=== PATIENT | female | born 1950 | race Caucasian/White ===

== ENCOUNTER 2016-12-06 11:30 | Emergency (ER) | payer MEDICAID ==
[2016-12-06 11:45] LABS: % IMMATURE GRANULYOCYTES 0.4 % (0.0-1.1); ABSOLUTE IMMATURE GRANULOCYTES 0.05 10^3/uL (0.00-0.10); ADD DIFF? NO; ADD MORPH? NO; ADD SCAN? NO; ATYPICAL LYMPHOCYTE FLAG 0 (0-99); FRAGMENT RBC FLAG 0 (0-99); HEMATOCRIT 48.1 % (38.0-47.0); HEMOGLOBIN 16.2 g/dL (12.6-16.3); LEFT SHIFT FLG 0 (0-99); LIPEMIA HEMOLYSIS FLAG 80 (0-99); MEAN CELL HEMOGLOBIN 31.1 pg (27.9-34.1); MEAN CELL HEMOGLOBIN CONCENTR. 33.7 g/dL (32.4-36.7); MEAN CELL VOLUME 92.3 fL (81.5-99.8); MEAN PLATELET VOLUME 9.6 fL (8.7-11.7); PLATELET CLUMPS FLAG 10 (0-99); PLATELET COUNT 233 10^3/uL (150-400); RED BLOOD CELL COUNT 5.21 10^6/uL (4.18-5.33)
[2016-12-06 12:00] LABS: ANION GAP 14 mEq/L (8-16); CALCIUM 9.4 mg/dL (8.5-10.4); CARBON DIOXIDE 22 mEq/l (22-31); CHLORIDE 107 mEq/L (97-110); CREATININE 0.7 mg/dL (0.6-1.0); GLOMERULAR FILTRATION RATE > 60; GLUCOSE 105 mg/dL (70-100); POTASSIUM 4.4 mEq/L (3.5-5.2); SODIUM 143 mEq/L (134-144)
--- NOTE | 2016-12-06 12:03 | CPEKG ---
Heart Rate: 49 RR Interval: 1224 P-R Interval: 168 QRSD Interval: 108 QT Interval: 476 QTC Interval: 430 P [place]: 52 QRS [place]: -6 T Wave [place]: 15 EKG Severity - BORDERLINE ECG - EKG Impression: SINUS BRADYCARDIA EKG Impression: BORDERLINE T WAVE ABNORMALITIES Electronically Signed By: Ferny Jameson 06-Dec-2016 12:11:42
--- NOTE | 2016-12-06 12:05 | EDPHY ---
H & P Stated Complaint: sudden onset mid abdominal pain Time Seen by Provider: 12/06/16 11:57 HPI/ROS: CHIEF COMPLAINT: Sudden onset epigastric pain HISTORY OF PRESENT ILLNESS: The patient presents to the ED after the development of severe epigastric pain 2 hours prior to arrival. The patient reported associated nausea but no vomiting. She denies prior history of the symptoms. The patient contacted paramedics who brought her to the emergency department. She did receive IV pain medications in route. The patient states that her pain is currently improving however not resolved. She denies prior history of the symptoms. The patient denies prior history of abdominal surgery. She denies alcohol use. The patient does have a history of chronic back pain from rheumatoid arthritis which she takes daily narcotics for. She is not had a history of abdominal pain in the past. The patient currently rates her discomfort as a 4/10. REVIEW OF SYSTEMS: A comprehensive 10 point review of systems is otherwise negative aside from elements mentioned in the history of present illness. Source: Patient, Family - Personal History Current Tetanus/Diphtheria Vaccine: Yes Current Tetanus Diphtheria and Acellular Pertussis (TDAP): Yes - Medical/Surgical History Hx Asthma: No Hx Chronic Respiratory Disease: Yes Hx Diabetes: No Hx Cardiac Disease: No Hx Renal Disease: No Hx Cirrhosis: No Hx Alcoholism: No Hx HIV/AIDS: No Hx Splenectomy or Spleen Trauma: No Other PMH: COPD, back pain, depression, GERD - Social History Smoking Status: Current every day smoker - Physical Exam Exam: General Appearance: Alert, no acute distress, obese female Eyes: Pupils equal and round no pallor or injection ENT, Mouth: Mucous membranes moist Respiratory: There are no retractions, lungs are clear to auscultation Cardiovascular: Regular rate and rhythm Gastrointestinal: Tenderness to palpation in the epigastric area Neurological: A&O, normal motor function, normal sensory exam, normal cranial nerves Skin: Warm and dry, no rashes Musculoskeletal: Neck is supple nontender Extremities: symmetrical, full range of motion Psychiatric: Patient is oriented X 3, there is no agitation Constitutional: Initial Vital Signs Temperature (C) 36.7 C 12/06/16 11:42 Heart Rate 60 12/06/16 11:42 Respiratory Rate 17 12/06/16 11:42 Blood Pressure 98/62 L 12/06/16 11:42 O2 Sat (%) 93 12/06/16 11:42 O2 Delivery Mode Nasal Cannula O2 (L/minute) 4 Allergies/Adverse Reactions: No Known Allergies Allergy (Unverified 12/06/16 11:39) Home Medications: Medication Instructions Recorded ARIPiprazole 12/06/16 Aspirin 12/06/16 Baclofen 12/06/16 Benadryl 12/06/16 Docusate Sodium 12/06/16 Gabapentin 12/06/16 Ibuprofen 12/06/16 Levothyroxine 12/06/16 Lidocaine 5% 12/06/16 Prednisone 12/06/16 Sertraline HCl 12/06/16 buPROPion 12/06/16 morphINE IR 12/06/16 traMADol 12/06/16 traZODone 12/06/16 Medical Decision Making - Diagnostics EKG Interpretation: EKG: Complete interpretation has been separately recorded in the [facility] archive. Summary impression: Sinus rhythm, nonspecific ST T wave changes noted Imaging Results: Imaging Impressions Abdomen CT 12/06/16 12:52 Impression: 1. Constipation. 2. No CT evidence of appendicitis, abscess or bowel obstruction. 3. Severe degenerative lumbar spine at L3-L4 and L4-L5 with degenerative anterolisthesis and bilateral facet arthropathy, resulting in severe central canal stenosis at both levels, worse at L4-L5. 4. Sigmoid diverticulosis without diverticulitis. 5. Atherosclerotic aorta without aneurysm. Findings and recommendations discussed with Emergency Department physician, Dr. Ferny Jameson at 1339 hours on December 06, 2016. Final report concurs with initial preliminary interpretation. ED Course/Re-evaluation: The patient presents to the ED for evaluation of acute epigastric pain. The patient had fairly severe pain which began 2 hours prior to arrival. The patient's pain had started to guero while in the emergency department. My initial examination did demonstrate mild epigastric tenderness. The patient had an IV established. She received 2 L normal saline. She was taken for a stat CT scan of the abdomen pelvis after a normal creatinine was verified. CT scan of the abdomen pelvis demonstrates no evidence of a perforation, obstruction or obvious intra-abdominal abnormality. The patient's liver function tests are within normal limits. The patient's urinalysis demonstrates no evidence of infection. The patient was re-evaluated at 2:15 p.m.. She continues to improve and has no complaints of acute pain at this point time. I do believe that the etiology for symptoms likely are constipation which is demonstrated on her CT scan. The patient is comfortable doing [id number] laxatives. She will return to the ED for markedly worsening symptoms or other concerns. Differential Diagnosis: Differential diagnosis considered includes perforation, obstruction, pancreatitis, cholecystitis, constipation, gastroenteritis - Data Points Laboratory Results: Laboratory Results 12/06/16 11:30 12/06/16 11:30 12/06/16 12/06/16 12/06/16 Unknown 13:30 11:35 WBC RBC Hgb POC Hgb 17.3 gm/dL H gm/dL (12.6-16.3) Hct POC Hct 51 % H % (38-47) MCV MCH MCHC RDW Plt Count MPV Neut % (Auto) Lymph % (Auto) [place] % (Auto) Eos % (Auto) Baso % (Auto) Nucleat RBC Rel Count Absolute Neuts (auto) Absolute Lymphs (auto) Absolute Monos (auto) Absolute Eos (auto) Absolute Basos (auto) Absolute Nucleated RBC Immature Gran % Immature Gran # POC Sodium 143 mEq/L mEq/L (134-144) Sodium POC Potassium 4.5 mEq/L mEq/L (3.3-5.0) Potassium POC Chloride 102 mEq/L mEq/L (97-110) Chloride Carbon Dioxide Anion Gap POC BUN 16 mg/dL mg/dL (7-23) BUN Creatinine POC Creatinine 0.7 mg/dL mg/dL (0.6-1.0) Estimated GFR Glucose POC Glucose 110 mg/dL H mg/dL (70-100) Calcium Total Bilirubin 0.7 mg/dL mg/dL (0.1-1.4) Conjugated Bilirubin 0.6 mg/dL H mg/dL (0.0-0.5) Unconjugated Bilirubin 0.1 mg/dL mg/dL (0.0-1.1) AST 41 IU/L IU/L (14-46) ALT 35 IU/L IU/L (9-52) Alkaline Phosphatase 149 IU/L H IU/L (38-126) Total Protein 7.0 g/dL g/dL (6.3-8.2) Albumin 4.0 g/dL g/dL (3.5-5.0) Lipase 80.0 IU/L IU/L (23-300) Urine Color YELLOW Urine Appearance CLEAR Urine pH 5.0 (5.0-7.5) Ur Specific [place] 1.009 (1.002-1.030) Urine Protein NEGATIVE (NEGATIVE) Urine Ketones NEGATIVE (NEGATIVE) Urine Blood NEGATIVE (NEGATIVE) Urine Nitrate NEGATIVE (NEGATIVE) Urine Bilirubin NEGATIVE (NEGATIVE) Urine Urobilinogen NEGATIVE EU EU (0.2-1.0) Ur Leukocyte Esterase NEGATIVE (NEGATIVE) Urine RBC 1-3 /hpf /hpf (0-3) Urine WBC 1-3 /hpf /hpf (0-3) Ur Epithelial Cells TRACE /lpf /lpf (NONE-1+) Urine Bacteria TRACE /hpf H /hpf (NONE SEEN) Urine Glucose NEGATIVE (NEGATIVE) 12/06/16 12/06/16 11:30 11:30 WBC 12.67 10^3/uL H 10^3/uL (3.80-9.50) RBC 5.21 10^6/uL 10^6/uL (4.18-5.33) Hgb 16.2 g/dL g/dL (12.6-16.3) POC Hgb Hct 48.1 % H % (38.0-47.0) POC Hct MCV 92.3 fL fL (81.5-99.8) MCH 31.1 pg pg (27.9-34.1) MCHC 33.7 g/dL g/dL (32.4-36.7) RDW 14.0 % % (11.5-15.2) Plt Count 233 10^3/uL 10^3/uL (150-400) MPV 9.6 fL fL (8.7-11.7) Neut % (Auto) 79.5 % H % (39.3-74.2) Lymph % (Auto) 12.8 % L % (15.0-45.0) [place] % (Auto) 5.1 % % (4.5-13.0) Eos % (Auto) 1.6 % % (0.6-7.6) Baso % (Auto) 0.6 % % (0.3-1.7) Nucleat RBC Rel Count 0.0 % % (0.0-0.2) Absolute Neuts (auto) 10.08 10^3/uL H 10^3/uL (1.70-6.50) Absolute Lymphs (auto) 1.62 10^3/uL 10^3/uL (1.00-3.00) Absolute Monos (auto) 0.65 10^3/uL 10^3/uL (0.30-0.80) Absolute Eos (auto) 0.20 10^3/uL 10^3/uL (0.03-0.40) Absolute Basos (auto) 0.07 10^3/uL 10^3/uL (0.02-0.10) Absolute Nucleated RBC 0.00 10^3/uL 10^3/uL (0-0.01) Immature Gran % 0.4 % % (0.0-1.1) Immature Gran # 0.05 10^3/uL 10^3/uL (0.00-0.10) POC Sodium Sodium 143 mEq/L mEq/L (134-144) POC Potassium Potassium 4.4 mEq/L mEq/L (3.5-5.2) POC Chloride Chloride 107 mEq/L mEq/L (97-110) Carbon Dioxide 22 mEq/l mEq/l (22-31) Anion Gap 14 mEq/L mEq/L (8-16) POC BUN BUN 14 mg/dL mg/dL (7-23) Creatinine 0.7 mg/dL mg/dL (0.6-1.0) POC Creatinine Estimated GFR > 60 Glucose 105 mg/dL H mg/dL (70-100) POC Glucose Calcium 9.4 mg/dL mg/dL (8.5-10.4) Total Bilirubin Conjugated Bilirubin Unconjugated Bilirubin AST ALT Alkaline Phosphatase Total Protein Albumin Lipase Urine Color Urine Appearance Urine pH Ur Specific [place] Urine Protein Urine Ketones Urine Blood Urine Nitrate Urine Bilirubin Urine Urobilinogen Ur Leukocyte Esterase Urine RBC Urine WBC Ur Epithelial Cells Urine Bacteria Urine Glucose Point of Care Test Results: 12/06/16 11:35 POC Sodium 143 POC Potassium 4.5 POC Chloride 102 POC BUN 16 POC Creatinine 0.7 POC Glucose 110 H Departure - Departure Disposition: Home, Routine, Self-Care Clinical Impression: Constipation, Epigastric abdominal pain Condition: Good Instructions: Abdominal Pain (ED), Constipation (ED) Additional Instructions: 1. Sometimes we are unable to diagnose an obvious cause of abdominal pain in the Emergency Department. Based upon our evaluation today, I believe your pain was secondary to transient constipation. Because more serious conditions can be difficult to diagnose early in the course of their presentation, we ask that you return to the Emergency Department in 8-12 hours for a recheck if you are still having pain. This is necessary to exclude the development of a more serious condition such as appendicitis or other intra-abdominal emergency. In the event your pain markedly increases before that time or you develop intractable vomiting or fever return to the Emergency Department immediately. 2. Please use milk of magnesia or [id number] laxatives for further management of any ongoing constipation.
[2016-12-06 12:44] LABS: BILIRUBIN,TOTAL 0.7 mg/dL (0.1-1.4); BILIRUBIN-CONJUGATED 0.6 mg/dL (0.0-0.5); BILIRUBIN-UNCONJUGATED 0.1 mg/dL (0.0-1.1)
[2016-12-06] MEDS ORDERED: IOPAMIDOL (ISOVUE-300) 100 ML BTL ONE (13:01)
[2016-12-06 13:46] LABS: COLOR YELLOW; LEUKOCYTE ESTERASE,URINE NEGATIVE (NEGATIVE); NITRITE,URINE NEGATIVE (NEGATIVE)
[2016-12-06 14:01] LABS: BACTERIA TRACE /hpf (NONE SEEN)
[2016-12-06 14:32] VITALS: BP 111/64; PULSE 59; RESP 16; TEMP 98.2; O2SAT 95
== END 2016-12-06 14:31 | disposition home or self-care (01) ==
LOC: EDUNIT#
DX: K59.00 Constipation, unspecified (principal); J44.9 Chronic obstructive pulmonary disease, unspecified; F17.200 Nicotine dependence, unspecified, uncomplicated; Z79.82 Long term (current) use of aspirin
CPT/HCPCS: 82947-QW; Q9967

== ENCOUNTER → 2018-02-06 | Outpatient (CLI) | payer OTHER, MEDICAID | LOC: BHFA 09:00 | PROVIDERS: ATTEND Internal Medicine Cardiovascular Disease | DX: Z01.810 Encounter for preprocedural cardiovascular examination (principal); R06.00 Dyspnea, unspecified; Z72.0 Tobacco use; J44.9 Chronic obstructive pulmonary disease, unspecified ==

== ENCOUNTER → 2018-03-07 | Outpatient (CLI) | payer OTHER, MEDICAID | LOC: BHFA 08:30 | PROVIDERS: ATTEND Internal Medicine Cardiovascular Disease | DX: Z01.810 Encounter for preprocedural cardiovascular examination (principal) | CPT/HCPCS: 78452; 93017; 93306; A9500 ==

== ENCOUNTER 2018-06-06 09:56 | Inpatient (IN) | payer OTHER, MEDICAID | END 2018-06-09 14:15 | LOC: F3N 09:56 → F2N 18:04 → F3N 06-07 17:36 → F2N 20:15 ==

== ENCOUNTER 2018-07-16 04:11 | Emergency (ER) | payer OTHER ==
--- NOTE | 2018-07-16 04:19 | EDPHY ---
H & P Stated Complaint: lower pack pain post fall T-2 Source: Patient, EMS, Old records Exam Limitations: No limitations - Personal History Current Tetanus/Diphtheria Vaccine: Yes Current Tetanus Diphtheria and Acellular Pertussis (TDAP): Yes - Medical/Surgical History Hx Asthma: No Hx Chronic Respiratory Disease: Yes Hx Diabetes: No Hx Cardiac Disease: No Hx Renal Disease: No Hx Cirrhosis: No Hx Alcoholism: No Hx HIV/AIDS: No Hx Splenectomy or Spleen Trauma: No Other PMH: COPD, back pain, depression, GERD - Social History Smoking Status: Former smoker Time Seen by Provider: 07/16/18 04:16 HPI/ROS: HPI The patient presents with low back pain which is achy, moderate in severity, worse with movement which has been present for the last 2 days after she slid out of bed and landed on her back. She has been able to walk over the last 2 days, however since about 5:00 p.m. Yesterday she has had worsening pain. She is status post lumbar fusion at L3 through 4, L4 through [address] Wilde on June 06. She denies any new weakness, numbness or tingling, bowel or bladder incontinence. She is brought in by ambulance and does say she had very mild urinary incontinence with the bumps in the road.. REVIEW OF SYSTEMS 10 systems were reviewed and negative with the exception of the elements mentioned in the history of present illness. PMHx: Lumbar stenosis status post lumbar fusion as detailed above, COPD on home oxygen, some concern raised by family members of pain medication seeking behavior. Soc Hx: Housed PHYSICAL General Appearance: Alert, no distress Eyes: Pupils equal and round no pallor or injection ENT, Mouth: Mucous membranes moist Respiratory: There are no retractions, lungs are clear to auscultation Cardiovascular: Regular rate and rhythm Gastrointestinal: Abdomen is soft and non-tender, no masses, bowel sounds normal Back: There is a lumbar surgical scar with no surrounding erythema, warmth, edema, distal to this at approximately L5-S1 there is tenderness at the midline Neurological: A&O, 5/5 strength in lower extremities, sensation is intact to light touch throughout legs Skin: Warm and dry, no rashes Musculoskeletal: Neck is supple non tender Extremities: symmetrical, full range of motion Psychiatric: Patient is oriented X 3, there is no agitation (Riguzzi,Kaylene) Constitutional: Initial Vital Signs Temperature (C) 36.7 C 07/16/18 04:15 Heart Rate 106 H 07/16/18 04:15 Respiratory Rate 18 07/16/18 04:15 Blood Pressure 132/103 H 07/16/18 04:15 O2 Sat (%) 78 L 07/16/18 04:15 O2 Delivery Mode Nasal Cannula O2 (L/minute) 3 Allergies/Adverse Reactions: No Known Allergies Allergy (Unverified 07/16/18 04:15) Home Medications: Medication Instructions Recorded ARIPiprazole [Abilify 5 mg (*)] 5 mg PO DAILY 06/06/18 Albuterol [Proventil Inhaler HFA 1 - 2 puffs IH Q4H PRN 06/06/18 (*)] Baclofen [Baclofen 10 mg (*)] 10 - 20 mg PO Q6HRS PRN 06/06/18 Bupropion HCl [Wellbutrin Xl] 300 mg PO DAILY 06/06/18 Ergocalciferol [Vitamin D2 (*)] 50,000 unit PO Q7D 06/06/18 Fluticasone Hfa 110 Mcg [Flovent 2 puffs IH BID 06/06/18 110 MCG Hfa MDI (*)] Fluticasone Propionate [Flonase 2 sprays EACHNARE DAILY 06/06/18 Allergy Relief] Furosemide [Lasix 20 MG (*)] 20 - 60 mg PO DAILY 06/06/18 Gabapentin [Neurontin 300 MG (*)] 300 mg PO TID 06/06/18 Levothyroxine [Synthroid 50 mcg 50 mcg PO DAILY06 06/06/18 (*)] Lidocaine 5% [Lidoderm 5% Patch] 1 - 3 ea TD DAILY PRN 06/06/18 Nortriptyline HCl [Pamelor 10 mg 10 - 30 mg PO HS 06/06/18 (*)] Nystatin/Triamcin [Mycolog II 1 lorrie TP BID 06/06/18 Cream] Potassium Chloride [Klor-Con 10] 10 meq PO DAILY 06/06/18 Sertraline HCl [Zoloft 100mg (*)] 250 mg PO DAILY 06/06/18 buPROPion XL [Wellbutrin 150mg XL] 150 mg PO DAILY 06/06/18 busPIRone [Buspar (*)] 15 mg PO BID 06/06/18 clonazePAM [Klonopin (*)] 0.5 mg PO DAILY PRN 06/06/18 hydrOXYzine HCL [hydrOXYzine HCL 25 mg PO Q6H PRN 06/06/18 (RX)] morphINE SR [MS Contin/Oramorph SR 30 mg PO BID 06/06/18 30 mg (*)] traMADol [Ultram 50 mg (*)] 50 - 100 mg PO Q8H PRN 06/06/18 traZODone [traZODONE 100MG (*)] 100 - 200 mg PO HS 06/06/18 morphINE SR [Ms Contin/Oramorph 15 15 mg PO DAILY@1200 06/07/18 mg (*)] Acetaminophen [Tylenol ES 500 mg 1,000 mg PO Q8HRS tab 06/09/18 (*)] Enoxaparin [Lovenox 40 MG (*)] 40 mg SC BID syr 06/09/18 Ipratropium/Albuterol [Duoneb (*)] 3 ml IH Q6HRS PRN deyvial 06/09/18 Methocarbamol [Robaxin 750 mg (*)] 750 mg PO QID PRN tab 06/09/18 Ondansetron Odt [Zofran Odt 4 mg 4 - 8 mg PO Q6HRS PRN tab 06/09/18 (*)] Polyethylene Glycol 3350 [Miralax 17 gm PO DAILY PRN pkt 06/09/18 17 gm (*)] Sennosides/Docusate Sodium 1 - 2 tab PO BID tab 06/09/18 [Senokot-S] diphenhydrAMINE [Benadryl 25 MG 25 - 50 mg PO Q6HRS PRN #0 cap 06/09/18 (*)] guaiFENesin [Mucinex 600 MG (*)] 600 mg PO BID tab.er 06/09/18 morphINE SR [Ms Contin/Oramorph 15 15 mg PO DAILY@1200 tab 06/09/18 mg (*)] oxyCODONE IR [Oxycodone Ir (*)] 5 - 15 mg PO Q3HRS PRN tab 06/09/18 traZODone [traZODONE 100MG (*)] 100 mg PO HS PRN tab 06/09/18 Medical Decision Making - Diagnostics Imaging: Discussed imaging studies w/ charge attendant Radiologist - Diagnostics Imaging Results: CT lumbar spine without contrast demonstrates apparent fracture Ng which is acute of the upper aspect of L5 with avulsed or displaced fracture fragment left paracentral. Minimal fracturing at the inferior L5 level suspected, interpreted by direct Radiology. (Kaylene Serra) Differential Diagnosis: 68-year-old female who is about 1 month status post lumbar fusion at L3-L4, L4- L5 presents brought in by ambulance for low back pain after a fall 2 days ago. She is ambulatory but has had progressive pain over the last 12 hr. She does not have any neurologic deficits. She does not have any new incontinence. Plan for CT scan of her lumbar spine as she is tender over the midline. Differential diagnosis includes compression fracture, lumbar strain, less likely complication of her operation. In the emergency department, patient was given her usual outpatient pain medication. CT scan was obtained of her lumbar spine which did demonstrate acute fracture of L5. I consulted with the on-call neurosurgeon Dr. Joya. He was able to review the patient's images. Dr. Agee came to the emergency department to see the patient. We plan to discharge her. She will wear her back brace again. She has follow up shortly with her primary neurosurgeon. She is comfortable with this plan. (Kaylene Serra) Other Provider: I was involved with this patient's care peripherally. Patient had been discharged by Dr. Roa. However, when the patient's daughter arrived, the daughter expressed frustration regarding her ability to care for her mother at home. Both the patient and the daughter do understand that the patient is safe to be discharged and to use oral pain meds. In fact the patient had been up and ambulatory in the emergency department using her walker with no difficulty. I did ask case management to assist with this patient's care. Please see the case management notes. We did offer to help assist the patient with readmission to a rehab facility, however, patient and her daughter declined after further consideration. Patient was ultimately discharged to home with her daughter with increased home support. (Kenya Busch) - Data Points Medications Given: Discontinued Medications Morphine Sulfate (Ms Contin/Oramorph Sr) 30 mg PO ONCE ONE Stop: 07/16/18 06:39 Last Admin: 07/16/18 06:47 Dose: 30 mg Departure - Departure Disposition: Home, Routine, Self-Care Clinical Impression: L5 vertebral fracture Qualifiers: Encounter type: initial encounter Fracture type: closed Fracture morphology: other fracture Qualified Code(s): S32.058A - Other fracture of fifth lumbar vertebra, initial encounter for closed fracture Condition: Good Instructions: Thoracolumbar Fracture (ED) Additional Instructions: Please follow-up with your neurosurgeon as directed. Please wear your back brace. As discussed with the shelter case manager in the ED, please increase PT in the home, and increase the home health services. Consider adding a behaviour health specialist and additional medical equipment. Referrals: Kandi Wilde DO [Doctor of Osteopathy] - As per Instructions
[2018-07-16] MEDS ORDERED: morphINE SR 30 MG TAB PO ONE (06:38)
--- NOTE | 2018-07-16 10:31 | GCON ---
[f rep st] CONSULTATION ER CONSULTATION NOTE DATE OF CONSULTATION: 07/16/2018 REASON FOR CONSULTATION: Low back pain with lumbar spine fracture status post ground level fall. HISTORY OF PRESENT ILLNESS: The patient is a patient of Dr. Wilde who is my partner. She states t hat she underwent an L3 through L5 fusion by Dr. Chani marte on June 06. The patient was doing fairly well at home; however, had a slip and fall out of her bed approximately 2 days ago. She stat es she landed on her side and her back. She has had worsening low back pain since that time. No new tingling, numbness, pain, or weakness in the upper or lower extremities. She has been utilizing her brace and bone stimulator as requested with some improvement in her symptoms. The patient's pain go t to the point of being so severe that she [facility] and management. Patient denies any bowel or bladder incontinen ce and no loss of consciousness. REVIEW OF SYSTEMS: Complete 10-point review of systems from the patient intake form reviewed by laurie castro significant only for those noted above in the HPI. PAST MEDICAL HISTORY: 1. History of lumbar stenosis status post L3 through L5 fusion 06/06/[address] Wilde. 2. COPD, for which she is on home oxygen. 3. Chronic pain. 4. Hypothyroidism. 5. Depression. 6. Asthma. 7. Gastroesophageal reflux disease. 8. Back pain. PAST SURGICAL HISTORY: History of L3 through L5 lumbar fusion as noted above. SOCIAL HISTORY: The patient lives with her daughter and is a former smoker. ALLERGIES: No known drug allergies. MEDICATIONS: 1. Abilify 5 mg p.o. daily. 2. Albuterol inhaler 1-2 puffs inhaled q.4 hours p.r.n. 3. Baclofen 10-20 mg p.o. q.6 hours p.r.n. 4. Wellbutrin 300 mg p.o. daily. 5. Vitamin D2 at 50,000 units p.o. q.7 days. 6. Flovent 110 mcg inhaler 2 puffs inhaled b.i.d. 7. Flonase 2 sprays each naris daily. 8. Lasix 20 to 60 mg p.o. daily. 9. Gabapentin 300 mg p.o. t.i.d. 10. Synthroid 50 mcg p.o. daily. 11. Lidocaine topical patches 1-3 topical and transdermal daily p.r.n. 12. Nortriptyline 30 mg p.o. q.h.s. 13. Nystatin topical cream b.i.d. 14. Potassium chloride 10 mEq p.o. daily. 15. Zoloft 250 mg p.o. daily. 16. Wellbutrin 150 mg p.o. daily. 17. BuSpar 15 mg p.o. b.i.d. 18. Clonazepam 0.5 mg p.o. daily p.r.n. 19. Hydroxyzine 25 mg p.o. q.6 hours p.r.n. 20. MS Contin 30 mg p.o. twice daily. 21. Tramadol 50 to 100 mg p.o. q.8 hours p.r.n. 22. Trazodone 100 to 200 mg p.o. q.h.s. 23. Morphine 50 mg p.o. every noon. 24. Tylenol 1000 mg p.o. q.8 hours. 25. Lovenox 40 mg subcu b.i.d. 26. Albuterol inhaler q.6 hours p.r.n. 27. Robaxin 750 mg p.o. q.i.d. p.r.n. 28. Zofran 4 to 8 mg p.o. q.6 hours p.r.n. 29. MiraLAX 17 mg p.o. daily p.r.n. 30. Docusate senna 1-2 tabs p.o. b.i.d. 31. Benadryl 25 to 50 mg p.o. q.6 hours p.r.n. 32. Mucinex 600 mg p.o. b.i.d. 33. MS Contin 15 mg p.o. daily. 34. Oxycodone 15 mg p.o. q.3 hours p.r.n. 35. Trazodone 100 mg p.o. q.h.s. p.r.n. FAMILY HISTORY: Noncontributory. PHYSICAL EXAMINATION: VITAL SIGNS: Blood pressure is 102/92, heart rate is 94, respiratory rate 16, saturating 95% on 5 L nasal cannula, temperature is 36.6. GENERAL: The patient is lying in the gur danna in no acute distress. She is quite pleasant and cooperative with examination. Affect appears ap propriate. HEENT: Head is atraumatic, normocephalic. Pupils are equal, round, and reactive to ligh t bilaterally. Oropharynx is moist. NEUROLOGIC: Cranial nerves 2-12 are intact. Extraocular movem ents are intact. Pupils equal, round, and reactive to light bilaterally. Tongue protrudes in the mi dline. Uvula and palate elevate symmetrically. She has intact sensation to light touch on her face bilaterally and hearing is intact to light finger scratch bilaterally. Shoulder shrug is symmetric. MOTOR: She has 5/5 strength in bilateral peeled potato inspector strength biceps, triceps, deltoids, bilateral hip fle xion, knee flexion and extension, plantar and dorsiflexion, and extensor hallucis longus. SENSORY: Intact sensation to light touch throughout all major dermatomes of the bilateral upper and lower extr emities throughout. REFLEXES: She has 1+ reflexes at the bilateral brachioradialis and patellae wit h no Sales's and no Babinski. OTHER: She has some midline lumbar tenderness noted near the lumbos acral junction but no palpable step-offs. MEDICAL DECISION MAKING: Patient underwent a lumbar CT without contrast completed at [facility] and reviewed by myself on the PACS system. There is a small avulsed fracture, left parac entral superior endplate of L5. There is minimal fracture of the inferior L5 level as well. No evid ence of any hardware failure. There is hardware present from L3 through L5 with an interbody cage at the L3-4 level. ASSESSMENT AND PLAN: The patient is a very pleasant woman who presents 2 months after an L3 through L5 lumbar fusion 06/06/[address] Wilde, who has developed worsening low back pain without any n eurological deficit or radiculopathy after a slide to the ground and fall approximately 2 days ago. The patient has focal back pain, and I explained to her that the findings on the CT scan consistent w ith a likely acute L5 fracture around her hardware. At this point, I explained to the patient that s he could be admitted for pain control and typical treatments for this include either close continued monitoring with bracing and pain medications versus kyphoplasty and/or revision of her hardware. At this point, the patient does feel like she is able to control her pain, knowing what the diagnosis is , and would prefer to be discharged home from the emergency department. She has a followup with Dr. Wilde in 2 weeks. I have encouraged the patient to wear her lumbar corset, as well as the bone sti mulator, in the interim. She will continue with her pain medications as directed before admission in the emergency department. Red flag symptoms were discussed with the patient, as well as Dr. Serra in the emergency department, who were in agreement. They will ensure that her social situation at [facility] is conducive for her being discharged back to home with her daughter. The patient expressed an u nderstanding. Please note the patient was seen in the emergency department by myself at 7:05 am on 07/16/2018. /[id number]/MODL
[2018-07-16 10:54] VITALS: BP 128/81
--- NOTE | 2018-07-16 18:29 | ASMTCMCOM ---
CM Note CM Note Notes: Pt presented to the ED via EMS for back pain after having a fall out of bed 2 days ago. Pt has been having increased pain and decreased ability to ambulate. Pt had an L3-L5 fusion on 06/06/[address] Chani degroot/[facility]. Pt was discharged to [facility] where she stayed for 20 days.Pt then returned to her home in [place], where she lives w/her daughter, Karen. Pt is set up w/[facility] and was supposed to be discharged from their HC services this upcoming week. Today pt received an MRI and was diagnosed with small avulsed fracture at L5 and a minimal fracture of inferior of L5 as well. Neurosurgery consulted pt in the ED; see Dr Agee's consultation report for additional info. CM requested to speak to pt and Karen re: options of returning to a SNF vs returning home w/increased HC assistance. Spoke w/pt and Karen (and Karen's partner) extensively re:pt returning home safely vs returning to a SNF (but not [facility] because as per Karen, they will not accept patient back). Pt doesn't have a secondary/supplemental insurance so pt would have to pay her co-pay of ~$170 per day, which the pt and Karen cannot afford. Ultimately it was decided that pt would return home with [facility] to maintain/increase [facility] RN/PT/OT services for another month. Pt and daughter appear to have a complicated relationship but also are very caring toward each other. Karen was intermittently emotional throughout the ED visit and discussions and she overall presents as being very strained due to being the primary caregiver. We discussed the pt being visited by a manager social or behavioral health specialist through either [facility] or other options ([facility], etc?). Pt is open to this and verbalizes understanding that she needs emotional and mental health support during this physically challenging time. This CM called Zoya w/[facility] and left a voicemail to ensure overall concerns and information were relayed. We also discussed Karen seeking out additional support and counseling; Karen requested referrals/resources. This CM provided various mental health resources. CM also provided pt and Karen various non-skilled HC resources, [employer] and [employer] resource lists, [employer] alert info., and various other senior resources. Pt discharged home w/Karen. BHANU available for further assistance if needed. Date Signed: 07/16/2018 06:28 PM Electronically Signed By:Brianna Chawla RN
--- NOTE | 2018-07-17 16:43 | ASMTCMCOM ---
CM Note CM Note Notes: Followed up and spoke with Zoya ([phone]) w/[facility]. Zoya states that [facility] was able to get an extension for RN/PT services for another 3 weeks via pt's neurosurgeon, Dr Wilde. Zoya states PT visited pt today and an RN is planning to visit tomorrow. BHANU requested that a SW visit with the pt and assess for additional SW HC services, outpatient or in-home ([facility]) mental health services, emotional support, etc. Humberto states she will have their medical SW visit the pt as soon as possible. We also discussed that the pt would benefit from an electronic pill dispensing machine/box at home and Zoya states the RN is researching and looking into it before their visit tomorrow. We also discussed that the pt may benefit from a bedside step stool that has support handles on each side and Zoya states she will check in w/the pt and her daughter, Karen, to see if they need additional help finding one. Zoya also states that if the pt ends up needing more than 3 weeks of additional HC, then [facility] will reach out to the pt's PCP Dr Corinne Pringle and continue coordination of care w/her. CM available for further assistance if needed. Date Signed: 07/17/2018 04:42 PM Electronically Signed By:Brianna Chawla RN
--- NOTE | 2018-07-17 16:45 | ASDISCHSUM ---
Discharge Information Plan Status:Home with Home Health Medically Cleared to Leave: Discharge Date:07/16/2018 11:38 AM D/C Disposition:Home Health Service ADT D/C Disposition:Home, Routine, Self-Care Projected Discharge Date:07/16/2018 11:00 AM Transportation at D/C:Family Discharge Delay Reason: Follow-Up Date:07/16/2018 11:00 AM Discharge Slot: Final Diagnosis: Placement Information Referral Type:*Detention/SNF Referral ID:[id number] Provider Name: Address 1: Phone Number: Address 2: Fax Number: City: [place]: State: Patient Contact Information Contact Name:FAVIAN Relationship:Daughter Address: Work Phone: City: [facility] Phone: [facility] Code: Email: Financial Information Financial Class:Medicare Primary Plan Desc:MEDICARE OUTPATIENT Primary Plan Number:[id number] Secondary Plan Desc: Secondary Plan Number: Assessment Information [facility] CM Progress Note CM Note CM Note Notes: Pt presented to the ED via EMS for back pain after having a fall out of bed 2 days ago. Pt has been having increased pain and decreased ability to ambulate. Pt had an L3-L5 fusion on 06/06/[address] Chani degroot/[facility]. [facility] she stayed for 20 days.Pt then returned to her home in [place] [facility], where she lives w/her daughter, Karen. Pt is set up w/[facility] and was supposed to be discharged from their HC services this upcoming week. Today pt received an MRI and was diagnosed with small avulsed fracture at L5 and a minimal fracture of inferior of L5 as well. Neurosurgery consulted pt in the ED; see Dr Agee's consultation report for additional info. CM requested to speak to pt and Karen re: options of returning to a SNF vs returning home w/increased HC assistance. Spoke w/pt and Karen (and Karen's partner) extensively re:pt returning home safely vs returning to a SNF (but not [facility] because as per Karen, they will not accept patient back). Pt doesn't have a secondary/supplemental insurance so pt would have to pay her co-pay of ~$170 per day, which the pt and Karen cannot afford. Ultimately it was decided that pt would return home with [facility] to maintain/increase [facility] RN/PT/OT services for another month. Pt and daughter appear to have a complicated relationship but also are very caring toward each other. Karen was intermittently emotional throughout the ED visit and discussions and she overall presents as being very strained due to being the primary caregiver. We discussed the pt being visited by a social media senior associate or behavioral health specialist through either [facility] or other options ([facility], etc?). Pt is open to this and verbalizes understanding that she needs emotional and mental health support during this physically challenging time. This CM called Zoya w/[facility] and left a voicemail to ensure overall concerns and information were relayed. We also discussed Karen seeking out additional support and counseling; Karen requested referrals/resources. This CM provided various mental health resources. also provided pt and Karen various non-skilled HC resources, [employer] and [employer] resource lists, [employer] alert info., and various other senior resources. Pt discharged home w/Karen. CM available for further assistance if needed. Date Signed: 07/16/2018 06:28 PM Electronically Signed By:Brinana Chawla RN [facility] Progress Note CM Note CM Note Notes: Followed up and spoke with Zoya ([phone]) w/[facility]. Zoya states that [facility] was able to get an extension for RN/PT services for another 3 weeks via pt's neurosurgeon, Dr Wilde. Zoya states PT visited pt today and an RN is planning to visit tomorrow. CM requested that a visit with the pt and assess for additional HC services, outpatient or in-home ([facility] program) mental health services, emotional support, etc. Humberto states she will have their medical SW visit the pt as soon as possible. We also discussed that the pt would benefit from an electronic pill dispensing machine/box at home and Zoya states the RN is researching and looking into it before their visit tomorrow. We also discussed that the pt may benefit from a bedside step stool that has support handles on each side and Zoya states she will check in w/the pt and her daughter, Karen, to see if they need additional help finding one. Zoya also states that if the pt ends up needing more than 3 weeks of additional HC, then [facility] will reach out to the pt's PCP Dr Corinne Pringle and continue coordination of care w/her. CM available for further assistance if needed. Date Signed: 07/17/2018 04:42 PM Electronically Signed By:Brianna Chawla RN Intervention Information
== END 2018-07-16 11:38 | disposition home or self-care (01) ==
LOC: EDUNIT#
DX: S32.058A Other fracture of fifth lumbar vertebra, initial encounter for closed fracture (principal); W06.XXXA Fall from bed, initial encounter; Y92.003 Bedroom of unspecified non-institutional (private) residence as the place of occurrence of the external cause; Z98.1 Arthrodesis status

== ENCOUNTER 2018-08-04 10:08 | Inpatient (IN) | payer OTHER ==
[2018-08-04] MEDS ORDERED: LORazepam 2 MG/ML INJ IVP ONE (10:37)
[2018-08-04] MEDS ORDERED: HYDROmorphONE/DILAUDID 1 MG/ML INJ IVP ONE (10:37)
[2018-08-04] MEDS ORDERED: ONDANSETRON 4 MG/2 ML VIAL IVP ONE (10:37)
--- NOTE | 2018-08-04 10:41 | EDPHY ---
H & P Stated Complaint: L leg "shooting" pains worse since yesterday--lumbar fusion - Medical/Surgical History Hx Asthma: No Hx Chronic Respiratory Disease: Yes Hx Diabetes: No Hx Cardiac Disease: No Hx Renal Disease: No Hx Cirrhosis: No Hx Alcoholism: No Hx HIV/AIDS: No Hx Splenectomy or Spleen Trauma: No Other PMH: COPD, lumbar fusion 06/09, depression, GERD - Social History Smoking Status: Former smoker Time Seen by Provider: 08/04/18 10:26 HPI/ROS: CHIEF COMPLAINT: Intractable back pain, new left lower extremity weakness HISTORY OF PRESENT ILLNESS: 68-year-old female history of lumbar fusion L3 for [address] Kandi Wilde 06/06/2018 arrives via private vehicle with her family who live in [place] complaining of new onset left lower extremity weakness for the past 24 hr and intractable low back pain. History of opiate dependence. Patient was seen the ER a few weeks ago after she fell and was found to have new fracture fragment L5 . Neurosurgery is consult that time and patient felt comfortable her ability to care for self at home. Home healthcare nurse has been seeing patient most recently yesterday and they recommend she go to the ER for intractable pain and more than likely hospital admission. The patient notes that she is unable to dorsiflex or plantar flex the left foot and this is a new finding in the past 24-48 hours. No acute trauma since last being seen the ER few weeks ago. No saddle anesthesia. No fever or chills. No incontinence. No cold or flu-like symptoms. PRIMARY CARE PROVIDER: REVIEW OF SYSTEMS: A ten point review of systems was performed and is negative with the exception of the items mentioned in the HPI PAST MEDICAL & SURGICAL HISTORY: lumbar fusion Dr. Kandi Wilde May 2018. SOCIAL HISTORY:Lives with her daughter in [place] PHYSICAL EXAM (Prior to examination, patient consented to physical exam, hands were washed and my usual and customary physical exam procedures followed) 1) GENERAL: Well-developed, well-nourished, alert and oriented. Appears uncomfortable 2) HEAD: Normocephalic, atraumatic 3) HEENT: Pupils equal, round, reactive to light bilaterally. Sclera anicteric. Nasopharynx, oropharynx, clear, no lesions. 4) NECK: Full range of motion, no meningeal signs. 5) LUNGS: Clear auscultation bilaterally, no wheezes, no rhonchi, no retractions. 6) HEART: Regular rate and rhythm, no murmur, no heave, no gallop. 7) ABDOMEN: No guarding, no rebound, no focal tenderness, negative McBurney's, negative Munoz's, negative Rovsing's, negative peritoneal sign, 8) MUSCULOSKELETAL: Moving all extremities, no focal areas of tenderness, no obvious trauma. No peripheral edema or discoloration. DP PT pulses present and brisk bilaterally. Negative Homans no palpable cord bilaterally. Normal coloration temperature bilaterally. 9) BACK:. No CVA tenderness, no midline vertebral tenderness, no fluctuance, no step-off, no obvious trauma, no visual or palpable abnormality. Patella, Achilles reflexes intact to bilateral strength 5/5 10) SKIN: No rash, no petechiae. 11) NEURO: Awake, alert, and oriented to person, place and time. Answers questions appropriately. Hyper reflexive left lower extremity patella and Achilles. Unclear whether patient is unable or unwilling to dorsiflex or plantar flex secondary to pain. DIFFERENTIAL DIAGNOSIS: In no particular order, including but not limited to, fracture, sprain/strain, cauda equina, spinal infectious etiology. (Ronn Casey) Constitutional: Initial Vital Signs Temperature (C) 36.5 C 08/04/18 10:10 Heart Rate 105 H 08/04/18 10:10 Respiratory Rate 22 H 08/04/18 10:10 Blood Pressure 106/90 H 08/04/18 10:10 O2 Sat (%) 94 08/04/18 10:10 O2 Delivery Mode Room Air O2 (L/minute) 4 Allergies/Adverse Reactions: No Known Allergies Allergy (Unverified 07/16/18 04:15) Home Medications: Medication Instructions Recorded ARIPiprazole [Abilify 5 mg (*)] 5 mg PO DAILY 06/06/18 Albuterol [Proventil Inhaler HFA 1 - 2 puffs IH Q4H PRN 06/06/18 (*)] Baclofen [Baclofen 10 mg (*)] 20 mg PO BID 06/06/18 Bupropion HCl [Wellbutrin Xl] 300 mg PO DAILY 06/06/18 Ergocalciferol [Vitamin D2 (*)] 50,000 unit PO Q7D 06/06/18 Fluticasone Hfa 110 Mcg [Flovent 2 puffs IH BID 06/06/18 110 MCG Hfa MDI (*)] Fluticasone Propionate [Flonase 2 sprays EACHNARE DAILY 06/06/18 Allergy Relief] Furosemide [Lasix 20 MG (*)] 20 mg PO DAILY 06/06/18 Gabapentin [Neurontin 300 MG (*)] 900 mg PO TID 06/06/18 Levothyroxine [Synthroid 50 mcg 50 mcg PO DAILY06 06/06/18 (*)] Lidocaine 5% [Lidoderm 5% Patch] 1 - 3 ea TD DAILY PRN 06/06/18 Nortriptyline HCl [Pamelor 10 mg 30 mg PO HS 06/06/18 (*)] Potassium Chloride [Klor-Con 10] 10 meq PO DAILY 06/06/18 Sertraline HCl [Zoloft 100mg (*)] 250 mg PO DAILY 06/06/18 buPROPion XL [Wellbutrin 150mg XL] 150 mg PO DAILY 06/06/18 busPIRone [Buspar (*)] 15 mg PO BID 06/06/18 clonazePAM [Klonopin (*)] 0.5 mg PO DAILY PRN 06/06/18 morphINE SR [MS Contin/Oramorph SR 60 mg PO BID 06/06/18 30 mg (*)] Acetaminophen [Tylenol ES 500 mg 1,000 mg PO Q8HRS tab 06/09/18 (*)] Ondansetron Odt [Zofran Odt 4 mg 4 - 8 mg PO Q6HRS PRN tab 06/09/18 (*)] Polyethylene Glycol 3350 [Miralax 17 gm PO DAILY PRN pkt 06/09/18 17 gm (*)] traZODone [traZODONE 100MG (*)] 100 mg PO HS PRN tab 06/09/18 Aspirin [Aspirin 325 mg (*)] 325 mg PO DAILY 08/04/18 Baclofen [Baclofen 10 mg (*)] 10 - 20 mg PO DAILY PRN 08/04/18 Bisacodyl [Dulcolax] 10 mg RC DAILY PRN 08/04/18 Sennosides/Docusate Sodium 1 - 2 tab PO BID PRN 08/04/18 [Senokot-S] guaiFENesin [Mucinex 600 MG (*)] 600 mg PO BID PRN 08/04/18 morphINE IR [morphINE IR 15 mg (*)] 15 mg PO DAILY@12 08/04/18 Medical Decision Making - Diagnostics Imaging Results: Imaging Impressions Lumbar Spine MRI 08/04/18 10:38 Impression: 1. Limited exam due to motion artifact and susceptibility artifact from posterior fusion construct extending from L3 through L5. 2. Residual posterior postoperative fluid collection is likely a benign seroma. 3. Mild central canal narrowing at L3-L4 and mild to moderate residual central canal narrowing at L4-L5. 4. Neural foramina are partially obscured. 5. No definite residual or recurrent disk herniation. 6. Subacute L5 fracture unchanged in alignment. No new fractures. Findings discussed with Emergency Department Physician Call Centre Supervisor, Bi Casey, on August 04, 2018 at 1210. E:RH/amm Imaging Impressions Lumbar Spine MRI 08/04/18 10:38 Impression: 1. Limited exam due to motion artifact and susceptibility artifact from posterior fusion construct extending from L3 through L5. 2. Residual posterior postoperative fluid collection is likely a benign seroma. 3. Mild central canal narrowing at L3-L4 and mild to moderate residual central canal narrowing at L4-L5. 4. Neural foramina are partially obscured. 5. No definite residual or recurrent disk herniation. 6. Subacute L5 fracture unchanged in alignment. No new fractures. Findings discussed with Emergency Department Physician Call Centre Supervisor, Bi Casey, on August 04, 2018 at 1210. E:RH/amm Images reviewed myself (Ronn Casey) ED Course/Re-evaluation: I did not see this patient while she was in the emergency department. However her care was discussed with the PA while the patient was in the department. I agree with treatment plan and management (Moe Villalobos) 10:41 a.m.: I have reviewed the patient's old medical records. She is hyporeflexive left lower extremity, week left lower extremity, will plan on MRI and plan on more than likely admission for pain control. Care of patient under supervision of secondary supervising physician Dr Villalobos with whom I discussed case. 11:11 a.m.: Consultation with Dr. Smith, will admit to hospitalist Dr. Dulce Rm. Will consult with Neurosurgery 12:25 p.m.: Consultation with Dr. Nanny Avina who will consult. I discussed the MRI results with the patient and her family at this time. She is feeling significant improvement in pain. She is still would like to be admitted to the hospital (Ronn Casey) - Data Points Laboratory Results: Laboratory Results 08/04/18 10:40 08/04/18 10:40 08/04/18 08/04/18 10:40 10:40 WBC 13.81 10^3/uL H 10^3/uL (3.80-9.50) RBC 4.84 10^6/uL 10^6/uL (4.18-5.33) Hgb 13.2 g/dL g/dL (12.6-16.3) Hct 41.2 % % (38.0-47.0) MCV 85.1 fL fL (81.5-99.8) MCH 27.3 pg L pg (27.9-34.1) MCHC 32.0 g/dL L g/dL (32.4-36.7) RDW 13.9 % % (11.5-15.2) Plt Count 342 10^3/uL 10^3/uL (150-400) MPV 9.6 fL fL (8.7-11.7) Neut % (Auto) 84.3 % H % (39.3-74.2) Lymph % (Auto) 8.8 % L % (15.0-45.0) Bell % (Auto) 5.5 % % (4.5-13.0) Eos % (Auto) 0.5 % L % (0.6-7.6) Baso % (Auto) 0.4 % % (0.3-1.7) Nucleat RBC Rel Count 0.0 % % (0.0-0.2) Absolute Neuts (auto) 11.64 10^3/uL H 10^3/uL (1.70-6.50) Absolute Lymphs (auto) 1.22 10^3/uL 10^3/uL (1.00-3.00) Absolute Monos (auto) 0.76 10^3/uL 10^3/uL (0.30-0.80) Absolute Eos (auto) 0.07 10^3/uL 10^3/uL (0.03-0.40) Absolute Basos (auto) 0.05 10^3/uL 10^3/uL (0.02-0.10) Absolute Nucleated RBC 0.00 10^3/uL 10^3/uL (0-0.01) Immature Gran % 0.5 % % (0.0-1.1) Immature Gran # 0.07 10^3/uL 10^3/uL (0.00-0.10) Sodium 133 mEq/L L mEq/L (135-145) Potassium 4.6 mEq/L mEq/L (3.5-5.2) Chloride 95 mEq/L L mEq/L (97-110) Carbon Dioxide 24 mEq/l mEq/l (22-31) Anion Gap 14 mEq/L mEq/L (6-14) BUN 14 mg/dL mg/dL (7-23) Creatinine 0.7 mg/dL mg/dL (0.6-1.0) Estimated GFR > 60 Glucose 107 mg/dL H mg/dL (70-100) Calcium 9.6 mg/dL mg/dL (8.5-10.4) Medications Given: Acetaminophen (Tylenol) 1,000 mg PO Q8HRS [facility] Stop: 01/31/19 13:59 Last Admin: 08/04/18 14:45 Dose: Not Given Polyethylene Glycol (Miralax) 17 gm PO DAILY [facility] Stop: 01/31/19 12:14 Last Admin: 08/04/18 14:46 Dose: Not Given Discontinued Medications Hydromorphone HCl (Dilaudid) 1 mg IVP EDNOW ONE Stop: 08/04/18 10:38 Last Admin: 08/04/18 11:56 Dose: Not Given Lorazepam (Ativan Injection) 1 mg IVP EDNOW ONE Stop: 08/04/18 10:38 Last Admin: 08/04/18 11:00 Dose: 1 mg Ondansetron HCl (Zofran) 4 mg IVP EDNOW ONE Stop: 08/04/18 10:38 Last Admin: 08/04/18 11:57 Dose: Not Given Departure - Departure Disposition: [facility] Inpatient Acute Clinical Impression: Intractable low back pain Condition: Fair
[2018-08-04 10:48] LABS: PLATELET COUNT 342 10^3/uL (150-400)
[2018-08-04] MEDS ORDERED: diphenhydrAMINE 25 MG CAP PO PRN (12:11)
[2018-08-04] MEDS ORDERED: ACETAMINOPHEN 325 MG TAB PO PRN (12:11)
[2018-08-04] MEDS ORDERED: ONDANSETRON DISINTEGRATING 4 MG TAB PO PRN ×2 (12:11→12:13)
[2018-08-04] MEDS ORDERED: oxyCODONE IR 5 MG TAB PO PRN (12:11)
[2018-08-04] MEDS ORDERED: ONDANSETRON 4 MG/2 ML VIAL IVP PRN (12:11)
[2018-08-04] MEDS ORDERED: HYDROCODONE/APAP 5/325 TAB PO PRN (12:11)
[2018-08-04] MEDS ORDERED: guaiFENesin 600 MG TAB.ER PO PRN (12:13)
[2018-08-04] MEDS ORDERED: SENNOSIDES/DOCUSATE SODIUM TAB PO PRN (12:13)
[2018-08-04] MEDS ORDERED: ALBUTEROL 60 PUFFS/8 GM MDI IH PRN (12:13)
--- NOTE | 2018-08-04 13:09 | ASMTCMCOM ---
CM Note CM Note Notes: Reviewed chart. Pt presented to the Emergency Department with intractable back pain, new leg pain and weakness. History includes an L3-L5 TLIF on 06/09/18, opiate dependence, chronic back pain, COPD with continuous oxygen use, hypothyroid, depression, anxiety, diastolic dysfunction and a 50 yr smoking history. Pt lives with her dghtr in [facility]. She has a partner, Karen who has previously been involved in her care. Per prior records, pt underwent surgery with [facility] in May and was discharged to [facility]. Upon discharge from rehab she was set up with [facility] (RN/PT/OT). The pt sustained a fall and was seen in the ED on 07/16/18. She was found to have a new L5 fracture and was discharged from the ED to home per [facility]. At that time CM noted the pt and family needed some additional mental health support - several resources were provided and a call was placed to [facility] requesting a manager social media see the pt at home. Please see CM notes from 07/16/18. CM spoke with Amilcar Casey PA-C. Per Amilcar, call received from [facility] - per [facility], pt would benefit from additional rehab due to safety concerns in the home. Pt to be admitted for further evaluation and for assistance determining a safe discharge plan. CM will await MD/PT/OT edita and will continue to follow. Discharge Plan: To be determined Date Signed: 08/04/2018 01:09 PM Electronically Signed By:Celia Goss RN
[2018-08-04] MEDS ORDERED: GADOBUTROL 10 ML VIAL IVP ONE (14:01)
[2018-08-04] MEDS: ACETAMINOPHEN 500 MG TAB PO SCH ×2 (14:45→22:05)
[2018-08-04] MEDS: POLYETHYLENE GLYCOL 3350 17 GM PKT PO SCH (14:46)
[2018-08-04] MEDS: PIPERACILLIN NA/TAZO 4.5 GM in D5W 100 ML IV SCH ×2 (16:07→22:05)
[2018-08-04] MEDS: POTASSIUM CL 10 MEQ TAB PO SCH (16:09)
[2018-08-04] MEDS: GABAPENTIN 300 MG CAP PO SCH ×2 (16:09→22:05)
[2018-08-04] MEDS: VANCOMYCIN 1.25 GM in NS 250 ML IV SCH (17:09)
[2018-08-04] MEDS: morphINE SR 30 MG TAB PO SCH (17:09)
--- NOTE | 2018-08-04 17:30 | PDGENHP ---
History and Physical - Chief Complaint worsening L leg/back pain - History of Present Illness 68 yo F w/ history of COPD on continuous O2, hypothyroid, chronic back pain, depression/anxiety, morbid obesity, that had L3-L5 TLIF 05/2018- Dr Wilde, came to ER today because of worsening L leg pain and inability to walk. She has noticed increasing low back and L sided pain for about a week. Was much worse last nt, so went to bed early. Says when she woke up she was unable to walk/move. Laying down in bed, says most comfortable position now. Denies fever. Has been constipated in general, and has to push to urinate sometimes. These symptoms have been occurring for > 2 weeks, and not worse in last few days. Denies bowel/bladder incontinence. No cough/congestion/shortness of breath or chest pain. She is chronically on O2, no change in L/min. PCP Dr Corinne Pringle in [place]. She had pre-operative screening in 05/2018 which included essentially normal echocardiogram and nuclear perfusion study, Grade I diastolic dysfunction. She smoked cigarettes for >50 years and has an estimated 70 pack year hx. Not a current smoker History Information - Allergies/Home Medication List Allergies/Adverse Reactions: No Known Allergies Allergy (Unverified 07/16/18 04:15) Home Medications: ARIPiprazole [Abilify 5 mg (*)] 5 mg PO DAILY 06/06/18 [Last Taken 08/04/18] Albuterol [Proventil Inhaler HFA (*)] 1 - 2 puffs IH Q4H PRN 06/06/18 [Last Taken Unknown] Baclofen [Baclofen 10 mg (*)] 20 mg PO BID 06/06/18 [Last Taken 08/04/18 04:00] Bupropion HCl [Wellbutrin Xl] 300 mg PO DAILY 06/06/18 [Last Taken 08/04/18] Ergocalciferol [Vitamin D2 (*)] 50,000 unit PO Q7D 06/06/18 [Last Taken Unknown] Fluticasone Hfa 110 Mcg [Flovent 110 MCG Hfa MDI (*)] 2 puffs IH BID 06/06/18 [ Last Taken 08/04/18 04:00] Fluticasone Propionate [Flonase Allergy Relief] 2 sprays EACHNARE DAILY [Last Taken Unknown] Furosemide [Lasix 20 MG (*)] 20 mg PO DAILY 06/06/18 [Last Taken 08/04/18] Gabapentin [Neurontin 300 MG (*)] 900 mg PO TID 06/06/18 [Last Taken 08/04/18 04 :00] Levothyroxine [Synthroid 50 mcg (*)] 50 mcg PO DAILY06 06/06/18 [Last Taken ] Lidocaine 5% [Lidoderm 5% Patch] 1 - 3 ea TD DAILY PRN 06/06/18 [Last Taken Unknown] Nortriptyline HCl [Pamelor 10 mg (*)] 30 mg PO HS 06/06/18 [Last Taken 08/03/18] Potassium Chloride [Klor-Con 10] 10 meq PO DAILY 06/06/18 [Last Taken 08/04/18] Sertraline HCl [Zoloft 100mg (*)] 250 mg PO DAILY 06/06/18 [Last Taken 08/04/18] buPROPion XL [Wellbutrin 150mg XL] 150 mg PO DAILY 06/06/18 [Last Taken 08/04/18 ] busPIRone [Buspar (*)] 15 mg PO BID 06/06/18 [Last Taken 08/04/18 04:00] clonazePAM [Klonopin (*)] 0.5 mg PO DAILY PRN 06/06/18 [Last Taken Unknown] morphINE SR [MS Contin/Oramorph SR 30 mg (*)] 60 mg PO BID 06/06/18 [Last Taken 08/04/18 04:00] Aspirin [Aspirin 325 mg (*)] 325 mg PO DAILY 08/04/18 [Last Taken 08/04/18] Baclofen [Baclofen 10 mg (*)] 10 - 20 mg PO DAILY PRN 08/04/18 [Last Taken Unknown] Bisacodyl [Dulcolax] 10 mg RC DAILY PRN 08/04/18 [Last Taken Unknown] Sennosides/Docusate Sodium [Senokot-S] 1 - 2 tab PO BID PRN 08/04/18 [Last Taken Unknown] guaiFENesin [Mucinex 600 MG (*)] 600 mg PO BID PRN 08/04/18 [Last Taken Unknown] morphINE IR [morphINE IR 15 mg (*)] 15 mg PO DAILY@12 08/04/18 [Last Taken 08/03] I have personally reviewed and updated: medical history, social history, surgical history - Past Medical History COPD, degenerative disc disease Additional medical history: Continuous O2 use 4 L/min, depression/anxiety, hypothyroid, morbid obesity - Surgical History Additional surgical history: 05/2018 L3-5 TLIF- Dr Wilde - Family History Additional family history: COPD - Social History Smoking Status: Former smoker (>70 pkyrs) Alcohol Use: None Drug Use: None Review of Systems Review of Systems: ROS: 10pt was reviewed & negative except for what was stated in HPI & below Physical Exam Physical Exam: Temp Pulse Resp BP Pulse Ox 98.4 F 90 19 121/89 H 92 08/04/18 13:13 08/04/18 13:13 08/04/18 13:13 08/04/18 13:13 08/04/18 13:13 O2 (L/minute) 4 Constitutional: no apparent distress, obese Eyes: anicteric sclera Ears, Nose, Mouth, Throat: moist mucous membranes, hearing normal Cardiovascular: regular rate and rhythym, no murmur, rub, or gallop, No edema Respiratory: no respiratory distress, no rales or rhonchi, clear to auscultation Gastrointestinal: normoactive bowel sounds, soft, non-tender abdomen, no palpable masses, No hepatosplenomegally, No guarding, No rebound, No distension Skin: warm, erythema (lumbar), induration Musculoskeletal: other (BRIGHT) Psychiatric: interacting appropriately, not anxious, not encephalopathic Lab Data & Imaging Review 08/04/18 15:21 08/04/18 10:40 WBC 13.81 10^3/uL (3.80-9.50) H 08/04/18 10:40 RBC 4.84 10^6/uL (4.18-5.33) 08/04/18 10:40 Hgb 13.2 g/dL (12.6-16.3) 08/04/18 10:40 Hct 38.9 % (38.0-47.0) 08/04/18 15:21 MCV 85.1 fL (81.5-99.8) 08/04/18 10:40 MCH 27.3 pg (27.9-34.1) L 08/04/18 10:40 MCHC 32.0 g/dL (32.4-36.7) L 08/04/18 10:40 RDW 13.9 % (11.5-15.2) 08/04/18 10:40 Plt Count 342 10^3/uL (150-400) 08/04/18 10:40 MPV 9.6 fL (8.7-11.7) 08/04/18 10:40 Neut % (Auto) 84.3 % (39.3-74.2) H 08/04/18 10:40 Lymph % (Auto) 8.8 % (15.0-45.0) L 08/04/18 10:40 [place] % (Auto) 5.5 % (4.5-13.0) 08/04/18 10:40 Eos % (Auto) 0.5 % (0.6-7.6) L 08/04/18 10:40 Baso % (Auto) 0.4 % (0.3-1.7) 08/04/18 10:40 Nucleat RBC Rel Count 0.0 % (0.0-0.2) 08/04/18 10:40 Absolute Neuts (auto) 11.64 10^3/uL (1.70-6.50) H 08/04/18 10:40 Absolute Lymphs (auto) 1.22 10^3/uL (1.00-3.00) 08/04/18 10:40 Absolute Monos (auto) 0.76 10^3/uL (0.30-0.80) 08/04/18 10:40 Absolute Eos (auto) 0.07 10^3/uL (0.03-0.40) 08/04/18 10:40 Absolute Basos (auto) 0.05 10^3/uL (0.02-0.10) 08/04/18 10:40 Absolute Nucleated RBC 0.00 10^3/uL (0-0.01) 08/04/18 10:40 Immature Gran % 0.5 % (0.0-1.1) 08/04/18 10:40 Immature Gran # 0.07 10^3/uL (0.00-0.10) 08/04/18 10:40 ESR 57 MM/HR (0-30) H 08/04/18 15:21 Sodium 133 mEq/L (135-145) L 08/04/18 10:40 Potassium 4.6 mEq/L (3.5-5.2) 08/04/18 10:40 Chloride 95 mEq/L (97-110) L 08/04/18 10:40 Carbon Dioxide 24 mEq/l (22-31) 08/04/18 10:40 Anion Gap 14 mEq/L (6-14) 08/04/18 10:40 BUN 14 mg/dL (7-23) 08/04/18 10:40 Creatinine 0.7 mg/dL (0.6-1.0) 08/04/18 10:40 Estimated GFR > 60 08/04/18 10:40 Glucose 107 mg/dL (70-100) H 08/04/18 10:40 Calcium 9.6 mg/dL (8.5-10.4) 08/04/18 10:40 C-Reactive Protein 73.0 mg/L (<10.0) H 08/04/18 15:21 Imaging Review: revwd MRI results personally Assessment & Plan Assessment: 1. Cellulitis with seroma L1-L5, S/P L3-5 TLIF on 06/06/18 -blood cxs done prior to starting vanc/zosyn -Management per neurosurgery, discussed with Dr Spaulding/Yulisa Mcneill 2. COPD - With baseline continuous O2 use of 4 L/min - Duonebs PRN -add tiotropium, on flovent 3. Hypothyroid -continue levothyroid 4. Depression, anxiety -continue Abilify, Zoloft, Buspirone, and Wellbutrin (has been on this combination for a 'long time') 5. Morbid Obesity - BMI 46 -screen for DM 6. Grade 1 diastolic dysfunction on recent echo 7. Constipation -bowel protocols 8. Urinary retention -chronic per her report -Orellana 9. Vaginal discharge (per RN) -vaginal anti fungal cream PCP Dr Maxine Pringle FULL CODE DVT prophy- on hold for now as may need surgery, she refused SCDs/TEDs DISPO unclear at this time, waiting NS eval
[2018-08-04] MEDS ORDERED: BISACODYL 10 MG SUPP PR PRN ×2 (17:42→20:47)
[2018-08-04] MEDS ORDERED: LACTULOSE 20 GM/30 ML UDCUP PO PRN (17:42)
[2018-08-04] MEDS ORDERED: POLYETHYLENE GLYCOL 3350 17 GM PKT PO PRN (17:42)
[2018-08-04] MEDS ORDERED: PIPERACILLIN/TAZO 3.375 GM/DEX 50 ML IV SCH (18:00)
[2018-08-04] MEDS: NORTRIPTYLINE HCL 10 MG CAP PO SCH (20:17)
[2018-08-04] MEDS: SENNOSIDES/DOCUSATE SODIUM TAB PO SCH (20:18)
[2018-08-04] MEDS: MAGNESIUM HYDROXIDE 30 ML UDCUP PO SCH (20:18)
[2018-08-04] MEDS: MICONAZOLE NITRATE 2% VAG 7 APP/45 GM CRTUBE VG SCH (20:22)
[2018-08-04] MEDS ORDERED: LORazepam 1 MG TAB PO ONE (20:50)
[2018-08-04] MEDS: busPIRone 15 MG TAB PO SCH (21:12)
[2018-08-04] MEDS: BACLOFEN 10 MG TAB PO PRN (21:12)
[2018-08-04] MEDS: traZODone 100 MG TAB PO PRN (22:05)
[2018-08-04] MEDS: FLUTICASONE HFA 110 MCG MDI IH SCH (22:17)
--- NOTE | 2018-08-05 04:44 | GCON ---
[f rep st] CONSULTATION DATE OF CONSULTATION: 08/04/2018 CONSULTING SERVICE: Internal Medicine. SHOE LASTER: Neurosurgery, Dr. Spaulding. REASON FOR CONSULT: Back and left leg pain. HISTORY OF PRESENT ILLNESS: The patient is a 68-year-old female with an incredibly complex medical h istory. She has COPD and is on continuous O2. She is morbidly obese and she has hypothyroidism, chr onic back pain, depression, and anxiety. She had an L3-L5 TLIF with Dr. Wilde in May of this y ear and then came to the emergency room earlier today because of worsening left leg pain and inabilit y to walk. She says this is a new symptom that was not present prior to her operation with Dr. Robert johnson. This has been going on approximately one week, having trouble for her to even get out of bed it is so bad. MRI was performed, which demonstrated a subcutaneous fluid collection and then an MRI with contrast w as done that did not support an infection, but in fact supported a seroma. She does have an elevated white count, elevated inflammatory markers, and is pending other infectious laboratories. PAST MEDICAL HISTORY: Per HPI. COPD, hypothyroidism, morbid obesity, depression, anxiety, chronic o xygen use, degenerative disk disease, lumbar fusion. SOCIAL HISTORY: Former smoker with greater than 70 pack years. Denies alcohol or drug abuse. FAMILY HISTORY: COPD as well. ALLERGIES: No known drug allergies. CODE STATUS: Full. REVIEW OF SYSTEMS: Ten points reviewed, negative other than stated in HPI. PHYSICAL EXAM: VITAL SIGNS: Afebrile at 98.4, heart rate 89, respiratory rate 18, saturating 92% on pulse oximetry with oxygen on board. Blood pressure 121/89. LABS: White blood cell count 13.8, hemoglobin 13.2, platelet count 342. Sodium 133, potassium 4.6, BUN 14, creatinine 0.7, glucose 107. IMAGING: I reviewed the patient's MRI with and without contrast of the lumbar spine and did not note any worsening stenosis than prior to surgery, in fact, stenosis appears improved centrally. She storey s appear to have some subsidence or degenerative disk changes or deterioration and erosion at the low er end of her construct. There is a superficial seroma, but this is not peripherally enhanced and is not concerning for infection. IMPRESSION AND PLAN: Very morbidly obese female with multiple medical problems including COPD on oxy gen, who had an L3-L5 transforaminal lumbar interbody fusion and posterior spinal fusion with Dr. Paula espinosa approximately two months ago. She presents with one month of worsening back and left leg pain, and an increased white blood cell count and inflammatory markers. I am not concerned for spinal infe ction despite this presence of seroma. I do believe she could have another source of infection. I a m somewhat concerned by the appearance of her L4-5 disk space and loss of height that seems to be tadeo nged since she had surgery two months ago. It is possible she could be having some subsidence of her fusion given poor bone quality, which I imagine is the case given her postmenopausal and long histor y of smoking. I am ordering a CT scan of the lumbar spine without contrast to assess her bone quality and look at t he hardware in more detail. Continue medical management and workup. We are following closely to andrew calix. /[id number]/MODL
[2018-08-05] MEDS: PIPERACILLIN NA/TAZO 4.5 GM in D5W 100 ML IV SCH ×2 (04:45→11:28)
[2018-08-05 05:27] LABS: PLATELET COUNT 292 10^3/uL (150-400)
[2018-08-05] MEDS: VANCOMYCIN 1.25 GM in NS 250 ML IV SCH ×2 (05:31→17:54)
[2018-08-05] MEDS: LEVOTHYROXINE 50 MCG TAB PO SCH (05:37)
[2018-08-05] MEDS: morphINE SR 30 MG TAB PO SCH ×2 (05:38→17:53)
[2018-08-05] MEDS: ACETAMINOPHEN 500 MG TAB PO SCH ×3 (05:38→21:30)
[2018-08-05] MEDS ORDERED: buPROPion XL 150 MG TAB PO SCH (09:00)
[2018-08-05] MEDS: FLUTICASONE HFA 110 MCG MDI IH SCH ×2 (09:35→22:55)
[2018-08-05] MEDS: TIOTROPIUM INHALER 18 MCG/DOSE 5 DOSE/MDI IH SCH (09:35)
--- NOTE | 2018-08-05 09:48 | SOAPPROG ---
SOAP Progress Note Assessment/Plan: Assessment: 68 yo morbidly obese female with L3-5 fusion May [address] Wilde Worsened left foot weakness over past week. Acute LBP yesterday, better today when lying flat. Today she is having left anterior thigh pain. Incisional area looks fine Plan: PT/OT in brace. Encourage OOB No urgent need for surgical intervention. Her CT yesterday is grossly stable compared to June CT with subacute L5 fracture. DW Dr. Spaulding 08/05/18 09:45 08/05/18 09:51 08/05/18 09:51 Subjective: Lying in bed, flat. States her back does not hurt when lying down. States her left foot has become weaker over past week. No sensory changes or b/ b issues. Objective: Vital Signs Temp Pulse Resp BP Pulse Ox 36.5 C 71 17 101/77 87 L 08/05/18 07:27 08/05/18 07:27 08/05/18 07:27 08/05/18 07:27 08/05/18 07:27 Laboratory Results 08/05/18 04:44 08/05/18 04:44 08/04/18 08/05/18 08/06/18 05:59 05:59 05:59 Intake Total 900 Output Total 1350 Balance -450 Neuro: Left Df 4/5 otherwise 5/5 bilateral LE sens +Lt Incision: Healed, no erythema, swelling or pain CT lspine shows stable subacute L5 fx compared to CT from Jun 2018 MRI w contrast: no concerning enhancement of superficial fluid collection She has some left L3/4 foraminal stenosis. L4/5 bilateral foramen are poorly visualized. ICD10 Worksheet Patient Problems: Problems Problem Status Onset Intractable low back pain Acute Acute on chronic respiratory failure with hypoxemia Acute L5 vertebral fracture Acute
[2018-08-05] MEDS: buPROPion XL 150 MG TAB PO SCH (09:54)
[2018-08-05] MEDS: SERTRALINE HCL 100 MG TAB PO SCH (09:55)
[2018-08-05] MEDS: FUROSEMIDE 20 MG TAB PO SCH (09:55)
[2018-08-05] MEDS: GABAPENTIN 300 MG CAP PO SCH ×3 (09:55→21:32)
[2018-08-05] MEDS: ARIPiprazole 5 MG TAB PO SCH (09:55)
[2018-08-05] MEDS: POTASSIUM CL 10 MEQ TAB PO SCH (09:56)
[2018-08-05] MEDS: SENNOSIDES/DOCUSATE SODIUM TAB PO SCH ×2 (09:56→21:35)
[2018-08-05] MEDS: POLYETHYLENE GLYCOL 3350 17 GM PKT PO SCH (09:57)
[2018-08-05] MEDS: MAGNESIUM HYDROXIDE 30 ML UDCUP PO SCH (09:57)
[2018-08-05] MEDS: busPIRone 15 MG TAB PO SCH ×2 (10:07→21:31)
[2018-08-05] MEDS ORDERED: MAGNESIUM HYDROXIDE 30 ML UDCUP PO PRN (13:36)
--- NOTE | 2018-08-05 13:38 | HOSPPROG ---
Hospitalist Progress Note Assessment/Plan: 1. Cellulitis 2. Leg pain/weakness -MRI/CT confirms seroma L1-L5, S/P L3-5 TLIF on 06/06/18 -blood cxs done prior to starting vanc/zosyn -discussed with Dr Spaulding/Yulisa Mcneill, no surgical intervention, not deep infection -stop zosyn, will continue vanc for now but if cxs neg/repeat labs improved, change abx in AM 3. COPD - With baseline continuous O2 use of 4 L/min - Duonebs PRN -added tiotropium, on flovent 4. Hypothyroid -continue levothyroid -TSH in good range 5. Depression, anxiety -continue Abilify, Zoloft, Buspirone, and Wellbutrin (has been on this combination for a 'long time') 6. Morbid Obesity - BMI >40 -screen for DM pending 7. Grade 1 diastolic dysfunction on recent echo 8. Constipation, resolved -continue withbowel regimen as on chronic opiates 9. Urinary retention, >500 cc last nt -Orellana in place -consider removing tomorrow and rechecking for retention now that constipation resolved 10. Vaginal discharge (per RN) -vaginal anti fungal cream 11. Anemia -hgb 11.3 -watch for stability 12. HypoNa, mild -recheck in AM PCP Dr Maxine Pringle FULL CODE DVT prophy- lovenox adjusted for BMI DISPO >2 mdnts, change to inpt status, refuses SNF but will consider inpt rehab , consult requested in AM Subjective: Constipation resolved. No CP/SOB/n/v. Still painful with moving/ sitting, L leg/ant thigh. Working with PT. Objective: Vital Signs Temp Pulse Resp BP Pulse Ox 97.6 F 84 18 102/59 L 90 L 08/05/18 11:32 08/05/18 11:32 08/05/18 11:32 08/05/18 11:32 08/05/18 11:32 Laboratory Results 08/05/18 04:44 08/05/18 04:44 08/04/18 08/05/18 08/06/18 11:59 11:59 11:59 Intake Total 900 300 Output Total 1350 Balance -450 300 - Time Spent With Patient Time Spent with Patient: greater than 35 minutes (total floor time) Time Spent with Patient: Greater than 35 minutes spent on this patients care, greater than 50% of time spent counseling, educating, and coordinating care regarding the above mentioned plan. - Physical Exam Constitutional: no apparent distress, obese Eyes: anicteric sclera, EOMI Ears, Nose, Mouth, Throat: moist mucous membranes, hearing normal Cardiovascular: regular rate and rhythym, No edema Respiratory: no respiratory distress, no rales or rhonchi, clear to auscultation Gastrointestinal: normoactive bowel sounds, soft, non-tender abdomen, No guarding, No rebound, No distension Skin: warm, other (no erythema on back (much improved since admission), incision CDI) Neurologic: other (BRIGHT) Psychiatric: interacting appropriately, not anxious, not encephalopathic ICD10 Worksheet Patient Problems: Problems Problem Status Onset Intractable low back pain Acute Acute on chronic respiratory failure with hypoxemia Acute L5 vertebral fracture Acute
[2018-08-05] MEDS: METHOCARBAMOL 750 MG TAB PO PRN (15:49)
[2018-08-05] MEDS: ENOXAPARIN 40 MG/0.4 ML SYR SC SCH (21:31)
[2018-08-05] MEDS: MICONAZOLE NITRATE 2% VAG 7 APP/45 GM CRTUBE VG SCH (21:33)
[2018-08-05] MEDS: NORTRIPTYLINE HCL 10 MG CAP PO SCH (21:34)
[2018-08-06] MEDS: traZODone 100 MG TAB PO PRN ×2 (02:53→22:25)
[2018-08-06] MEDS: METHOCARBAMOL 750 MG TAB PO PRN ×2 (02:53→13:35)
[2018-08-06 05:04] LABS: PLATELET COUNT 271 10^3/uL (150-400)
[2018-08-06] MEDS: LEVOTHYROXINE 50 MCG TAB PO SCH (05:44)
[2018-08-06] MEDS: ACETAMINOPHEN 500 MG TAB PO SCH ×3 (05:44→22:22)
[2018-08-06] MEDS: morphINE SR 30 MG TAB PO SCH ×2 (05:44→18:15)
[2018-08-06] MEDS: VANCOMYCIN 1.25 GM in NS 250 ML IV SCH ×2 (05:45→18:18)
--- NOTE | 2018-08-06 07:27 | NEUSURGPN ---
Assessment/Plan: 68 yo morbidly obese female with L3-5 fusion May [address] Wilde Worsened left foot weakness and left leg pain over past week. Pain worse with weightbearing Plan: Increased pain with internal/external rotation of the left hip. Will obtain a left hip MRI to further evaluate PT/OT in brace Pain control Encourage OOB No urgent need for surgical intervention. Her CT yesterday is grossly stable compared to June CT with subacute L5 fracture. Patient seen by myself and Dr. Wilde. Subjective: Having whole left leg pain, worse with standing/walking. Objective: Awake. Alert. PERRL. EOMI Muscle strength full at 5/5 except for left DF weakness at 4/5 Pain increased with internal/external rotation of the left hip Catheter Insertion Date: 08/04/18 - Physician Patient Seen by : Chani Neurosurgery Physical Exam - Vitals, I&O, Labs I and O 08/05/18 08/06/18 08/07/18 05:59 05:59 05:59 Intake Total 900 1706 Output Total 1350 1200 Balance -450 506 Weight 115.6 kg Intake: Oral (ml) 700 1000 IV Intake (ml) 40 IV Infused (ml) 200 666 Piperacillin Na/Tazo 4.5 200 166 gm In D5w 100 ml @ 200 mls/hr IV Q6H [facility] Rx#: [id number] Vancomycin 1.25 gm In Ns 500 250 ml @ 166.667 mls/hr IV Q12H [facility] Rx#: [id number] Output: Urine (ml) 1350 1200 Catheter 1350 1200 Other: Number of Stools Bedside Commode 2 Toilet 1 Bladder Scan Volume (ml) Bedpan 585 Vital Signs Temp Pulse Resp BP Pulse Ox 36.6 C 66 18 99/63 L 91 L 08/06/18 03:12 08/06/18 03:12 08/06/18 03:12 08/06/18 03:12 08/06/18 03:12 Laboratory Results 08/06/18 04:50 08/06/18 04:50 ICD10 Worksheet Patient Problems: Problems Problem Status Onset Intractable low back pain Acute Acute on chronic respiratory failure with hypoxemia Acute L5 vertebral fracture Acute
[2018-08-06] MEDS: TIOTROPIUM INHALER 18 MCG/DOSE 5 DOSE/MDI IH SCH (08:05)
[2018-08-06] MEDS: FLUTICASONE HFA 110 MCG MDI IH SCH ×2 (08:05→21:25)
[2018-08-06] MEDS: ARIPiprazole 5 MG TAB PO SCH (09:49)
[2018-08-06] MEDS: GABAPENTIN 300 MG CAP PO SCH ×3 (09:49→22:23)
[2018-08-06] MEDS: FUROSEMIDE 20 MG TAB PO SCH (09:50)
[2018-08-06] MEDS: buPROPion XL 150 MG TAB PO SCH (09:50)
[2018-08-06] MEDS: SERTRALINE HCL 100 MG TAB PO SCH (09:50)
[2018-08-06] MEDS: SENNOSIDES/DOCUSATE SODIUM TAB PO SCH ×2 (09:51→22:25)
[2018-08-06] MEDS: POTASSIUM CL 10 MEQ TAB PO SCH (09:52)
[2018-08-06] MEDS: ENOXAPARIN 40 MG/0.4 ML SYR SC SCH ×2 (09:52→22:23)
[2018-08-06] MEDS: POLYETHYLENE GLYCOL 3350 17 GM PKT PO SCH (09:57)
[2018-08-06] MEDS: busPIRone 15 MG TAB PO SCH ×2 (10:23→22:23)
[2018-08-06] MEDS: clonazePAM 0.5 MG TAB PO PRN (16:19)
--- NOTE | 2018-08-06 17:34 | HOSPPROG ---
Hospitalist Progress Note Assessment/Plan: 68 yo F w recent spine surgery 2. Leg pain/weakness MRI/CT confirms seroma L1-L5, S/P L3-5 TLIF on 06/06/18 blood cxs done prior to starting vanc/zosyn now on vanc monotherapy 3. COPD - With baseline continuous O2 use of 4 L/min Duonebs PRN added tiotropium, on flovent 4. Hypothyroid continue levothyroid TSH in good range 5. Depression, anxiety continue Abilify, Zoloft, Buspirone, and Wellbutrin (has been on this combination for a 'long time') 6. Morbid Obesity - BMI >40 screen for DM pending 7. Grade 1 diastolic dysfunction on recent echo 8. Constipation, resolved continue withbowel regimen as on chronic opiates 9. Urinary retention, >500 cc last nt Castillo in place dc AM 08/07 10. Vaginal discharge (per RN) -vaginal anti fungal cream 11. Anemia -hgb 11.3 -watch for stability 12. HypoNa, mild -recheck in AM PCP Dr Maxine Pringle FULL CODE DVT prophy- lovenox adjusted for BMI DISPO >2 mdnts, change to inpt status, refuses SNF but will consider inpt rehab , consult requested in AM Subjective: case d/w neurosurgery PA Objective: Vital Signs Temp Pulse Resp BP Pulse Ox 36.7 C 72 17 123/73 H 91 L 08/06/18 15:49 08/06/18 15:49 08/06/18 15:49 08/06/18 15:49 08/06/18 15:49 Laboratory Results 08/06/18 04:50 08/06/18 04:50 08/05/18 08/06/18 08/07/18 05:59 05:59 05:59 Intake Total 950 300 Output Total 1200 1800 Balance -250 -1500 - Physical Exam Constitutional: no apparent distress, appears nourished Eyes: PERRL, anicteric sclera Ears, Nose, Mouth, Throat: moist mucous membranes, hearing normal Cardiovascular: regular rate and rhythym, no murmur, rub, or gallop Respiratory: no respiratory distress, no rales or rhonchi Gastrointestinal: normoactive bowel sounds, soft, non-tender abdomen Genitourinary: No castillo in urethra Skin: warm, normal color Musculoskeletal: full muscle strength Neurologic: AAOx3 Psychiatric: interacting appropriately ICD10 Worksheet Patient Problems: Problems Problem Status Onset Intractable low back pain Acute Acute on chronic respiratory failure with hypoxemia Acute L5 vertebral fracture Acute
[2018-08-06] MEDS: MICONAZOLE NITRATE 2% VAG 7 APP/45 GM CRTUBE VG SCH (22:24)
[2018-08-06] MEDS: NORTRIPTYLINE HCL 10 MG CAP PO SCH (22:25)
[2018-08-07] MEDS: morphINE SR 30 MG TAB PO SCH ×2 (05:36→16:40)
[2018-08-07] MEDS: VANCOMYCIN 1.25 GM in NS 250 ML IV SCH ×2 (05:36→17:06)
[2018-08-07] MEDS: LEVOTHYROXINE 50 MCG TAB PO SCH (05:36)
[2018-08-07] MEDS: ACETAMINOPHEN 500 MG TAB PO SCH ×3 (06:16→21:55)
--- NOTE | 2018-08-07 07:07 | NEUSURGPN ---
Assessment/Plan: Assessment: 68 yo morbidly obese female with L3-5 fusion in May 2018 w/ Dr. Wilde. Pt presented with worsened left foot weakness and left leg pain over past week. Pain worse with weightbearing although pt states that the pain/ strength is better than yesterday Plan: -pt with noted increased pain with internal/external rotation of the left hip yesterday on exam -MRI of the left hip was obtained that shows mild tendinopathy of gluteus and hamstring origin. Pt may need ortho evaluation-will discuss with Dr Wilde -continue with PT/OT in brace -continue with current pain control plan -Encourage OOB/ambulation -No urgent need for surgical intervention. Her CT 2 days ago is grossly stable compared to June CT with subacute L5 fracture -call with any questions or concerns -d/w Dr Wilde -pt understands and agrees Subjective: Awake and alert. Pt states that he strength is better c/w yesterday. She is walking. No ross/neck/chest/abd or gu complaints. No f/c/n/v/d. Objective: Awake and alert. NAD CN 2-12 grossly intact PERRLA/EOMI Muscle strength full at 5/5 except for left DF weakness at 4/5 Pain increased with internal/external rotation of the left hip +lt touch Neuro Check Frequency: per routine Urinary Catheter in Place: No Catheter Insertion Date: 08/04/18 - Physician Discussed Patient with : Chani Neurosurgery Physical Exam - Vitals, I&O, Labs I and O 08/06/18 08/07/18 08/08/18 05:59 05:59 05:59 Intake Total 950 1550 Output Total 1200 2800 Balance -250 -1250 Intake: Oral (ml) 700 1300 IV Infused (ml) 250 250 Vancomycin 1.25 gm In Ns 250 250 250 ml @ 166.667 mls/hr IV Q12H [facility] Rx#: [id number] Output: Urine (ml) 1200 2800 Catheter 1200 2800 Other: Number of Stools Bedside Commode 1 Vital Signs Temp Pulse Resp BP Pulse Ox 36.7 C 66 18 105/70 92 08/06/18 23:49 08/06/18 23:49 08/06/18 23:49 08/06/18 23:49 08/06/18 23:49 Laboratory Results 08/06/18 04:50 08/06/18 04:50 ICD10 Worksheet Patient Problems: Problems Problem Status Onset Intractable low back pain Acute Acute on chronic respiratory failure with hypoxemia Acute L5 vertebral fracture Acute
[2018-08-07] MEDS: FLUTICASONE HFA 110 MCG MDI IH SCH ×2 (08:22→20:54)
[2018-08-07] MEDS: TIOTROPIUM INHALER 18 MCG/DOSE 5 DOSE/MDI IH SCH (08:22)
[2018-08-07] MEDS: ENOXAPARIN 40 MG/0.4 ML SYR SC SCH ×2 (08:37→21:55)
[2018-08-07] MEDS: buPROPion XL 150 MG TAB PO SCH (08:37)
[2018-08-07] MEDS: SERTRALINE HCL 100 MG TAB PO SCH (08:38)
[2018-08-07] MEDS: METHOCARBAMOL 750 MG TAB PO PRN ×2 (08:38→20:23)
[2018-08-07] MEDS: GABAPENTIN 300 MG CAP PO SCH ×3 (08:38→20:23)
[2018-08-07] MEDS: busPIRone 15 MG TAB PO SCH ×2 (08:38→21:56)
[2018-08-07] MEDS: SENNOSIDES/DOCUSATE SODIUM TAB PO SCH ×2 (08:38→20:23)
[2018-08-07] MEDS: ARIPiprazole 5 MG TAB PO SCH (08:38)
[2018-08-07] MEDS: POTASSIUM CL 10 MEQ TAB PO SCH (08:39)
[2018-08-07] MEDS: FUROSEMIDE 20 MG TAB PO SCH (08:39)
[2018-08-07] MEDS: POLYETHYLENE GLYCOL 3350 17 GM PKT PO SCH (08:42)
--- NOTE | 2018-08-07 16:44 | ASMTCMCOM ---
CM Note CM Note Notes: Spoke with pt and daughter in the room. Awaiting acceptance from inpatient rehab, however pt is unsure that she will be able to tolerate 3 hours of therapy a day, so requested we send referrals to SNF in case she is not accepted. Daughter given [employer] with list of SNFs. Referrals sent to [facility] and [facility]. Dtr to research all possibilities and express preference to CM tomorrow. D/C Plan: SNF v IpR Date Signed: 08/07/2018 04:44 PM Electronically Signed By:La Rodríguez
--- NOTE | 2018-08-07 17:28 | HOSPPROG ---
Hospitalist Progress Note Assessment/Plan: 68 yo F w recent spine surgery 2. Leg pain/weakness MRI/CT confirms seroma L1-L5, S/P L3-5 TLIF on 06/06/18 blood cxs done prior to starting vanc/zosyn dc abx unlikely infectious MR mikayla hip tendonitis trial of toradol 3. COPD - With baseline continuous O2 use of 4 L/min Duonebs PRN added tiotropium, on flovent 4. Hypothyroid continue levothyroid TSH in good range 5. Depression, anxiety continue Abilify, Zoloft, Buspirone, and Wellbutrin (has been on this combination for a 'long time') 6. Morbid Obesity - BMI >40 screen for DM pending 7. Grade 1 diastolic dysfunction on recent echo 8. Constipation, resolved continue withbowel regimen as on chronic opiates 9. Urinary retention, >500 cc last nt Castillo in place dc AM 08/07 10. Vaginal discharge (per RN) -vaginal anti fungal cream 11. Anemia -hgb 11.3 -watch for stability 12. HypoNa, mild -recheck in AM PCP Dr Maxine Pringle FULL CODE DVT prophy- lovenox adjusted for BMI DISPO >2 mdnts, change to inpt status, refuses SNF but will consider inpt rehab , consult requested in AM Subjective: case d/w jeanna edwards, neurosurgery PA Objective: Vital Signs Temp Pulse Resp BP Pulse Ox 36.9 C 77 16 132/84 H 95 08/07/18 15:27 08/07/18 15:27 08/07/18 15:27 08/07/18 15:27 08/07/18 15:27 Laboratory Results 08/06/18 04:50 08/06/18 04:50 08/06/18 08/07/18 08/08/18 05:59 05:59 05:59 Intake Total 950 1550 Output Total 1200 2800 800 Balance -250 -1250 -800 - Physical Exam Constitutional: no apparent distress, appears nourished Eyes: PERRL, anicteric sclera Ears, Nose, Mouth, Throat: moist mucous membranes, hearing normal Cardiovascular: regular rate and rhythym, no murmur, rub, or gallop Respiratory: no respiratory distress, no rales or rhonchi Gastrointestinal: normoactive bowel sounds, soft, non-tender abdomen Genitourinary: no bladder fullness, No castillo in urethra Skin: warm, normal color, other (no harvey) Musculoskeletal: full muscle strength Neurologic: AAOx3 ICD10 Worksheet Patient Problems: Problems Problem Status Onset Intractable low back pain Acute Acute on chronic respiratory failure with hypoxemia Acute L5 vertebral fracture Acute
[2018-08-07] MEDS: KETOROLAC 15 MG/1 ML SDV IVP SCH (17:53)
[2018-08-07] MEDS: BACLOFEN 10 MG TAB PO PRN (20:24)
[2018-08-07] MEDS: MICONAZOLE NITRATE 2% VAG 7 APP/45 GM CRTUBE VG SCH (20:25)
[2018-08-07] MEDS: traZODone 100 MG TAB PO PRN (21:55)
[2018-08-07] MEDS: NORTRIPTYLINE HCL 10 MG CAP PO SCH (21:56)
[2018-08-08] MEDS: KETOROLAC 15 MG/1 ML SDV IVP SCH ×4 (03:02→17:35)
[2018-08-08] MEDS: LEVOTHYROXINE 50 MCG TAB PO SCH (05:26)
[2018-08-08] MEDS: morphINE SR 30 MG TAB PO SCH ×2 (05:26→17:35)
[2018-08-08] MEDS: ACETAMINOPHEN 500 MG TAB PO SCH ×3 (06:00→20:54)
--- NOTE | 2018-08-08 07:32 | NEUSURGPN ---
Assessment/Plan: 68 yo morbidly obese female with L3-5 fusion in May 2018 w/ Dr. Wilde. Pt presented with worsened left foot weakness and left leg pain over past week. Pain worse with weightbearing although pt states that the pain/strength is better than yesterday Plan: -MRI of the left hip was obtained that shows mild tendinopathy of gluteus and hamstring origin. -continue with PT/OT in brace -continue with current pain control plan -Encourage OOB/ambulation -No urgent need for surgical intervention. Her CT 2 days ago is grossly stable compared to June CT with subacute L5 fracture -Dispo: looking at rehab options, ok to discharge from our standpoint -call with any questions or concerns -d/w Dr Wilde -pt understands and agrees Subjective: Pain improving. Also feels left DF weakness is improving. Objective: Awake. Alert. PERRL. EOMI Facial expression symmetrical Muscle strength full at 5/5 except for left DF weakness at 4+/5 Catheter Insertion Date: 08/04/18 - Physician Discussed Patient with : Chani Neurosurgery Physical Exam - Vitals, I&O, Labs I and O 08/07/18 08/08/18 08/09/18 05:59 05:59 05:59 Intake Total 1550 850 Output Total 2800 1550 Balance -1250 -700 Intake: Oral (ml) 1300 850 IV Infused (ml) 250 Vancomycin 1.25 gm In Ns 250 250 ml @ 166.667 mls/hr IV Q12H [facility] Rx#: [id number] Output: Urine (ml) 2800 1550 Bedside Commode 1550 Catheter 2800 Other: Number of Voids Bedside Commode 1 Number of Stools Bedside Commode 1 1 Post Void Residual Scan Volume (ml) Bedside Commode 122 Vital Signs Temp Pulse Resp BP Pulse Ox 37.0 C 72 18 132/73 H 93 08/08/18 03:56 08/08/18 03:56 08/08/18 03:56 08/08/18 03:56 08/08/18 03:56 Laboratory Results 08/06/18 04:50 08/06/18 04:50 ICD10 Worksheet Patient Problems: Problems Problem Status Onset Intractable low back pain Acute Acute on chronic respiratory failure with hypoxemia Acute L5 vertebral fracture Acute
[2018-08-08] MEDS: TIOTROPIUM INHALER 18 MCG/DOSE 5 DOSE/MDI IH SCH (09:50)
[2018-08-08] MEDS: FLUTICASONE HFA 110 MCG MDI IH SCH ×2 (09:50→20:32)
[2018-08-08] MEDS: buPROPion XL 150 MG TAB PO SCH (10:20)
[2018-08-08] MEDS: POLYETHYLENE GLYCOL 3350 17 GM PKT PO SCH (10:20)
[2018-08-08] MEDS: busPIRone 15 MG TAB PO SCH ×2 (10:20→20:53)
[2018-08-08] MEDS: SERTRALINE HCL 100 MG TAB PO SCH (10:21)
[2018-08-08] MEDS: GABAPENTIN 300 MG CAP PO SCH ×3 (10:21→20:52)
[2018-08-08] MEDS: POTASSIUM CL 10 MEQ TAB PO SCH (10:21)
[2018-08-08] MEDS: SENNOSIDES/DOCUSATE SODIUM TAB PO SCH ×2 (10:22→20:54)
[2018-08-08] MEDS: FUROSEMIDE 20 MG TAB PO SCH (10:22)
[2018-08-08] MEDS: ARIPiprazole 5 MG TAB PO SCH (10:22)
[2018-08-08] MEDS: ENOXAPARIN 40 MG/0.4 ML SYR SC SCH ×2 (10:22→20:55)
[2018-08-08] MEDS: METHOCARBAMOL 750 MG TAB PO PRN ×2 (10:30→20:52)
[2018-08-08] MEDS: BACLOFEN 10 MG TAB PO PRN ×2 (10:30→20:53)
[2018-08-08] MEDS: clonazePAM 0.5 MG TAB PO PRN (15:28)
--- NOTE | 2018-08-08 17:38 | HOSPPROG ---
Hospitalist Progress Note Assessment/Plan: 68 yo F w recent spine surgery 2. Leg pain/weakness MRI/CT confirms seroma L1-L5, S/P L3-5 TLIF on 06/06/18 blood cxs done prior to starting vanc/zosyn dc abx unlikely infectious MR mikayla hip tendonitis trial of toradol- not particularly helpful; continue pt inpt rehab consult in 3. COPD - With baseline continuous O2 use of 4 L/min Duonebs PRN added tiotropium, on flovent 4. Hypothyroid continue levothyroid TSH in good range 5. Depression, anxiety continue Abilify, Zoloft, Buspirone, and Wellbutrin (has been on this combination for a 'long time') 6. Morbid Obesity - BMI >40 screen for DM pending 7. Grade 1 diastolic dysfunction on recent echo 8. Constipation, resolved continue with bowel regimen as on chronic opiates 9. Urinary retention, >500 cc last nt Orellana in place dc AM 08/07 urinating ok 10. Vaginal discharge (per RN) -vaginal anti fungal cream 11. Anemia -hgb 11.3 -watch for stability 12. HypoNa, mild -recheck in AM PCP Dr Maxine Pringle FULL CODE DVT prophy- lovenox adjusted for BMI DISPO >2 mdnts, change to inpt status, refuses SNF but will consider inpt rehab , consult requested in AM Subjective: still w pain Objective: Vital Signs Temp Pulse Resp BP Pulse Ox 36.9 C 77 16 146/85 H 93 08/08/18 15:48 08/08/18 15:48 08/08/18 15:48 08/08/18 15:48 08/08/18 15:48 Laboratory Results 08/06/18 04:50 08/06/18 04:50 08/07/18 08/08/18 08/09/18 05:59 05:59 05:59 Intake Total 2803 044 9253 Output Total 2800 1550 Balance -1250 -700 1200 ICD10 Worksheet Patient Problems: Problems Problem Status Onset Intractable low back pain Acute Acute on chronic respiratory failure with hypoxemia Acute L5 vertebral fracture Acute
[2018-08-08] MEDS: MICONAZOLE NITRATE 2% VAG 7 APP/45 GM CRTUBE VG SCH (20:58)
[2018-08-08] MEDS: NORTRIPTYLINE HCL 10 MG CAP PO SCH (22:07)
[2018-08-08] MEDS: traZODone 100 MG TAB PO PRN (22:07)
[2018-08-09] MEDS: KETOROLAC 15 MG/1 ML SDV IVP SCH ×2 (02:22→04:19)
[2018-08-09] MEDS: LEVOTHYROXINE 50 MCG TAB PO SCH (04:18)
[2018-08-09] MEDS: ACETAMINOPHEN 500 MG TAB PO SCH ×2 (04:18→15:22)
[2018-08-09] MEDS: morphINE SR 30 MG TAB PO SCH ×2 (04:19→16:02)
--- NOTE | 2018-08-09 08:15 | NEUSURGPN ---
Assessment/Plan: Assessment: 68 yo morbidly obese female with L3-5 fusion in May 2018 w/ Dr. Wilde. Pt presented with worsened left foot weakness and left leg pain over past week. Pain worse with weightbearing although Plan: -MRI of the left hip was obtained that shows mild tendinopathy of gluteus and hamstring origin -Positive Manish on the left with internal rotation, recommend Ortho consult/ left hip injection -continue with PT/OT in brace -Encourage OOB/ambulation -No urgent need for surgical intervention. Her CT 3 days ago is grossly stable compared to June CT with subacute L5 fracture -Dispo: ok to discharge from our standpoint pending pain control -call with any questions or concerns -Discussed with Dr Wilde -pt understands and agrees Subjective: Continued left hip pain Objective: AxOx4 BLE 5/5 except for left DF weakness 4/5 Incision CDI Positive manish on the left with internal rotation Neuro Check Frequency: per routine Urinary Catheter in Place: No Catheter Insertion Date: 08/04/18 - Physician Discussed Patient with : Chani Neurosurgery Physical Exam - Vitals, I&O, Labs I and O 08/08/18 08/09/18 08/10/18 05:59 05:59 05:59 Intake Total 850 1700 Output Total 1550 Balance -700 1700 Intake: Oral (ml) 850 1700 Output: Urine (ml) 1550 Bedside Commode 1550 Other: Number of Voids Bedside Commode 1 1 Toilet 1 Number of Stools Bedside Commode 1 Post Void Residual Scan Volume (ml) Bedside Commode 122 Vital Signs Temp Pulse Resp BP Pulse Ox 36.8 C 68 20 131/86 H 91 L 08/09/18 07:45 08/09/18 07:45 08/09/18 07:45 08/09/18 07:45 08/09/18 07:45 Laboratory Results 08/06/18 04:50 08/06/18 04:50 ICD10 Worksheet Patient Problems: Problems Problem Status Onset Intractable low back pain Acute Acute on chronic respiratory failure with hypoxemia Acute L5 vertebral fracture Acute
[2018-08-09] MEDS: GABAPENTIN 300 MG CAP PO SCH ×2 (08:29→15:22)
[2018-08-09] MEDS: METHOCARBAMOL 750 MG TAB PO PRN ×2 (08:29→15:40)
[2018-08-09] MEDS: FUROSEMIDE 20 MG TAB PO SCH (08:29)
[2018-08-09] MEDS: SENNOSIDES/DOCUSATE SODIUM TAB PO SCH (08:29)
[2018-08-09] MEDS: ARIPiprazole 5 MG TAB PO SCH (08:30)
[2018-08-09] MEDS: buPROPion XL 150 MG TAB PO SCH (08:30)
[2018-08-09] MEDS: SERTRALINE HCL 100 MG TAB PO SCH (08:30)
[2018-08-09] MEDS: POTASSIUM CL 10 MEQ TAB PO SCH (08:30)
[2018-08-09] MEDS: busPIRone 15 MG TAB PO SCH (08:30)
[2018-08-09] MEDS: POLYETHYLENE GLYCOL 3350 17 GM PKT PO SCH (08:31)
[2018-08-09] MEDS: ENOXAPARIN 40 MG/0.4 ML SYR SC SCH (08:36)
[2018-08-09] MEDS: TIOTROPIUM INHALER 18 MCG/DOSE 5 DOSE/MDI IH SCH (09:55)
[2018-08-09] MEDS: FLUTICASONE HFA 110 MCG MDI IH SCH (09:55)
[2018-08-09] MEDS ORDERED: NAPROXEN SODIUM 220 MG TAB PO SCH (10:32)
--- NOTE | 2018-08-09 10:32 | HOSPPROG ---
Hospitalist Progress Note Assessment/Plan: 68 yo F w recent spine surgery 2. Leg pain/weakness MRI/CT confirms seroma L1-L5, S/P L3-5 TLIF on 06/06/18 dc abx unlikely infectious MR w hip tendonitis trial of toradol- not particularly helpful; continue pt inpt rehab consult in given mild tendonitis, I be;ieve risks>>benefits for steroid injection 3. COPD - With baseline continuous O2 use of 4 L/min Duonebs PRN added tiotropium, on flovent 4. Hypothyroid continue levothyroid TSH in good range 5. Depression, anxiety continue Abilify, Zoloft, Buspirone, and Wellbutrin (has been on this combination for a 'long time') 6. Morbid Obesity - BMI >40 screen for DM pending 7. Grade 1 diastolic dysfunction on recent echo 8. Constipation, resolved continue with bowel regimen as on chronic opiates 9. Urinary retention, >500 cc last nt Castillo in place dc AM 08/07 urinating ok 10. Vaginal discharge (per RN) -vaginal anti fungal cream 11. Anemia -hgb 11.3 -watch for stability 12. HypoNa, mild -recheck in AM PCP Dr Maxine Pringle FULL CODE DVT prophy- lovenox adjusted for BMI DISPO >2 mdnts, change to inpt status, refuses SNF but will consider inpt rehab , consult requested in AM Subjective: afebrile. asking about injection for hip Objective: Vital Signs Temp Pulse Resp BP Pulse Ox 36.8 C 61 17 131/86 H 92 08/09/18 07:45 08/09/18 09:55 08/09/18 09:55 08/09/18 07:45 08/09/18 09:55 Laboratory Results 08/06/18 04:50 08/06/18 04:50 08/08/18 08/09/18 08/10/18 05:59 05:59 05:59 Intake Total 850 1700 Output Total 1550 Balance -700 1700 - Physical Exam Constitutional: no apparent distress, appears nourished Eyes: PERRL, anicteric sclera Ears, Nose, Mouth, Throat: moist mucous membranes, hearing normal Cardiovascular: regular rate and rhythym, no murmur, rub, or gallop Respiratory: no respiratory distress, no rales or rhonchi Gastrointestinal: normoactive bowel sounds, soft, non-tender abdomen Genitourinary: no bladder fullness, No castillo in urethra Skin: warm, normal color Musculoskeletal: No full muscle strength Neurologic: AAOx3 ICD10 Worksheet Patient Problems: Problems Problem Status Onset Intractable low back pain Acute Acute on chronic respiratory failure with hypoxemia Acute L5 vertebral fracture Acute
--- NOTE | 2018-08-09 10:35 | PDIAF ---
- Diagnosis Diagnosis: hip strain Code Status: Full Code - Medication Management Discharge Medications: electronically signed and located in the Home Medication List. - Orders Services needed: Registered Nurse, Certified Learning And Development Coordinator, Physical Therapy, Occupational Therapy - Follow Up Care Current Providers and Referrals: ANABELLA HOLDER [Other] - As per Instructions Kandi Wilde DO [Doctor of Osteopathy] - follow up as scheduled (Follow up in 3-4 weeks with lumbar xray )
--- NOTE | 2018-08-09 11:18 | GDS ---
[f rep st] DISCHARGE SUMMARY DISCHARGE DIAGNOSES: 1. Recent low back surgery. 2. Chronic hypoxemic respiratory failure. 3. Left hip pain with evidence of tenosynovitis. HISTORY AND HOSPITAL COURSE: Please see admission history and physical by Dr. Dulce Rm. The anna blandon presented with increasing hip and leg pain with inability to walk. She had lumbar spine imaging , which showed a likely seroma. She was initially started on vancomycin and Zosyn without fever or o ther entities to suggest infection. She had blood cultures that were unremarkable. Ultimately, anti biotics were discontinued without evidence of recurrent infection. She had a lower extremity MRI on hospital day 3, showing mild tendinopathy in the gluteus tendon, ins ertion of the left greater trochanter, and mild tendinopathy of the left hamstring. This is likely t he source of her pain and is probably a compensation injury. A trial of NSAIDs was undertaken. She was asking for a steroid injection, which I felt was probably greater in risk than it was in benefit and, therefore, not pursued. The [facility] maryjane abilitation. Medication regimen is unchanged other than the addition of a 7-day course of naproxen. /[id number]/MODL
--- NOTE | 2018-08-09 11:36 | ASMTDCNOTE ---
Case Management Discharge Discharge Order Complete? Answers: Yes Patient to Obtain Answers: Other Notes: [facility] Transportation Arranged Answers: Other Notes: Prashanth Faxed Final Orders Answers: Yes Agency/Facility Transfer Answers: Yes Report Printed & Faxed to Receiving Agency Family Notified Answers: Yes Notes: LVM for dtr, Karen Discharge Comments Notes: D/W MD, patient is medically ready for SNF. Met with patient and spoke with dtr via phone, they have chosen [facility] (CM notified patient [facility] was unable to accept). Spoke with Keena at [facility], able to accept today, all orders sent. [facility] has arranged transport for 16:30 today, RN to call report. Of note, patient has used [facility] in the past - alerted Keena at [facility]. Date Signed: 08/09/2018 11:35 AM Electronically Signed By:Doreen Graves RN
--- NOTE | 2018-08-09 11:37 | ASMTLACE ---
GERALD Length of stay for Answers: 4-6 days current admission Acuity / Level of Answers: Yes Care: Did the patient have an inpatient admission? Comorbidities - select Answers: Chronic pulmonary disease all that apply Opioid dependence / Chronic pain Other Notes: Continuous O2, hypothyroid, chroni c back pain, diastolic dysfunction, 50 yr smoking hx # of Emergency department Answers: 3-4 visits in the last 6 months Social determinants Answers: Mental health diagnosis (anxiety, depression, pers onality disorders, etc.) Score: 20 Date Signed: 08/09/2018 11:36 AM Electronically Signed By:Doreen Graves RN
[2018-08-09] MEDS: NAPROXEN SODIUM 220 MG TAB PO SCH ×2 (13:23→16:01)
[2018-08-09 15:38] VITALS: BP 143/96
[2018-08-09] MEDS: clonazePAM 0.5 MG TAB PO PRN (15:40)
--- NOTE | 2018-08-10 15:30 | ASDISCHSUM ---
Discharge Information Plan Status:SNF Medically Cleared to Leave: Discharge Date:08/09/2018 04:43 PM D/C Disposition:Fpc Facility ADT D/C Disposition:Fpc Facility Projected Discharge Date:08/09/2018 11:00 AM Transportation at D/C:Wheelchair Van Discharge Delay Reason: Follow-Up Date:08/09/2018 11:00 AM Discharge Slot: Final Diagnosis: Placement Information Referral Type:*Longterm/SNF Referral ID:[id number] Provider Name:Nikki Golden Address 1:[address] Phone Number: Address 2: Fax Number: City:[place] Selection Factors: State:[place] Patient Contact Information Contact Name:FAVIAN Relationship:Daughter Address: Work Phone: City: [facility] Phone: [facility] Code: Email: Financial Information Financial Class:Medicare Primary Plan Desc:MEDICARE INPATIENT Primary Plan Number:[id number] Secondary Plan Desc: Secondary Plan Number: Assessment Information LACE LACE Length of stay for Answers: 4-6 days current admission Acuity / Level of Answers: Yes Care: Did the patient have an inpatient admission? Comorbidities - select Answers: Chronic pulmonary disease all that apply Opioid dependence / Chronic pain Other Notes: Continuous O2, hypothyroid, chroni c back pain, diastolic dysfunction, 50 yr smoking hx # of Emergency department Answers: 3-4 visits in the last 6 months Social determinants Answers: Mental health diagnosis (anxiety, depression, pers onality disorders, etc.) Score: 20 Date Signed: 08/09/2018 11:36 AM Electronically Signed By:Doreen Graves RN [facility] CM Progress Note CM Note CM Note Notes: Reviewed chart. Pt presented to the Emergency Department with intractable back pain, new leg pain and weakness. History includes an L3-L5 TLIF on 06/09/18, opiate dependence, chronic back pain, COPD with continuous oxygen use, hypothyroid, depression, anxiety, diastolic dysfunction and a 50 yr smoking history. Pt lives with her dghtr in [facility] [place]. She has a partner, Karen who has previously been involved in her care. Per prior records, pt underwent surgery with [facility] in May and was discharged to [facility] [place]. Upon discharge from rehab she was set up with [facility] (RN/PT/OT). The pt sustained a fall and was seen in the ED on 07/16/18. She was found to have a new L5 fracture and was discharged from the ED to home per [facility]. At that time CM noted the pt and family needed some additional mental health support - several resources were provided and a call was placed to [facility] requesting a director of social services see the pt at home. Please see CM notes from 07/16/18. CM spoke with Amilcar Casey PA-C. Per Amilcar, call received from [facility] - per [facility], pt would benefit from additional rehab due to safety concerns in the home. Pt to be admitted for further evaluation and for assistance determining a safe discharge plan. CM will await MD/PT/OT edita and will continue to follow. Discharge Plan: To be determined Date Signed: 08/04/2018 01:09 PM Electronically Signed By:Celia Goss RN [facility] BHANU Progress Note BHANU Note CM Note Notes: Spoke with pt and daughter in the room. Awaiting acceptance from inpatient rehab, however pt is unsure that she will be able to tolerate 3 hours of therapy a day, so requested we send referrals to SNF in case she is not accepted. Daughter given [employer] with list of SNFs. Referrals sent to [facility] and [facility]. Dtr to research all possibilities and express preference to CM tomorrow. D/C Plan: SNF v IpR Date Signed: 08/07/2018 04:44 PM Electronically Signed By:La Rodríguez Case Management Discharge Plan Note Case Management Discharge Discharge Order Complete? Answers: Yes Patient to Obtain Answers: Other Notes: [facility] Medications Transportation Arranged Answers: Other Notes: Prashanth Faxed Final Orders Answers: Yes Agency/Facility Transfer Answers: Yes Report Printed & Faxed to Receiving Agency Family Notified Answers: Yes Notes: [facility] for dtr, Karen Discharge Comments Notes: D/W MD, patient is medically ready for SNF. Met with patient and spoke with dtr via phone, they have chosen [facility] (CM notified patient [facility] was unable to accept). Spoke with Keena at [facility], able to accept today, all orders sent. [facility] has arranged transport for 16:30 today, RN to call report. Of note, patient has used [facility] in the past - alerted Keena at [facility]. Date Signed: 08/09/2018 11:35 AM Electronically Signed By:Doreen Graves RN Intervention Information Intervention Type:*IM-Signed Date of Service:08/09/2018 11:20 AM Patient Type:Inpatient Staff Member:Cassandra Nieto Hours: Discipline: Severity: Comment:
[2018-08-10] MEDS ORDERED: ERGOCALCIFEROL 50,000 I.UNIT CAP PO SCH (21:00)
== END 2018-08-09 16:43 | DRG 920 ==
LOC: F3N 12:45 → OBSVTOIN 08-05 18:12 → F1N 08-07 17:21
PROVIDERS: ADMIT Family Medicine; ATTEND Family Medicine
DX: M96.842 Postprocedural seroma of a musculoskeletal structure following a musculoskeletal system procedure (principal); J96.11 Chronic respiratory failure with hypoxia; Z68.42 Body mass index [BMI] 45.0-49.9, adult; M65.88 Other synovitis and tenosynovitis, other site; Z98.1 Arthrodesis status; J44.9 Chronic obstructive pulmonary disease, unspecified; G89.29 Other chronic pain; E03.9 Hypothyroidism, unspecified; F41.8 Other specified anxiety disorders; E66.01 Morbid (severe) obesity due to excess calories; K59.00 Constipation, unspecified; R33.9 Retention of urine, unspecified; N89.8 Other specified noninflammatory disorders of vagina; D64.9 Anemia, unspecified; Z99.81 Dependence on supplemental oxygen; Z87.891 Personal history of nicotine dependence
CPT/HCPCS: 96374; 97110-GP; 97116-GP; 97162-GP; 97166-GO; A9585; G0378; J1650; J1885; J2060; J2543; J3370

== ENCOUNTER 2018-09-03 09:03 | Inpatient (IN) | payer OTHER ==
--- NOTE | 2018-09-03 09:13 | EDPHY ---
H & P Time Seen by Provider: 09/03/18 09:11 HPI/ROS: CHIEF COMPLAINT: Left hip pain HISTORY OF PRESENT ILLNESS: 68-year-old female arrives via ambulance from her home in [facility]. [place]. She was recently discharged from a rehabilitation facility few days ago, discharged home. She was admitted discharged from [facility] within the past 10 days for increasing hip and leg pain, inability to walk, lumbar imaging showing a seroma, started antibiotics for also discontinued as there was no evidence of infection. She was found to have tendinopathy of the left hamstring. Today a she was ambulating with her walker, had difficulty getting up from the toilet with her walker, felt that her knee use "gave out" head and she fell onto her left hip. She is unsure whether her current pain is secondary to acute left hip pain or acute exacerbation of her chronic pain. There were no prolonged periods of immobility on the ground. She lives with family members. REVIEW OF SYSTEMS: 10 systems reviewed and negative with the exception of the elements mentioned in the history of present illness PAST MEDICAL & SURGICAL HISTORY: Tendinopathy left gluteus, tendinopathy left hamstring. SOCIAL HISTORY: Lives in a relatively remote location [facility] PHYSICAL EXAM (Prior to examination, patient consented to physical exam, hands were washed and my usual and customary physical exam procedures followed) 1) GENERAL: obese, alert and oriented. Appears uncomfortable whenever she is asked to move. 2) HEAD: Normocephalic, atraumatic 3) HEENT: Pupils equal, round, reactive to light bilaterally. Sclera anicteric. 4) NECK: Full range of motion, no meningeal signs. 5) LUNGS: Clear auscultation bilaterally, no wheezes, no rhonchi, no retractions. 6) HEART: Regular rate and rhythm, no murmur, no heave, no gallop. 7) ABDOMEN: No guarding, no rebound, no focal tenderness, negative McBurney's, negative Munoz's, negative Rovsing's, negative peritoneal sign, 8) MUSCULOSKELETAL: No shortening. No malrotation. Tender to palpation left gluteal region. Soft compartments. Normal coloration. DP PT pulses present and brisk distally. Normal temperature and color distally. Patient describes spasm like pain with range of motion in her left gluteal region. No pain with axial loading of the acetabulum. Moving all extremities, no focal areas of tenderness, no obvious trauma. No peripheral edema or discoloration. 9) BACK: No CVA tenderness, no midline vertebral tenderness, no fluctuance, no step-off, no obvious trauma, no visual or palpable abnormality. 10) SKIN: No rash, no petechiae. 11) Psychiatric: Patient is oriented X 3, there is no agitation. DIFFERENTIAL DIAGNOSIS: In no particular order including but not limited to acute muscle strain, spasm, fracture, sprain, strain, dislocation - Medical/Surgical History Hx Asthma: No Hx Chronic Respiratory Disease: Yes Hx Diabetes: No Hx Cardiac Disease: No Hx Renal Disease: No Hx Cirrhosis: No Hx Alcoholism: No Hx HIV/AIDS: No Hx Splenectomy or Spleen Trauma: No Other PMH: COPD, lumbar fusion 06/09, depression, GERD - Social History Smoking Status: Former smoker (>70 pkyrs) Constitutional: Initial Vital Signs Temperature (C) 36.6 C 09/03/18 09:13 Heart Rate 96 09/03/18 09:13 Respiratory Rate 18 09/03/18 09:13 Blood Pressure 103/65 09/03/18 09:13 O2 Sat (%) 68 L 09/03/18 09:13 O2 Delivery Mode Nasal Cannula O2 (L/minute) 5 Allergies/Adverse Reactions: No Known Allergies Allergy (Verified 09/03/18 10:03) Home Medications: Medication Instructions Recorded ARIPiprazole [Abilify 5 mg (*)] 5 mg PO DAILY 06/06/18 Albuterol [Proventil Inhaler HFA 1 - 2 puffs IH Q4H PRN 06/06/18 (*)] Bupropion HCl [Wellbutrin Xl] 300 mg PO DAILY 06/06/18 Ergocalciferol [Vitamin D2 (*)] 50,000 unit PO Q7D 06/06/18 Fluticasone Hfa 110 Mcg [Flovent 2 puffs IH BID 06/06/18 110 MCG Hfa MDI (*)] Fluticasone Propionate [Flonase 2 sprays EACHNARE DAILY 06/06/18 Allergy Relief] Furosemide [Lasix 20 MG (*)] 20 mg PO DAILY 06/06/18 Gabapentin [Neurontin 300 MG (*)] 900 mg PO TID 06/06/18 Levothyroxine [Synthroid 50 mcg 50 mcg PO DAILY06 06/06/18 (*)] Lidocaine 5% [Lidoderm 5% Patch] 1 - 3 ea TD DAILY PRN 06/06/18 Nortriptyline HCl [Pamelor 10 mg 30 mg PO HS 06/06/18 (*)] Sertraline HCl [Zoloft 100mg (*)] 250 mg PO DAILY 06/06/18 buPROPion XL [Wellbutrin 150mg XL] 150 mg PO DAILY 06/06/18 busPIRone [Buspar (*)] 15 mg PO BID 06/06/18 clonazePAM [Klonopin (*)] 0.5 mg PO DAILY PRN 06/06/18 morphINE SR [MS Contin/Oramorph SR 60 mg PO BID 06/06/18 30 mg (*)] Acetaminophen [Tylenol ES 500 mg 1,000 mg PO Q8HRS tab 06/09/18 (*)] Ondansetron Odt [Zofran Odt 4 mg 4 - 8 mg PO Q6HRS PRN tab 06/09/18 (*)] Polyethylene Glycol 3350 [Miralax 17 gm PO DAILY PRN pkt 06/09/18 17 gm (*)] traZODone [traZODONE 100MG (*)] 100 mg PO HS PRN tab 06/09/18 Aspirin [Aspirin 325 mg (*)] 325 mg PO DAILY 08/04/18 Baclofen [Baclofen 10 mg (*)] 10 - 20 mg PO TID PRN 08/04/18 Bisacodyl [Dulcolax] 10 mg RC DAILY PRN 08/04/18 Sennosides/Docusate Sodium 1 - 2 tab PO BID PRN 08/04/18 [Senokot-S] guaiFENesin [Mucinex 600 MG (*)] 600 mg PO BID PRN 08/04/18 morphINE IR [morphINE IR 15 mg (*)] 15 mg PO DAILY@12 08/04/18 Naproxen Sodium [Aleve 220 MG (*)] 220 mg PO TID tab 08/09/18 Medical Decision Making - Diagnostics Imaging Results: Imaging Impressions Hip X-Ray 09/03/18 09:09 Impression: No acute abnormality seen about the pelvis with attention left hip. Images reviewed myself ED Course/Re-evaluation: 10:11 a.m.: Patient has been re-evaluated with serial exams. She notes improvement in symptoms as long she is laying still however she is unable to sit up, is unable to ambulate. Addition she lives in a relatively remote location [facility]. For all these reasons I do not think the patient is an appropriate candidate for outpatient discharge. She agrees with this. Consultation with hospitalist at this time, admit to Dr. Galicia. Care of patient under supervision of secondary supervising physician Dr Lafleur with whom I discussed case. - Data Points Laboratory Results: Laboratory Results 09/03/18 09:05 09/03/18 09:05 09/03/18 09/03/18 09:05 09:05 WBC 13.56 10^3/uL H 10^3/uL (3.80-9.50) RBC 5.05 10^6/uL 10^6/uL (4.18-5.33) Hgb 13.1 g/dL g/dL (12.6-16.3) Hct 43.3 % % (38.0-47.0) MCV 85.7 fL fL (81.5-99.8) MCH 25.9 pg L pg (27.9-34.1) MCHC 30.3 g/dL L g/dL (32.4-36.7) RDW 14.6 % % (11.5-15.2) Plt Count 357 10^3/uL 10^3/uL (150-400) MPV 10.0 fL fL (8.7-11.7) Neut % (Auto) 86.4 % H % (39.3-74.2) Lymph % (Auto) 6.3 % L % (15.0-45.0) Wallace % (Auto) 4.9 % % (4.5-13.0) Eos % (Auto) 0.9 % % (0.6-7.6) Baso % (Auto) 0.3 % % (0.3-1.7) Nucleat RBC Rel Count 0.0 % % (0.0-0.2) Absolute Neuts (auto) 11.72 10^3/uL H 10^3/uL (1.70-6.50) Absolute Lymphs (auto) 0.85 10^3/uL L 10^3/uL (1.00-3.00) Absolute Monos (auto) 0.67 10^3/uL 10^3/uL (0.30-0.80) Absolute Eos (auto) 0.12 10^3/uL 10^3/uL (0.03-0.40) Absolute Basos (auto) 0.04 10^3/uL 10^3/uL (0.02-0.10) Absolute Nucleated RBC 0.00 10^3/uL 10^3/uL (0-0.01) Immature Gran % 1.2 % H % (0.0-1.1) Immature Gran # 0.16 10^3/uL H 10^3/uL (0.00-0.10) Sodium 136 mEq/L mEq/L (135-145) Potassium 4.2 mEq/L mEq/L (3.5-5.2) Chloride 96 mEq/L L mEq/L (97-110) Carbon Dioxide 26 mEq/l mEq/l (22-31) Anion Gap 14 mEq/L mEq/L (6-14) BUN 8 mg/dL mg/dL (7-23) Creatinine 0.6 mg/dL mg/dL (0.6-1.0) Estimated GFR > 60 Glucose 98 mg/dL mg/dL (70-100) Calcium 9.6 mg/dL mg/dL (8.5-10.4) Creatine Kinase 156 IU/L IU/L (0-156) Medications Given: Aripiprazole (Abilify) 5 mg PO DAILY [facility] Stop: 03/02/19 10:44 Last Admin: 09/03/18 12:37 Dose: 5 mg Aspirin (Aspirin) 325 mg PO DAILY [facility] Stop: 03/02/19 10:44 Last Admin: 09/03/18 12:36 Dose: 325 mg Bupropion HCl (Wellbutrin Xl) 450 mg PO DAILY [facility] Stop: 03/02/19 11:34 Last Admin: 09/03/18 12:37 Dose: 450 mg Buspirone HCl (Buspar) 15 mg PO BID [facility] Stop: 03/02/19 10:44 Last Admin: 04/15/19 12:36 Dose: 15 mg Fluticasone Propionate (Flovent Hfa) 2 puffs IH BID [facility] Stop: 03/02/19 10:44 Last Admin: 09/03/18 12:31 Dose: Not Given Furosemide (Lasix) 20 mg PO DAILY [facility] Stop: 03/02/19 10:44 Last Admin: 09/03/18 12:39 Dose: Not Given Gabapentin (Neurontin) 900 mg PO TID [facility] Stop: 03/02/19 10:42 Last Admin: 09/03/18 13:02 Dose: 900 mg Levothyroxine Sodium (Synthroid) 50 mcg PO DAILY06 [facility] Stop: 03/02/19 10:44 Last Admin: 09/03/18 13:11 Dose: Not Given Miscellaneous Medication (Fluticasone Propionate [Flonase Allergy Relief]) 2 sprays EACHNARE DAILY [facility] Stop: 03/02/19 10:44 Last Admin: 09/03/18 13:03 Dose: Not Given Morphine Sulfate (Morphine Ir) 15 mg PO DAILY@12 [facility] Stop: 09/13/18 11:59 Last Admin: 09/03/18 12:36 Dose: 15 mg Discontinued Medications Diazepam (Valium) 5 mg IVP EDNOW ONE Stop: 09/03/18 10:24 Last Admin: 09/03/18 10:27 Dose: 5 mg Fentanyl (Sublimaze) 75 mcg IVP EDNOW ONE Stop: 09/03/18 09:51 Last Admin: 09/03/18 10:28 Dose: Not Given Ketorolac Tromethamine (Toradol) 15 mg IVP EDNOW ONE Stop: 09/03/18 09:51 Last Admin: 09/03/18 09:59 Dose: 15 mg Departure - Departure Disposition: [facility] Acute Clinical Impression: Muscle strain of left gluteal region Qualifiers: Encounter type: initial encounter Qualified Code(s): S76.012A - Strain of muscle, fascia and tendon of left hip, initial encounter Condition: Fair
[2018-09-03 09:28] LABS: PLATELET COUNT 357 10^3/uL (150-400)
[2018-09-03 09:35] LABS: CREATINE KINASE 156 IU/L (0-156)
[2018-09-03] MEDS ORDERED: KETOROLAC 15 MG/1 ML SDV IVP ONE (09:50)
[2018-09-03] MEDS ORDERED: fentaNYL 100 MCG/2 ML INJ IVP ONE (09:50)
[2018-09-03] MEDS ORDERED: DIAZEPAM 5 MG/ML 1 ML SYR IVP ONE (10:23)
[2018-09-03] MEDS ORDERED: ACETAMINOPHEN 325 MG TAB PO PRN (10:39)
[2018-09-03] MEDS ORDERED: ONDANSETRON DISINTEGRATING 4 MG TAB PO PRN (10:39)
[2018-09-03] MEDS ORDERED: BISACODYL 10 MG SUPP PR PRN (10:41)
[2018-09-03] MEDS ORDERED: ALBUTEROL 60 PUFFS/8 GM MDI IH PRN (10:41)
[2018-09-03] MEDS ORDERED: guaiFENesin 600 MG TAB.ER PO PRN (10:41)
[2018-09-03] MEDS ORDERED: POLYETHYLENE GLYCOL 3350 17 GM PKT PO PRN (10:44)
[2018-09-03] MEDS ORDERED: SENNOSIDES/DOCUSATE SODIUM TAB PO PRN (10:44)
[2018-09-03] MEDS ORDERED: NON-FORMULARY NEW DRUG (Bupropion Hcl [Wellbutrin Xl] 300 MG) PO SCH (10:45)
[2018-09-03] MEDS: FLUTICASONE HFA 110 MCG MDI IH SCH ×2 (12:31→20:28)
[2018-09-03] MEDS: ASPIRIN 325 MG TAB PO SCH (12:36)
[2018-09-03] MEDS: busPIRone 15 MG TAB PO SCH ×2 (12:36→21:34)
[2018-09-03] MEDS: ARIPiprazole 5 MG TAB PO SCH (12:37)
[2018-09-03] MEDS: buPROPion XL 150 MG TAB PO SCH (12:37)
[2018-09-03] MEDS: FUROSEMIDE 20 MG TAB PO SCH (12:39)
[2018-09-03] MEDS: GABAPENTIN 300 MG CAP PO SCH ×3 (13:02→21:33)
[2018-09-03] MEDS: NON-FORMULARY NEW DRUG (Fluticasone Propionate [Flonase Allergy Relief] 2 SPRAYS) EACHNARE SCH (13:03)
[2018-09-03] MEDS: LEVOTHYROXINE 50 MCG TAB PO SCH (13:11)
[2018-09-03] MEDS: SERTRALINE HCL 100 MG TAB PO SCH (13:36)
--- NOTE | 2018-09-03 14:05 | PDGENHP ---
History and Physical - Chief Complaint weakness, fall - History of Present Illness 68 yo female with h/o recent lumbar fusion in 05/2018 who returns to the hospital for the 3rd time since surgery after a fall at home. She was most recently hospitalized in 07/2018 and L-spine imaging at that time showed a seroma fluid collection. She was initially treated with IV atbx but ultimately infection was deemed unlikely and atbx were stopped. Imaging of her left hip revealed a left gluteal and hamstring tendinopathy. She was discharged to rehab and just returned home 3 days ago. She was able to get around over the weekend with a walker. Today, she went to the bathroom and was able to make it back to her bedroom. But later in the hallway, she did not have the strength to remain standing and fell to the ground, onto her left hip. Xray in the ED was negative for fracture. She denies pain currently at rest in bed and is able to move her legs and hips without difficulty. Her concern is her weakness with walking. She denies midline back pain. She denies fevers. No bowel or bladder incontinence. She is tearful over her persistent difficulty with weakness and walking and is upset to be re-hospitalized. History Information - Allergies/Home Medication List Allergies/Adverse Reactions: No Known Allergies Allergy (Verified 09/03/18 10:03) Home Medications: ARIPiprazole [Abilify 5 mg (*)] 5 mg PO DAILY 06/06/18 [Last Taken 09/02/18] Albuterol [Proventil Inhaler HFA (*)] 1 - 2 puffs IH Q4H PRN 06/06/18 [Last Taken Unknown] Bupropion HCl [Wellbutrin Xl] 300 mg PO DAILY 06/06/18 [Last Taken 09/02/18] Ergocalciferol [Vitamin D2 (*)] 50,000 unit PO Q7D 06/06/18 [Last Taken Unknown] Fluticasone Hfa 110 Mcg [Flovent 110 MCG Hfa MDI (*)] 2 puffs IH BID 06/06/18 [ Last Taken 09/02/18 21:00] Fluticasone Propionate [Flonase Allergy Relief] 2 sprays EACHNARE DAILY [Last Taken 09/02/18] Furosemide [Lasix 20 MG (*)] 20 mg PO DAILY 06/06/18 [Last Taken 09/02/18] Gabapentin [Neurontin 300 MG (*)] 900 mg PO TID 06/06/18 [Last Taken 09/02/18 21 :00] Levothyroxine [Synthroid 50 mcg (*)] 50 mcg PO DAILY06 06/06/18 [Last Taken ] Lidocaine 5% [Lidoderm 5% Patch] 1 - 3 ea TD DAILY PRN 06/06/18 [Last Taken Unknown] Nortriptyline HCl [Pamelor 10 mg (*)] 30 mg PO HS 06/06/18 [Last Taken 09/02/18] Sertraline HCl [Zoloft 100mg (*)] 250 mg PO DAILY 06/06/18 [Last Taken 09/02/18] buPROPion XL [Wellbutrin 150mg XL] 150 mg PO DAILY 06/06/18 [Last Taken 09/02/18 ] busPIRone [Buspar (*)] 15 mg PO BID 06/06/18 [Last Taken 09/02/18 21:00] clonazePAM [Klonopin (*)] 0.5 mg PO DAILY PRN 06/06/18 [Last Taken Unknown] morphINE SR [MS Contin/Oramorph SR 30 mg (*)] 60 mg PO BID 06/06/18 [Last Taken 09/03/18] Aspirin [Aspirin 325 mg (*)] 325 mg PO DAILY 08/04/18 [Last Taken 09/02/18] Baclofen [Baclofen 10 mg (*)] 10 - 20 mg PO TID PRN 08/04/18 [Last Taken Unknown ] Bisacodyl [Dulcolax] 10 mg RC DAILY PRN 08/04/18 [Last Taken Unknown] Sennosides/Docusate Sodium [Senokot-S] 1 - 2 tab PO BID PRN 08/04/18 [Last Taken Unknown] guaiFENesin [Mucinex 600 MG (*)] 600 mg PO BID PRN 08/04/18 [Last Taken Unknown] morphINE IR [morphINE IR 15 mg (*)] 15 mg PO DAILY@12 08/04/18 [Last Taken 09/02] I have personally reviewed and updated: family history, medical history, social history, surgical history - Past Medical History COPD, degenerative disc disease Additional medical history: Continuous O2 use 4 L/min, depression/anxiety, hypothyroid, morbid obesity - Surgical History Additional surgical history: 05/2018 L3-5 TLIF- Dr Wilde - Family History Additional family history: COPD - Social History Smoking Status: Former smoker (>70 pkyrs) Alcohol Use: None Drug Use: None Additional social history: Lives at home independently, just discharged from rehab 08/30/2018. Lives up [facility]. Review of Systems Review of Systems: ROS: 10pt was reviewed & negative except for what was stated in HPI & below Physical Exam Physical Exam: Temp Pulse Resp BP Pulse Ox 36.4 C 80 18 120/59 L 92 09/03/18 11:31 09/03/18 11:31 09/03/18 11:31 09/03/18 11:31 09/03/18 11:31 O2 (L/minute) 4 Constitutional: no apparent distress Eyes: PERRL Ears, Nose, Mouth, Throat: moist mucous membranes Cardiovascular: regular rate and rhythym, no murmur, rub, or gallop Respiratory: no respiratory distress, reduced air movement Gastrointestinal: normoactive bowel sounds, soft, non-tender abdomen Skin: warm Neurologic: AAOx3, other (minimal - 1+ patellar reflexes b/l, proximal strength 5/5 LE's b/l) Psychiatric: interacting appropriately Lab Data & Imaging Review 09/03/18 09:05 09/03/18 09:05 WBC 13.56 10^3/uL (3.80-9.50) H 09/03/18 09:05 RBC 5.05 10^6/uL (4.18-5.33) 09/03/18 09:05 Hgb 13.1 g/dL (12.6-16.3) 09/03/18 09:05 Hct 43.3 % (38.0-47.0) 09/03/18 09:05 MCV 85.7 fL (81.5-99.8) 09/03/18 09:05 MCH 25.9 pg (27.9-34.1) L 09/03/18 09:05 MCHC 30.3 g/dL (32.4-36.7) L 09/03/18 09:05 RDW 14.6 % (11.5-15.2) 09/03/18 09:05 Plt Count 357 10^3/uL (150-400) 09/03/18 09:05 MPV 10.0 fL (8.7-11.7) 09/03/18 09:05 Neut % (Auto) 86.4 % (39.3-74.2) H 09/03/18 09:05 Lymph % (Auto) 6.3 % (15.0-45.0) L 09/03/18 09:05 Bureau % (Auto) 4.9 % (4.5-13.0) 09/03/18 09:05 Eos % (Auto) 0.9 % (0.6-7.6) 09/03/18 09:05 Baso % (Auto) 0.3 % (0.3-1.7) 09/03/18 09:05 Nucleat RBC Rel Count 0.0 % (0.0-0.2) 09/03/18 09:05 Absolute Neuts (auto) 11.72 10^3/uL (1.70-6.50) H 09/03/18 09:05 Absolute Lymphs (auto) 0.85 10^3/uL (1.00-3.00) L 09/03/18 09:05 Absolute Monos (auto) 0.67 10^3/uL (0.30-0.80) 09/03/18 09:05 Absolute Eos (auto) 0.12 10^3/uL (0.03-0.40) 09/03/18 09:05 Absolute Basos (auto) 0.04 10^3/uL (0.02-0.10) 09/03/18 09:05 Absolute Nucleated RBC 0.00 10^3/uL (0-0.01) 09/03/18 09:05 Immature Gran % 1.2 % (0.0-1.1) H 09/03/18 09:05 Immature Gran # 0.16 10^3/uL (0.00-0.10) H 09/03/18 09:05 Sodium 136 mEq/L (135-145) 09/03/18 09:05 Potassium 4.2 mEq/L (3.5-5.2) 09/03/18 09:05 Chloride 96 mEq/L (97-110) L 09/03/18 09:05 Carbon Dioxide 26 mEq/l (22-31) 09/03/18 09:05 Anion Gap 14 mEq/L (6-14) 09/03/18 09:05 BUN 8 mg/dL (7-23) 09/03/18 09:05 Creatinine 0.6 mg/dL (0.6-1.0) 09/03/18 09:05 Estimated GFR > 60 09/03/18 09:05 Glucose 98 mg/dL (70-100) 09/03/18 09:05 Calcium 9.6 mg/dL (8.5-10.4) 09/03/18 09:05 Creatine Kinase 156 IU/L (0-156) 09/03/18 09:05 Assessment & Plan Assessment: 68 yo female with h/o depression, anxiety and recent lumbar spine surgery returns to hospital after recently discharging home from SNF after a fall due to persistent weakness. Weakness - left gluteal and hamstring tendinopathy diagnosed 07/2018 by MRI likely contributory as it seems her left leg is weaker by her story. No e/o fracture on xray (pers reviewed/interp). -PT/OT evals S/P L3-L5 lumbar fusion 05/2018 - no back pain or fevers. Last MRI 07/2018 showed a seroma and fluid collection in L4 laminectomy bed without mass effect. -I reached out to neurosurgery service requesting they evaluate her to determine if she needs repeat imaging, which I've deferred for now Depression/Anxiety - She takes Zoloft, Trazodone, Klonopin, Buspar, Wellbutrin, Nortriptyline, Abilify. Will continue these home meds, but despite all of these medications, she remains tearful and distraught over her situation. Chronic pain with chronic continuous opioid dependence - cont home MS Contin, Morphine IR, Gabapentin Chronic hypoxemic respiratory failure 2/2 COPD - on 4 LPM at baseline, no e/o acute exacerbation Hypothyroidism - cont Levothyroxine DVT PPLX - Lovenox Full code Dispo - admit to inpt for acute PT/OT, likely needs to return to SNF. CM consulted.
[2018-09-03] MEDS: ACETAMINOPHEN 500 MG TAB PO SCH ×2 (14:27→21:57)
--- NOTE | 2018-09-03 15:25 | ASMTLACE ---
GERALD Acuity / Level of Answers: Yes Care: Did the patient have an inpatient admission? Comorbidities - select Answers: Chronic pulmonary disease all that apply Opioid dependence / Chronic pain Other Notes: Hypothyroid # of Emergency department Answers: 3-4 visits in the last 6 months Social determinants Answers: Mental health diagnosis (anxiety, depression, pers onality disorders, etc.) Score: 16 Date Signed: 09/03/2018 03:24 PM Electronically Signed By:Cassandra Nieto
--- NOTE | 2018-09-03 15:35 | ASMTCMCOM ---
CM Note CM Note Notes: Spoke with pt in the room. Pt lives with her daughter and was admitted to [facility] in May for spine surgery and has been readmitted 3 times since then. On most recent admit she discharged to [facility] and returned home three days ago with support from [facility] ([facility] [phone]). Pt fell this morning at home and states that she doesn't know if she can walk now. Pt has used all her medicare days in SNF and if she returns to , her copay will be $170/day and pt states tearfully that she cannot pay that. Referral sent to [facility]. If pt needs SNF, she may need to be screened for LTC medicaid and enter into a LTC facility. Pt would like to work with therapies before deciding. CM to follow. D/C Plan: TBD Date Signed: 09/03/2018 03:34 PM Electronically Signed By:La Rodríguez
[2018-09-03] MEDS: KETOROLAC 15 MG/1 ML SDV IVP SCH ×2 (16:28→18:24)
--- NOTE | 2018-09-03 17:14 | GCON ---
[f rep st] CONSULTATION DATE OF CONSULTATION: 09/03/2018 REASON FOR CONSULTATION: Left hip pain, status post prior lumbar fusion in May 2018. HISTORY OF PRESENT ILLNESS: The patient is well known to [facility], as she is a patient of Dr. Wilde's. She underwent a recent lumbar fusion by Dr. Wilde in May 2018, wh ich was an L3 through L5 decompression and fusion. The patient has presented to [facility] after another fall at home. She apparently has returned to the hospital for the 3rd time after multiple falls. The most recent imaging back in July 2018 of the L-spine dem onstrated a seroma fluid collection which was initially thought to be infected, for which she was nahomy ated with antibiotics. Antibiotics were subsequently stopped. Imaging of the left hip also revealed left gluteal and hamstring tendinopathy. The patient was subsequently discharged to rehab at that [facility], and just got to her home around the August. The patient has been having a difficult time ambulating with a walker and states that her legs would "give out." She denies any fevers, chi lls, or any worsening back pain. She was brought to the emergency department for further evaluation and management. Imaging demonstrated no fractures. ALLERGIES: No known drug allergies. MEDICATIONS: At home: 1. Abilify 5 mg p.o. daily. 2. Albuterol 1 to 2 puffs inhaled q.4 hours p.r.n. 3. Wellbutrin 300 mg p.o. daily. 4. Vitamin D2 50,000 units p.o. q.7 days. 5. Flovent 100 mcg inhaled 2 puffs twice daily. 6. Flonase Allergy Relief 2 sprays each naris daily. 7. Lasix 20 mg p.o. daily. 8. Gabapentin 900 mg p.o. three times daily. 9. Synthroid 50 mcg p.o. daily. 10. Lidocaine transdermal patch daily p.r.n. 11. Nortriptyline 30 mg p.o. at bedtime. 12. Sertraline 250 mg p.o. daily. 13. Wellbutrin 150 mg p.o. daily. 14. Buspirone 50 mg p.o. twice daily. 15. Clonazepam 0.5 mg p.o. daily p.r.n. 16. MS Contin 60 mg p.o. twice daily. 17. Aspirin 325 mg p.o. daily. 18. Baclofen 10 to 20 mg p.o. three times daily p.r.n. 19. Dulcolax 10 mg p.o. p.r.n. 20. Docusate with senna 1 to 2 tabs p.o. twice daily p.r.n. 21. Mucinex 600 mg p.o. twice daily p.r.n. 22. Morphine 15 mg IR daily p.r.n. PAST MEDICAL HISTORY: 1. COPD. 2. Hypertension. 3. Degenerative disk disease. 4. Seasonal allergies. 5. Depression and anxiety. 6. Hypothyroidism. 7. Morbid obesity. 8. Continuous oxygen. PAST SURGICAL HISTORY: L3 through L5 lumbar fusion, including TLIFS on May [address] Wilde. FAMILY HISTORY: Significant for COPD. SOCIAL HISTORY: The patient is a former smoker. Denies alcohol or illicit drug use. She lives at [facility] independently and was just discharged from rehab on the August. She lives in [place]. REVIEW OF SYSTEMS: Complete 10-point review of systems intake form reviewed by myself. Significant noted for those above in the HPI. PHYSICAL EXAMINATION: VITAL SIGNS: Blood pressure is 94/58, heart rate 73, respiratory rate is 20, saturating 90% on 4 L nasal cannula. Temperature is 36.5. GENERAL: The patient is lying in the bed in no acute distress. She is quite pleasant and cooperative with the examination. Affect appears a ppropriate. HEENT: Head is atraumatic, normocephalic. Pupils are equal, round, and reactive to lig ht bilaterally. Extraocular movements are intact. NEUROLOGIC: Cranial nerves 2-12 are intact. Pup ils are equal, round, and reactive to light bilaterally. Extraocular movement intact. Tongue protru shayla midline. Uvula and palate elevate symmetrically. Facial motor strength is symmetric bilaterally . Intact sensation to light touch bilaterally in the face. She has intact hearing to light finger s cratch bilaterally. Shoulder shrug is symmetric. Motor exam: She has 5/5 bilateral heart surgeon strength b iceps, triceps, deltoid, right-sided hip flexor, bilateral knee flexion extension, plantar and dorsif lexion, and extensor hallucis longus. She has diminished left hip flexors secondary to pain. Sensor y exam: She has intact sensation to light touch throughout all major dermatomes of bilateral upper e xtremities throughout. Reflexes: She has 1+ reflexes of the bilateral patella. No Sales's. No Ba binski. Other: She does have pain in the left hip with range of motion of the left leg as well as w ith active range of motion of the right hip. MEDICAL DECISION MAKING: White count 13.56, hematocrit 43, platelets 356. Sodium 136, BUN of 8, crea tinine of 0.6. Hip x-ray report from the August completed at [facility] demonstrates evidence of no acute abnormalities or fractures. CT of the lumbar spine as well as MRI of the lumbar spine were completed on August 04, 2018, at both the hospital PAC system. At that time, there was posterior fusion evidence from L3 through L5 with interbody arthrodesis at L3-4 and stable subacute moderate L5 compression deformity. There is stable anterolisthesis L3-L4 and L4-L5. There is superficial postoperative seroma with mild L3-4 central canal stenosis and mild to moderate L4-5 stenosis. The neural foramina are partially obscured with no evidence of any residual or recurrent d isk herniation. ASSESSMENT/PLAN: The patient is a 68-year-old woman who presents to the emergency department for dif ficulty with ambulation secondary to increased pain in the left hip with no increased back pain, feve rs, or chills. She has known tendinopathy of the left hip and recent imaging of the spine completed in July just approximately 4 weeks ago, demonstrated no concerning findings or stenosis to explain h er symptomatology. She does appear to have issues likely that are related to the hip and less so fro m her back based on her clinical examination and the location of her pain. I do not feel that furthe r imaging or repeat imaging of the spine will be of much benefit given her lack of pain or fevers or chills. Recommend continued physical therapy, including occupational therapy. If Orthopedics does e valuate the patient's hip and feels that this is not the source of her pain, then repeat imaging of t he spine can definitely be indicated, but we would await their opinion. We will check on the patient again in the morning to evaluate where she is with her workup. Thank you for this consultation. /[id number]/MODL
[2018-09-03] MEDS: morphINE SR 30 MG TAB PO SCH (18:24)
[2018-09-03] MEDS: clonazePAM 0.5 MG TAB PO PRN (19:23)
[2018-09-03] MEDS: traZODone 100 MG TAB PO PRN (21:34)
[2018-09-03] MEDS: NORTRIPTYLINE HCL 10 MG CAP PO SCH (21:34)
[2018-09-04] MEDS: KETOROLAC 15 MG/1 ML SDV IVP SCH ×5 (00:39→23:45)
[2018-09-04 05:08] LABS: PLATELET COUNT 262 10^3/uL (150-400)
[2018-09-04] MEDS: morphINE SR 30 MG TAB PO SCH ×2 (05:21→17:32)
[2018-09-04] MEDS: LEVOTHYROXINE 50 MCG TAB PO SCH (05:21)
[2018-09-04] MEDS: ACETAMINOPHEN 500 MG TAB PO SCH ×3 (06:04→20:33)
--- NOTE | 2018-09-04 07:41 | NEUSURGPN ---
Assessment/Plan: 68 yo female with recent h/o L3-L5 TLIF in May, compression fracture at L5 on CT L-spine imaging Having left hip pain and left lateral leg pain. - neuro stable - encourage increased activity, PT/OT - no need for imaging of the L-spine - will defer to medicine if ortho should evaluate patient for hip pain - continue to wear the brace when out of bed for another [address] Wilde. Subjective: Having left hip and lateral leg pain to the ankle. Objective: Awake. Alert. PERRL. EOMI Facial expression symmetrical Muscle strength RLE 5/5, LLE diffusely slightly weak at 4+/5 - Physician Discussed Patient with : [facility] Physical Exam - Vitals, I&O, Labs I and O 09/03/18 09/04/18 09/05/18 05:59 05:59 05:59 Intake Total 470 Output Total 500 Balance -30 Weight 111.13 kg Intake: Oral (ml) 470 IV Infused (ml) 0 Output: Urine (ml) 500 Bedpan 500 Emesis (ml) 0 Other: Output Comment Bedpan Pure wick used Vital Signs Temp Pulse Resp BP Pulse Ox 36.6 C 77 18 115/68 90 L 09/04/18 04:00 09/04/18 04:00 09/04/18 04:00 09/04/18 04:00 09/04/18 04:00 Laboratory Results 09/04/18 04:15 ICD10 Worksheet Patient Problems: Problems Problem Status Onset Muscle strain of left gluteal region Acute Acute on chronic respiratory failure with hypoxemia Acute Intractable low back pain Acute L5 vertebral fracture Acute
[2018-09-04] MEDS: GABAPENTIN 300 MG CAP PO SCH ×3 (09:39→20:08)
[2018-09-04] MEDS: busPIRone 15 MG TAB PO SCH ×2 (09:40→20:08)
[2018-09-04] MEDS: ASPIRIN 325 MG TAB PO SCH (09:40)
[2018-09-04] MEDS: SERTRALINE HCL 100 MG TAB PO SCH (09:41)
[2018-09-04] MEDS: ARIPiprazole 5 MG TAB PO SCH (09:41)
[2018-09-04] MEDS: buPROPion XL 150 MG TAB PO SCH (09:41)
--- NOTE | 2018-09-04 09:41 | HOSPPROG ---
Hospitalist Progress Note Assessment/Plan: 68 yo female with h/o depression, anxiety and recent lumbar spine surgery returns to hospital after recently discharging home from SNF after a fall due to persistent weakness. Weakness - left gluteal and hamstring tendinopathy diagnosed 07/2018 by MRI likely contributory as it seems her left leg is weaker by her story. No e/o fracture on xray (pers reviewed/interp). -PT/OT evals today -I've also requested orthopedic consult S/P L3-L5 lumbar fusion 05/2018 - no back pain or fevers. Last MRI 07/2018 showed a seroma and fluid collection in L4 laminectomy bed without mass effect. -appreciate neurosurgery evaluation, no further imaging recommended Depression/Anxiety - She takes Zoloft, Trazodone, Klonopin, Buspar, Wellbutrin, Nortriptyline, Abilify. Will continue these home meds, but despite all of these medications, she remains tearful and distraught over her situation. Chronic pain with chronic continuous opioid dependence - cont home MS Contin, Morphine IR, Gabapentin Chronic hypoxemic respiratory failure 2/2 COPD - on 4 LPM at baseline, no e/o acute exacerbation Hypothyroidism - cont Levothyroxine DVT PPLX - Lovenox Full code Dispo - cont inpt, likely needs to return to SNF. PT/OT evals pending. CM following. Subjective: Pt is upset with poor strength and recovery since surgery in May. No fevers/chills. Denies focal back pain. Has LE weakness worse on left side. She was up to commode this am, still feels weakness in her legs. Objective: Vital Signs Temp Pulse Resp BP Pulse Ox 36.9 C 77 18 100/60 92 09/04/18 07:49 09/04/18 04:00 09/04/18 07:49 09/04/18 07:49 09/04/18 07:49 Laboratory Results 09/04/18 04:15 09/03/18 09/04/18 09/05/18 05:59 05:59 05:59 Intake Total 470 Output Total 500 Balance -30 - Physical Exam Constitutional: no apparent distress Eyes: PERRL Ears, Nose, Mouth, Throat: moist mucous membranes Cardiovascular: regular rate and rhythym Respiratory: no respiratory distress, reduced air movement Gastrointestinal: normoactive bowel sounds, soft, non-tender abdomen Skin: warm Musculoskeletal: full muscle strength Neurologic: AAOx3 Psychiatric: interacting appropriately ICD10 Worksheet Patient Problems: Problems Problem Status Onset Muscle strain of left gluteal region Acute Acute on chronic respiratory failure with hypoxemia Acute Intractable low back pain Acute L5 vertebral fracture Acute
[2018-09-04] MEDS: ENOXAPARIN 40 MG/0.4 ML SYR SC SCH (09:42)
[2018-09-04] MEDS: FLUTICASONE HFA 110 MCG MDI IH SCH ×2 (09:59→21:39)
--- NOTE | 2018-09-04 10:09 | ASMTCMCOM ---
CM Note CM Note Notes: Patient chart reviewed. Has used her alotted medicare days. Will ask [employer] to screen for medicaid as patient reports financial inablity to meet co-pay for SNF rehab at this time. Therapies still pending. CM to follow for needs. E mail sent to [employer] Plan: TBD Date Signed: 09/04/2018 10:08 AM Electronically Signed By:Susi Merino RN
[2018-09-04] MEDS: FUROSEMIDE 20 MG TAB PO SCH (10:13)
--- NOTE | 2018-09-04 13:38 | PDMN ---
Medical Necessity Medical necessity: Pt meets IP criteria per MD & [facility] General Discharge Criteria; est los >2 mn for eval/tx of L gluteal & hamstring tendinopathy w/ persistent weakness & fall s/p recent L3/5 lumbar fusion; requiring further monitoring, Ortho/Neurosurgery consults & therapies; hx recent hospitalizations , COPD, chronic pain, depression & anxiety; per H&P & order 09/03/18
--- NOTE | 2018-09-04 14:32 | GCON ---
[f rep st] CONSULTATION DATE OF CONSULTATION: 09/04/2018 REASON FOR CONSULTATION: Left hip pain. HISTORY RELATIVE TO CONSULTATION: The patient is a 68-year-old who has complaints of left posterior hip pain. Her pain has been persistent following recent lumbar spine surgery. She localizes her bee n to the gluteal region with some radiation down the posterior aspect of her leg extending to her shania t. She describes her pain as sharp in nature. She does not state that her pain is worse with hip mo tion. PHYSICAL EXAMINATION RELATIVE TO CONSULTATION: Her leg lengths are equal. She has symmetric rotatio n. She has no pain with full hip flexion and inward and outward rotation. Similarly, abduction and adduction do not reproduce her pain. She is nontender over greater trochanter. She is nontender ove r her groin. She is tender in her mid gluteal region reproducing the location of her pain. IMAGING: AP pelvis and lateral radiograph of her hip shows maintenance of her hip joint space. In r eview of an MRI, as well as official report shows mild tendinopathy of her hamstring in her ischial t uberosity and of her gluteal tendon at the greater trochanter. ASSESSMENT: Left posterior hip pain. PLAN: Based on her examination, history, and imaging studies, her pain is not likely coming from her hip joint. Similarly, the areas of subtle abnormality on the MRI do not correlate with her exam fin dings or location of pain. Options, such as injections are unlikely to be of any particular benefit. Follow on a p.r.n. basis. /[id number]/MODL
[2018-09-04] MEDS: NON-FORMULARY NEW DRUG (Fluticasone Propionate [Flonase Allergy Relief] 2 SPRAYS) EACHNARE SCH (15:00)
[2018-09-04] MEDS: clonazePAM 0.5 MG TAB PO PRN (20:08)
[2018-09-04] MEDS: NORTRIPTYLINE HCL 10 MG CAP PO SCH (20:08)
[2018-09-04] MEDS: traZODone 100 MG TAB PO PRN (20:11)
[2018-09-05] MEDS: KETOROLAC 15 MG/1 ML SDV IVP SCH ×2 (06:02→11:54)
[2018-09-05] MEDS: morphINE SR 30 MG TAB PO SCH ×2 (06:02→17:06)
[2018-09-05] MEDS: LEVOTHYROXINE 50 MCG TAB PO SCH (06:02)
[2018-09-05] MEDS: ACETAMINOPHEN 500 MG TAB PO SCH ×3 (07:16→20:00)
[2018-09-05] MEDS: LIDOCAINE 4%/MENTHOL 1% PATCH TD PRN (08:21)
[2018-09-05] MEDS: oxyCODONE IR 5 MG TAB PO PRN ×2 (08:22→22:10)
[2018-09-05] MEDS: ENOXAPARIN 40 MG/0.4 ML SYR SC SCH (08:22)
[2018-09-05] MEDS: SERTRALINE HCL 100 MG TAB PO SCH (08:23)
[2018-09-05] MEDS: FUROSEMIDE 20 MG TAB PO SCH (08:23)
[2018-09-05] MEDS: GABAPENTIN 300 MG CAP PO SCH ×3 (08:23→22:07)
[2018-09-05] MEDS: busPIRone 15 MG TAB PO SCH ×2 (08:24→19:59)
[2018-09-05] MEDS: buPROPion XL 150 MG TAB PO SCH (08:24)
[2018-09-05] MEDS: ASPIRIN 325 MG TAB PO SCH (08:24)
[2018-09-05] MEDS: ARIPiprazole 5 MG TAB PO SCH (08:24)
[2018-09-05] MEDS: NON-FORMULARY NEW DRUG (Fluticasone Propionate [Flonase Allergy Relief] 2 SPRAYS) EACHNARE SCH (08:27)
--- NOTE | 2018-09-05 08:36 | SOAPPROG ---
[facility] Progress Note Assessment/Plan: Assessment: 68 yo female with recent h/o L3-L5 TLIF in May, compression fracture at L5 on CT L-spine imaging Having left hip pain and left lateral leg pain. Neurologically remains stable. Plan: - she needs to stay in her brace for [address] Wilde. - encourage increased activity, PT/OT - no need for imaging of the L-spine - will defer to medicine if ortho should evaluate patient for hip pain - we will sign off Discussed with Dr. Wilde. Subjective: Having left hip and lateral leg pain to the ankle. Objective: Awake. Alert. PERRL. EOMI Facial expression symmetrical Muscle strength RLE 5/5, LLE diffusely slightly weak at 4+/5 09/05/18 08:35 Objective: Vital Signs Temp Pulse Resp BP Pulse Ox 36.6 C 73 18 90/64 L 92 09/05/18 07:12 09/05/18 07:12 09/05/18 07:12 09/05/18 07:12 09/05/18 07:12 Laboratory Results 09/04/18 04:15 09/04/18 09/05/18 09/06/18 05:59 05:59 05:59 Intake Total 470 425 Output Total 500 1600 Balance -30 -1175 ICD10 Worksheet Patient Problems: Problems Problem Status Onset Muscle strain of left gluteal region Acute Acute on chronic respiratory failure with hypoxemia Acute Intractable low back pain Acute L5 vertebral fracture Acute
[2018-09-05] MEDS: FLUTICASONE HFA 110 MCG MDI IH SCH ×2 (08:40→21:11)
--- NOTE | 2018-09-05 10:25 | PDIAF ---
- Diagnosis Diagnosis: recent lumbar fusion, left hip tendinopathy, weakness Code Status: Full Code - Medication Management Discharge Medications: electronically signed and located in the Home Medication List. PICC Care - Routine: N/A - Orders Services needed: Home Care, Registered Nurse, Physical Therapy, Occupational Therapy Home Care Face to Face: I certify that this patient was under my care and that I had the required [id number] encounter meeting the encounter requirements on the discharge day. My findings support the fact that the patient is homebound as defined in Home Care Face to Face Continued: CMS Chapter 7 Medicare Benefits Manual 30.1.1 , The condition of the patient is such that there exists a normal inability to leave home and consequently, leaving home would require a considerable and taxing effort. Oxygen: 4 LPM Diet Recommendation: no restrictions on diet - Follow Up Care Current Providers and Referrals: Patient,NotPresent [Unknown] - As per Instructions
--- NOTE | 2018-09-05 10:53 | ASMTCMCOM ---
CM Note CM Note Notes: Met with pt, ideally she should go to SNF. Pt's states she is unable to pay the $170/day copay. Will go home with homecare, CM sent referral to [facility] per pt's request. DC Plan: Home Care/ [facility] Date Signed: 09/05/2018 10:52 AM Electronically Signed By:Zoya Kearns RN
--- NOTE | 2018-09-05 11:38 | ASMTDCNOTE ---
Case Management Discharge Discharge Order Complete? Answers: Yes Patient to Obtain Answers: Independently Medications Transportation Arranged Answers: Family/Friends Faxed Final Orders Answers: Yes Agency/Facility Transfer Answers: Yes Report Printed & Faxed to Receiving Agency Family Notified Answers: Yes Discharge Comments Notes: D/w MD, final orders faxed. [facility] notified and they will resume care. Date Signed: 09/05/2018 11:37 AM Electronically Signed By:Zoya Kearns RN
--- NOTE | 2018-09-05 15:45 | ASMTCMCOM ---
CM Note CM Note Notes: Spoke w/md, cancelled dc, will have imaging of spine. CM notified [facility] Date Signed: 09/05/2018 03:45 PM Electronically Signed By:Zoya Kearns RN
--- NOTE | 2018-09-05 15:46 | HOSPPROG ---
Hospitalist Progress Note Assessment/Plan: 68 yo female with h/o depression, anxiety and recent lumbar spine surgery returns to hospital after recently discharging home from SNF after a fall due to persistent weakness. Fall / LLE weakness - Appreciate ortho eval, who does not think the tendinopathy on prior left hip MRI explains her pain and weakness. Discussed case with PT who notes significant LLE weakness. -MRI L-spine for further evaluation S/P L3-L5 lumbar fusion 05/2018 - no back pain or fevers. Last MRI 07/2018 showed a seroma and fluid collection in L4 laminectomy bed without mass effect. -appreciate neurosurgery evaluation, will proceed with MRI today Depression/Anxiety - She takes Zoloft, Trazodone, Klonopin, Buspar, Wellbutrin, Nortriptyline, Abilify. Will continue these home meds. Chronic pain with chronic continuous opioid dependence - cont home MS Contin, Morphine IR, Gabapentin Chronic hypoxemic respiratory failure 2/2 COPD - on 4 LPM at baseline, no e/o acute exacerbation Hypothyroidism - cont Levothyroxine DVT PPLX - Lovenox Full code Dispo - cont inpt. PT/OT recommending SNF, but pt would have to pay copay as she has used up her insurance covered days. She cannot afford to return to SNF. Backup plan is Home health RN, PT/OT though sub-optimal. Defer discharge today, check MRI. Subjective: Pt was able to take 3-4 steps today. She continues to worry she won 't be strong enough at home to manage. Still has pain shooting down her left leg and LLE weakness. No fevers. No focal back pain. Objective: Vital Signs Temp Pulse Resp BP Pulse Ox 36.6 C 69 18 95/62 L 91 L 09/05/18 11:22 09/05/18 11:22 09/05/18 11:22 09/05/18 11:22 09/05/18 11:22 Laboratory Results 09/04/18 04:15 09/04/18 09/05/18 09/06/18 05:59 05:59 05:59 Intake Total 470 425 Output Total 500 1600 600 Balance -30 -9227 -958 - Physical Exam Constitutional: no apparent distress Eyes: PERRL Ears, Nose, Mouth, Throat: moist mucous membranes Cardiovascular: regular rate and rhythym Respiratory: no respiratory distress, reduced air movement Gastrointestinal: normoactive bowel sounds, soft, non-tender abdomen Skin: warm Musculoskeletal: other (LLE 4/5 muscle strength, decreased DTR's b/l) Neurologic: AAOx3 Psychiatric: interacting appropriately ICD10 Worksheet Patient Problems: Problems Problem Status Onset Muscle strain of left gluteal region Acute Acute on chronic respiratory failure with hypoxemia Acute Intractable low back pain Acute L5 vertebral fracture Acute
[2018-09-05] MEDS ORDERED: LORazepam 2 MG/ML INJ IVP ONE (19:26)
[2018-09-05] MEDS ORDERED: LORazepam 0.5 MG TAB PO ONE (19:52)
[2018-09-05] MEDS: NORTRIPTYLINE HCL 10 MG CAP PO SCH (19:59)
[2018-09-05] MEDS: clonazePAM 0.5 MG TAB PO PRN (19:59)
--- NOTE | 2018-09-05 21:52 | GDS ---
[f rep st] DISCHARGE SUMMARY Discharge was canceled. /[id number]/MODL MTDD
[2018-09-05] MEDS: traZODone 100 MG TAB PO PRN (22:07)
[2018-09-06] MEDS: morphINE SR 30 MG TAB PO SCH ×2 (04:48→18:32)
[2018-09-06] MEDS: LEVOTHYROXINE 50 MCG TAB PO SCH (04:48)
[2018-09-06] MEDS: ACETAMINOPHEN 500 MG TAB PO SCH ×3 (04:52→20:05)
[2018-09-06] MEDS ORDERED: ALBUTEROL 3 ML DEYVIAL IH PRN (09:29)
[2018-09-06] MEDS ORDERED: HYDROmorphONE/DILAUDID 1 MG/ML INJ IVP PRN (09:30)
[2018-09-06] MEDS ORDERED: FUROSEMIDE 40 MG/4 ML VIAL IVP ONE (09:56)
[2018-09-06] MEDS ORDERED: methylPREDNISolone SOD SUCC 125 MG/2 ML VIAL IVP ONE (09:57)
[2018-09-06 10:08] LABS: PLATELET COUNT 293 10^3/uL (150-400)
[2018-09-06] MEDS: SERTRALINE HCL 100 MG TAB PO SCH (10:15)
[2018-09-06] MEDS: GABAPENTIN 300 MG CAP PO SCH ×3 (10:16→21:22)
[2018-09-06] MEDS: BACLOFEN 10 MG TAB PO PRN ×2 (10:16→21:26)
[2018-09-06] MEDS: ARIPiprazole 5 MG TAB PO SCH (10:16)
[2018-09-06] MEDS: buPROPion XL 150 MG TAB PO SCH (10:17)
--- NOTE | 2018-09-06 10:18 | HOSPPROG ---
Hospitalist Progress Note Assessment/Plan: 68 yo female with h/o COPD, depression, anxiety and recent lumbar spine surgery returns to hospital after recently discharging home from SNF after a fall due to persistent weakness. She has been refusing inhalers and today developed increased O2 requirement to 15 LPM, suspect acute COPD exacerbation. Acute on chronic respiratory failure 2/2 acute exacerbation of COPD - on 4 LPM baseline, up to 15 LPM this am with increased respiratory symptoms. -STAT CXR showed moderate airway dz (pers reviewed/interp) -IV solumedrol -duonebs QID plus prn Alb nebs -will send bnp and check echo, ?underlying HF -send resp PCR -low threshold to transfer to SDU if sats don't improve with above tx Fall / LLE weakness - Likely due to worsening L5 compression fx / spinal stenosis, see below. Appreciate ortho eval, who does not think the tendinopathy on prior left hip MRI explains her pain and weakness. Discussed case with PT who notes significant LLE weakness. -MRI L-spine reviewed with rads, see below Spinal stenosis S/P L3-L5 lumbar fusion 05/2018 - With worsening weakness and radiculopathy. Rpt L-spine MRI showed worsening L5 severe compression fracture with mod-severe canal stenosis and retropulsion. This is likely cause of her LE weakness and falls. -Discussed with neurosurgery who will re-consult -will work on optimizing her respiratory status as she is not currently stable for operative intervention -pain control Depression/Anxiety - She takes Zoloft, Trazodone, Klonopin, Buspar, Wellbutrin, Nortriptyline, Abilify. -continue these home meds Chronic pain with chronic continuous opioid dependence - cont home MS Contin, Gabapentin 900 TID -increase Morphine IR to q6h prn, IV dilaudid for severe breakthrough pain Hypothyroidism - cont Levothyroxine DVT PPLX - Lovenox Full code Dispo - cont inpt, 30 min crit care with acute decompensation of respiratory status, may warrant transfer to SDU Subjective: Pt has increased radicular pain, occ shooting pains down left leg. Remains quite weak with ambulation. Increased SOB and cough this am. No fevers /chills. No CP. Says nose is congested. Objective: Vital Signs Temp Pulse Resp BP Pulse Ox 36.8 C 71 18 90/50 L 85 L 09/06/18 08:00 09/06/18 08:00 09/06/18 04:00 09/06/18 08:00 09/06/18 08:00 Laboratory Results 09/06/18 09:55 09/05/18 09/06/18 09/07/18 05:59 05:59 05:59 Intake Total 425 1000 Output Total 1600 2000 Balance -1175 -1000 - Physical Exam Constitutional: no apparent distress Eyes: PERRL Ears, Nose, Mouth, Throat: moist mucous membranes Cardiovascular: regular rate and rhythym Respiratory: reduced air movement, expiratory wheeze Gastrointestinal: normoactive bowel sounds, soft, non-tender abdomen Skin: warm Musculoskeletal: other (4/5 LLE strength) Neurologic: AAOx3 Psychiatric: interacting appropriately ICD10 Worksheet Patient Problems: Problems Problem Status Onset Muscle strain of left gluteal region Acute Acute on chronic respiratory failure with hypoxemia Acute Intractable low back pain Acute L5 vertebral fracture Acute
[2018-09-06] MEDS: busPIRone 15 MG TAB PO SCH ×2 (10:19→21:22)
[2018-09-06] MEDS: ASPIRIN 325 MG TAB PO SCH (10:19)
[2018-09-06] MEDS: ENOXAPARIN 40 MG/0.4 ML SYR SC SCH (10:19)
[2018-09-06] MEDS: NON-FORMULARY NEW DRUG (Fluticasone Propionate [Flonase Allergy Relief] 2 SPRAYS) EACHNARE SCH (10:25)
[2018-09-06] MEDS: FLUTICASONE HFA 110 MCG MDI IH SCH ×2 (10:25→21:12)
[2018-09-06] MEDS: IPRATROPIUM/ALBUTEROL 3 ML DEYVIAL IH SCH ×4 (10:25→21:08)
[2018-09-06] MEDS: FUROSEMIDE 20 MG TAB PO SCH ×2 (12:29→12:49)
[2018-09-06] MEDS: LIDOCAINE 4%/MENTHOL 1% PATCH TD PRN (13:05)
--- NOTE | 2018-09-06 13:18 | NEUSURGPN ---
Assessment/Plan: Assessment: 68 yo female with recent h/o L3-L5 TLIF in May 2018, compression fracture at L5 on 07/16 CT L-spine imaging Plan: -recommend brace when out of bed -PT/OT as able -MRI lumbar spine shows severe acute compression fracture of L5 with worsening height when compared to CT in July. L4-5 mod/severe central canal stenosis L3- 4 moderate to severe right foraminal stenosis. -Imaging reviewed by Dr Wilde. Dr Wilde recommends extension of fusion with L5-S1 TLIF and possible iliac screws. I have discussed the surgical plan with the patient and she wishes to proceed. Tentatively scheduled for Monday. -Patient requiring increased O2 and being transferred to SDU. Will need to optimize respiratory status in preoperation for upcoming surgery. We appreciated Hospitalist assistance with that. -Dr Wilde will be by tomorrow to speak with the patient -Please call neurosurgery with questions/concerns Subjective: trouble breathing, back pain, bilateral leg pain Objective: AxOx4 MAEx5 5/5 BUE 5/5 RLE, 4/5 LLE throughout Neuro Check Frequency: per routine Urinary Catheter in Place: No - Physician Discussed Patient with Dr.: [facility] Physical Exam - Vitals, I&O, Labs I and O 09/05/18 09/06/18 09/07/18 05:59 05:59 05:59 Intake Total 425 1000 Output Total 1600 1999 350 Balance -1175 -1000 -350 Intake: Oral (ml) 425 1000 Output: Urine (ml) 1600 2000 350 Catheter 1600 2000 350 Other: Number of Voids Catheter 1 1 Number of Stools Catheter 0 Vital Signs Temp Pulse Resp BP Pulse Ox 36.8 C 81 18 82/61 L 95 09/06/18 11:43 09/06/18 11:43 09/06/18 11:43 09/06/18 11:43 09/06/18 11:43 Laboratory Results 09/06/18 09:55 09/06/18 09:55 ICD10 Worksheet Patient Problems: Problems Problem Status Onset Muscle strain of left gluteal region Acute Acute on chronic respiratory failure with hypoxemia Acute Intractable low back pain Acute L5 vertebral fracture Acute
--- NOTE | 2018-09-06 14:49 | GCON ---
[f rep st] CONSULTATION HOME THEATRE TECHNICIAN CONSULTATION REFERRING PHYSICIAN: Gwendolyn Galicia MD REASON FOR ADMISSION: Acute exacerbation COPD. HISTORY OF PRESENT ILLNESS: The patient is a very pleasant 68-year-old white female with a past [facility] history of anxiety, chest pain, insomnia, nocturnal hypoxemia, and pulmonary hypertension, as wel l as obesity. She was admitted initially with left gluteal pain. She had a recent lumbar fusion in May of this year and this is her third hospitalization since then. She was in rehab for a left g luteal hamstring tendinopathy. She had been discharged home for 3 days and was subsequently readmitt ed to the hospital. She has subsequently been found to be markedly hypoxemic. She is usually on 4 L at home and is on 15 L currently. In discussion with the patient, she states that she has no resting shortness of breath, but significa nt dyspnea upon exertion. She admits to a cough that she states is unchanged from her previous. The re is no chest pain, pleuritic-type chest pain, or angina equivalent. There is no fever or night swe ats. REVIEW OF SYSTEMS: Ten-point review of systems is performed and negative, except for what is listed in HPI. PAST MEDICAL HISTORY: Significant for anxiety, chest pain, insomnia, pulmonary hypertension, nocturn al hypoxemia, chronic obstructive pulmonary disease. FAMILY HISTORY: Significant for COPD. SOCIAL HISTORY: Previous heavy smoker, none for 7 months. She previously used to drink alcohol. Dorita maradiaga is retired. She is with 2 children. She has lived in [place] for many years, but is david ginally from [place]. MEDICATIONS: At home, include Abilify, aspirin, baclofen, buspirone, clonazepam, vitamin D2, gabapen tin, hydroxyzine, ibuprofen, levothyroxine, Lidoderm, morphine, MS Contin, nystatin, ProAir, sertrali ne, tramadol, trazodone, Voltaren, Wellbutrin. PHYSICAL EXAM: VITAL SIGNS: Blood pressure is 121/86, pulse 87, respirations are 15, temperature 36 .7, oxygen saturation 91% on 15 L. GENERAL: She is a morbidly obese 68-year-old white female who is in mild respiratory distress. HEENT: Eyes: MARY ALICE, EOMI. Throat exam is deferred, secondary to oxy gen. NECK: Supple. There is no cervical adenopathy. HEART: Regular rate and rhythm with a 2/6 sy stolic murmur at left sternal border without radiation. LUNGS: Diminished breath sounds, but no whe radha. ABDOMEN: Soft, nontender. Bowel sounds are present in all 4 quadrants. EXTREMITIES: Show 2+ lower extremity edema. LABORATORY/IMAGING: Chest x-ray dated September 06 shows hypoventilation, bibasilar atelectasis, and m oderate airway disease. White count 9.3, hemoglobin 12, hematocrit 39, platelet count 293. Sodium 136, potassium 4.3, chlori de 98, CO2 29, BUN 8, creatinine 0.5, glucose is 97. IMPRESSION: 1. Chronic obstructive pulmonary disease with acute exacerbation. 2. Marked increase in her hypoxemia. Etiology is unclear. Query where this is obesity hypoventilat ion syndrome combined with her chronic obstructive pulmonary disease. Must also take into considerat ion something cardiac, as well as pulmonary embolism. 3. Morbid obesity. Query whether this is obesity hypoventilation syndrome. 4. History of anxiety. 5. History of nocturnal hypoxemia. Query if she has obstructive sleep apnea. 6. History of pulmonary hypertension. RECOMMENDATIONS: 1. Will obtain an echocardiogram at soonest. 2. Will obtain a CT angiogram of the chest per PE protocol. 3. Continue frequent nebulized treatments. 4. Wean FiO2 as tolerated. 5. Will obtain an arterial blood gas to assess ventilation. 6. Agree with transfer to the step-down unit. Thank you very much for allowing me to participate in the care of this interesting patient. Will fol low along with you. /[id number]/MODL
[2018-09-06] MEDS: methylPREDNISolone SOD SUCC 125 MG/2 ML VIAL IVP SCH ×3 (15:57→23:39)
[2018-09-06] MEDS ORDERED: IOPAMIDOL (ISOVUE 370) 100 ML BTL IV ONE (16:23)
--- NOTE | 2018-09-06 18:09 | ECHO ---
[email or web address] [address] Main: [phone] Echocardiography Examination Transthoracic Name: MANDY MENDEZ MR#: [id number] Study Date: 09/06/2018 Study Time: 03:46 PM Date of : 1950 Age: 68 year(s) Height: 167.6 cm (66 in.) Weight: 111.13 kg (245 lb.) BSA: 2.18 m2 Gender: Female Examination: Echo Contrast: Image Quality: Adequate Rhythm: Heart Rate: BP: 143 mmHg/96 mmHg Indication: pulmonary edema, increased 02 requirement Procedure Staff Referring Physician: Fitness Club Manager: Miranda Carranza [facility] Reading Physician: Albaro Leonard MD Requesting Provider: Ordering Physician: Gwendolyn Galicia Indication: pulmonary edema, increased 02 requirement Measurements Chambers AV/MV Label Value Normal Value Label Value Normal Value LVOTd 2.2 cm (1.8cm - 2cm) AV PGmax 11 mmHg LVOT VTI 19.9 cm (18cm - 22cm) AV PGmean 7 mmHg LVDd, 2D 5.9 cm (3.9cm - 5.3cm) AV Vmax 1.68 m/s LVDs, 2D 4.3 cm (2.1cm - 4cm) MECHELLE (VTI) 2.2 cm2 IVSd, 2D 1.1 cm (0.6cm - 1.1cm) MV E Vmax 0.68 m/s LVPWd, 2D 1.1 cm MV A Vmax 0.77 m/s LVEF, 2D 52 % (54% - 74%) MV E/A 0.88 LVOT PGmean 3 mmHg MV E/E' lateral 6 LVOT Vmean 0.87 m/s MV E/E' septal 9.4 (0.45 - 1.25) RVDd, 2D 3.3 cm (1.9cm - 3.8cm) MV DT 201 ms LADs, 2D 3.2 cm (2.7cm - 3.8cm) MV E' septal 0.07 m/s Additional Vessels MV PHT 0.07 s Label Value Normal Value MVA PHT 3.4 cm2 AoAsc 3 cm MV E' lateral 0.11 m/s AoRoot, 2D 3.1 cm (1.4cm - 2.6cm) MV E/E' mean 7.56 MV PHT 65 ms MV E' mean 0.09 m/s TV/PV Label Value Normal Value Patient: MANDY MENDEZ Study Date: 09/06/2018 Page 1 of 3 03:46 PM RA Pressure 5 mmHg PV PGmax 3 mmHg PV Vmax, Caliper 0.83 m/s (0.6m/s - 0.9m/s) Conclusions Left Ventricle: Low normal left ventricular systolic function. EF range is estimated at 50 % - 55 %. There is mild concentric left ventricular hypertrophy. Right Ventricle: Right ventricular systolic function is normal. Tricuspid Valve: No tricuspid valve stenosis. Pulmonary artery pressure cannot be assessed due to inadequate TR signal. Pericardium: No pericardial effusion. Findings Technically difficult exam due to body habitus, supine, difficulty breathing. Left Ventricle: Low normal left ventricular systolic function. EF range is estimated at 50 % - 55 %. There is mild concentric left ventricular hypertrophy. There are no regional wall motion abnormalities. Left ventricular diastolic function parameters are normal. Right Ventricle: Normal size right ventricle. Right ventricular systolic function is normal. Left Atrium: The left atrium is normal in size. Right Atrium: The right atrium is normal in size. Mitral Valve: Mitral valve appears structurally normal. Technically difficult assessment of mitral regurgitation. No mitral valve stenosis. Aortic Valve: Aortic leaflets are structurally normal. No significant aortic valve regurgitation. There is no aortic stenosis. Tricuspid Valve: Tricuspid valve leaflets are structurally normal. There is no significant tricuspid regurgitation. No tricuspid valve stenosis. Pulmonary artery pressure cannot be assessed due to inadequate TR signal. Pulmonic Valve: Pulmonic valve not well visualized. Aorta: The aortic root size in 2D measures 3.1 cm. The ascending aorta measures 3.0 cm. Aorta Measurements AoRoot, 2D is 3.1 cm. Pericardium: No pericardial effusion. Exam Details Procedure Ordered: Echo Procedure Status: Routine study Image Quality: Adequate Patient: MANDY MENDEZ Study Date: 09/06/2018 Page 2 of 3 03:46 PM Facility Location: Cardiac Echo 1 (No Signature Object) Patient: MANDY MENDEZ Study Date: 09/06/2018 Page 3 of 3 03:46 PM [id number]
[2018-09-06] MEDS: guaiFENesin 600 MG TAB.ER PO SCH (21:22)
[2018-09-06] MEDS: traZODone 100 MG TAB PO PRN (21:22)
[2018-09-06] MEDS: NORTRIPTYLINE HCL 10 MG CAP PO SCH (21:22)
[2018-09-06] MEDS: PATCH REMOVAL 1 EA PATCH TD SCH (22:12)
[2018-09-07] MEDS: morphINE SR 30 MG TAB PO SCH ×2 (04:55→17:30)
[2018-09-07] MEDS: LEVOTHYROXINE 50 MCG TAB PO SCH (04:59)
[2018-09-07] MEDS: ACETAMINOPHEN 500 MG TAB PO SCH (05:00)
[2018-09-07] MEDS: methylPREDNISolone SOD SUCC 125 MG/2 ML VIAL IVP SCH (05:00)
[2018-09-07] MEDS: IPRATROPIUM/ALBUTEROL 3 ML DEYVIAL IH SCH ×4 (06:08→20:51)
--- NOTE | 2018-09-07 09:21 | PDINTPN ---
[facility] Progress Note Assessment/Plan: Assessment/plan: * Chronic obstructive pulmonary disease with acute exacerbation * Pneumonitis-with bilateral lower lobe opacifications. Atelectasis versus viral * Acute hypercarbic/hypoxemic respiratory failure-secondary to above. Query if obesity hypoventilation syndrome is playing a role. Echocardiogram mostly, though normal ejection fraction is lowish. CT scan of the chest showed no evidence of PE. There are nonspecific pulmonary opacifications in the bilateral lower lobes. -wean FiO2 as tolerated * Pulmonary hypertension-unable to assess PA pressure on echocardiogram * Morbid obesity * History of anxiety * Elevated right hemidiaphragm -will obtain a SNIFF test * VT prophylaxis * Stress ulcer prophylaxis * PT/OT -will get patient out of bed and begin ambulation Subjective: Resting comfortably in bed. No current complaints. Objective: Vital Signs Temp Pulse Resp BP Pulse Ox 36.7 C 73 18 116/55 L 93 09/06/18 19:49 09/07/18 06:08 09/07/18 06:08 09/07/18 04:00 09/07/18 06:08 Microbiology 09/06/18 12:30 Respiratory Panel (PCR) - Final Nasal, Sinus - Anaerobic Tube/Swab No Organism Detected By Pcr Laboratory Results 09/06/18 09:55 09/06/18 09:55 09/06/18 09/07/18 09/08/18 05:59 05:59 05:59 Intake Total 1000 500 Output Total 2000 1150 Balance -1000 -650 - Time Spent With Patient Time Spent With Patient: 35 min of time spent with patient, over 1/2 involved with coordination of care or counseling. Case discussed with nursing Physical Exam - Physical Exam General Appearance: alert, no apparent distress EENT: PERRL/EOMI Neck: non-tender, supple Respiratory: crackles (Bibasilar), prolonged expiration, No respiratory distress , No wheezing Cardiac/Chest: normal peripheral pulses, regular rate, rhythm Peripheral Pulses: 2+: carotid (R), carotid (L), femoral (R), femoral (L), dorsalis-pedis (R), dorsalis-pedis (L) Abdomen: normal bowel sounds, non-tender, soft Pelvic Exam: deferred Rectal: deferred Skin: warm/dry Extremities: non-tender Neuro/Psych: alert, normal mood/affect, oriented x 3 ICD10 Worksheet Patient Problems: Problems Problem Status Onset Muscle strain of left gluteal region Acute Acute on chronic respiratory failure with hypoxemia Acute Intractable low back pain Acute L5 vertebral fracture Acute
--- NOTE | 2018-09-07 09:48 | NEUSURGPN ---
Assessment/Plan: 68 yo female with recent h/o L3-L5 TLIF in May 2018, compression fracture at L5 on 07/16 CT L-spine imaging Recent MRI lumbar spine shows severe acute compression fracture of L5 with worsening height when compared to CT in July. L4-5 mod/severe central canal stenosis L3-4 moderate to severe right foraminal stenosis. Plan: -recommend brace when out of bed -PT/OT as able -recommend extension of fusion with L5-S1 TLIF and possible iliac screws. Tentatively scheduled for Monday09/11/18. -Will need to optimize respiratory status in preoperation for upcoming surgery. We appreciated Hospitalist and critical care assistance with that. -Please call neurosurgery with questions/concerns. Will sign off for the and see again on Monday. Please call with any concerns The patient was seen by myself and Dr. Wilde. Subjective: Continues to have back and leg pain. Objective: Awake. Alert. PERRL. EOMI Facial expression symmetrical Speech fluent Muscle strength RLE 5/5, LLE 4/5 throughout - Physician Patient Seen by : [facility] Physical Exam - Vitals, I&O, Labs I and O 09/06/18 09/07/18 09/08/18 05:59 05:59 05:59 Intake Total 1000 500 Output Total 1999 1150 Balance -1000 -650 Weight 110.9 kg Intake: Oral (ml) 1000 500 Output: Urine (ml) 1999 1150 Bedpan 100 Catheter 1999 1050 Other: Output Comment Catheter external cath Number of Voids Bedpan 1 Bedside Commode 1 Catheter 1 Number of Stools Bedside Commode 1 Catheter 0 Microbiology 09/06/18 12:30 Respiratory Panel (PCR) - Final Nasal, Sinus - Anaerobic Tube/Swab No Organism Detected By Pcr Vital Signs Temp Pulse Resp BP Pulse Ox 36.7 C 73 18 116/55 L 93 09/06/18 19:49 09/07/18 06:08 09/07/18 06:08 09/07/18 04:00 09/07/18 06:08 Laboratory Results 09/06/18 09:55 09/06/18 09:55 ICD10 Worksheet Patient Problems: Problems Problem Status Onset Muscle strain of left gluteal region Acute Acute on chronic respiratory failure with hypoxemia Acute Intractable low back pain Acute L5 vertebral fracture Acute
[2018-09-07] MEDS: buPROPion XL 150 MG TAB PO SCH (10:30)
[2018-09-07] MEDS: guaiFENesin 600 MG TAB.ER PO SCH ×2 (10:30→21:12)
[2018-09-07] MEDS: GABAPENTIN 300 MG CAP PO SCH ×3 (10:31→21:12)
[2018-09-07] MEDS: ARIPiprazole 5 MG TAB PO SCH (10:31)
[2018-09-07] MEDS: FUROSEMIDE 20 MG TAB PO SCH (10:31)
[2018-09-07] MEDS: ASPIRIN 325 MG TAB PO SCH (10:31)
[2018-09-07] MEDS: ENOXAPARIN 40 MG/0.4 ML SYR SC SCH (10:32)
[2018-09-07] MEDS: SERTRALINE HCL 100 MG TAB PO SCH (10:32)
[2018-09-07] MEDS: busPIRone 15 MG TAB PO SCH ×2 (10:45→21:11)
[2018-09-07] MEDS: FLUTICASONE HFA 110 MCG MDI IH SCH (10:46)
[2018-09-07] MEDS: FLUTICASONE NASAL 120 SPRAYS/16 GM MDI EACHNARE SCH (11:39)
--- NOTE | 2018-09-07 15:24 | HOSPPROG ---
Hospitalist Progress Note Assessment/Plan: 68 yo female with h/o COPD and recent lumbar spine surgery returns to hospital after a fall found to have worsened L5 compression fracture. Course complicated by worsening hypoxemia requiring transfer to SDU. #Acute hypoxemic hypercarbic respiratory failure: ? viral pneumonia although RVP neg. Doesn't appear obstructed. Obesity hypoventilation. - Continue bronchodilators, backing off steroids - TTE ok, CTA without PE #Multifocal GGO: Suspicious for viral process or organizing pna. - Hold on antibiotics #Severe acute L5 compression fracture: Worsened since July. LLE radiculopathy/ weakness. - Neurosurgery recommending operative repair (extension of fusion) Monday if respiratory mechanics are good - Brace when out of bed - PT/OT as able #S/p L3-L5 lumbar fusion 05/2018 - Pain control #Depression/anxiety - Continue home meds (zoloft, trazodone, klonopin, buspar, wellbutrin, nortriptyline, abilify) - needs continuous pulse ox monitoring #Chronic pain with continuous opioid dependence: On high dose narcotics - Continue morphine SR 60mg BID and morphine IR 15mg q6h PRN and gabapentin - Try to wean prior to discharge #Hypothyroidism: Continue LT4 replacement. VTE ppx: Code: full Dispo: Remain inpatient in SDU Objective: Vital Signs Temp Pulse Resp BP Pulse Ox 36.3 C 92 14 112/76 95 09/07/18 11:54 09/07/18 11:54 09/07/18 11:54 09/07/18 10:24 09/07/18 11:54 Microbiology 09/06/18 12:30 Respiratory Panel (PCR) - Final Nasal, Sinus - Anaerobic Tube/Swab No Organism Detected By Pcr Laboratory Results 09/06/18 09:55 09/06/18 09:55 09/06/18 09/07/18 09/08/18 05:59 05:59 05:59 Intake Total 1000 500 500 Output Total 1999 1150 Balance -1000 -650 500 ICD10 Worksheet Patient Problems: Problems Problem Status Onset Muscle strain of left gluteal region Acute Acute on chronic respiratory failure with hypoxemia Acute Intractable low back pain Acute L5 vertebral fracture Acute
--- NOTE | 2018-09-07 16:14 | ASMTCMCOM ---
CM Note CM Note Notes: Neurosurgery is recommending operative repair (extension of fusion) next Monday if patient's respiratory mechanics are good. Patient will remain inpatient for now. D/C plan has been to resume her care with [facility] when she is medically stable. CM will follow. Date Signed: 09/07/2018 04:13 PM Electronically Signed By:Fariba Chappell LCSW
[2018-09-07] MEDS: ONDANSETRON 4 MG/2 ML VIAL IVP PRN (21:09)
[2018-09-07] MEDS: NORTRIPTYLINE HCL 10 MG CAP PO SCH (21:12)
[2018-09-07] MEDS: PATCH REMOVAL 1 EA PATCH TD SCH (21:12)
[2018-09-07] MEDS: traZODone 100 MG TAB PO PRN (21:12)
[2018-09-08] MEDS: morphINE SR 30 MG TAB PO SCH ×2 (05:09→15:37)
[2018-09-08] MEDS: LEVOTHYROXINE 50 MCG TAB PO SCH (05:09)
[2018-09-08] MEDS: IPRATROPIUM/ALBUTEROL 3 ML DEYVIAL IH SCH ×4 (05:50→21:02)
[2018-09-08] MEDS: guaiFENesin 600 MG TAB.ER PO SCH ×2 (08:17→20:38)
[2018-09-08] MEDS: GABAPENTIN 300 MG CAP PO SCH ×3 (08:17→21:15)
[2018-09-08] MEDS: ARIPiprazole 5 MG TAB PO SCH (08:17)
[2018-09-08] MEDS: predniSONE 20 MG TAB PO SCH (08:17)
[2018-09-08] MEDS: SERTRALINE HCL 100 MG TAB PO SCH (08:17)
[2018-09-08] MEDS: FUROSEMIDE 20 MG TAB PO SCH (08:17)
[2018-09-08] MEDS: ASPIRIN 325 MG TAB PO SCH (08:18)
[2018-09-08] MEDS: ENOXAPARIN 40 MG/0.4 ML SYR SC SCH (08:18)
[2018-09-08] MEDS: buPROPion XL 150 MG TAB PO SCH (08:18)
[2018-09-08] MEDS: busPIRone 15 MG TAB PO SCH ×2 (08:18→20:37)
[2018-09-08] MEDS: ONDANSETRON 4 MG/2 ML VIAL IVP PRN (08:41)
--- NOTE | 2018-09-08 09:00 | PDINTPN ---
Strategy Associate Progress Note Assessment/Plan: Assessment/plan: * Chronic obstructive pulmonary disease with acute exacerbation -continue nebs -continue steroids * Pneumonitis-with bilateral lower lobe opacifications. Atelectasis versus viral. Query if atypical pneumonia -will add azithromycin * Acute hypercarbic/hypoxemic respiratory failure-secondary to above. Query if obesity hypoventilation syndrome is playing a role. Echocardiogram mostly, though normal ejection fraction is lowish. CT scan of the chest showed no evidence of PE. There are nonspecific pulmonary opacifications in the bilateral lower lobes. -wean FiO2 as tolerated * Pulmonary hypertension-unable to assess PA pressure on echocardiogram * Morbid obesity * History of anxiety * Elevated right hemidiaphragm -sniff test revealed some movement of diaphragms. Suboptimal test secondary to patient having to lie flat * VT prophylaxis * Stress ulcer prophylaxis * PT/OT Subjective: Resting comfortably in bed. Still requiring high amounts of supplemental oxygen. Objective: Vital Signs Temp Pulse Resp BP Pulse Ox 36.2 C 79 11 L 101/74 91 L 09/08/18 07:30 09/08/18 07:30 09/08/18 07:30 09/08/18 07:30 09/08/18 07:30 Laboratory Results 09/06/18 09:55 09/06/18 09:55 09/07/18 09/08/18 09/09/18 05:59 05:59 05:59 Intake Total 500 700 Output Total 1150 1300 Balance -650 -600 - Time Spent With Patient Time Spent With Patient: 35 min of time spent with patient, over 1/2 involved with coordination of care counseling. Case discussed with nursing Physical Exam - Physical Exam General Appearance: alert EENT: PERRL/EOMI Neck: non-tender, supple Respiratory: crackles (Bibasilar), prolonged expiration, No respiratory distress , No wheezing Cardiac/Chest: normal peripheral pulses, regular rate, rhythm Peripheral Pulses: 2+: carotid (R), carotid (L), femoral (R), femoral (L), dorsalis-pedis (R), dorsalis-pedis (L) Abdomen: normal bowel sounds, non-tender, soft Pelvic Exam: deferred Rectal: deferred Skin: normal color, warm/dry Extremities: non-tender Neuro/Psych: alert, normal mood/affect, oriented x 3 ICD10 Worksheet Patient Problems: Problems Problem Status Onset Muscle strain of left gluteal region Acute Acute on chronic respiratory failure with hypoxemia Acute Intractable low back pain Acute L5 vertebral fracture Acute
[2018-09-08] MEDS: FLUTICASONE NASAL 120 SPRAYS/16 GM MDI EACHNARE SCH (10:36)
[2018-09-08] MEDS: AZITHROMYCIN IV 500 MG in D5W 250 ML IV SCH (10:36)
--- NOTE | 2018-09-08 11:08 | HOSPPROG ---
Hospitalist Progress Note Assessment/Plan: 68 yo female with h/o COPD and recent lumbar spine surgery returns to hospital after a fall found to have worsened L5 compression fracture. Course complicated by worsening hypoxemia requiring transfer to SDU. #Acute hypoxemic hypercarbic respiratory failure: ? viral pneumonia. Obesity hypoventilation. CTA neg for PE - Continue bronchodilators, steroids - Check tte w/bubble to eval for shunt #Multifocal GGO: Suspicious for viral process or organizing pna. - Hold on antibiotics #Severe acute L5 compression fracture: Worsened since July. LLE radiculopathy/ weakness. - Neurosurgery recommending operative repair (extension of fusion) Monday if respiratory mechanics are good - Brace when out of bed - PT/OT as able #S/p L3-L5 lumbar fusion 05/2018 - Pain control #Depression/anxiety - Continue home meds (zoloft, trazodone, klonopin, buspar, wellbutrin, nortriptyline, abilify) - needs continuous pulse ox monitoring #Chronic pain with continuous opioid dependence: On high dose narcotics - Continue morphine SR 60mg BID and morphine IR 15mg q6h PRN and gabapentin - Try to wean prior to discharge #Hypothyroidism: Continue LT4 replacement. VTE ppx: LMWH Code: full Dispo: Remain inpatient in SDU Subjective: Feeling about the same. Anxious about upcoming procedure. Still with significant left leg pain. Objective: Vital Signs Temp Pulse Resp BP Pulse Ox 36.2 C 79 11 L 101/74 91 L 09/08/18 07:30 09/08/18 07:30 09/08/18 07:30 09/08/18 07:30 09/08/18 07:30 Laboratory Results 09/06/18 09:55 09/06/18 09:55 09/07/18 09/08/18 09/09/18 05:59 05:59 05:59 Intake Total 500 700 Output Total 1150 1300 Balance -650 -600 - Physical Exam Constitutional: no apparent distress, obese Eyes: PERRL, anicteric sclera, EOMI Ears, Nose, Mouth, Throat: moist mucous membranes, hearing normal, ears appear normal, no oral mucosal ulcers Cardiovascular: regular rate and rhythym, no murmur, rub, or gallop, No edema Respiratory: reduced air movement, respiratory distress Gastrointestinal: normoactive bowel sounds, soft, non-tender abdomen, no palpable masses Genitourinary: no bladder fullness, no bladder tenderness, no renal bruits Skin: no rashes or abrasions, no fluctuance, no induration Musculoskeletal: full muscle strength, no muscle tenderness, normal joint ROM Neurologic: AAOx3 Psychiatric: interacting appropriately ICD10 Worksheet Patient Problems: Problems Problem Status Onset Muscle strain of left gluteal region Acute Acute on chronic respiratory failure with hypoxemia Acute Intractable low back pain Acute L5 vertebral fracture Acute
--- NOTE | 2018-09-08 14:33 | ECHO ---
[email or web address] [place] [id number] Main: [phone] Echocardiography Examination Transthoracic Name: MANDY MENDEZ MR#: [id number] Study Date: 09/08/2018 Study Time: 11:37 AM Date of : 1950 Age: 68 year(s) Height: ( ) Weight: ( ) BSA: Gender: Female Examination: Limited Echo with Agitated Saline Contrast: I.V. dose of agitated saline Image Quality: Technically Difficult Rhythm: Heart Rate: BP: 104 mmHg/67 mmHg Indication: hypoxemia Procedure Staff Referring Physician: Marine Engineer: Alfreda Abraham [facility] Reading Physician: Betzy Lewis MD Requesting Provider: Ordering Physician: Ken Chavira Indication: hypoxemia Conclusions Directed study to evaluate for interatrial shunting. This is technically limited. There is no obvious interatrial shunting with the injection of agitated saline. Findings Left Atrium: Three injections of agitated saline was administered to rule out shuting. The study is technically difficult.No obvious right to left shunting across the interatrial septum however it is difficult to rule out completely.. Exam Details Procedure Ordered: Limited Echo with Agitated Saline Procedure Status: Routine study Image Quality: Technically Difficult Contrast: I.V. dose of agitated salineIntravenous contrast was administered to evaluate shunting Facility Location: Cardiac Echo 1 (No Signature Object) Patient: MANDY MENDEZ Study Date: 09/08/2018 Page 1 of 1 11:37 AM [id number]
[2018-09-08] MEDS: traZODone 100 MG TAB PO PRN (20:36)
[2018-09-08] MEDS: NORTRIPTYLINE HCL 10 MG CAP PO SCH (20:37)
[2018-09-08] MEDS: PATCH REMOVAL 1 EA PATCH TD SCH (20:42)
[2018-09-09] MEDS: LEVOTHYROXINE 50 MCG TAB PO SCH (04:41)
[2018-09-09] MEDS: morphINE SR 30 MG TAB PO SCH ×2 (04:41→16:20)
[2018-09-09] MEDS: IPRATROPIUM/ALBUTEROL 3 ML DEYVIAL IH SCH ×4 (05:47→21:17)
[2018-09-09] MEDS: predniSONE 20 MG TAB PO SCH (08:20)
[2018-09-09] MEDS: SERTRALINE HCL 100 MG TAB PO SCH (08:20)
[2018-09-09] MEDS: FUROSEMIDE 20 MG TAB PO SCH (08:20)
[2018-09-09] MEDS: GABAPENTIN 300 MG CAP PO SCH ×3 (08:21→20:35)
[2018-09-09] MEDS: guaiFENesin 600 MG TAB.ER PO SCH ×2 (08:22→20:35)
[2018-09-09] MEDS: ARIPiprazole 5 MG TAB PO SCH (08:22)
[2018-09-09] MEDS: buPROPion XL 150 MG TAB PO SCH (08:22)
[2018-09-09] MEDS: ASPIRIN 325 MG TAB PO SCH (08:22)
[2018-09-09] MEDS: ENOXAPARIN 40 MG/0.4 ML SYR SC SCH (08:23)
[2018-09-09] MEDS: busPIRone 15 MG TAB PO SCH ×2 (08:23→20:35)
[2018-09-09] MEDS: FLUTICASONE NASAL 120 SPRAYS/16 GM MDI EACHNARE SCH (08:25)
[2018-09-09] MEDS: CALCIUM CARBONATE 500 MG CHEWABLE TAB PO PRN ×2 (09:03→19:36)
[2018-09-09] MEDS: AZITHROMYCIN IV 500 MG in D5W 250 ML IV SCH (09:03)
--- NOTE | 2018-09-09 10:49 | PDINTPN ---
City Bus Driver Progress Note Assessment/Plan: Assessment/plan: * Chronic obstructive pulmonary disease with acute exacerbation-no improvement -continue nebs -continue steroids * Pneumonitis-with bilateral lower lobe opacifications. Atelectasis versus viral. Query if atypical pneumonia -continue azithromycin * Acute hypercarbic/hypoxemic respiratory failure-secondary to above. Query if obesity hypoventilation syndrome is playing a role. Echocardiogram mostly, though normal ejection fraction is lowish. CT scan of the chest showed no evidence of PE. There are nonspecific pulmonary opacifications in the bilateral lower lobes. No changes level of hypoxemia. Echo with bubble study was negative. -wean FiO2 as tolerated * Pulmonary hypertension-unable to assess PA pressure on echocardiogram * Morbid obesity * Severe L5 compression fracture-scheduled for surgery on Monday. Do not feel she will be ready from a a pulmonary standpoint * History of anxiety * Elevated right hemidiaphragm -sniff test revealed some movement of diaphragms. Suboptimal test secondary to patient having to lie flat * VT prophylaxis * Stress ulcer prophylaxis * PT/OT Subjective: Resting comfortably in bed. Still requiring high-flow oxygen. Objective: Vital Signs Temp Pulse Resp BP Pulse Ox 36.9 C 77 16 98/68 L 90 L 09/09/18 08:00 09/09/18 08:00 09/09/18 08:00 09/09/18 08:00 09/09/18 08:00 Laboratory Results 09/09/18 04:45 09/09/18 04:45 09/08/18 09/09/18 09/10/18 05:59 05:59 05:59 Intake Total 700 1000 Output Total 1300 2000 Balance -600 -1000 - Time Spent With Patient Time Spent With Patient: 35 min of time spent with patient, over 1/2 involved coordination of care counseling. Case discussed with Nursing and hospitalist Physical Exam - Physical Exam General Appearance: alert, no apparent distress EENT: PERRL/EOMI, pharynx normal Neck: non-tender, supple Respiratory: decreased breath sounds, crackles (Bibasilar), No respiratory distress, No wheezing Cardiac/Chest: normal peripheral pulses, regular rate, rhythm Peripheral Pulses: 2+: carotid (R), carotid (L), femoral (R), femoral (L), dorsalis-pedis (R), dorsalis-pedis (L) Abdomen: normal bowel sounds, non-tender, soft Pelvic Exam: deferred Rectal: deferred Skin: warm/dry Extremities: non-tender Neuro/Psych: alert, normal mood/affect, oriented x 3 ICD10 Worksheet Patient Problems: Problems Problem Status Onset Muscle strain of left gluteal region Acute Acute on chronic respiratory failure with hypoxemia Acute Intractable low back pain Acute L5 vertebral fracture Acute
[2018-09-09] MEDS: oxyCODONE IR 5 MG TAB PO PRN (11:24)
--- NOTE | 2018-09-09 11:30 | HOSPPROG ---
Hospitalist Progress Note Assessment/Plan: 68 yo female with h/o COPD and recent lumbar spine surgery returns to hospital after a fall found to have worsened L5 compression fracture. Course complicated by worsening hypoxemia requiring transfer to SDU. #Acute hypoxemic hypercarbic respiratory failure: Suspect viral pneumonia, slow to recover. CTA neg for PE. TTE without shunt. - Continue bronchodilators, pred 60 - Consider repeat chest CT if not improved in 1-2 days #Multifocal GGO: Suspicious for viral process or organizing pna. - Starting azithromycin #Severe acute L5 compression fracture: Worsened since July. LLE radiculopathy/ weakness. - Neurosurgery recommending operative repair (extension of fusion). They initially recommended Monday 09/11 but unlikely given respiratory status - Brace when out of bed - PT/OT as able #S/p L3-L5 lumbar fusion 05/2018 - Pain control #Elevated right hemidiaphragm: Suboptimal sniff test. Possibly contributing to # 1. #Depression/anxiety - Continue home meds (zoloft, trazodone, klonopin, buspar, wellbutrin, nortriptyline, abilify) - needs continuous pulse ox monitoring #Chronic pain with continuous opioid dependence: On high dose narcotics - Continue home morphine SR 60mg BID and morphine IR 15mg q6h PRN and gabapentin - Try to wean prior to discharge #Hypothyroidism: Continue LT4 replacement. VTE ppx: LMWH Code: full Dispo: Remain inpatient in SDU Subjective: Breathing actually feels a little better despite needing more oxygen. Left leg symptoms stable. I explained that she will not have surgery monday if still on this much oxygen. Objective: Vital Signs Temp Pulse Resp BP Pulse Ox 36.9 C 80 18 98/68 L 95 09/09/18 08:00 09/09/18 10:55 09/09/18 10:55 09/09/18 08:00 09/09/18 10:55 Laboratory Results 09/09/18 04:45 09/09/18 04:45 09/08/18 09/09/18 09/10/18 05:59 05:59 05:59 Intake Total 700 1000 Output Total 1300 2000 Balance -600 -1000 - Physical Exam Constitutional: no apparent distress, obese Eyes: PERRL, anicteric sclera, EOMI Ears, Nose, Mouth, Throat: moist mucous membranes, hearing normal, ears appear normal, no oral mucosal ulcers Cardiovascular: regular rate and rhythym, no murmur, rub, or gallop, No edema Respiratory: reduced air movement, rhonchi, No expiratory wheeze, No inspiratory crackles Gastrointestinal: normoactive bowel sounds, soft, non-tender abdomen, no palpable masses Genitourinary: no bladder fullness, no bladder tenderness, no renal bruits Skin: no rashes or abrasions, no fluctuance, no induration Musculoskeletal: full muscle strength, no muscle tenderness, normal joint ROM Neurologic: AAOx3 Psychiatric: interacting appropriately ICD10 Worksheet Patient Problems: Problems Problem Status Onset Muscle strain of left gluteal region Acute Acute on chronic respiratory failure with hypoxemia Acute Intractable low back pain Acute L5 vertebral fracture Acute
[2018-09-09] MEDS: traZODone 100 MG TAB PO PRN (20:34)
[2018-09-09] MEDS: NORTRIPTYLINE HCL 10 MG CAP PO SCH (20:35)
[2018-09-09] MEDS: PATCH REMOVAL 1 EA PATCH TD SCH (20:36)
[2018-09-10] MEDS: IPRATROPIUM/ALBUTEROL 3 ML DEYVIAL IH SCH ×4 (04:49→21:40)
[2018-09-10] MEDS: LEVOTHYROXINE 50 MCG TAB PO SCH (05:20)
[2018-09-10] MEDS: morphINE SR 30 MG TAB PO SCH (05:20)
--- NOTE | 2018-09-10 07:50 | NEUSURGPN ---
Assessment/Plan: Assessment: 68 yo female with recent h/o L3-L5 TLIF in May 2018, compression fracture at L5 on 07/16 CT L-spine imaging Recent MRI lumbar spine shows severe acute compression fracture of L5 with worsening height when compared to CT in July. L4-5 mod/severe central canal stenosis L3-4 moderate to severe right foraminal stenosis. Plan: -recommend brace when out of bed -PT/OT-CPM -recommended extension of fusion with L5-S1 TLIF and possible iliac screws. Tentatively scheduled for Monday09/11/18 pending clearance -Will need to optimize respiratory status in prep for upcoming surgery. We appreciated Hospitalist and critical care assistance with this -Please call neurosurgery with questions/concerns -consents at bedside-reviewed in detail with Pt -call with any questions or concerns -pt understands and agrees -d/w Dr Wilde -orders in for surgery if clearance is given Subjective: Awake and alert. NAD. Eating/drinking and voiding. No f/c/n/v/d. No new ross/ neck/chest/abd or gu complaints. Objective: Awake. Alert. PERRLA. EOMI Facial expression symmetrical Speech fluent Muscle strength RLE 5/5, LLE 4/5 throughout Neuro Check Frequency: per routine Urinary Catheter in Place: No - Physician Discussed Patient with : Chani Neurosurgery Physical Exam - Vitals, I&O, Labs I and O 09/09/18 09/10/18 09/11/18 05:59 05:59 05:59 Intake Total 1000 Output Total 1999 1400 Balance -1000 -1400 Weight 117 kg Intake: Oral (ml) 500 IV Intake (ml) 500 Output: Urine (ml) 1999 1400 Catheter 1999 1400 Other: Intake Quantity Yes Sufficient Vital Signs Temp Pulse Resp BP Pulse Ox 36.9 C 82 18 94/57 L 90 L 09/10/18 07:25 09/10/18 07:25 09/10/18 07:25 09/10/18 07:25 09/10/18 07:25 Laboratory Results 09/09/18 04:45 09/09/18 04:45 ICD10 Worksheet Patient Problems: Problems Problem Status Onset Muscle strain of left gluteal region Acute Acute on chronic respiratory failure with hypoxemia Acute Intractable low back pain Acute L5 vertebral fracture Acute
[2018-09-10] MEDS ORDERED: ceFAZolin 2 GM/DEXTROSE 100 ML IV ONE (07:53)
[2018-09-10 08:10] LABS: PLATELET COUNT 316 10^3/uL (150-400)
--- NOTE | 2018-09-10 08:14 | HOSPPROG ---
Hospitalist Progress Note Assessment/Plan: 68 yo female with h/o COPD and recent lumbar spine surgery returns to hospital after a fall found to have worsened L5 compression fracture. Course complicated by worsening hypoxemia requiring transfer to SDU. #Acute hypoxemic hypercarbic respiratory failure: Possibly COPD exac, viral pneumonia plus OHS, slow to recover. CTA neg for PE. TTE without shunt. BNP 123 09/06. - Rpt CXR this am pers reviewed, ?interstitial edema, will try 80 mg IV Lasix and gauge effect, discussed with Dr. Miranda - Recheck ABG: still hypercarbic, pCO2 54 from 49, pO2 improved, pH nl - Cont duonebs, alb nebs - prednisone reduced to 40 mg qd - may warrant bronchoscopy if O2 needs improve #Multifocal pulmonary infiltrates: Suspicious for viral process or organizing pna. PCT neg. - Cont azithromycin #Severe acute L5 compression fracture: Worsened since July. LLE radiculopathy/ weakness. - Neurosurgery recommending operative repair with extension of fusion. Initially planned for tomorrow, need to delay until respiratory status improved - Brace when out of bed - PT/OT as able #S/p L3-L5 lumbar fusion 05/2018, plans to extend as above - Pain control #Elevated right hemidiaphragm: Suboptimal sniff test. Possibly contributing to # 1. #Depression/anxiety - Continue home meds (zoloft, trazodone, klonopin, buspar, wellbutrin, nortriptyline, abilify) - needs continuous pulse ox monitoring #Chronic pain with continuous opioid dependence: On high dose narcotics - Continue home morphine SR 60mg BID and morphine IR 15mg q6h PRN and gabapentin - Try to wean prior to discharge #Hypothyroidism: Continue LT4 replacement VTE ppx: LMWH Code: full Dispo: Remain inpatient in SDU Subjective: Pt feels ok, a bit SOB. No cough or wheezing. No fevers. No chest pain. Back pain is controlled. She is eating/drinking. Good uop. Objective: Vital Signs Temp Pulse Resp BP Pulse Ox 36.9 C 82 18 94/57 L 90 L 09/10/18 07:25 09/10/18 07:25 09/10/18 07:25 09/10/18 07:25 09/10/18 07:25 Laboratory Results 09/10/18 07:50 09/09/18 09/10/18 09/11/18 05:59 05:59 05:59 Intake Total 1000 Output Total 1999 1399 Balance -1000 -1400 - Physical Exam Constitutional: no apparent distress Eyes: PERRL Ears, Nose, Mouth, Throat: moist mucous membranes Cardiovascular: regular rate and rhythym Respiratory: no respiratory distress, clear to auscultation Gastrointestinal: normoactive bowel sounds, soft, non-tender abdomen Skin: warm Musculoskeletal: full muscle strength Neurologic: AAOx3 Psychiatric: interacting appropriately ICD10 Worksheet Patient Problems: Problems Problem Status Onset Muscle strain of left gluteal region Acute Acute on chronic respiratory failure with hypoxemia Acute Intractable low back pain Acute L5 vertebral fracture Acute
[2018-09-10] MEDS ORDERED: FUROSEMIDE 100 MG/10 ML VIAL IVP ONE (08:46)
--- NOTE | 2018-09-10 09:03 | PDINTPN ---
Animal Tech Progress Note Assessment/Plan: 68 year old obese female with mild COPD admitted after a fall and rehab and found to have acute on chronic hypoxemic hypercarbic respiratory failure. # acute on chronic hypoxemic hypercarbic respiratory failure. CTA without PE, very mild emphysematous changes. Patchy ground-glass concerning for viral pneumonitis versus atypical pulmonary edema. TTE without systolic heart failure , bubble study negative for intra cardiac or pulmonary shunt. Chronic process likely due to mild COPD, obesity hypoventilation worsened by chronic narcotic use. Procalcitonin negative # Acute L5 compression fracture. LLE radiculopathy. Needs operative repair # Obesity # Anxiety/depression. On multiple medications as outpatient. # chronic pain. Long-acting morphine 60 mg twice daily plus morphine 15 mg IR and gabapentin as an outpatient # hypothyroidism PLAN # continue high-flow nasal cannula, currently on near maximal settings # if she continues to worsen will need intubation with mechanical ventilation. At this juncture would be able to perform bronchoscopy with BAL to help delineate infectious etiologies # empiric trial of diuresis # continue azithromycin # add CTX for 5 day total course # abg now # Feeding - clear liquid diet # Analgesia APAP, oral morphine # Sedation none # Thromboprophylaxis - SQ hep # Head of bed elevated # Ulcer prophylaxis - NA # Glucose SSI # Skin no skin breakdown # Delirium - delirium precautions Patient is critical ill due to life threatening organ failure and is at high risk for decompensation and . Total critical care time, excluding procedures: 85 min ABX Azithromycin 09/09/2018-present CTX 09/10/18- present CX Data 09/06/2018 viral PCR negative 09/06/18 procalcitonin negative IMAGING 08/31/18 CXR elevated right hemidiaphragm, increased interstitial opacifications. Large body habitus obscures lung jameson 09/08/2018 TTE with bubble. No intracardiac or intrapulmonary shunt. 09/06/18 CTA chest-no PE, enlarged pulmonary artery suggestive of pulmonary hypertension, patchy bilateral ground-glass opacifications, small right-sided pleural effusion and right lower lobe atelectasis. 09/10/18 14:18 Subjective: Increasing oxygen requirements overnight, complaining of mild SOB. No fevers, chills, nausea, vomiting Objective: Vital Signs Temp Pulse Resp BP Pulse Ox 36.9 C 82 18 94/57 L 90 L 09/10/18 07:25 09/10/18 07:25 09/10/18 07:25 09/10/18 07:25 09/10/18 07:25 Laboratory Results 09/10/18 07:50 09/10/18 07:50 09/09/18 09/10/18 09/11/18 05:59 05:59 05:59 Intake Total 1000 300 Output Total 2000 1400 Balance -1000 -1400 300 Physical Exam - Physical Exam General Appearance: moderate distress, obese EENT: PERRL/EOMI, other (High-flow nasal cannula to be in place) Neck: non-tender, full range of motion Respiratory: other (Dyspneic, generally clear lung sounds of the body habitus limits exam, no accessory muscle use) Cardiac/Chest: normal peripheral pulses, regular rate, rhythm, edema Abdomen: normal bowel sounds, non-tender, soft Back: Normal inspection Skin: normal color, warm/dry Extremities: normal range of motion, non-tender Neuro/Psych: no motor/sensory deficits, alert, normal mood/affect, oriented x 3 ICD10 Worksheet Patient Problems: Problems Problem Status Onset Muscle strain of left gluteal region Acute Acute on chronic respiratory failure with hypoxemia Acute Intractable low back pain Acute L5 vertebral fracture Acute
[2018-09-10] MEDS: SERTRALINE HCL 100 MG TAB PO SCH (09:27)
[2018-09-10] MEDS: buPROPion XL 150 MG TAB PO SCH (09:28)
[2018-09-10] MEDS: GABAPENTIN 300 MG CAP PO SCH ×3 (09:29→20:37)
[2018-09-10] MEDS: busPIRone 15 MG TAB PO SCH ×2 (09:29→20:37)
[2018-09-10] MEDS: guaiFENesin 600 MG TAB.ER PO SCH ×2 (09:30→20:39)
[2018-09-10] MEDS: ARIPiprazole 5 MG TAB PO SCH (09:30)
[2018-09-10] MEDS: AZITHROMYCIN 250 MG TAB PO SCH (09:30)
[2018-09-10] MEDS: predniSONE 20 MG TAB PO SCH (09:33)
[2018-09-10] MEDS: FLUTICASONE NASAL 120 SPRAYS/16 GM MDI EACHNARE SCH (10:16)
[2018-09-10] MEDS: ENOXAPARIN 40 MG/0.4 ML SYR SC SCH (10:16)
[2018-09-10] MEDS ORDERED: POTASSIUM CL 20 MEQ TAB PO ONE (10:25)
[2018-09-10 12:18] LABS: INR 1.31 (0.83-1.16); PROTIME(PATIENT) 15.7 SEC (12.0-15.0)
[2018-09-10] MEDS ORDERED: POTASSIUM CL 20 MEQ TAB ONE (13:13)
[2018-09-10] MEDS: morphINE SR 60 MG TAB PO SCH (15:43)
[2018-09-10] MEDS: clonazePAM 0.5 MG TAB PO PRN (15:44)
--- NOTE | 2018-09-10 16:21 | ASMTCMCOM ---
CM Note CM Note Notes: Pt care discussed in rounds. Pt continues to have high O2 needs and is aware that surgery may be postponed until respiratory needs improve. Pt was at the [facility] in the past and is open with [facility]. CM to follow. Plan TBD Date Signed: 09/10/2018 04:16 PM Electronically Signed By:CORDELL Yuen
[2018-09-10] MEDS: NORTRIPTYLINE HCL 10 MG CAP PO SCH (20:38)
[2018-09-10] MEDS: traZODone 100 MG TAB PO PRN (20:44)
[2018-09-10] MEDS: PATCH REMOVAL 1 EA PATCH TD SCH (21:00)
[2018-09-11] MEDS: IPRATROPIUM/ALBUTEROL 3 ML DEYVIAL IH SCH ×4 (04:47→21:01)
[2018-09-11] MEDS: LEVOTHYROXINE 50 MCG TAB PO SCH (05:18)
[2018-09-11] MEDS: morphINE SR 60 MG TAB PO SCH ×2 (05:18→16:27)
--- NOTE | 2018-09-11 07:21 | NEUSURGPN ---
Assessment/Plan: Assessment: 68 yo female with recent h/o L3-L5 TLIF in May 2018, compression fracture at L5 on 07/16 CT L-spine imaging Recent MRI lumbar spine shows severe acute compression fracture of L5 with worsening height when compared to CT in July. L4-5 mod/severe central canal stenosis L3-4 moderate to severe right foraminal stenosis. Plan: -recommend brace when out of bed at this time -PT/OT-CPM -recommended extension of fusion with L5-S1 TLIF and possible iliac screws. Tentatively scheduled for Monday09/18/18 now pending clearance. She still has issues with poor pulmonary status -Will need to optimize respiratory status in prep for upcoming surgery. We appreciated Hospitalist and critical care assistance with this -Please call neurosurgery with questions/concerns -consents signed and on the chart -call with any questions or concerns -pt understands and agrees -d/w Dr Wilde Subjective: Awake and alert. NAD. Eating/drinking and voiding. No f/c/n/v/d. Objective: Awake. Alert. PERRLA. EOMI Facial expression symmetrical Speech fluent Muscle strength RLE 5/5, LLE 4/5 throughout-c/w prior exam Neuro Check Frequency: per routine Urinary Catheter in Place: No - Physician Discussed Patient with : Daquan Patient Seen by : Daquan Neurosurgery Physical Exam - Vitals, I&O, Labs I and O 09/10/18 09/11/18 09/12/18 05:59 05:59 05:59 Intake Total 1192 Output Total 1400 1900 Balance -1400 -708 Weight 110.4 kg Intake: Oral (ml) 1100 IV Intake (ml) 92 Output: Urine (ml) 1400 1900 Catheter 1400 1900 Other: Intake Quantity Yes Sufficient Output Comment Catheter female external catheter Number of Voids Incontinence 1 Number of Stools Catheter 0 Vital Signs Temp Pulse Resp BP Pulse Ox 36.9 C 80 20 97/68 L 93 09/11/18 00:00 09/11/18 04:49 09/11/18 04:49 09/11/18 00:00 09/11/18 04:49 Laboratory Results 09/10/18 07:50 09/11/18 05:06 ICD10 Worksheet Patient Problems: Problems Problem Status Onset Muscle strain of left gluteal region Acute Acute on chronic respiratory failure with hypoxemia Acute Intractable low back pain Acute L5 vertebral fracture Acute
[2018-09-11] MEDS ORDERED: ceFAZolin 2 GM/DEXTROSE 100 ML IV ONE (08:15)
--- NOTE | 2018-09-11 08:30 | HOSPPROG ---
Hospitalist Progress Note Assessment/Plan: 68 yo female with h/o COPD and recent lumbar spine surgery returns to hospital after a fall found to have worsened L5 compression fracture. Course complicated by worsening hypoxemia requiring transfer to SDU, remains on 35 LPM. #Acute hypoxemic hypercarbic respiratory failure: Possibly COPD exac, viral pneumonia, OHS, slow to recover. CTA neg for PE, b/l opacities. TTE without shunt. BNP 123 09/06. Did not respond to 80 mg IV Lasix yesterday. - Bronchoscopy today, discussed with Dr. Miranda - Remains slightly hypercarbic by ABG yest (pCO2 49 --> 54) - Cont duonebs, alb nebs - cont prednisone 40 mg daily - Ceftriaxone/Azithromycin - Flonase/Zyrtec #Multifocal pulmonary infiltrates: Query viral process or organizing pna. PCT neg. - Cont azithromycin (will complete 1.5 g today), Ceftriaxone added yesterday (day 2) - bronch today as above #Severe acute L5 compression fracture: Worsened since July. LLE radiculopathy/ weakness. - Neurosurgery recommending operative repair with extension of fusion. Surgery delayed 1 week due to above - Brace when out of bed - PT/OT as able #S/p L3-L5 lumbar fusion 05/2018, plans to extend as above - Pain control #Elevated right hemidiaphragm: Suboptimal sniff test. Possibly contributing to # 1. #Depression/anxiety - Continue home meds (zoloft, trazodone, klonopin, buspar, wellbutrin, nortriptyline, abilify) - needs continuous pulse ox monitoring #Chronic pain with continuous opioid dependence: On high dose narcotics - Continue home morphine SR 60mg BID and morphine IR 15mg q6h PRN and gabapentin - Try to wean prior to discharge #Hypothyroidism: Continue LT4 replacement #KAREN: pt has declined cpap in past due to cost VTE ppx: LMWH Code: full Dispo: cont inpt Subjective: Pt feels a little better. No CP, less SOB. Not coughing much. Not very mobile. Pain controlled. No fevers/chills. Taking po well. Objective: Vital Signs Temp Pulse Resp BP Pulse Ox 36.9 C 80 20 97/68 L 93 09/11/18 00:00 09/11/18 04:49 09/11/18 04:49 04/23/19 00:00 09/11/18 04:49 Laboratory Results 09/10/18 07:50 09/11/18 05:06 09/10/18 09/11/18 09/12/18 05:59 05:59 05:59 Intake Total 1192 Output Total 1400 1900 Balance -1400 -708 PT 15.7 SEC (12.0-15.0) H 09/10/18 09:45 INR 1.31 (0.83-1.16) H 09/10/18 09:45 - Physical Exam Constitutional: no apparent distress Eyes: PERRL Ears, Nose, Mouth, Throat: moist mucous membranes Cardiovascular: regular rate and rhythym Respiratory: no respiratory distress, clear to auscultation, reduced air movement Gastrointestinal: normoactive bowel sounds, soft, non-tender abdomen Skin: warm Musculoskeletal: full muscle strength Neurologic: AAOx3 Psychiatric: interacting appropriately ICD10 Worksheet Patient Problems: Problems Problem Status Onset Muscle strain of left gluteal region Acute Acute on chronic respiratory failure with hypoxemia Acute Intractable low back pain Acute L5 vertebral fracture Acute
[2018-09-11] MEDS: buPROPion XL 150 MG TAB PO SCH (08:47)
[2018-09-11] MEDS: CETIRIZINE 10 MG TAB PO SCH (08:47)
[2018-09-11] MEDS: busPIRone 15 MG TAB PO SCH ×2 (08:48→21:36)
[2018-09-11] MEDS: ARIPiprazole 5 MG TAB PO SCH (08:48)
[2018-09-11] MEDS: guaiFENesin 600 MG TAB.ER PO SCH ×2 (08:48→21:36)
[2018-09-11] MEDS: predniSONE 20 MG TAB PO SCH (08:49)
[2018-09-11] MEDS: AZITHROMYCIN 250 MG TAB PO SCH (08:49)
[2018-09-11] MEDS: GABAPENTIN 300 MG CAP PO SCH ×3 (08:49→21:36)
[2018-09-11] MEDS: SERTRALINE HCL 100 MG TAB PO SCH (08:49)
[2018-09-11] MEDS: ENOXAPARIN 40 MG/0.4 ML SYR SC SCH (08:49)
--- NOTE | 2018-09-11 09:04 | PDINTPN ---
Manager Scientific Progress Note Assessment/Plan: 68 year old obese female with recent with TLIF in May 2018 admitted after fall and found to have new L5 compression fracture and acute on acute on chronic hypoxemic hypercarbic respiratory failure. # acute on chronic hypoxemic hypercarbic respiratory failure. Patchy ground- glass concerning for viral pneumonitis versus atypical pulmonary edema with shunt physiology. Organizing pneumonia, acute eosinophilic pneumonia also possible. CTA without PE, very mild emphysematous changes. TTE without systolic heart failure, bubble study negative for intra cardiac or pulmonary shunt. Chronic process likely due to mild COPD, obesity hypoventilation worsened by chronic narcotic use. Procalcitonin negative. # Acute L5 compression fracture. LLE radiculopathy. Needs operative repair # Obesity # Anxiety/depression. On multiple medications as outpatient. # chronic pain. Long-acting morphine 60 mg twice daily plus morphine 15 mg IR and gabapentin as an outpatient # hypothyroidism PLAN # continue high-flow nasal cannula, currently on near maximal settings # will challenge shunt physiology by keeping flow rate the same and dropping FiO2. # anticipate awake upright fiberoptic bronchoscopy and emergent intubation if patient does not tolerate. I discussed risks and benefits associated with this and patient is agreeable to plan. # continue diuresis # continue azithromycin # add CTX for 5 day total course # daily chest x-ray # Feeding - clear liquid diet # Analgesia APAP, oral morphine # Sedation none # Thromboprophylaxis - SQ hep # Head of bed elevated # Ulcer prophylaxis - NA # Glucose SSI # Skin no skin breakdown # Delirium - delirium precautions Patient is critical ill due to life threatening organ failure and is at high risk for decompensation and . Total critical care time, excluding procedures: 45 min ABX Azithromycin 09/09/2018-present CTX 09/10/18- present CX Data 09/06/2018 viral PCR negative 09/06/18 procalcitonin negative IMAGING 08/31/18 CXR elevated right hemidiaphragm, increased interstitial opacifications. Large body habitus obscures lung jameson 09/08/2018 TTE with bubble. No intracardiac or intrapulmonary shunt. 09/06/18 CTA chest-no PE, enlarged pulmonary artery suggestive of pulmonary hypertension, patchy bilateral ground-glass opacifications, small right-sided pleural effusion and right lower lobe atelectasis. Subjective: Patient diuresed yesterday. However no significant change in respiratory status. Still with high FiO2 requirements on high-flow nasal cannula. No fevers, chills, nausea vomiting. Surgery has been deferred due to respiratory status Objective: Vital Signs Temp Pulse Resp BP Pulse Ox 36.9 C 80 20 97/68 L 93 09/11/18 00:00 09/11/18 04:49 09/11/18 04:49 09/11/18 00:00 09/11/18 04:49 Laboratory Results 09/10/18 07:50 09/11/18 05:06 09/10/18 09/11/18 09/12/18 05:59 05:59 05:59 Intake Total 1192 Output Total 1400 1900 Balance -1400 -708 PT 15.7 SEC (12.0-15.0) H 09/10/18 09:45 INR 1.31 (0.83-1.16) H 09/10/18 09:45 Physical Exam - Physical Exam General Appearance: moderate distress EENT: PERRL/EOMI, normal ENT inspection Neck: other (Thick neck, trachea midline no swelling) Respiratory: other (Clear lung jameson, mild tachypnea, no rales decreased breath sounds bases) Cardiac/Chest: normal peripheral pulses, regular rate, rhythm, No edema Abdomen: normal bowel sounds, non-tender Skin: normal color, warm/dry, No cyanosis Extremities: normal range of motion, non-tender Neuro/Psych: no motor/sensory deficits, alert, normal mood/affect, oriented x 3 ICD10 Worksheet Patient Problems: Problems Problem Status Onset Muscle strain of left gluteal region Acute Acute on chronic respiratory failure with hypoxemia Acute Intractable low back pain Acute L5 vertebral fracture Acute
[2018-09-11] MEDS: POTASSIUM CL 20 MEQ TAB PO SCH ×2 (09:47→18:19)
[2018-09-11] MEDS: FLUTICASONE NASAL 120 SPRAYS/16 GM MDI EACHNARE SCH (09:52)
[2018-09-11] MEDS: LIDOCAINE 4%/MENTHOL 1% PATCH TD PRN (10:29)
[2018-09-11] MEDS ORDERED: LIDOCAINE 1% 300 MG/30 ML SDV MISC ONE ×2 (10:54→13:45)
[2018-09-11] MEDS ORDERED: BISACODYL 10 MG SUPP PR PRN (13:30)
[2018-09-11] MEDS ORDERED: POLYETHYLENE GLYCOL 3350 17 GM PKT PO PRN (13:30)
[2018-09-11] MEDS ORDERED: LACTULOSE 20 GM/30 ML UDCUP PO PRN (13:30)
[2018-09-11] MEDS ORDERED: MAGNESIUM HYDROXIDE 30 ML UDCUP PO PRN (13:30)
[2018-09-11] MEDS: clonazePAM 0.5 MG TAB PO PRN (13:47)
[2018-09-11] MEDS ORDERED: MIDAZOLAM 2 MG/2 ML VIAL IVP ONE (15:45)
[2018-09-11] MEDS ORDERED: fentaNYL 100 MCG/2 ML INJ IV ONE (15:45)
[2018-09-11] MEDS ORDERED: LIDOCAINE 2% JELLY 20 ML (UROJECT) UR ONE (17:18)
[2018-09-11] MEDS: OXYMETAZOLINE 30 ML NASAL SPRAY EACHNARE SCH (17:48)
--- NOTE | 2018-09-11 18:07 | SUROPNOTE ---
[facility] Operative Report - Surgery PROCEDURE NOTE: Flexible bronchoscopy with bronchoalveolar lavage, bronchoscopy with therapeutic aspiration and moderate sedation sedation Procedure Interactive Web Developer S Dillan Miranda MD Procedure: Flexible bronchoscopy with bronchoalveolar lavage and therapeutic aspiration Preoperative diagnosis: Pneumonia, respiratory failure Postoperative diagnosis: Pneumonia, respiratory failure Consent: Obtained from patient prior to procedure after explanation of the procedure, alternatives, risks, and benefits. Anesthesiologist NA Sedation Type: Moderate sedation Sedation Medications: Fentanyl and Versed Moderate sedation: 24 min Medications: Topical 1% lidocaine: 12 cc via atomizer bronchoscope Nasal Afrin, 3 cc of 2% viscous lidocaine Procedure Summary: Time out was performed. Initial attempt at passing the bronchoscope through the nares was unsuccessful due to hypertrophy nasal turbinates. Next oral bite block was placed and the bronchoscope was inserted through the oropharynx into the posterior oropharynx with visualization of vocal cords. They appeared normal in abducted abducted normally. Vocal cords were anesthetized and the bronchoscope was passed through the vocal cords into the trachea. After topical application of lidocaine entire bronchial trunk ill tree was visualized. Thick white secretions were therapeutically aspirated from the right distal mainstem and left lower lobes. After therapeutic aspiration patient's saturation subsequently improved. Next the bronchoscope was inserted into the lingula and a formal BAL was performed with instillation of 120 cc in return of 45 cc of cloudy white material. Patient tolerated the procedure well without complications. Moderate sedation was performed with a dedicated RN continuously monitoring vital signs and cardiopulmonary status. Total moderate sedation time was 24 min. EBL none Complications: None Impression: Thick mucus plugging and right distal bronchus intermedius and left lower lobe. Frothy secretions. Suspect mucous plugging plus pulmonary edema. Items to Follow-up: BAL fluid sent cell count, diff, Gram stain and culture, cytology for silver stain, aspergillus galactomannan S Dillan Miranda MD Pulmonary and Critical Care Medicine [phone]
[2018-09-11] MEDS: FUROSEMIDE 40 MG/4 ML VIAL IVP SCH (18:16)
[2018-09-11] MEDS: SENNOSIDES/DOCUSATE SODIUM TAB PO SCH ×2 (18:18→21:36)
[2018-09-11] MEDS: SPIRONOLACTONE 25 MG TAB PO SCH (18:19)
[2018-09-11] MEDS: PATCH REMOVAL 1 EA PATCH TD SCH (21:00)
[2018-09-11] MEDS: NORTRIPTYLINE HCL 10 MG CAP PO SCH (21:36)
[2018-09-11] MEDS: traZODone 100 MG TAB PO PRN (21:36)
[2018-09-12] MEDS: IPRATROPIUM/ALBUTEROL 3 ML DEYVIAL IH SCH ×4 (05:40→20:45)
[2018-09-12] MEDS: FUROSEMIDE 40 MG/4 ML VIAL IVP SCH ×2 (05:46→15:30)
[2018-09-12] MEDS: morphINE SR 60 MG TAB PO SCH ×2 (05:46→18:45)
[2018-09-12] MEDS: LEVOTHYROXINE 50 MCG TAB PO SCH (05:46)
[2018-09-12] MEDS: ENOXAPARIN 40 MG/0.4 ML SYR SC SCH (08:52)
[2018-09-12] MEDS: GABAPENTIN 300 MG CAP PO SCH ×3 (08:58→20:50)
[2018-09-12] MEDS: buPROPion XL 150 MG TAB PO SCH (08:58)
[2018-09-12] MEDS: predniSONE 20 MG TAB PO SCH (08:58)
[2018-09-12] MEDS: SENNOSIDES/DOCUSATE SODIUM TAB PO SCH ×2 (08:59→20:50)
[2018-09-12] MEDS: SERTRALINE HCL 100 MG TAB PO SCH (09:00)
[2018-09-12] MEDS: ARIPiprazole 5 MG TAB PO SCH (09:01)
[2018-09-12] MEDS: guaiFENesin 600 MG TAB.ER PO SCH ×2 (09:01→20:51)
[2018-09-12] MEDS: AZITHROMYCIN 250 MG TAB PO SCH (09:02)
[2018-09-12] MEDS: CETIRIZINE 10 MG TAB PO SCH (09:02)
[2018-09-12] MEDS: busPIRone 15 MG TAB PO SCH ×2 (09:02→20:50)
[2018-09-12] MEDS: SPIRONOLACTONE 25 MG TAB PO SCH (09:02)
[2018-09-12] MEDS: OXYMETAZOLINE 30 ML NASAL SPRAY EACHNARE SCH ×2 (09:03→21:06)
[2018-09-12] MEDS: FLUTICASONE NASAL 120 SPRAYS/16 GM MDI EACHNARE SCH (09:04)
--- NOTE | 2018-09-12 09:31 | PDINTPN ---
Title Closer Progress Note Assessment/Plan: 68 year old obese female with recent with TLIF in May 2018 admitted after fall and found to have new L5 compression fracture and acute on acute on chronic hypoxemic hypercarbic respiratory failure. # acute on chronic hypoxemic hypercarbic respiratory failure. Etiology unclear. Patchy ground-glass concerning for viral pneumonitis versus atypical pulmonary edema with shunt physiology, or new acellular interstitial lung disease. Organizing pneumonia, acute eosinophilic pneumonia, cellular NSIP less likely given BAL findings. Pulmonary edema is possible but BNP is not elevated and no improvement with diuresis. CTA without PE, very mild emphysematous changes. TTE without systolic heart failure, bubble study negative for intra cardiac or pulmonary shunt. No response with short course of steroids (as high as 125 q6 last week). Drug reaction less likley. Procalcitonin negative. # Acute L5 compression fracture. LLE radiculopathy. Needs operative repair # Obesity # Anxiety/depression. On multiple medications as outpatient. # chronic pain. Long-acting morphine 60 mg twice daily plus morphine 15 mg IR and gabapentin as an outpatient # hypothyroidism PLAN # continue high-flow nasal cannula, currently on near maximal settings # if no interval improvement after to 3 days of diuretic therapy may consider video-assisted thoracic surgery for biopsy # continue diuresis # no response with steroids # abg with methemoglobin for completeness # s/p azithro and CTX # CXR in AM # Feeding - reg diet # Analgesia APAP, oral morphine # Sedation none # Thromboprophylaxis - SQ hep # Head of bed elevated # Ulcer prophylaxis - NA # Glucose SSI # Skin no skin breakdown # Delirium - delirium precautions Patient is critical ill due to life threatening organ failure and is at high risk for decompensation and . Total critical care time, excluding procedures: 55 min ABX Azithromycin 09/09/2018-present CTX 09/10/18- present CX Data 09/06/2018 viral PCR negative 09/06/18 procalcitonin negative IMAGING 08/31/18 CXR elevated right hemidiaphragm, increased interstitial opacifications. Large body habitus obscures lung jameson 09/08/2018 TTE with bubble. No intracardiac or intrapulmonary shunt. 09/06/18 CTA chest-no PE, enlarged pulmonary artery suggestive of pulmonary hypertension, patchy bilateral ground-glass opacifications, small right-sided pleural effusion and right lower lobe atelectasis. 09/10/18 CXR interval worsening of interstitial opacities. No pleural effusion PROCEDURES 09/10/18 bronch with BAL-segmental distal mucous plugging +frothy pulmonary secretions see 778, RBC 1956, neutrophils 13%, lymphocytes 14%, macro phase is 73%. No eosinophils. No organism seen. 09/12/18 09:37 Subjective: Bronchoscopy performed yesterday on 40 liters/minute high-flow nasal cannula 100 % FiO2. Fortunately patient did not desaturate significantly during procedure and tolerated. BAL adequate specimen based on large amount of macrophages but was relatively unrevealing. No significant neutrophilia, lymphocytosis or eosinophilia. Progressive interstitial opacifications on chest x-ray despite diuresis Objective: Vital Signs Temp Pulse Resp BP Pulse Ox 37.0 C 77 15 100/71 93 09/12/18 07:34 09/12/18 07:34 09/12/18 07:34 09/12/18 07:34 09/12/18 07:34 Microbiology 09/11/18 18:10 Respiratory Panel (PCR) - Final Nasal, Sinus - Other 09/11/18 18:10 Gram Stain - Final Bronchial Alveolar Lavage - Unspecified Laboratory Results 09/10/18 07:50 09/12/18 05:34 09/11/18 09/12/18 09/13/18 05:59 05:59 05:59 Intake Total 1192 850 Output Total 0352 053 0031 Balance -708 200 -1100 PT 15.7 SEC (12.0-15.0) H 09/10/18 09:45 INR 1.31 (0.83-1.16) H 09/10/18 09:45 Physical Exam - Physical Exam General Appearance: mild distress, obese, other EENT: PERRL/EOMI, normal ENT inspection, other (Nasal can tube in place) Neck: other (Thick neck no lesions trachea midline) Respiratory: chest non-tender, lungs clear, normal breath sounds Cardiac/Chest: normal peripheral pulses, regular rate, rhythm, No edema Abdomen: normal bowel sounds, non-tender Skin: normal color, warm/dry Lymphatic: no adenopathy Extremities: normal range of motion, non-tender, normal inspection Neuro/Psych: no motor/sensory deficits, alert, normal mood/affect, oriented x 3 ICD10 Worksheet Patient Problems: Problems Problem Status Onset Muscle strain of left gluteal region Acute Acute on chronic respiratory failure with hypoxemia Acute Intractable low back pain Acute L5 vertebral fracture Acute
--- NOTE | 2018-09-12 10:44 | HOSPPROG ---
Hospitalist Progress Note Assessment/Plan: 68 yo female with h/o COPD and recent lumbar spine surgery returns to hospital after a fall found to have worsened L5 compression fracture. Course complicated by worsening hypoxemia requiring transfer to SDU, remains on high flow O2 #Acute hypoxemic hypercarbic respiratory failure: DDx COPD exac, interstitial edema, viral pneumonia, BOOP, component of OHS. Slow to recover. CTA neg for PE , +b/l opacities. TTE without shunt. BNP 123 09/06. Bronch 09/11 with mucus plugging and frothy secretions. Discussed with Dr. Miranda. - Cont diuresis with Lasix 40 mg IV BID - resume high dose steroids - follow blood gas - Cont duonebs, alb nebs - Ceftriaxone/Azithromycin - Flonase/Zyrtec - If not improving, may need to consider lung biopsy #Multifocal pulmonary infiltrates: Query viral process or organizing pna. PCT neg. - Cont azithromycin, s/p 1.5 g but will continue for possible anti- inflammatory effect, Ceftriaxone (day 3) #Severe acute L5 compression fracture: Worsened since July. LLE radiculopathy/ weakness. - Neurosurgery recommending operative repair with extension of fusion. Surgery delayed due to above, tentative date 09/18 though not looking optimistic re: clearance for surgery - Brace when out of bed - PT/OT as able #S/p L3-L5 lumbar fusion 05/2018, plans to extend as above - Pain control #Elevated right hemidiaphragm: Suboptimal sniff test. Possibly contributing to # 1. #Depression/anxiety - Continue home meds (zoloft, trazodone, klonopin, buspar, wellbutrin, nortriptyline, abilify) #Chronic pain with continuous opioid dependence: On high dose narcotics - Continue home morphine SR 60mg BID and morphine IR 15mg q6h PRN and gabapentin #Hypothyroidism: Continue LT4 replacement #KAREN: pt has declined cpap in past due to cost VTE ppx: LMWH Code: full Dispo: cont inpt, SDU. Subjective: Pt feels about the same. Not terribly SOB at rest. No fevers/ cough. No CP. Denies orthopnea or peripheral edema. Taking po well. Good uop. Objective: Vital Signs Temp Pulse Resp BP Pulse Ox 37.0 C 77 15 100/71 93 09/12/18 07:34 09/12/18 07:34 09/12/18 07:34 09/12/18 07:34 09/12/18 07:34 Microbiology 09/11/18 18:10 Respiratory Panel (PCR) - Final Nasal, Sinus - Other 09/11/18 18:10 Gram Stain - Final Bronchial Alveolar Lavage - Unspecified Laboratory Results 09/10/18 07:50 09/12/18 05:34 09/11/18 09/12/18 09/13/18 05:59 05:59 05:59 Intake Total 1192 850 Output Total 2237 958 4494 Balance -708 200 -1100 PT 15.7 SEC (12.0-15.0) H 09/10/18 09:45 INR 1.31 (0.83-1.16) H 09/10/18 09:45 - Physical Exam Constitutional: no apparent distress Eyes: PERRL Ears, Nose, Mouth, Throat: moist mucous membranes Cardiovascular: regular rate and rhythym Respiratory: no respiratory distress, inspiratory crackles Gastrointestinal: normoactive bowel sounds, soft, non-tender abdomen Skin: warm Musculoskeletal: full muscle strength Neurologic: AAOx3 Psychiatric: interacting appropriately ICD10 Worksheet Patient Problems: Problems Problem Status Onset Muscle strain of left gluteal region Acute Acute on chronic respiratory failure with hypoxemia Acute Intractable low back pain Acute L5 vertebral fracture Acute
[2018-09-12] MEDS: clonazePAM 0.5 MG TAB PO PRN (19:19)
[2018-09-12] MEDS ORDERED: methylPREDNISolone SOD SUCC 125 MG/2 ML VIAL IVP SCH (19:34)
[2018-09-12] MEDS: NORTRIPTYLINE HCL 10 MG CAP PO SCH (20:50)
[2018-09-12] MEDS: methylPREDNISolone SOD SUCC 250 MG in D5W 50 ML IV SCH (20:51)
[2018-09-12] MEDS: traZODone 100 MG TAB PO PRN (20:51)
[2018-09-12] MEDS ORDERED: PROTOCOL POTASSIUM 1 DOSE MISC PRN (20:51)
[2018-09-12] MEDS: PATCH REMOVAL 1 EA PATCH TD SCH (21:05)
[2018-09-13] MEDS: methylPREDNISolone SOD SUCC 250 MG in D5W 50 ML IV SCH ×5 (00:28→23:54)
[2018-09-13] MEDS: BACLOFEN 10 MG TAB PO PRN (00:28)
[2018-09-13] MEDS: LEVOTHYROXINE 50 MCG TAB PO SCH (05:16)
[2018-09-13] MEDS: morphINE SR 60 MG TAB PO SCH ×2 (05:16→16:59)
[2018-09-13] MEDS: IPRATROPIUM/ALBUTEROL 3 ML DEYVIAL IH SCH ×4 (05:23→21:04)
[2018-09-13] MEDS: FUROSEMIDE 40 MG/4 ML VIAL IVP SCH ×2 (10:38→15:00)
[2018-09-13] MEDS: buPROPion XL 150 MG TAB PO SCH (10:47)
[2018-09-13] MEDS: AZITHROMYCIN 250 MG TAB PO SCH (10:47)
[2018-09-13] MEDS: ARIPiprazole 5 MG TAB PO SCH (10:47)
[2018-09-13] MEDS: SERTRALINE HCL 100 MG TAB PO SCH (10:48)
[2018-09-13] MEDS: GABAPENTIN 300 MG CAP PO SCH ×3 (10:48→20:00)
[2018-09-13] MEDS: SENNOSIDES/DOCUSATE SODIUM TAB PO SCH ×2 (10:49→19:52)
[2018-09-13] MEDS: busPIRone 15 MG TAB PO SCH ×2 (10:50→19:53)
[2018-09-13] MEDS: SPIRONOLACTONE 25 MG TAB PO SCH (10:50)
[2018-09-13] MEDS: guaiFENesin 600 MG TAB.ER PO SCH ×2 (10:51→19:54)
[2018-09-13] MEDS: CETIRIZINE 10 MG TAB PO SCH (10:51)
[2018-09-13] MEDS: ENOXAPARIN 40 MG/0.4 ML SYR SC SCH (10:51)
[2018-09-13] MEDS: OXYMETAZOLINE 30 ML NASAL SPRAY EACHNARE SCH ×2 (10:52→19:56)
[2018-09-13] MEDS: FLUTICASONE NASAL 120 SPRAYS/16 GM MDI EACHNARE SCH (10:52)
--- NOTE | 2018-09-13 12:09 | HOSPPROG ---
Hospitalist Progress Note Assessment/Plan: 68 yo female with h/o COPD and recent lumbar spine surgery returns to hospital after a fall found to have worsened L5 compression fracture. Course complicated by worsening hypoxemia requiring transfer to SDU, remains on high flow O2 Acute hypoxemic hypercarbic respiratory failure: DDx COPD exac, interstitial edema, viral pneumonia, BOOP, component of OHS. Slow to recover. CTA neg for PE , +b/l opacities. TTE without shunt. BNP 123 09/06. Bronch 09/11 with mucus plugging and frothy secretions. Discussed with Dr. Miranda. - Cont diuresis with Lasix 40 mg IV BID - resume high dose steroids ceftriaxone/azith day 08/26 repeat non con chest CT am 09/14 CONSIDER BX IF WORSE if improved, needs further shunt eval noted is 15 pack year smoking hx Multifocal pulmonary infiltrates: Query viral process or organizing pna. PCT neg. - Cont azithromycin, s/p 1.5 g but will continue for possible anti- inflammatory effect, Ceftriaxone (day 3) Severe acute L5 compression fracture: Worsened since July. LLE radiculopathy/ weakness. - Neurosurgery recommending operative repair with extension of fusion. Surgery delayed due to above, tentative date 09/18 though not looking optimistic re: clearance for surgery - Brace when out of bed - PT/OT as able S/p L3-L5 lumbar fusion 05/2018, plans to extend as above - Pain control Elevated right hemidiaphragm: Suboptimal sniff test. Possibly contributing to # 1. constipation: bid miralax Depression/anxiety - Continue home meds (zoloft, trazodone, klonopin, buspar, wellbutrin, nortriptyline, abilify) chronic pain with continuous opioid dependence: On high dose narcotics - Continue home morphine SR 60mg BID and morphine IR 15mg q6h PRN and gabapentin Hypothyroidism: Continue LT4 replacement KAREN: pt has declined cpap in past due to cost VTE ppx: LMWH Code: full Dispo: cont inpt, SDU. Subjective: case d/w dr miranda. remains remakably hypoxic w no clear answer Objective: Vital Signs Temp Pulse Resp BP Pulse Ox 37.0 C 85 15 139/90 H 93 09/13/18 11:54 09/13/18 11:54 09/13/18 11:54 09/13/18 11:54 09/13/18 11:54 Microbiology 09/11/18 18:10 Gram Stain - Final Bronchial Alveolar Lavage - Unspecified 09/12/18 09:50 Respiratory Panel (PCR) - Final Nasal, Sinus - Swab No Organism Detected By Pcr Laboratory Results 09/10/18 07:50 09/13/18 05:04 09/12/18 09/13/18 09/14/18 05:59 05:59 05:59 Intake Total 850 2150 Output Total 650 2600 Balance 200 -450 PT 15.7 SEC (12.0-15.0) H 09/10/18 09:45 INR 1.31 (0.83-1.16) H 09/10/18 09:45 - Physical Exam Constitutional: no apparent distress, appears nourished Eyes: PERRL, anicteric sclera Ears, Nose, Mouth, Throat: moist mucous membranes, hearing normal Cardiovascular: regular rate and rhythym, no murmur, rub, or gallop Respiratory: other (difficult exam given high flow oxygen; scattered rhonchi) Gastrointestinal: normoactive bowel sounds, soft, non-tender abdomen Genitourinary: no bladder fullness, No castillo in urethra Skin: warm, normal color Musculoskeletal: No full muscle strength Neurologic: AAOx3 ICD10 Worksheet Patient Problems: Problems Problem Status Onset Muscle strain of left gluteal region Acute Acute on chronic respiratory failure with hypoxemia Acute Intractable low back pain Acute L5 vertebral fracture Acute
--- NOTE | 2018-09-13 13:04 | PDINTPN ---
Medical Advisor Progress Note Assessment/Plan: 68 year old obese female with recent with TLIF in May 2018 admitted after fall and found to have new L5 compression fracture and acute on acute on chronic hypoxemic hypercarbic respiratory failure. # acute on chronic hypoxemic hypercarbic respiratory failure. Etiology unclear. Patchy ground-glass concerning for acute lung injury, viral pneumonitis versus atypical pulmonary edema with shunt physiology, or new interstitial lung disease. Organizing pneumonia, acute eosinophilic pneumonia, cellular NSIP less likely given BAL findings but she was on steroids prior to bronch.. Pulmonary edema is possible but BNP is not elevated and no improvement with diuresis. CTA without PE, very mild emphysematous changes. TTE without systolic heart failure, bubble study negative for intra cardiac or pulmonary shunt. No response with short course of steroids (as high as 125 q6 last week) . Drug reaction less likely. Procalcitonin negative. No methemoglobinemia. # Acute L5 compression fracture. LLE radiculopathy. Needs operative repair but pulmonary status precludes surgery # Obesity # Anxiety/depression. On multiple medications as outpatient. # chronic pain. Long-acting morphine 60 mg twice daily plus morphine 15 mg IR and gabapentin as an outpatient # hypothyroidism PLAN # continue Solu-Medrol 1 g per day for 3 days # CT chest in a.m unless excellent interval improvement # continue diuresis although unclear how much it is helping # continue high-flow nasal cannula, currently on near maximal settings # follow-up TRISTA titer and pattern # will defer on shunt study evaluation (right heart catheterization with shunt run versus nuclear medicine perfusion study) as patient has acute parenchymal lung disease and can explain her hypoxia. Limited workup for shunt negative today # continue diuresis # abg with methemoglobin for completeness # s/p azithro and CTX # Feeding - reg diet # Analgesia APAP, oral morphine # Sedation none # Thromboprophylaxis - SQ hep # Head of bed elevated # Ulcer prophylaxis - NA # Glucose SSI # Skin no skin breakdown # Delirium - delirium precautions ABX Azithromycin 09/09/2018-09/12 CTX 09/10/18- present CX Data 09/06/2018 viral PCR negative 09/06/18 procalcitonin negative IMAGING 08/31/18 CXR elevated right hemidiaphragm, increased interstitial opacifications. Large body habitus obscures lung jameson 09/08/2018 TTE with bubble. No intracardiac or intrapulmonary shunt. 09/06/18 CTA chest-no PE, enlarged pulmonary artery suggestive of pulmonary hypertension, patchy bilateral ground-glass opacifications, small right-sided pleural effusion and right lower lobe atelectasis. 09/10/18 CXR interval worsening of interstitial opacities. No pleural effusion PROCEDURES 09/10/18 bronch with BAL-segmental distal mucous plugging +frothy pulmonary secretions see 778, RBC 1956, neutrophils 13%, lymphocytes 14%, macro phase is 73%. No eosinophils. No organism seen. 09/12/18 09:37 09/13/18 12:59 09/13/18 14:09 Subjective: Initiated on pulse dose steroids yesterday evening. No significant change in respiratory status. Still with high oxygenation requirements and chest x-ray with interstitial opacifications. Diuresing well without significant change NT proBNP still not elevated. TRISTA screen elevated titers and pattern pending Objective: Vital Signs Temp Pulse Resp BP Pulse Ox 37.0 C 85 15 139/90 H 93 09/13/18 11:54 09/13/18 11:54 09/13/18 11:54 09/13/18 11:54 09/13/18 11:54 Microbiology 09/11/18 18:10 Gram Stain - Final Bronchial Alveolar Lavage - Unspecified 09/12/18 09:50 Respiratory Panel (PCR) - Final Nasal, Sinus - Swab No Organism Detected By Pcr Laboratory Results 09/10/18 07:50 09/13/18 05:04 09/12/18 09/13/18 09/14/18 05:59 05:59 05:59 Intake Total 850 2150 Output Total 650 2600 Balance 200 -450 PT 15.7 SEC (12.0-15.0) H 09/10/18 09:45 INR 1.31 (0.83-1.16) H 09/10/18 09:45 Physical Exam - Physical Exam General Appearance: alert, mild distress EENT: PERRL/EOMI, normal ENT inspection Neck: non-tender, full range of motion Respiratory: lungs clear, normal breath sounds Cardiac/Chest: normal peripheral pulses, regular rate, rhythm, No edema Abdomen: normal bowel sounds, non-tender, soft Back: Normal inspection Skin: normal color, warm/dry, No cyanosis Extremities: normal range of motion, non-tender, normal inspection Neuro/Psych: no motor/sensory deficits, alert, normal mood/affect, oriented x 3 ICD10 Worksheet Patient Problems: Problems Problem Status Onset Muscle strain of left gluteal region Acute Acute on chronic respiratory failure with hypoxemia Acute Intractable low back pain Acute L5 vertebral fracture Acute
[2018-09-13] MEDS: NORTRIPTYLINE HCL 10 MG CAP PO SCH (19:53)
[2018-09-13] MEDS: traZODone 100 MG TAB PO PRN (19:54)
[2018-09-13] MEDS: POLYETHYLENE GLYCOL 3350 17 GM PKT PO SCH (19:55)
[2018-09-13] MEDS: PATCH REMOVAL 1 EA PATCH TD SCH (19:55)
[2018-09-13] MEDS: CALCIUM CARBONATE 500 MG CHEWABLE TAB PO PRN (21:00)
[2018-09-14] MEDS: LEVOTHYROXINE 50 MCG TAB PO SCH (05:19)
[2018-09-14] MEDS: morphINE SR 60 MG TAB PO SCH ×2 (05:19→16:58)
[2018-09-14] MEDS: methylPREDNISolone SOD SUCC 250 MG in D5W 50 ML IV SCH ×3 (05:35→17:32)
[2018-09-14] MEDS: IPRATROPIUM/ALBUTEROL 3 ML DEYVIAL IH SCH ×4 (05:41→20:26)
[2018-09-14] MEDS: SERTRALINE HCL 100 MG TAB PO SCH (08:14)
[2018-09-14] MEDS: CETIRIZINE 10 MG TAB PO SCH (08:14)
[2018-09-14] MEDS: ENOXAPARIN 40 MG/0.4 ML SYR SC SCH (08:15)
[2018-09-14] MEDS: buPROPion XL 150 MG TAB PO SCH (08:15)
[2018-09-14] MEDS: GABAPENTIN 300 MG CAP PO SCH ×3 (08:16→20:14)
[2018-09-14] MEDS: SENNOSIDES/DOCUSATE SODIUM TAB PO SCH ×2 (08:17→20:14)
[2018-09-14] MEDS: guaiFENesin 600 MG TAB.ER PO SCH ×2 (08:17→20:13)
[2018-09-14] MEDS: SPIRONOLACTONE 25 MG TAB PO SCH (08:17)
[2018-09-14] MEDS: ARIPiprazole 5 MG TAB PO SCH (08:18)
[2018-09-14] MEDS: busPIRone 15 MG TAB PO SCH ×2 (08:18→20:13)
[2018-09-14] MEDS: FLUTICASONE NASAL 120 SPRAYS/16 GM MDI EACHNARE SCH (08:18)
[2018-09-14] MEDS: FUROSEMIDE 40 MG/4 ML VIAL IVP SCH ×2 (08:18→17:03)
[2018-09-14] MEDS: AZITHROMYCIN 250 MG TAB PO SCH (08:18)
[2018-09-14] MEDS: OXYMETAZOLINE 30 ML NASAL SPRAY EACHNARE SCH ×2 (08:19→20:48)
--- NOTE | 2018-09-14 09:00 | HOSPPROG ---
Hospitalist Progress Note Assessment/Plan: 68 yo female with h/o COPD and recent lumbar spine surgery returns to hospital after a fall found to have worsened L5 compression fracture. Course complicated by worsening hypoxemia requiring transfer to SDU, remains on high flow O2 Acute hypoxemic hypercarbic respiratory failure: DDx COPD exac, interstitial edema, viral pneumonia, BOOP, component of OHS. Slow to recover. CTA neg for PE , +b/l opacities. TTE without shunt. BNP 123 09/06. Bronch 09/11 with mucus plugging and frothy secretions. Discussed with Dr. Miranda. -hold diuretics today - 3 days high dose steroids (today 2/3) high dose steroids ceftriaxone/azith day 09/[address] repeat [address] con chest CT am 09/14 CONSIDER BX IF WORSE if improved, needs further shunt eval noted is 15 pack year smoking hx TRISTA of 1.99 noted, no h/o rheum disease, no sx s/o RA methemoglobin normal Multifocal pulmonary infiltrates: Query viral process or organizing pna. PCT neg. -day 09/25 ceftriaxone/azithro Severe acute L5 compression fracture: Worsened since July. LLE radiculopathy/ weakness. - Neurosurgery recommending operative repair with extension of fusion. Surgery delayed due to above, tentative date 09/18 though not looking optimistic re: clearance for surgery - Brace when out of bed - PT/OT as able S/p L3-L5 lumbar fusion 05/2018, plans to extend as above - Pain control Elevated right hemidiaphragm: Suboptimal sniff test. Possibly contributing to # 1. constipation: bid miralax reduce- having soft stool Depression/anxiety - Continue home meds (zoloft, trazodone, klonopin, buspar, wellbutrin, nortriptyline, abilify) chronic pain with continuous opioid dependence: On high dose narcotics - Continue home morphine SR 60mg BID and morphine IR 15mg q6h PRN and gabapentin Hypothyroidism: Continue LT4 replacement KAREN: pt has declined cpap in past due to cost VTE ppx: LMWH Code: full Dispo: cont inpt, SDU. Subjective: case d/w dr miranda. on 25 L this AM, which is less Objective: Vital Signs Temp Pulse Resp BP Pulse Ox 36.7 C 81 17 134/83 H 90 L 09/14/18 08:00 09/14/18 08:00 09/14/18 08:00 09/14/18 08:00 09/14/18 08:00 Microbiology 09/11/18 18:10 Gram Stain - Final Bronchial Alveolar Lavage - Unspecified Laboratory Results 09/10/18 07:50 09/14/18 05:20 09/13/18 09/14/18 09/15/18 05:59 05:59 05:59 Intake Total 2150 890 Output Total 2600 2450 200 Balance -450 -1560 -200 PT 15.7 SEC (12.0-15.0) H 09/10/18 09:45 INR 1.31 (0.83-1.16) H 09/10/18 09:45 - Physical Exam Constitutional: no apparent distress, appears nourished Eyes: PERRL, anicteric sclera Ears, Nose, Mouth, Throat: moist mucous membranes, hearing normal Cardiovascular: regular rate and rhythym, no murmur, rub, or gallop Respiratory: no respiratory distress, other (fine crackles at R base that decrease w cough. no wheeze. no sig prolonged expiratory phase) Gastrointestinal: normoactive bowel sounds, soft, non-tender abdomen Genitourinary: no bladder fullness, No castillo in urethra Skin: warm, normal color Musculoskeletal: No full muscle strength Neurologic: AAOx3 ICD10 Worksheet Patient Problems: Problems Problem Status Onset Muscle strain of left gluteal region Acute Acute on chronic respiratory failure with hypoxemia Acute Intractable low back pain Acute L5 vertebral fracture Acute
[2018-09-14] MEDS: POLYETHYLENE GLYCOL 3350 17 GM PKT PO SCH (11:07)
--- NOTE | 2018-09-14 11:30 | ASMTCMCOM ---
CM Note CM Note Notes: Patient needs operative repair of acute L5 compression fracture however, patient's pulmonary status precludes surgery. Patient continues to get IV steroids and ABX. Etiology of hypoxemic hypercarbic respiratory failure remains unclear. CM will follow. Date Signed: 09/14/2018 11:29 AM Electronically Signed By:Fariba Chappell LCSW
--- NOTE | 2018-09-14 14:27 | PDINTPN ---
Floor Waxer Progress Note Assessment/Plan: 68 year old obese female with recent with TLIF in May 2018 admitted after fall and found to have new L5 compression fracture and acute on acute on chronic hypoxemic hypercarbic respiratory failure. # acute on chronic hypoxemic hypercarbic respiratory failure. Etiology unclear. Patchy ground-glass plus new consolidations concerning for acute lung injury and organizing pneumonia, viral pneumonitis versus atypical pulmonary edema with shunt physiology, or new interstitial lung disease. Acute eosinophilic pneumonia, cellular NSIP less likely given BAL findings but she was on steroids prior to bronch. Pulmonary edema is possible but BNP is not elevated and no improvement with diuresis. CTA without PE, very mild emphysematous changes. TTE without systolic heart failure, bubble study negative for intra cardiac or pulmonary shunt. Drug reaction less likely. Procalcitonin negative. No methemoglobinemia. # Acute L5 compression fracture. LLE radiculopathy. Needs operative repair but pulmonary status precludes surgery # Obesity # Anxiety/depression. On multiple medications as outpatient. # chronic pain. Long-acting morphine 60 mg twice daily plus morphine 15 mg IR and gabapentin as an outpatient # hypothyroidism PLAN # continue Solu-Medrol 1 g per day for 3 days to end 09/15/18 # continue diuresis although unclear how much it is helping # continue high-flow nasal cannula, currently on near maximal settings # follow-up TRISTA titer and pattern # continue diuresis # s/p azithro and CTX # Feeding - reg diet # Analgesia APAP, oral morphine # Sedation none # Thromboprophylaxis - SQ hep # Head of bed elevated # Ulcer prophylaxis - NA # Glucose SSI # Skin no skin breakdown # Delirium - delirium precautions ABX Azithromycin 09/09/2018-09/12 CTX 09/10/18- present CX Data 09/06/2018 viral PCR negative 09/06/18 procalcitonin negative IMAGING 08/31/18 CXR elevated right hemidiaphragm, increased interstitial opacifications. Large body habitus obscures lung jameson 09/08/2018 TTE with bubble. No intracardiac or intrapulmonary shunt. 09/06/18 CTA chest-no PE, enlarged pulmonary artery suggestive of pulmonary hypertension, patchy bilateral ground-glass opacifications, small right-sided pleural effusion and right lower lobe atelectasis. 09/10/18 CXR interval worsening of interstitial opacities. No pleural effusion PROCEDURES 09/10/18 bronch with BAL-segmental distal mucous plugging +frothy pulmonary secretions see 778, RBC 1956, neutrophils 13%, lymphocytes 14%, macro phase is 73%. No eosinophils. No organism seen. LABS 09/12/18 TRISTA elevated. titers and pattern pending 09/14/18 14:30 Subjective: Interval improvement after increased diuresis and pulse dose steroids. Weaning FiO2 requirements. Patient feels slightly better. No new fevers, chills, nausea vomiting. Objective: Vital Signs Temp Pulse Resp BP Pulse Ox 36.7 C 76 22 H 112/77 90 L 09/14/18 08:00 09/14/18 12:00 09/14/18 12:00 09/14/18 12:00 09/14/18 12:00 Microbiology 09/11/18 18:10 Gram Stain - Final Bronchial Alveolar Lavage - Unspecified Bronchial Culture - Final Laboratory Results 09/10/18 07:50 09/14/18 10:20 09/13/18 09/14/18 09/15/18 05:59 05:59 05:59 Intake Total 2150 890 Output Total 2600 2450 200 Balance -450 -1560 -200 PT 15.7 SEC (12.0-15.0) H 09/10/18 09:45 INR 1.31 (0.83-1.16) H 09/10/18 09:45 Physical Exam - Physical Exam General Appearance: alert, no apparent distress EENT: PERRL/EOMI, normal ENT inspection Neck: other (Thick neck trachea midline) Respiratory: chest non-tender, lungs clear, other (Mild tachypnea no accessory muscle use) Cardiac/Chest: normal peripheral pulses, regular rate, rhythm Abdomen: normal bowel sounds, non-tender, soft Back: Normal inspection Skin: normal color, warm/dry Extremities: normal range of motion, non-tender Neuro/Psych: no motor/sensory deficits, alert, normal mood/affect, oriented x 3 ICD10 Worksheet Patient Problems: Problems Problem Status Onset Muscle strain of left gluteal region Acute Acute on chronic respiratory failure with hypoxemia Acute Intractable low back pain Acute L5 vertebral fracture Acute
[2018-09-14] MEDS ORDERED: FUROSEMIDE 40 MG/4 ML VIAL IVP ONE (16:50)
[2018-09-14] MEDS ORDERED: POTASSIUM CL 10 MEQ TAB PO ONE (19:59)
[2018-09-14] MEDS: traZODone 100 MG TAB PO PRN (20:13)
[2018-09-14] MEDS: NORTRIPTYLINE HCL 10 MG CAP PO SCH (20:13)
[2018-09-14] MEDS: PATCH REMOVAL 1 EA PATCH TD SCH (20:49)
[2018-09-15] MEDS: methylPREDNISolone SOD SUCC 250 MG in D5W 50 ML IV SCH ×3 (04:44→11:38)
[2018-09-15] MEDS: morphINE SR 60 MG TAB PO SCH ×2 (04:44→17:11)
[2018-09-15] MEDS: LEVOTHYROXINE 50 MCG TAB PO SCH (04:44)
[2018-09-15] MEDS: IPRATROPIUM/ALBUTEROL 3 ML DEYVIAL IH SCH ×4 (05:44→21:27)
[2018-09-15] MEDS: SENNOSIDES/DOCUSATE SODIUM TAB PO SCH ×2 (08:24→21:09)
[2018-09-15] MEDS: SPIRONOLACTONE 25 MG TAB PO SCH (08:24)
[2018-09-15] MEDS: buPROPion XL 150 MG TAB PO SCH (08:25)
[2018-09-15] MEDS: busPIRone 15 MG TAB PO SCH ×2 (08:25→21:09)
[2018-09-15] MEDS: guaiFENesin 600 MG TAB.ER PO SCH ×2 (08:25→21:09)
[2018-09-15] MEDS: AZITHROMYCIN 250 MG TAB PO SCH (08:25)
[2018-09-15] MEDS: CETIRIZINE 10 MG TAB PO SCH (08:25)
[2018-09-15] MEDS: ARIPiprazole 5 MG TAB PO SCH (08:25)
[2018-09-15] MEDS: SERTRALINE HCL 100 MG TAB PO SCH (08:25)
[2018-09-15] MEDS: ENOXAPARIN 40 MG/0.4 ML SYR SC SCH (08:26)
[2018-09-15] MEDS: GABAPENTIN 300 MG CAP PO SCH ×3 (08:26→21:10)
[2018-09-15] MEDS ORDERED: POTASSIUM CL 10 MEQ TAB PO ONE (08:45)
[2018-09-15] MEDS: FLUTICASONE NASAL 120 SPRAYS/16 GM MDI EACHNARE SCH (09:28)
[2018-09-15] MEDS: OXYMETAZOLINE 30 ML NASAL SPRAY EACHNARE SCH (09:28)
--- NOTE | 2018-09-15 10:41 | PDINTPN ---
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 # acute on chronic hypoxemic hypercarbic respiratory failure. Etiology unclear. Patchy ground-glass plus new consolidations concerning for acute lung injury and organizing pneumonia, viral pneumonitis versus atypical pulmonary edema with shunt physiology, or new interstitial lung disease. Acute eosinophilic pneumonia, cellular NSIP less likely given BAL findings but she was on steroids prior to bronch. Pulmonary edema is possible but BNP is not elevated. Procalcitonin low and is s/p CTX/azthro. CTA without PE. TTE without systolic heart failure, bubble study negative for intra cardiac or pulmonary shunt. Drug reaction less likely. No methemoglobinemia, TRISTA 1:40 in homogenous pattern is nonspecific and not suggestive of autoimmune disease related interstitial lung disease. # Acute L5 compression fracture. LLE radiculopathy. Needs operative repair but pulmonary status precludes surgery # Obesity # Anxiety/depression. On multiple medications as outpatient. # chronic pain. Long-acting morphine 60 mg twice daily plus morphine 15 mg IR and gabapentin as an outpatient # hypothyroidism PLAN # continue Solu-Medrol 1 g per day for 3 days to end 09/15/18 # initiate prednisone 60 mg daily starting 09/16/2018, will subsequently taper thereafter # continue diuresis # continue high-flow nasal cannula, wean as tolerated # CPT # s/p azithro and CTX x 7 days # Feeding - reg diet # Analgesia APAP, oral morphine # Sedation none # Thromboprophylaxis - SQ hep # Head of bed elevated # Ulcer prophylaxis - NA # Glucose SSI # Skin no skin breakdown # Delirium - delirium precautions ABX Azithromycin 09/09/2018-09/15 CTX 09/10/18- 09/15/18 CX Data 09/06/2018 viral PCR negative 09/06/18 procalcitonin negative LABS TRISTA 1:40 homogeneous pattern No methemoglobinemia IMAGING I personally reviewed interpreted radiographic images well as formal radiology reads 09/14/2018 CT chest interval improvement in patchy peribronchovascular ground- glass, still with right middle lobe lower lobe atelectasis and elevated right hemidiaphragm. No effusions. 08/31/18 CXR elevated right hemidiaphragm, increased interstitial opacifications. Large body habitus obscures lung jameson 09/08/2018 TTE with bubble. No intracardiac or intrapulmonary shunt. 09/06/18 CTA chest-no PE, enlarged pulmonary artery suggestive of pulmonary hypertension, patchy bilateral ground-glass opacifications, small right-sided pleural effusion and right lower lobe atelectasis. 09/10/18 CXR interval worsening of interstitial opacities. No pleural effusion PROCEDURES 09/10/18 bronch with BAL-segmental distal mucous plugging +frothy pulmonary secretions see 778, RBC 1956, neutrophils 13%, lymphocytes 14%, macro phase is 73%. No eosinophils. No organism seen. LABS 09/12/18 TRISTA elevated. titers and pattern pending Subjective: Interval improvement in oxygenation. Continues diuresed well. No pain no fevers no worsening shortness of breath. Patient developed leukocytosis but also received pulse dose steroids. No new diarrhea fevers or chills Objective: Vital Signs Temp Pulse Resp BP Pulse Ox 36.5 C 76 20 119/76 94 09/15/18 08:11 09/15/18 08:11 09/15/18 08:11 09/15/18 08:11 09/15/18 08:11 Microbiology 09/11/18 18:10 Gram Stain - Final Bronchial Alveolar Lavage - Unspecified Bronchial Culture - Final Laboratory Results 09/15/18 08:39 09/15/18 04:40 09/14/18 09/15/18 09/16/18 05:59 05:59 05:59 Intake Total 890 1760 300 Output Total 2450 2300 300 Balance -1560 -540 0 PT 15.7 SEC (12.0-15.0) H 09/10/18 09:45 INR 1.31 (0.83-1.16) H 09/10/18 09:45 Physical Exam - Physical Exam General Appearance: no apparent distress, obese EENT: PERRL/EOMI, pharynx normal, other Neck: other (Thick neck, trachea midline) Respiratory: lungs clear, normal breath sounds Cardiac/Chest: regular rate, rhythm, No edema Abdomen: other (Protuberant, no rebound or guarding) Skin: normal color, warm/dry, No cyanosis Extremities: normal range of motion, non-tender Neuro/Psych: no motor/sensory deficits, alert, normal mood/affect ICD10 Worksheet Patient Problems: Problems Problem Status Onset Muscle strain of left gluteal region Acute Acute on chronic respiratory failure with hypoxemia Acute Intractable low back pain Acute L5 vertebral fracture Acute
--- NOTE | 2018-09-15 15:29 | HOSPPROG ---
Hospitalist Progress Note Assessment/Plan: 68 yo female with h/o COPD and recent lumbar spine surgery returns to hospital after a fall found to have worsened L5 compression fracture. Course complicated by worsening hypoxemia requiring transfer to SDU, remains on high flow O2 Acute hypoxemic hypercarbic respiratory failure: DDx COPD exac, interstitial edema, viral pneumonia, BOOP, component of OHS. Slow to recover. CTA neg for PE , +b/l opacities. TTE without shunt. BNP 123 09/06. Bronch 09/11 with mucus plugging and frothy secretions. Discussed with Dr. Miranda. -hold diuretics today - 3 days high dose steroids (today 2/3) high dose steroids ceftriaxone/azith day 09/[address] repeat [address] con chest CT am 09/14 CONSIDER BX IF WORSE if improved, needs further shunt eval noted is 15 pack year smoking hx TRISTA of 1.99 noted, no h/o rheum disease, no sx s/o RA methemoglobin normal 09/15- completed pulse steroids CT scan w ggo continue diuresis until cr bump if no improvement, likely needs bx Multifocal pulmonary infiltrates: Query viral process or organizing pna. PCT neg. -day 10/26 ceftriaxone/azithro Severe acute L5 compression fracture: Worsened since July. LLE radiculopathy/ weakness. - Neurosurgery recommending operative repair with extension of fusion. Surgery delayed due to above, tentative date 09/18 though not looking optimistic re: clearance for surgery - Brace when out of bed - PT/OT as able S/p L3-L5 lumbar fusion 05/2018, plans to extend as above - Pain control Elevated right hemidiaphragm: Suboptimal sniff test. Possibly contributing to # 1. constipation: bid miralax reduce- having soft stool Depression/anxiety - Continue home meds (zoloft, trazodone, klonopin, buspar, wellbutrin, nortriptyline, abilify) chronic pain with continuous opioid dependence: On high dose narcotics - Continue home morphine SR 60mg BID and morphine IR 15mg q6h PRN and gabapentin Hypothyroidism: Continue LT4 replacement KAREN: pt has declined cpap in past due to cost VTE ppx: LMWH Code: full Dispo: cont inpt, SDU. Subjective: case d/w dr miranda. 02 requirements slowly coming down. feels breathing easier. 3 L neg on this admit Objective: Vital Signs Temp Pulse Resp BP Pulse Ox 36.7 C 89 14 127/88 H 93 09/15/18 11:45 09/15/18 11:45 09/15/18 11:45 09/15/18 11:45 09/15/18 11:45 Microbiology 09/11/18 18:10 Gram Stain - Final Bronchial Alveolar Lavage - Unspecified Bronchial Culture - Final Laboratory Results 09/15/18 08:39 09/15/18 04:40 09/14/18 09/15/18 09/16/18 05:59 05:59 05:59 Intake Total 890 1760 500 Output Total 2450 2300 300 Balance -1560 -540 200 PT 15.7 SEC (12.0-15.0) H 09/10/18 09:45 INR 1.31 (0.83-1.16) H 09/10/18 09:45 - Physical Exam Constitutional: no apparent distress, appears nourished Eyes: PERRL, anicteric sclera Ears, Nose, Mouth, Throat: moist mucous membranes, hearing normal Cardiovascular: regular rate and rhythym, no murmur, rub, or gallop Respiratory: no respiratory distress, No no rales or rhonchi, No reduced air movement Gastrointestinal: normoactive bowel sounds, soft, non-tender abdomen Genitourinary: no bladder fullness, No castillo in urethra Skin: warm, normal color Musculoskeletal: No full muscle strength Neurologic: AAOx3 Psychiatric: interacting appropriately ICD10 Worksheet Patient Problems: Problems Problem Status Onset Muscle strain of left gluteal region Acute Acute on chronic respiratory failure with hypoxemia Acute Intractable low back pain Acute L5 vertebral fracture Acute
[2018-09-15] MEDS: CALCIUM CARBONATE 500 MG CHEWABLE TAB PO PRN (18:45)
[2018-09-15] MEDS: NORTRIPTYLINE HCL 10 MG CAP PO SCH (21:09)
[2018-09-15] MEDS: traZODone 100 MG TAB PO PRN (21:09)
[2018-09-16] MEDS: PATCH REMOVAL 1 EA PATCH TD SCH ×2 (00:41→20:29)
[2018-09-16] MEDS: OXYMETAZOLINE 30 ML NASAL SPRAY EACHNARE SCH ×3 (00:41→20:29)
[2018-09-16] MEDS: IPRATROPIUM/ALBUTEROL 3 ML DEYVIAL IH SCH ×4 (04:45→20:36)
[2018-09-16] MEDS: morphINE SR 60 MG TAB PO SCH ×2 (05:40→18:10)
[2018-09-16] MEDS: LEVOTHYROXINE 50 MCG TAB PO SCH (05:40)
[2018-09-16] MEDS: SERTRALINE HCL 100 MG TAB PO SCH (08:56)
[2018-09-16] MEDS: ARIPiprazole 5 MG TAB PO SCH (08:56)
[2018-09-16] MEDS: SENNOSIDES/DOCUSATE SODIUM TAB PO SCH ×2 (08:56→20:28)
[2018-09-16] MEDS: busPIRone 15 MG TAB PO SCH ×2 (08:57→20:28)
[2018-09-16] MEDS: CETIRIZINE 10 MG TAB PO SCH (08:57)
[2018-09-16] MEDS: buPROPion XL 150 MG TAB PO SCH (08:57)
[2018-09-16] MEDS: SPIRONOLACTONE 25 MG TAB PO SCH (08:57)
[2018-09-16] MEDS: GABAPENTIN 300 MG CAP PO SCH ×3 (08:57→20:28)
[2018-09-16] MEDS: predniSONE 20 MG TAB PO SCH (08:57)
[2018-09-16] MEDS: ENOXAPARIN 40 MG/0.4 ML SYR SC SCH (08:58)
[2018-09-16] MEDS: guaiFENesin 600 MG TAB.ER PO SCH ×2 (08:58→20:28)
[2018-09-16] MEDS: FLUTICASONE NASAL 120 SPRAYS/16 GM MDI EACHNARE SCH (09:05)
--- NOTE | 2018-09-16 13:01 | HOSPPROG ---
Hospitalist Progress Note Assessment/Plan: 68 yo female with h/o COPD and recent lumbar spine surgery returns to hospital after a fall found to have worsened L5 compression fracture. Course complicated by worsening hypoxemia requiring transfer to SDU, remains on high flow O2 Acute hypoxemic hypercarbic respiratory failure: DDx COPD exac, interstitial edema, viral pneumonia, BOOP, component of OHS. Slow to recover. CTA neg for PE , +b/l opacities. TTE without shunt. BNP 123 09/06. Bronch 09/11 with mucus plugging and frothy secretions. Discussed with Dr. Miranda. -hold diuretics today - 3 days high dose steroids (today 2/3) high dose steroids ceftriaxone/azith day 09/[address] repeat [address] con chest CT am 09/14 CONSIDER BX IF WORSE if improved, needs further shunt eval noted is 15 pack year smoking hx TRISTA of 1.99 noted, no h/o rheum disease, no sx s/o RA methemoglobin normal 09/15- completed pulse steroids CT scan w ggo continue diuresis until cr bump if no improvement, likely needs bx 09/16- 02 coming down slightly continue diuresis metabolic alkalosis: dose of diamox Multifocal pulmonary infiltrates: Query viral process or organizing pna. PCT neg. -day 11/25 ceftriaxone dc Severe acute L5 compression fracture: Worsened since July. LLE radiculopathy/ weakness. - Neurosurgery recommending operative repair with extension of fusion. Surgery delayed due to above, tentative date 09/18 though not looking optimistic re: clearance for surgery - Brace when out of bed - PT/OT as able S/p L3-L5 lumbar fusion 05/2018, plans to extend as above - Pain control Elevated right hemidiaphragm: Suboptimal sniff test. Possibly contributing to # 1. constipation: bid miralax reduce- having soft stool Depression/anxiety - Continue home meds (zoloft, trazodone, klonopin, buspar, wellbutrin, nortriptyline, abilify) chronic pain with continuous opioid dependence: On high dose narcotics - Continue home morphine SR 60mg BID and morphine IR 15mg q6h PRN and gabapentin Hypothyroidism: Continue LT4 replacement KAREN: pt has declined cpap in past due to cost VTE ppx: LMWH Code: full Dispo: cont inpt, SDU. Subjective: case d.w Dr Miranda. 500 neg overnight Objective: Vital Signs Temp Pulse Resp BP Pulse Ox 37.0 C 80 17 125/79 H 94 09/16/18 11:45 09/16/18 11:45 09/16/18 11:45 09/16/18 11:45 09/16/18 11:45 Laboratory Results 09/15/18 08:39 09/16/18 04:31 09/15/18 09/16/18 09/17/18 05:59 05:59 05:59 Intake Total 1760 850 Output Total 2300 1300 Balance -540 -450 PT 15.7 SEC (12.0-15.0) H 09/10/18 09:45 INR 1.31 (0.83-1.16) H 09/10/18 09:45 - Physical Exam Constitutional: no apparent distress, appears nourished Eyes: PERRL, anicteric sclera Ears, Nose, Mouth, Throat: moist mucous membranes, hearing normal Cardiovascular: regular rate and rhythym, no murmur, rub, or gallop Respiratory: no respiratory distress, other (remarkably ) Gastrointestinal: normoactive bowel sounds, soft, non-tender abdomen Genitourinary: no bladder fullness, No castillo in urethra Skin: warm, normal color Musculoskeletal: full muscle strength, no muscle tenderness Neurologic: AAOx3 ICD10 Worksheet Patient Problems: Problems Problem Status Onset Muscle strain of left gluteal region Acute Acute on chronic respiratory failure with hypoxemia Acute Intractable low back pain Acute L5 vertebral fracture Acute
[2018-09-16] MEDS ORDERED: acetaZOLAMIDE 500 MG in SYRINGE 0 ML IVP ONE (13:03)
--- NOTE | 2018-09-16 13:23 | PDINTPN ---
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 # acute on chronic hypoxemic hypercarbic respiratory failure. Etiology unclear. Patchy ground-glass plus new consolidations concerning for acute lung injury and organizing pneumonia, viral pneumonitis versus atypical pulmonary edema worsened by elevated R hemidiaphram leading to atelectasis with shunt physiology. New interstitial lung disease possible but less likely. Acute eosinophilic pneumonia, cellular NSIP less likely given BAL findings but she was on steroids prior to bronch. Pulmonary edema is possible but BNP is not elevated. Procalcitonin low and is s/p CTX/azthro. CTA without PE. TTE without systolic heart failure, bubble study negative for intra cardiac or pulmonary shunt. Drug reaction less likely. No methemoglobinemia, TRISTA 1:40 in homogenous pattern is nonspecific and not suggestive of autoimmune disease related interstitial lung disease. # Acute L5 compression fracture. LLE radiculopathy. Needs operative repair but pulmonary status precludes surgery # Obesity # Anxiety/depression. On multiple medications as outpatient. # chronic pain. Long-acting morphine 60 mg twice daily plus morphine 15 mg IR and gabapentin as an outpatient # hypothyroidism # thrush. likely caused by high dose steroid use PLAN # clotrimazole troches started 09/16/18 # s/p Solu-Medrol 1 g per day x 3 days, ended 09/15/18 # s/p azithro and CTX x 7 days, procal low # pred 60 today # pred 40 tomorrow with slow taper. # continue diuresis # agree with diamox x 1 now for contraction alkalosis. # flutter valve # continue high-flow nasal cannula, wean as tolerated # Feeding - reg diet # Analgesia APAP # Sedation none # Thromboprophylaxis - SQ hep # Head of bed elevated # Ulcer prophylaxis - NA # Glucose SSI # Skin no skin breakdown # Delirium - delirium precautions ABX Azithromycin 09/09/2018-09/15 CTX 09/10/18- 09/15/18 CX Data 09/06/2018 viral PCR negative 09/06/18 procalcitonin negative LABS TRISTA 1:40 homogeneous pattern No methemoglobinemia IMAGING I personally reviewed interpreted radiographic images well as formal radiology reads 09/14/2018 CT chest interval improvement in patchy peribronchovascular ground- glass, still with right middle lobe lower lobe atelectasis and elevated right hemidiaphragm. No effusions. 08/31/18 CXR elevated right hemidiaphragm, increased interstitial opacifications. Large body habitus obscures lung jameson 09/08/2018 TTE with bubble. No intracardiac or intrapulmonary shunt. 09/06/18 CTA chest-no PE, enlarged pulmonary artery suggestive of pulmonary hypertension, patchy bilateral ground-glass opacifications, small right-sided pleural effusion and right lower lobe atelectasis. 09/10/18 CXR interval worsening of interstitial opacities. No pleural effusion PROCEDURES 09/10/18 bronch with BAL-segmental distal mucous plugging +frothy pulmonary secretions see 778, RBC 1956, neutrophils 13%, lymphocytes 14%, macro phase is 73%. No eosinophils. No organism seen. LABS 09/12/18 TRISTA 1:40, homogeneous pattern 09/16/18 13:54 Subjective: Patient responds well to a flutter valve with mild improvement in oxygenation and sputum production. No new fevers chills nausea vomiting. Pulsed dose methylprednisolone stop. Pred 60 start today. Will change to 40 mg tomorrow with slow taper. No fevers, chills, nausea or vomiting, chest pain Objective: Vital Signs Temp Pulse Resp BP Pulse Ox 37.0 C 80 17 125/79 H 94 09/16/18 11:45 09/16/18 11:45 09/16/18 11:45 09/16/18 11:45 09/16/18 11:45 Laboratory Results 09/15/18 08:39 09/16/18 04:31 09/15/18 09/16/18 09/17/18 05:59 05:59 05:59 Intake Total 1760 850 Output Total 2300 1300 Balance -540 -450 PT 15.7 SEC (12.0-15.0) H 09/10/18 09:45 INR 1.31 (0.83-1.16) H 09/10/18 09:45 Physical Exam - Physical Exam General Appearance: alert EENT: other (multiple small oral mucosal lesions with white film in mouth) Neck: other (Thick neck, trachea midline) Respiratory: chest non-tender, lungs clear, normal breath sounds Cardiac/Chest: normal peripheral pulses, regular rate, rhythm, No edema Abdomen: non-tender, soft Skin: normal color, warm/dry Neuro/Psych: no motor/sensory deficits, alert, normal mood/affect, oriented x 3 ICD10 Worksheet Patient Problems: Problems Problem Status Onset Muscle strain of left gluteal region Acute Acute on chronic respiratory failure with hypoxemia Acute Intractable low back pain Acute L5 vertebral fracture Acute
[2018-09-16] MEDS: CLOTRIMAZOLE 10 MG TROCHE PO SCH ×3 (14:08→20:28)
[2018-09-16] MEDS: NORTRIPTYLINE HCL 10 MG CAP PO SCH (20:28)
[2018-09-16] MEDS: traZODone 100 MG TAB PO PRN (20:32)
[2018-09-17] MEDS: IPRATROPIUM/ALBUTEROL 3 ML DEYVIAL IH SCH ×3 (05:07→21:01)
[2018-09-17] MEDS: LEVOTHYROXINE 50 MCG TAB PO SCH (05:12)
[2018-09-17] MEDS: morphINE SR 60 MG TAB PO SCH ×2 (05:12→18:00)
[2018-09-17] MEDS: CLOTRIMAZOLE 10 MG TROCHE PO SCH ×5 (05:12→20:31)
[2018-09-17] MEDS: SERTRALINE HCL 100 MG TAB PO SCH (08:33)
[2018-09-17] MEDS: SENNOSIDES/DOCUSATE SODIUM TAB PO SCH ×2 (08:33→20:31)
[2018-09-17] MEDS: buPROPion XL 150 MG TAB PO SCH (08:33)
[2018-09-17] MEDS: ARIPiprazole 5 MG TAB PO SCH (08:34)
[2018-09-17] MEDS: busPIRone 15 MG TAB PO SCH ×2 (08:34→20:31)
[2018-09-17] MEDS: predniSONE 20 MG TAB PO SCH (08:34)
[2018-09-17] MEDS: BACLOFEN 10 MG TAB PO PRN ×2 (08:34→15:32)
[2018-09-17] MEDS: CETIRIZINE 10 MG TAB PO SCH (08:34)
[2018-09-17] MEDS: guaiFENesin 600 MG TAB.ER PO SCH ×2 (08:35→20:31)
[2018-09-17] MEDS: ENOXAPARIN 40 MG/0.4 ML SYR SC SCH (08:35)
[2018-09-17] MEDS: GABAPENTIN 300 MG CAP PO SCH ×3 (08:35→20:31)
[2018-09-17] MEDS: SPIRONOLACTONE 25 MG TAB PO SCH (08:35)
[2018-09-17 08:59] LABS: PLATELET COUNT 362 10^3/uL (150-400)
[2018-09-17] MEDS: OXYMETAZOLINE 30 ML NASAL SPRAY EACHNARE SCH ×2 (11:30→20:34)
[2018-09-17] MEDS: FLUTICASONE NASAL 120 SPRAYS/16 GM MDI EACHNARE SCH (11:30)
--- NOTE | 2018-09-17 14:20 | PDINTPN ---
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 She had TLIF in 05/2018 complicated by multiple falls resulting in an L5 compression fracture. She developed significant hypoxia and at one point needed vapotherm at max levels to maintain normal saturations. She had an extensive workup including CXR, chest CT, echo with bubble, CTD serologies, and bronchoscopy without obvious etiology. Though her BNP was unremarkable she was diuresed while simultaneously getting high dose steroids and eventually improved. * Hypoxia- the etiology is uncertain, though as best as I can guess at this point she responded to diuresis>steroids, nebs, or abx. Her sat is 91-93% on 5 lpm at rest this morning and remains on lasix 40 IV bid and prednisone 60/day with taper (received solumedrol 1 g/day through 09/15). Her CO2 was at its highest 54 (09/10) with an elevated bicarb, suggesting a compensated respiratory acidosis. Her HCO3 was normal on 09/03/18. She completed CTX/zithro x7 days. She should continue steroids and nebs and would slowly taper her steroids. * Acute L5 compression fracture- awaiting neurosurgery eval. Her chronic repiratory status and COPD puts her at risk for postop pulmonary complications, but would not prevent her from having surgery if indicated. Try to minimize narcotics as best we can. Subjective: Continues to improve. Anxious for spine surgery to relieve sciatic pain. Objective: Vital Signs Temp Pulse Resp BP Pulse Ox 36.7 C 87 14 110/79 89 L 09/17/18 07:50 09/17/18 11:40 09/17/18 11:40 09/17/18 11:40 09/17/18 11:40 Laboratory Results 09/17/18 08:50 09/17/18 08:50 09/16/18 09/17/18 09/18/18 05:59 05:59 05:59 Intake Total 850 1750 Output Total 1300 1950 Balance -450 -200 PT 15.7 SEC (12.0-15.0) H 09/10/18 09:45 INR 1.31 (0.83-1.16) H 09/10/18 09:45 Physical Exam - Physical Exam General Appearance: WD/WN, alert, no apparent distress, obese EENT: PERRL/EOMI Neck: supple Respiratory: lungs clear, normal breath sounds, decreased breath sounds, No respiratory distress, No accessory muscle use Cardiac/Chest: regular rate, rhythm, No edema Abdomen: non-tender, soft, No distended Skin: normal color, warm/dry, No cyanosis Lymphatic: no adenopathy Extremities: No pedal edema Neuro/Psych: alert, normal mood/affect, oriented x 3 ICD10 Worksheet Patient Problems: Problems Problem Status Onset Muscle strain of left gluteal region Acute Acute on chronic respiratory failure with hypoxemia Acute Intractable low back pain Acute L5 vertebral fracture Acute
--- NOTE | 2018-09-17 14:45 | HOSPPROG ---
Hospitalist Progress Note Assessment/Plan: 68 yo female with h/o COPD and recent lumbar spine surgery returns to hospital after a fall found to have worsened L5 compression fracture. Course complicated by worsening hypoxemia requiring transfer to SDU, remains on high flow O2 Acute hypoxemic hypercarbic respiratory failure: DDx COPD exac, interstitial edema, viral pneumonia, BOOP, component of OHS. Slow to recover. CTA neg for PE , +b/l opacities. TTE without shunt. BNP 123 09/06. Bronch 09/11 with mucus plugging and frothy secretions. Discussed with Dr. Miranda. -hold diuretics today - 3 days high dose steroids (today 2/3) high dose steroids ceftriaxone/azith day 09/[address] repeat [address] con chest CT am 09/14 CONSIDER BX IF WORSE if improved, needs further shunt eval noted is 15 pack year smoking hx TRISTA of 1.99 noted, no h/o rheum disease, no sx s/o RA methemoglobin normal 09/15- completed pulse steroids CT scan w ggo continue diuresis until cr bump if no improvement, likely needs bx 09/16- 02 coming down slightly continue diuresis 09/17- improving 02 requirements transiently on 5 L I spoke w Dr Dumont and surgery has been cancelled for 09.18 Dr Grimaldo and I feel she is approaching readiness for surgery metabolic alkalosis: dose of diamox Multifocal pulmonary infiltrates: Query viral process or organizing pna. PCT neg. -day 11/25 ceftriaxone dc Severe acute L5 compression fracture: Worsened since July. LLE radiculopathy/ weakness. - Neurosurgery recommending operative repair with extension of fusion. Surgery delayed due to above, tentative date 09/18 though not looking optimistic re: clearance for surgery - Brace when out of bed - PT/OT as able S/p L3-L5 lumbar fusion 05/2018, plans to extend as above - Pain control Elevated right hemidiaphragm: Suboptimal sniff test. Possibly contributing to # 1. constipation: bid miralax reduce- having soft stool Depression/anxiety - Continue home meds (zoloft, trazodone, klonopin, buspar, wellbutrin, nortriptyline, abilify) chronic pain with continuous opioid dependence: On high dose narcotics - Continue home morphine SR 60mg BID and morphine IR 15mg q6h PRN and gabapentin Hypothyroidism: Continue LT4 replacement KAREN: pt has declined cpap in past due to cost VTE ppx: LMWH Code: full Dispo: cont inpt, SDU. Subjective: case d/w dr grimaldo Objective: Vital Signs Temp Pulse Resp BP Pulse Ox 36.7 C 87 14 110/79 89 L 09/17/18 07:50 09/17/18 11:40 09/17/18 11:40 09/17/18 11:40 09/17/18 11:40 Laboratory Results 09/17/18 08:50 09/17/18 08:50 09/16/18 09/17/18 09/18/18 05:59 05:59 05:59 Intake Total 850 1750 Output Total 1300 1950 Balance -450 -200 PT 15.7 SEC (12.0-15.0) H 09/10/18 09:45 INR 1.31 (0.83-1.16) H 09/10/18 09:45 - Physical Exam Constitutional: no apparent distress, appears nourished Eyes: PERRL, anicteric sclera Ears, Nose, Mouth, Throat: moist mucous membranes, hearing normal Cardiovascular: regular rate and rhythym, no murmur, rub, or gallop Respiratory: no respiratory distress, no rales or rhonchi Gastrointestinal: normoactive bowel sounds, soft, non-tender abdomen Genitourinary: No castillo in urethra Skin: warm, normal color Musculoskeletal: full muscle strength Neurologic: AAOx3 ICD10 Worksheet Patient Problems: Problems Problem Status Onset Muscle strain of left gluteal region Acute Acute on chronic respiratory failure with hypoxemia Acute Intractable low back pain Acute L5 vertebral fracture Acute
--- NOTE | 2018-09-17 16:23 | ASMTCMCOM ---
CM Note CM Note Notes: Pt care discussed with RN. Surgery rescheduled due to respiratory status. Palliative Consult placed today, meeting scheduled for tomorrow at 10am with Palliative Care team. At this time PT is rec HHC vs SNF; pt has been refusing OT. CM to follow. Plan: TBD Date Signed: 09/17/2018 04:22 PM Electronically Signed By:CORDELL Yuen
[2018-09-17] MEDS: NORTRIPTYLINE HCL 10 MG CAP PO SCH (20:31)
[2018-09-17] MEDS: traZODone 100 MG TAB PO PRN (20:31)
[2018-09-17] MEDS: PATCH REMOVAL 1 EA PATCH TD SCH (20:34)
[2018-09-17] MEDS: clonazePAM 0.5 MG TAB PO PRN (20:37)
[2018-09-18] MEDS: CLOTRIMAZOLE 10 MG TROCHE PO SCH ×5 (05:03→20:39)
[2018-09-18] MEDS: morphINE SR 60 MG TAB PO SCH ×2 (05:04→17:09)
[2018-09-18] MEDS: LEVOTHYROXINE 50 MCG TAB PO SCH (05:04)
[2018-09-18] MEDS: IPRATROPIUM/ALBUTEROL 3 ML DEYVIAL IH SCH (09:12)
[2018-09-18] MEDS: ARIPiprazole 5 MG TAB PO SCH (09:42)
[2018-09-18] MEDS: SENNOSIDES/DOCUSATE SODIUM TAB PO SCH ×2 (09:44→20:40)
[2018-09-18] MEDS: predniSONE 20 MG TAB PO SCH (09:45)
[2018-09-18] MEDS: GABAPENTIN 300 MG CAP PO SCH ×3 (09:45→20:38)
[2018-09-18] MEDS: busPIRone 15 MG TAB PO SCH ×2 (09:46→20:40)
[2018-09-18] MEDS: buPROPion XL 150 MG TAB PO SCH (09:46)
[2018-09-18] MEDS: SPIRONOLACTONE 25 MG TAB PO SCH (09:47)
[2018-09-18] MEDS: guaiFENesin 600 MG TAB.ER PO SCH ×2 (09:47→20:38)
[2018-09-18] MEDS: CETIRIZINE 10 MG TAB PO SCH (09:47)
[2018-09-18] MEDS: BACLOFEN 10 MG TAB PO PRN ×2 (09:48→17:08)
[2018-09-18] MEDS: SERTRALINE HCL 100 MG TAB PO SCH (09:50)
[2018-09-18] MEDS: ENOXAPARIN 40 MG/0.4 ML SYR SC SCH (09:51)
[2018-09-18] MEDS: OXYMETAZOLINE 30 ML NASAL SPRAY EACHNARE SCH ×2 (09:51→20:43)
[2018-09-18] MEDS: FLUTICASONE NASAL 120 SPRAYS/16 GM MDI EACHNARE SCH (09:51)
[2018-09-18] MEDS: FUROSEMIDE 20 MG TAB PO SCH (12:27)
--- NOTE | 2018-09-18 14:18 | HOSPPROG ---
Hospitalist Progress Note Assessment/Plan: 68 yo female with h/o COPD and recent lumbar spine surgery returns to hospital after a fall found to have worsened L5 compression fracture. Course complicated by worsening hypoxemia requiring transfer to SDU, remains on high flow O2 Acute hypoxemic hypercarbic respiratory failure: DDx COPD exac, interstitial edema, viral pneumonia, BOOP, component of OHS. Slow to recover. CTA neg for PE , +b/l opacities. TTE without shunt. BNP 123 09/06. Bronch 09/11 with mucus plugging and frothy secretions. Discussed with Dr. Miranda. High dose steroids (today 07/22), will d/c S/p ceftriaxone/azith day 11/[address] con chest CT am 09/14 CONSIDER BX IF WORSE if improved, needs further shunt eval noted is 15 pack year smoking hx TRISTA of 1.99 noted, no h/o rheum disease, no sx s/o RA - improving 02 requirements, currently on 4L (baseline) this AM - Was previously being diuresed with 40 mg IV BID Lasix, held yesterday due to increasing bicarb, will transition to home Lasix 20 mg PO qd for now, redose IV Lasix as needed metabolic alkalosis: s/p dose of diamox on 09/17, Bicarb 30 this Am Multifocal pulmonary infiltrates: Query viral process or organizing pna. PCT neg. -s/P 7 days of ceftriaxone Severe acute L5 compression fracture: Worsened since July. LLE radiculopathy/ weakness. - Neurosurgery recommending operative repair with extension of fusion. Surgery delayed due to above, tentative date for next week, will discuss with neurosurgery about timing of procedure - Brace when out of bed - PT/OT as able S/p L3-L5 lumbar fusion 05/2018, plans to extend as above - Pain control Elevated right hemidiaphragm: Suboptimal sniff test. Possibly contributing to # 1. constipation: bid miralax reduce- having soft stool Depression/anxiety - Continue home meds (zoloft, trazodone, klonopin, buspar, wellbutrin, nortriptyline, abilify) chronic pain with continuous opioid dependence: On high dose narcotics - Continue home morphine SR 60mg BID and morphine IR 15mg q6h PRN and gabapentin Hypothyroidism: Continue LT4 replacement KAREN: pt has declined cpap in past due to cost VTE ppx: LMWH Code: full Dispo: cont inpt, SDU. Subjective: Pt reports breathing is improving Objective: Vital Signs Temp Pulse Resp BP Pulse Ox 36.8 C 92 18 100/84 H 89 L 09/18/18 11:27 09/18/18 11:27 09/18/18 11:27 09/18/18 11:27 09/18/18 11:27 Laboratory Results 09/17/18 08:50 09/17/18 08:50 09/17/18 09/18/18 09/19/18 05:59 05:59 05:59 Intake Total 1750 2100 Output Total 1950 2400 Balance -200 -300 PT 15.7 SEC (12.0-15.0) H 09/10/18 09:45 INR 1.31 (0.83-1.16) H 09/10/18 09:45 - Physical Exam Constitutional: chronically ill appearing Eyes: PERRL Ears, Nose, Mouth, Throat: moist mucous membranes Cardiovascular: regular rate and rhythym Respiratory: no respiratory distress, clear to auscultation Skin: warm Musculoskeletal: pain with ROM Neurologic: AAOx3 Psychiatric: interacting appropriately ICD10 Worksheet Patient Problems: Problems Problem Status Onset Muscle strain of left gluteal region Acute Acute on chronic respiratory failure with hypoxemia Acute Intractable low back pain Acute L5 vertebral fracture Acute
--- NOTE | 2018-09-18 14:59 | ASMTCMCOM ---
CM Note CM Note Notes: Pt met with Palliative Care team and was agreeable to linkage with [facility]. CM initiated referral via [employer]. CM met with Jhoana who appreciated the support and said that she has had multiple family members get hospice/grief support through [facility] and that she appreciated their care there. Jhoana reports she is apologetic about becoming angry with staff lately and says she is trying to stay in good spirits. CM provided education about continuing to engage in therapies. CM to follow as pt progresses and for dc planning. Tentative plan for surgery is next week. Plan: DC plan TBD, will re-evaluate after surgery. Date Signed: 09/18/2018 02:58 PM Electronically Signed By:CORDELL Yuen
--- NOTE | 2018-09-18 15:25 | NEUSURGPN ---
Assessment/Plan: Assessment: 68 yo female with recent h/o L3-L5 TLIF in May 2018, compression fracture at L5 on 07/16 CT L-spine imaging Recent MRI lumbar spine shows severe acute compression fracture of L5 with worsening height when compared to CT in July. L4-5 mod/severe central canal stenosis L3-4 moderate to severe right foraminal stenosis. Plan: -wear brace when out of bed -PT/OT -pain control -recommend extension of fusion with L5-S1 TLIF and possible iliac screws. Patient has now been cleared and optimized medically for surgery. Working on surgery date, likely sometime next week. -call with any questions or concerns -pt understands and agrees -d/w Dr Wilde Subjective: Continues to have left sided hip pain. Objective: Awake. Alert. PERRL. EOMI Facial expression symmetrical Muscle strength full RLE 5/5, LLE 4+/5 - Physician Discussed Patient with : Chani Neurosurgery Physical Exam - Vitals, I&O, Labs I and O 09/17/18 09/18/18 09/19/18 05:59 05:59 05:59 Intake Total 1750 2100 Output Total 1950 2400 Balance -200 -300 Weight 110 kg Intake: Oral (ml) 1750 2100 Output: Urine (ml) 1950 2400 Catheter 750 Incontinence 1200 1000 Toilet 1400 Other: Output Comment Incontinence PUREWICK Number of Voids Incontinence 1 Vital Signs Temp Pulse Resp BP Pulse Ox 36.8 C 92 18 100/84 H 89 L 09/18/18 11:27 09/18/18 11:27 09/18/18 11:27 09/18/18 11:27 09/18/18 11:27 Laboratory Results 09/17/18 08:50 09/17/18 08:50 ICD10 Worksheet Patient Problems: Problems Problem Status Onset Muscle strain of left gluteal region Acute Acute on chronic respiratory failure with hypoxemia Acute Intractable low back pain Acute L5 vertebral fracture Acute
[2018-09-18] MEDS: NORTRIPTYLINE HCL 10 MG CAP PO SCH (20:40)
[2018-09-18] MEDS: traZODone 100 MG TAB PO PRN (20:40)
[2018-09-18] MEDS: PATCH REMOVAL 1 EA PATCH TD SCH (20:42)
[2018-09-19] MEDS: LEVOTHYROXINE 50 MCG TAB PO SCH (04:50)
[2018-09-19] MEDS: morphINE SR 60 MG TAB PO SCH ×2 (04:50→16:44)
[2018-09-19] MEDS: CLOTRIMAZOLE 10 MG TROCHE PO SCH ×5 (04:50→20:21)
--- NOTE | 2018-09-19 07:57 | NEUSURGPN ---
Assessment/Plan: Assessment: 68 yo female with recent h/o L3-L5 TLIF in May 2018, compression fracture at L5 on 07/16 CT L-spine imaging Recent MRI lumbar spine shows severe acute compression fracture of L5 with worsening height when compared to CT in July. L4-5 mod/severe central canal stenosis L3-4 moderate to severe right foraminal stenosis Plan: -recommend brace when out of bed at this time -PT/OT-CPM -recommended extension of fusion with L5-S1 TLIF and possible iliac screws. Tentatively scheduled now for 09/24/18 -pt updated -pt seen by Dr Wilde -Will need to optimize respiratory status in prep for upcoming surgery. We appreciated Hospitalist and critical care assistance with this -Please call neurosurgery with questions/concerns. NS to sign off until surgery -consents signed and on the chart -call with any questions or concerns -pt understands and agrees Subjective: Awake and alert. No new complaints or concerns. Updates from RN Objective: Awake. Alert. PERRLA. EOMI Facial expression symmetrical Speech fluent Muscle strength RLE 5/5, LLE 4/5 to PF/DF/EHL, 5-/5 to q/h/ip Neuro Check Frequency: per routine Urinary Catheter in Place: No - Physician Discussed Patient with : Chani Patient Seen by : Chani Neurosurgery Physical Exam - Vitals, I&O, Labs I and O 09/18/18 09/19/18 09/20/18 05:59 05:59 05:59 Intake Total 2100 1200 Output Total 2400 1200 Balance -300 0 Weight 110 kg Intake: Oral (ml) 2100 1200 Output: Urine (ml) 2400 1200 Incontinence 1000 1200 Toilet 1400 Other: Intake Quantity Yes Sufficient Output Comment Incontinence PUREWICK external female catheter Vital Signs Temp Pulse Resp BP Pulse Ox 36.9 C 80 18 118/81 H 91 L 09/18/18 20:00 09/19/18 04:32 09/19/18 04:32 09/19/18 04:32 09/19/18 04:32 Laboratory Results 09/17/18 08:50 09/17/18 08:50 ICD10 Worksheet Patient Problems: Problems Problem Status Onset Muscle strain of left gluteal region Acute Acute on chronic respiratory failure with hypoxemia Acute Intractable low back pain Acute L5 vertebral fracture Acute
[2018-09-19] MEDS: SERTRALINE HCL 100 MG TAB PO SCH (09:46)
[2018-09-19] MEDS: buPROPion XL 150 MG TAB PO SCH (09:47)
[2018-09-19] MEDS: ARIPiprazole 5 MG TAB PO SCH (09:48)
[2018-09-19] MEDS: CETIRIZINE 10 MG TAB PO SCH (09:48)
[2018-09-19] MEDS: SENNOSIDES/DOCUSATE SODIUM TAB PO SCH ×2 (09:48→20:21)
[2018-09-19] MEDS: FUROSEMIDE 20 MG TAB PO SCH (09:49)
[2018-09-19] MEDS: guaiFENesin 600 MG TAB.ER PO SCH ×2 (09:49→20:22)
[2018-09-19] MEDS: GABAPENTIN 300 MG CAP PO SCH ×3 (09:49→20:21)
[2018-09-19] MEDS: SPIRONOLACTONE 25 MG TAB PO SCH (09:50)
[2018-09-19] MEDS: busPIRone 15 MG TAB PO SCH ×2 (09:50→20:22)
[2018-09-19] MEDS: ENOXAPARIN 40 MG/0.4 ML SYR SC SCH (09:51)
[2018-09-19] MEDS: FLUTICASONE NASAL 120 SPRAYS/16 GM MDI EACHNARE SCH (09:53)
[2018-09-19] MEDS: OXYMETAZOLINE 30 ML NASAL SPRAY EACHNARE SCH ×2 (09:53→20:26)
--- NOTE | 2018-09-19 15:01 | HOSPPROG ---
Hospitalist Progress Note Assessment/Plan: 68 yo female with h/o COPD and recent lumbar spine surgery returns to hospital after a fall found to have worsened L5 compression fracture. Course complicated by worsening hypoxemia requiring transfer to SDU, remains on high flow O2 Acute hypoxemic hypercarbic respiratory failure: DDx COPD exac, interstitial edema, viral pneumonia, BOOP, component of OHS. Slow to recover. CTA neg for PE , +b/l opacities. TTE without shunt. BNP 123 09/06. Bronch 09/11 with mucus plugging and frothy secretions. Discussed with Dr. Miranda. High dose steroids (finished 3 days on 09/18) S/p ceftriaxone/azith 7 day course repeat non con chest CT am 09/14 noted is 15 pack year smoking hx TRISTA of 1.99 noted, no h/o rheum disease, no sx s/o RA - improving 02 requirements, currently on 4L (baseline) - Was previously being diuresed with 40 mg IV BID Lasix, held on 09/17 due to increasing bicarb, transitioned to home Lasix 20 mg PO qd on 09/18 redose IV Lasix as needed metabolic alkalosis: s/p dose of diamox on 09/17, Bicarb 30 on 09/18, continue to monitor Multifocal pulmonary infiltrates: Query viral process or organizing pna. PCT neg. -s/P 7 days of ceftriaxone Severe acute L5 compression fracture: Worsened since July. LLE radiculopathy/ weakness. - Neurosurgery recommending operative repair with extension of fusion. Surgery delayed due to above, planned for 09/24/2018 - Brace when out of bed - PT/OT as able, recommending SNF S/p L3-L5 lumbar fusion 05/2018, plans to extend as above - Pain control Elevated right hemidiaphragm: Suboptimal sniff test. Possibly contributing to # 1. constipation: bid miralax Improved, having soft stool Depression/anxiety - Continue home meds (zoloft, trazodone, klonopin, buspar, wellbutrin, nortriptyline, abilify) chronic pain with continuous opioid dependence: On high dose narcotics - Continue home morphine SR 60mg BID and morphine IR 15mg q6h PRN and gabapentin Hypothyroidism: Continue LT4 replacement KAREN: pt has declined cpap in past due to cost VTE ppx: LMWH Code: full Dispo: cont inpt, transfer to floor Subjective: Pt reports breathing is at baseline this morning Objective: Vital Signs Temp Pulse Resp BP Pulse Ox 36.8 C 86 17 106/77 91 L 09/19/18 12:00 09/19/18 12:00 09/19/18 12:00 09/19/18 12:00 09/19/18 12:00 Laboratory Results 09/17/18 08:50 09/17/18 08:50 09/18/18 09/19/18 09/20/18 05:59 05:59 05:59 Intake Total 2100 1200 Output Total 2400 1200 Balance -300 0 PT 15.7 SEC (12.0-15.0) H 09/10/18 09:45 INR 1.31 (0.83-1.16) H 09/10/18 09:45 - Physical Exam Constitutional: no apparent distress Eyes: PERRL Ears, Nose, Mouth, Throat: moist mucous membranes Cardiovascular: regular rate and rhythym Respiratory: no respiratory distress Gastrointestinal: soft, non-tender abdomen Skin: warm Musculoskeletal: full muscle strength Neurologic: AAOx3 Psychiatric: interacting appropriately ICD10 Worksheet Patient Problems: Problems Problem Status Onset Muscle strain of left gluteal region Acute Acute on chronic respiratory failure with hypoxemia Acute Intractable low back pain Acute L5 vertebral fracture Acute
--- NOTE | 2018-09-19 15:12 | PDINTPN ---
Site Technician Progress Note Assessment/Plan: 68 F with COPD, chronic O2 at 4 lpm, obesity, and chronic back pain/sciatica. She had TLIF in 05/2018 complicated by multiple falls resulting in an L5 compression fracture. She developed significant hypoxia and at one point needed vapotherm at max levels to maintain normal saturations. She had an extensive workup including CXR, chest CT, echo with bubble, CTD serologies, and bronchoscopy without obvious etiology. Though her BNP was unremarkable she was diuresed while simultaneously getting high dose steroids and eventually improved. * Hypoxia- the etiology is uncertain, though as best as I can guess at this point she responded to diuresis>steroids, nebs, or abx. Her CO2 was at its highest 54 (09/10) with an elevated bicarb, suggesting a compensated respiratory acidosis. Her HCO3 was normal on 09/03/18. She completed CTX/zithro x7 days. Start advair today, taper steroids in anticipation of surgery next week * Acute L5 compression fracture- Her chronic repiratory status and COPD puts her at risk for postop pulmonary complications, but would not prevent her from having surgery if indicated. Try to minimize narcotics as best we can. 09/19/18 15:11 Subjective: stable overnight and back to baseline O2 requirement Objective: Vital Signs Temp Pulse Resp BP Pulse Ox 36.8 C 86 17 106/77 91 L 09/19/18 12:00 09/19/18 12:00 09/19/18 12:00 09/19/18 12:00 09/19/18 12:00 Laboratory Results 09/17/18 08:50 09/17/18 08:50 09/18/18 09/19/18 09/20/18 05:59 05:59 05:59 Intake Total 2100 1200 Output Total 2400 1200 Balance -300 0 PT 15.7 SEC (12.0-15.0) H 09/10/18 09:45 INR 1.31 (0.83-1.16) H 09/10/18 09:45 Physical Exam - Physical Exam General Appearance: WD/WN, alert, no apparent distress, obese EENT: PERRL/EOMI Neck: supple Respiratory: lungs clear, normal breath sounds, decreased breath sounds, No respiratory distress, No accessory muscle use Cardiac/Chest: regular rate, rhythm, No edema Abdomen: non-tender, soft, No distended Skin: normal color, warm/dry, No cyanosis Lymphatic: no adenopathy Extremities: No pedal edema Neuro/Psych: alert, normal mood/affect, oriented x 3 ICD10 Worksheet Patient Problems: Problems Problem Status Onset Muscle strain of left gluteal region Acute Acute on chronic respiratory failure with hypoxemia Acute Intractable low back pain Acute L5 vertebral fracture Acute
[2018-09-19] MEDS: FLUTICASONE/SALMETER 250/50MCG DISKUS IH SCH (20:00)
[2018-09-19] MEDS: traZODone 100 MG TAB PO PRN (20:21)
[2018-09-19] MEDS: clonazePAM 0.5 MG TAB PO PRN (20:21)
[2018-09-19] MEDS: PATCH REMOVAL 1 EA PATCH TD SCH (20:22)
[2018-09-19] MEDS: NORTRIPTYLINE HCL 10 MG CAP PO SCH (20:22)
[2018-09-20] MEDS: morphINE SR 60 MG TAB PO SCH (03:49)
[2018-09-20] MEDS: LEVOTHYROXINE 50 MCG TAB PO SCH (05:18)
[2018-09-20] MEDS: CLOTRIMAZOLE 10 MG TROCHE PO SCH ×5 (05:19→23:30)
[2018-09-20] MEDS: ENOXAPARIN 40 MG/0.4 ML SYR SC SCH (08:52)
[2018-09-20] MEDS: FUROSEMIDE 20 MG TAB PO SCH (08:52)
[2018-09-20] MEDS: SERTRALINE HCL 100 MG TAB PO SCH (08:52)
[2018-09-20] MEDS: CETIRIZINE 10 MG TAB PO SCH (08:52)
[2018-09-20] MEDS: SPIRONOLACTONE 25 MG TAB PO SCH (08:53)
[2018-09-20] MEDS: buPROPion XL 150 MG TAB PO SCH (08:53)
[2018-09-20] MEDS: busPIRone 15 MG TAB PO SCH ×2 (08:53→22:30)
[2018-09-20] MEDS: ARIPiprazole 5 MG TAB PO SCH (08:53)
[2018-09-20] MEDS: SENNOSIDES/DOCUSATE SODIUM TAB PO SCH ×2 (08:53→21:44)
[2018-09-20] MEDS: guaiFENesin 600 MG TAB.ER PO SCH ×2 (08:53→21:44)
[2018-09-20] MEDS: OXYMETAZOLINE 30 ML NASAL SPRAY EACHNARE SCH ×2 (08:54→21:43)
[2018-09-20] MEDS: FLUTICASONE NASAL 120 SPRAYS/16 GM MDI EACHNARE SCH (08:54)
[2018-09-20] MEDS: GABAPENTIN 300 MG CAP PO SCH ×3 (09:00→21:43)
[2018-09-20] MEDS: FLUTICASONE/SALMETER 250/50MCG DISKUS IH SCH ×2 (09:02→22:27)
--- NOTE | 2018-09-20 11:37 | ASMTCMCOM ---
CM Note CM Note Notes: CM met with pt. Pt agreed to therapy's recommendation of SNF after her surgery early next week. Pt would like to go to [facility]. CM put a referral in for [facility]. Pt lives with her two daughters. Pt wants to use [facility] when returning home from SNF. Pt wants to continue with [facility]. CM to follow. Plan: [facility] Date Signed: 09/20/2018 11:36 AM Electronically Signed By:Brianna Redman
--- NOTE | 2018-09-20 13:41 | PDINTPN ---
A Auxiliary Progress Note Assessment/Plan: 68 F with COPD, chronic O2 at 4 lpm, obesity, and chronic back pain/sciatica. She had TLIF in 05/2018 complicated by multiple falls resulting in an L5 compression fracture. She developed significant hypoxia and at one point needed vapotherm at max levels to maintain normal saturations. She had an extensive workup including CXR, chest CT, echo with bubble, CTD serologies, and bronchoscopy without obvious etiology. Though her BNP was unremarkable she was diuresed while simultaneously getting high dose steroids and eventually improved. * Hypoxia- the etiology is uncertain, though probably related to an element of volume overload with COPD and untreated KAREN. As best as I can guess at this point she responded to diuresis>steroids, nebs, or abx. Her CO2 was at its highest 54 (09/10) with an elevated bicarb, suggesting a compensated respiratory acidosis. Her HCO3 was normal on 09/03/18. She completed CTX/zithro x7 days. Start advair 09/19 without issue. No longer on systemic steroids * Acute L5 compression fracture- Her chronic repiratory status and COPD puts her at risk for postop pulmonary complications, but would not prevent her from having surgery if indicated. Try to minimize narcotics as best we can. Subjective: no events Objective: Vital Signs Temp Pulse Resp BP Pulse Ox 36.7 C 88 16 102/67 90 L 09/20/18 12:00 09/20/18 12:00 09/20/18 12:00 09/20/18 12:00 09/20/18 12:00 Laboratory Results 09/17/18 08:50 09/17/18 08:50 09/19/18 09/20/18 09/21/18 05:59 05:59 05:59 Intake Total 1200 750 Output Total 1200 825 Balance 0 -75 PT 15.7 SEC (12.0-15.0) H 09/10/18 09:45 INR 1.31 (0.83-1.16) H 09/10/18 09:45 Physical Exam - Physical Exam General Appearance: WD/WN, alert, no apparent distress, obese EENT: PERRL/EOMI Neck: supple Respiratory: lungs clear, normal breath sounds, No respiratory distress, No accessory muscle use Cardiac/Chest: regular rate, rhythm, No edema, No JVD Abdomen: non-tender, soft, No distended Skin: normal color, warm/dry, No cyanosis Lymphatic: no adenopathy Extremities: No pedal edema Neuro/Psych: alert, normal mood/affect, oriented x 3 ICD10 Worksheet Patient Problems: Problems Problem Status Onset Muscle strain of left gluteal region Acute Acute on chronic respiratory failure with hypoxemia Acute Intractable low back pain Acute L5 vertebral fracture Acute
[2018-09-20] MEDS: BACLOFEN 10 MG TAB PO PRN ×2 (14:05→21:58)
--- NOTE | 2018-09-20 15:22 | HOSPPROG ---
Hospitalist Progress Note Assessment/Plan: 68 yo female with h/o COPD and recent lumbar spine surgery returns to hospital after a fall found to have worsened L5 compression fracture. Course complicated by worsening hypoxemia requiring transfer to SDU, remains on high flow O2 Acute hypoxemic hypercarbic respiratory failure: DDx COPD exac, interstitial edema, viral pneumonia, BOOP, component of OHS. Slow to recover. CTA neg for PE , +b/l opacities. TTE without shunt. BNP 123 09/06. Bronch 09/11 with mucus plugging and frothy secretions. High dose steroids (finished 3 days on 09/18) S/p ceftriaxone/azith 7 day course repeat non con chest CT am 09/14 noted is 15 pack year smoking hx TRISTA of 1.99 noted, no h/o rheum disease, no sx s/o RA - Currently on 4L (baseline) - Was previously being diuresed with 40 mg IV BID Lasix, held on 09/17 due to increasing bicarb, transitioned to home Lasix 20 mg PO qd on 09/18 redose IV Lasix as needed metabolic alkalosis: s/p dose of diamox on 09/17, Bicarb 30 on 09/18, continue to monitor Multifocal pulmonary infiltrates: Query viral process or organizing pna. PCT neg. -s/P 7 days of ceftriaxone Severe acute L5 compression fracture: Worsened since July. LLE radiculopathy/ weakness. - Neurosurgery recommending operative repair with extension of fusion. Surgery delayed due to above, planned for 09/24/2018 - Brace when out of bed - PT/OT as able, recommending SNF S/p L3-L5 lumbar fusion 05/2018, plans to extend as above - Pain control Elevated right hemidiaphragm: Suboptimal sniff test. Possibly contributing to # 1. constipation: bid miralax Improved, having soft stool Depression/anxiety - Continue home meds (zoloft, trazodone, klonopin, buspar, wellbutrin, nortriptyline, abilify) chronic pain with continuous opioid dependence: On high dose narcotics - Continue home morphine SR 60mg BID and morphine IR 15mg q6h PRN and gabapentin Hypothyroidism: Continue LT4 replacement KAREN: pt has declined cpap in past due to cost VTE ppx: LMWH Code: full Dispo: cont inpt, transfer to floor Subjective: Pt reports back pain this AM Objective: Vital Signs Temp Pulse Resp BP Pulse Ox 36.9 C 99 16 110/75 87 L 09/20/18 13:52 09/20/18 13:52 09/20/18 13:52 09/20/18 13:52 09/20/18 13:52 Laboratory Results 09/17/18 08:50 09/17/18 08:50 09/19/18 09/20/18 09/21/18 05:59 05:59 05:59 Intake Total 1200 750 Output Total 1200 825 Balance 0 -75 PT 15.7 SEC (12.0-15.0) H 09/10/18 09:45 INR 1.31 (0.83-1.16) H 09/10/18 09:45 - Physical Exam Constitutional: chronically ill appearing Eyes: PERRL Ears, Nose, Mouth, Throat: moist mucous membranes Cardiovascular: regular rate and rhythym Respiratory: no respiratory distress, clear to auscultation Gastrointestinal: soft, non-tender abdomen Skin: warm Musculoskeletal: pain with ROM Neurologic: AAOx3 Psychiatric: interacting appropriately ICD10 Worksheet Patient Problems: Problems Problem Status Onset Muscle strain of left gluteal region Acute Acute on chronic respiratory failure with hypoxemia Acute Intractable low back pain Acute L5 vertebral fracture Acute
[2018-09-20] MEDS: morphINE SR 30 MG TAB PO SCH (16:57)
[2018-09-20] MEDS: NORTRIPTYLINE HCL 10 MG CAP PO SCH (21:44)
[2018-09-20] MEDS: traZODone 100 MG TAB PO PRN (21:58)
[2018-09-20] MEDS: clonazePAM 0.5 MG TAB PO PRN (21:58)
[2018-09-20] MEDS: PATCH REMOVAL 1 EA PATCH TD SCH (22:31)
[2018-09-21] MEDS: morphINE SR 30 MG TAB PO SCH ×2 (04:24→17:52)
[2018-09-21] MEDS: LEVOTHYROXINE 50 MCG TAB PO SCH (05:32)
[2018-09-21] MEDS: CLOTRIMAZOLE 10 MG TROCHE PO SCH ×5 (05:33→21:55)
--- NOTE | 2018-09-21 07:48 | HOSPPROG ---
Hospitalist Progress Note Assessment/Plan: 68 yo female with h/o COPD and recent lumbar spine surgery returns to hospital after a fall found to have worsened L5 compression fracture. Course complicated by worsening hypoxemia requiring transfer to SDU, remains on high flow O2. First encounter, chart reviewed. *Acute hypoxemic hypercarbic respiratory failure -multifactorial, viral pna, COPD -was treated w high dose steroids -treated w ceftriaxone and azithro -being diuresed -Advair -upto 8 liters this morning *chronic hypoxemic respiratory failure -2/2 COPD -baseline is on 4 liters -quit smoking 6 months ago *metabolic alkalosis -resolved *depression, anxiety -Zoloft, Trazodone, Klonopin, BuSpar, Wellbutrin, Nortriptyline, Abilify *Multifocal pulmonary infiltrates -s/p treatment w abx *morbid obesity -bmi 38.8 *leukocytosis -sig increase, poss r/t recent steroids -will follow *Severe acute L5 compression fracture -surgery is planned for - Brace when out of bed - PT/OT as able, recommending SNF *chronic pain w continuous opiate dependence -pain is severe this morning, difficult balance w her respiratory status -will ask Pharmacy to do a consult *S/p L3-L5 lumbar fusion 05/2018, plans to extend as above - Pain control *plan: encouraged Jhoana to mobilize as much as she can. Spoke w Pharmacy and they will see her to help and try to optimize her pain w further evaluation of her pain regimen Subjective: Jhoana said she is having ongoing severe back pain, having a hard time getting comfortable in bed. Objective: Vital Signs Temp Pulse Resp BP Pulse Ox 36.3 C 81 12 119/88 H 89 L 09/21/18 07:08 09/21/18 07:08 09/21/18 07:08 09/21/18 07:08 09/21/18 07:08 Laboratory Results 09/21/18 04:14 09/21/18 04:14 09/20/18 09/21/18 09/22/18 05:59 05:59 05:59 Intake Total 750 200 Output Total 825 200 400 Balance -75 -200 -200 PT 15.7 SEC (12.0-15.0) H 09/10/18 09:45 INR 1.31 (0.83-1.16) H 09/10/18 09:45 - Physical Exam Constitutional: appears nourished, chronically ill appearing, obese, uncomfortable, No not in pain Eyes: PERRL Ears, Nose, Mouth, Throat: hearing normal Cardiovascular: regular rate and rhythym Respiratory: no respiratory distress, clear to auscultation, reduced air movement Skin: warm Musculoskeletal: generalized weakness Neurologic: AAOx3 Psychiatric: interacting appropriately ICD10 Worksheet Patient Problems: Problems Problem Status Onset Muscle strain of left gluteal region Acute Acute on chronic respiratory failure with hypoxemia Acute Intractable low back pain Acute L5 vertebral fracture Acute
[2018-09-21] MEDS: FLUTICASONE/SALMETER 250/50MCG DISKUS IH SCH ×2 (09:44→23:12)
[2018-09-21] MEDS ORDERED: ACETAMINOPHEN 500 MG TAB PO SCH (09:45)
[2018-09-21] MEDS: CETIRIZINE 10 MG TAB PO SCH (10:18)
[2018-09-21] MEDS: GABAPENTIN 300 MG CAP PO SCH ×3 (10:18→21:54)
[2018-09-21] MEDS: FUROSEMIDE 20 MG TAB PO SCH (10:18)
[2018-09-21] MEDS: SERTRALINE HCL 100 MG TAB PO SCH (10:19)
[2018-09-21] MEDS: SPIRONOLACTONE 25 MG TAB PO SCH (10:19)
[2018-09-21] MEDS: guaiFENesin 600 MG TAB.ER PO SCH ×2 (10:19→21:55)
[2018-09-21] MEDS: SENNOSIDES/DOCUSATE SODIUM TAB PO SCH ×2 (10:19→21:55)
[2018-09-21] MEDS: buPROPion XL 150 MG TAB PO SCH (10:19)
[2018-09-21] MEDS: ENOXAPARIN 40 MG/0.4 ML SYR SC SCH (10:22)
[2018-09-21] MEDS: BACLOFEN 10 MG TAB PO SCH ×3 (10:56→21:55)
[2018-09-21] MEDS: ARIPiprazole 5 MG TAB PO SCH (10:57)
[2018-09-21] MEDS: busPIRone 15 MG TAB PO SCH ×2 (10:57→21:55)
[2018-09-21] MEDS: FLUTICASONE NASAL 120 SPRAYS/16 GM MDI EACHNARE SCH (11:00)
[2018-09-21] MEDS: OXYMETAZOLINE 30 ML NASAL SPRAY EACHNARE SCH ×2 (11:00→22:25)
--- NOTE | 2018-09-21 15:07 | PDINTPN ---
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 She had TLIF in 05/2018 complicated by multiple falls resulting in an L5 compression fracture. She developed significant hypoxia and at one point needed vapotherm at max levels to maintain normal saturations. She had an extensive workup including CXR, chest CT, echo with bubble, CTD serologies, and bronchoscopy without obvious etiology. Though her BNP was unremarkable she was diuresed while simultaneously getting high dose steroids and eventually improved. * Hypoxia- the etiology is uncertain, though probably related to an element of volume overload with COPD and untreated KAREN. As best as I can guess at this point she responded to diuresis>steroids, nebs, or abx. Her CO2 was at its highest 54 (09/10) with an elevated bicarb, suggesting a compensated respiratory acidosis. Her HCO3 was normal on 09/03/18. She completed CTX/zithro x7 days. Started advair 09/19 without issue. No longer on systemic steroids. Continue with Advair, prn albuterol, flonase, zyrtec, mucinex. Encouraged IS, OOB, ambulation as tolerated. * Acute L5 compression fracture- Her chronic repiratory status and COPD puts her at risk for postop pulmonary complications, but would not prevent her from having surgery if indicated. Try to minimize narcotics as best we can. 09/21/18 15:05 09/21/18 15:07 Subjective: remains stable though anxious for surgery. Not using IS (across the room), not ambulating Objective: Vital Signs Temp Pulse Resp BP Pulse Ox 36.3 C 87 18 119/88 H 90 L 09/21/18 07:08 09/21/18 09:46 09/21/18 09:46 09/21/18 07:08 09/21/18 09:46 Laboratory Results 09/21/18 04:14 09/21/18 04:14 09/20/18 09/21/18 09/22/18 05:59 05:59 05:59 Intake Total 750 200 Output Total 825 200 400 Balance -75 -200 -200 PT 15.7 SEC (12.0-15.0) H 09/10/18 09:45 INR 1.31 (0.83-1.16) H 09/10/18 09:45 Physical Exam - Physical Exam General Appearance: WD/WN, alert, no apparent distress, obese EENT: PERRL/EOMI Neck: supple Respiratory: lungs clear, normal breath sounds, decreased breath sounds, No respiratory distress, No accessory muscle use Cardiac/Chest: regular rate, rhythm, No edema, No JVD Abdomen: non-tender, soft, No distended Skin: normal color, warm/dry, No cyanosis, No diaphoresis Lymphatic: no adenopathy Extremities: No pedal edema Neuro/Psych: alert, normal mood/affect, oriented x 3 ICD10 Worksheet Patient Problems: Problems Problem Status Onset Muscle strain of left gluteal region Acute Acute on chronic respiratory failure with hypoxemia Acute Intractable low back pain Acute L5 vertebral fracture Acute
[2018-09-21] MEDS: LIDOCAINE 4%/MENTHOL 1% PATCH TD SCH (17:50)
[2018-09-21] MEDS ORDERED: ADENOSINE 6 MG/2 ML VIAL IVP ONE (21:43)
[2018-09-21 21:55] LABS: PLATELET COUNT 299 10^3/uL (150-400)
[2018-09-21] MEDS: NORTRIPTYLINE HCL 10 MG CAP PO SCH (21:55)
[2018-09-21] MEDS: traZODone 100 MG TAB PO PRN (21:59)
[2018-09-21] MEDS: clonazePAM 0.5 MG TAB PO PRN (21:59)
--- NOTE | 2018-09-21 22:22 | HOSPPROG ---
Hospitalist Progress Note Assessment/Plan: Called to assess patient after rapid response was announced overhead. patient was hypotensive with a heart rate in the 160s. An EKG was obtained which was consistent with supraventricular tachycardia. I reviewed the patient's chart, images and labs the patient is new to me. Assessment plan SVT- 6 mg of adenosine was ordered and given in 1 push. Her cardiac rhythm was monitored continuously during the adenosine push. He had an seems effective an converting the patient from SVT to a normal sinus rhythm with rates in the 60s. -check CBC CMP lactate and troponin -monitor on telemetry Hypotension- secondary to supraventricular tachycardia. Blood pressure after adenosine was around 120/80. I spent 25 min critical care time in the management of this patient Subjective: Patient feels like her heart is racing slightly short of breath. Objective: Vital Signs Temp Pulse Resp BP Pulse Ox 36.6 C 100 18 98/76 L 86 L 09/21/18 15:28 09/21/18 15:28 09/21/18 15:28 09/21/18 15:28 09/21/18 15:28 Laboratory Results 09/21/18 21:40 09/20/18 09/21/18 09/22/18 05:59 05:59 05:59 Intake Total 750 200 Output Total 825 200 700 Balance -75 -200 -500 PT 15.7 SEC (12.0-15.0) H 09/10/18 09:45 INR 1.31 (0.83-1.16) H 09/10/18 09:45 - Physical Exam Constitutional: no apparent distress, appears nourished, not in pain Eyes: PERRL, anicteric sclera, EOMI Ears, Nose, Mouth, Throat: moist mucous membranes, hearing normal, ears appear normal, no oral mucosal ulcers Cardiovascular: tachycardia Respiratory: no respiratory distress, no rales or rhonchi, clear to auscultation Gastrointestinal: normoactive bowel sounds, soft, non-tender abdomen, no palpable masses Genitourinary: no bladder fullness, no bladder tenderness, no renal bruits Skin: no rashes or abrasions, no fluctuance, no induration Musculoskeletal: full muscle strength, no muscle tenderness, normal joint ROM Neurologic: AAOx3, sensation intact bilaterally Psychiatric: interacting appropriately, not anxious, not encephalopathic, thought process linear Lymph, Heme, Immunologic: no cervical LAD, no supraclavicular LAD ICD10 Worksheet Patient Problems: Problems Problem Status Onset Muscle strain of left gluteal region Acute Acute on chronic respiratory failure with hypoxemia Acute Intractable low back pain Acute L5 vertebral fracture Acute
[2018-09-21] MEDS: PATCH REMOVAL 1 EA PATCH TD SCH (22:25)
[2018-09-22] MEDS: morphINE SR 30 MG TAB PO SCH ×2 (05:08→16:45)
[2018-09-22] MEDS: CLOTRIMAZOLE 10 MG TROCHE PO SCH ×5 (05:08→21:46)
[2018-09-22] MEDS: LEVOTHYROXINE 50 MCG TAB PO SCH (05:08)
[2018-09-22 08:45] LABS: PLATELET COUNT 261 10^3/uL (150-400)
--- NOTE | 2018-09-22 08:46 | HOSPPROG ---
Hospitalist Progress Note Assessment/Plan: 68 yo female with h/o COPD and recent lumbar spine surgery returns to hospital after a fall found to have worsened L5 compression fracture. Course complicated by worsening hypoxemia requiring transfer to SDU, remains on high flow O2. *Acute hypoxemic hypercarbic respiratory failure -multifactorial, viral pna, COPD -was treated w high dose steroids -treated w ceftriaxone and azithro -being diuresed -Advair -ranging from 5-10 liters *chronic hypoxemic respiratory failure -2/2 COPD -baseline is on 4 liters -quit smoking 6 months ago *SVT episode last night -resolved w adenosine -will check electrolytes this morning *metabolic alkalosis -resolved *depression, anxiety -Zoloft, Trazodone, Klonopin, BuSpar, Wellbutrin, Nortriptyline, Abilify *Multifocal pulmonary infiltrates -s/p treatment w abx *morbid obesity -bmi 38.8 *leukocytosis -sig increase, poss r/t recent steroids -will follow *Severe acute L5 compression fracture -surgery is planned for 09/24/2018 - Brace when out of bed - PT/OT *chronic pain w continuous opiate dependence -pain is severe this morning, difficult balance w her respiratory status -appreciate pharmacist seeing her *S/p L3-L5 lumbar fusion 05/2018, plans to extend as above - Pain control *plan: encouraged Jhoana to get OOB which will help her lung status. Will check electrolytes. Subjective: Jhoana is not c/o pain, said the medication given last night was uncomfortable. Objective: Vital Signs Temp Pulse Resp BP Pulse Ox 36.6 C 85 18 113/83 H 91 L 09/22/18 07:08 09/22/18 07:08 09/22/18 07:08 09/22/18 07:08 09/22/18 07:08 Laboratory Results 09/21/18 21:40 09/21/18 21:40 09/21/18 09/22/18 09/23/18 05:59 05:59 05:59 Intake Total 500 Output Total 200 900 400 Balance -200 -400 -400 PT 15.7 SEC (12.0-15.0) H 09/10/18 09:45 INR 1.31 (0.83-1.16) H 09/10/18 09:45 - Physical Exam Constitutional: chronically ill appearing, obese, uncomfortable Eyes: PERRL Ears, Nose, Mouth, Throat: hearing normal Cardiovascular: regular rate and rhythym, no murmur, rub, or gallop Respiratory: no respiratory distress, reduced air movement Skin: warm Musculoskeletal: generalized weakness Neurologic: AAOx3 Psychiatric: interacting appropriately ICD10 Worksheet Patient Problems: Problems Problem Status Onset Muscle strain of left gluteal region Acute Acute on chronic respiratory failure with hypoxemia Acute Intractable low back pain Acute L5 vertebral fracture Acute
[2018-09-22] MEDS: buPROPion XL 150 MG TAB PO SCH (09:04)
[2018-09-22] MEDS: SERTRALINE HCL 100 MG TAB PO SCH (09:05)
[2018-09-22] MEDS: busPIRone 15 MG TAB PO SCH ×2 (09:05→21:46)
[2018-09-22] MEDS: SENNOSIDES/DOCUSATE SODIUM TAB PO SCH ×2 (09:05→21:46)
[2018-09-22] MEDS: ENOXAPARIN 40 MG/0.4 ML SYR SC SCH (09:06)
[2018-09-22] MEDS: guaiFENesin 600 MG TAB.ER PO SCH ×2 (09:08→21:45)
[2018-09-22] MEDS: BACLOFEN 10 MG TAB PO SCH ×3 (09:08→21:47)
[2018-09-22] MEDS: ARIPiprazole 5 MG TAB PO SCH (09:08)
[2018-09-22] MEDS: SPIRONOLACTONE 25 MG TAB PO SCH (09:08)
[2018-09-22] MEDS: FUROSEMIDE 20 MG TAB PO SCH (09:08)
[2018-09-22] MEDS: CETIRIZINE 10 MG TAB PO SCH (09:09)
[2018-09-22] MEDS: GABAPENTIN 300 MG CAP PO SCH ×3 (09:09→21:59)
[2018-09-22] MEDS: LIDOCAINE 4%/MENTHOL 1% PATCH TD SCH (09:10)
[2018-09-22] MEDS: FLUTICASONE NASAL 120 SPRAYS/16 GM MDI EACHNARE SCH (09:17)
[2018-09-22] MEDS: OXYMETAZOLINE 30 ML NASAL SPRAY EACHNARE SCH ×2 (09:21→21:58)
[2018-09-22] MEDS: FLUTICASONE/SALMETER 250/50MCG DISKUS IH SCH ×2 (09:41→21:32)
[2018-09-22] MEDS ORDERED: PROTOCOL POTASSIUM 1 DOSE MISC PRN (12:52)
[2018-09-22] MEDS ORDERED: PROTOCOL MAGNESIUM 1 DOSE IV PRN (12:52)
[2018-09-22] MEDS ORDERED: PHENYLEPHRINE 1% EACHNARE PRN ×2 (15:25→15:28)
--- NOTE | 2018-09-22 15:51 | PDINTPN ---
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 She had TLIF in 05/2018 complicated by multiple falls resulting in an L5 compression fracture. She developed significant hypoxia and at one point needed vapotherm at max levels to maintain normal saturations. She had an extensive workup including CXR, chest CT, echo with bubble, CTD serologies, and bronchoscopy without obvious etiology. Though her BNP was unremarkable she was diuresed while simultaneously getting high dose steroids and eventually improved. * Hypoxia- the etiology is uncertain, though probably related to an element of volume overload with COPD and untreated KAREN. As best as I can guess at this point she responded to diuresis>steroids, nebs, or abx. Her CO2 was at its highest 54 (09/10) with an elevated bicarb, suggesting a compensated respiratory acidosis. Her HCO3 was normal on 09/03/18. She completed CTX/zithro x7 days. Started advair 09/19 without issue. No longer on systemic steroids. Continue with Advair, prn albuterol, flonase, zyrtec, mucinex. Encouraged IS, OOB, ambulation as tolerated. * Acute L5 compression fracture- Her chronic repiratory status and COPD puts her at risk for postop pulmonary complications, but would not prevent her from having surgery if indicated. Try to minimize narcotics as best we can. * SVT- could be related to KAREN. Now in NSR Subjective: episode of SVT last pm, converted with adenosine Objective: Vital Signs Temp Pulse Resp BP Pulse Ox 36.6 C 82 16 113/83 H 90 L 09/22/18 07:08 09/22/18 09:52 09/22/18 09:52 09/22/18 07:08 09/22/18 09:52 Laboratory Results 09/22/18 08:38 09/22/18 08:38 09/21/18 09/22/18 09/23/18 05:59 05:59 05:59 Intake Total 500 Output Total 200 900 400 Balance -200 -400 -400 PT 15.7 SEC (12.0-15.0) H 09/10/18 09:45 INR 1.31 (0.83-1.16) H 09/10/18 09:45 Physical Exam - Physical Exam General Appearance: WD/WN, alert, no apparent distress, obese EENT: PERRL/EOMI Neck: supple Respiratory: lungs clear, normal breath sounds, decreased breath sounds, No respiratory distress, No accessory muscle use Cardiac/Chest: regular rate, rhythm, No edema, No JVD Abdomen: non-tender, soft, No distended Skin: normal color, warm/dry, No cyanosis Lymphatic: no adenopathy Extremities: No pedal edema Neuro/Psych: alert, normal mood/affect, oriented x 3 ICD10 Worksheet Patient Problems: Problems Problem Status Onset Muscle strain of left gluteal region Acute Acute on chronic respiratory failure with hypoxemia Acute Intractable low back pain Acute L5 vertebral fracture Acute
[2018-09-22] MEDS: SODIUM CL NASAL 45 ML BTL EACHNARE PRN ×2 (16:11→21:56)
[2018-09-22] MEDS ORDERED: POTASSIUM CL 10 MEQ TAB PO ONE (21:25)
[2018-09-22] MEDS: traZODone 100 MG TAB PO PRN (21:45)
[2018-09-22] MEDS: clonazePAM 0.5 MG TAB PO PRN (21:46)
[2018-09-22] MEDS: NORTRIPTYLINE HCL 10 MG CAP PO SCH (21:46)
[2018-09-22] MEDS: PATCH REMOVAL 1 EA PATCH TD SCH (23:01)
[2018-09-23] MEDS: CLOTRIMAZOLE 10 MG TROCHE PO SCH ×2 (05:10→09:18)
[2018-09-23] MEDS: LEVOTHYROXINE 50 MCG TAB PO SCH (05:10)
[2018-09-23] MEDS: morphINE SR 30 MG TAB PO SCH ×2 (05:10→16:47)
--- NOTE | 2018-09-23 09:04 | HOSPPROG ---
Hospitalist Progress Note Assessment/Plan: 68 yo female with h/o COPD and recent lumbar spine surgery returns to hospital after a fall found to have worsened L5 compression fracture. Course complicated by worsening hypoxemia requiring transfer to SDU, remains on high flow O2. *Acute hypoxemic hypercarbic respiratory failure -multifactorial, viral pna, COPD -was treated w high dose steroids -treated w ceftriaxone and azithro -being diuresed -Advair -ranging from 5-10 liters *chronic hypoxemic respiratory failure -2/2 COPD -baseline is on 4 liters -quit smoking 6 months ago *SVT episode -resolved w adenosine -reviewed telemetry and she has been in sinus *metabolic alkalosis -resolved *depression, anxiety -Zoloft, Trazodone, Klonopin, BuSpar, Wellbutrin, Nortriptyline, Abilify *Multifocal pulmonary infiltrates -s/p treatment w abx *morbid obesity -bmi 38.8 *hypotension -asymptomatic *leukocytosis -sig increase, poss r/t recent steroids *Severe acute L5 compression fracture -surgery is planned for 09/24/2018 - Brace when out of bed - PT/OT *chronic pain w continuous opiate dependence -pain is severe this morning, difficult balance w her respiratory status -appreciate pharmacist seeing her *S/p L3-L5 lumbar fusion 05/2018, plans to extend as above - Pain control *plan: spoke w neurosurgery-she is scheduled for tomorrow. Subjective: Jhoana said she is more comfortable in the chair. Is looking forward to having surgery. Objective: Vital Signs Temp Pulse Resp BP Pulse Ox 36.6 C 85 14 96/68 L 90 L 09/23/18 04:00 09/23/18 08:00 09/23/18 08:00 09/23/18 08:00 09/23/18 08:00 Laboratory Results 09/22/18 08:38 09/23/18 04:16 09/22/18 09/23/18 09/24/18 05:59 05:59 05:59 Intake Total 500 1450 100 Output Total 900 675 150 Balance -400 775 -50 PT 15.7 SEC (12.0-15.0) H 09/10/18 09:45 INR 1.31 (0.83-1.16) H 09/10/18 09:45 - Physical Exam Constitutional: chronically ill appearing, obese, uncomfortable Eyes: PERRL Ears, Nose, Mouth, Throat: hearing normal Cardiovascular: regular rate and rhythym Respiratory: no respiratory distress, reduced air movement Skin: warm Musculoskeletal: generalized weakness Neurologic: AAOx3 Psychiatric: interacting appropriately ICD10 Worksheet Patient Problems: Problems Problem Status Onset Muscle strain of left gluteal region Acute Acute on chronic respiratory failure with hypoxemia Acute Intractable low back pain Acute L5 vertebral fracture Acute
[2018-09-23] MEDS: guaiFENesin 600 MG TAB.ER PO SCH ×2 (09:15→20:23)
[2018-09-23] MEDS: FUROSEMIDE 20 MG TAB PO SCH (09:15)
[2018-09-23] MEDS: GABAPENTIN 300 MG CAP PO SCH ×3 (09:16→22:16)
[2018-09-23] MEDS: CETIRIZINE 10 MG TAB PO SCH (09:16)
[2018-09-23] MEDS: buPROPion XL 150 MG TAB PO SCH (09:16)
[2018-09-23] MEDS: busPIRone 15 MG TAB PO SCH ×2 (09:16→20:22)
[2018-09-23] MEDS: SERTRALINE HCL 100 MG TAB PO SCH (09:17)
[2018-09-23] MEDS: SPIRONOLACTONE 25 MG TAB PO SCH (09:17)
[2018-09-23] MEDS: ARIPiprazole 5 MG TAB PO SCH (09:17)
[2018-09-23] MEDS: BACLOFEN 10 MG TAB PO SCH ×3 (09:17→22:16)
[2018-09-23] MEDS: SENNOSIDES/DOCUSATE SODIUM TAB PO SCH ×2 (09:19→20:23)
[2018-09-23] MEDS: FLUTICASONE NASAL 120 SPRAYS/16 GM MDI EACHNARE SCH (09:19)
[2018-09-23] MEDS: FLUTICASONE/SALMETER 250/50MCG DISKUS IH SCH ×2 (09:20→20:32)
[2018-09-23] MEDS: LIDOCAINE 4%/MENTHOL 1% PATCH TD SCH (09:21)
[2018-09-23] MEDS: OXYMETAZOLINE 30 ML NASAL SPRAY EACHNARE SCH ×2 (09:22→20:32)
[2018-09-23] MEDS ORDERED: POTASSIUM CL 10 MEQ TAB PO ONE ×2 (09:29→22:56)
--- NOTE | 2018-09-23 11:22 | ASMTCMCOM ---
CM Note CM Note Notes: CM spoke with pt and RN in the room. Pt still agreeable to previous plan: Pt will have sx tomorrow and when stable, dc to [facility] which has accepted. Referrals also sent to [facility] care and [facility] both of which pt is current. CM to follow. D/C Plan: [facility] Date Signed: 09/23/2018 11:21 AM Electronically Signed By:La Rodríguez
--- NOTE | 2018-09-23 13:46 | PDINTPN ---
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 She had TLIF in 05/2018 complicated by multiple falls resulting in an L5 compression fracture. She developed significant hypoxia and at one point needed vapotherm at max levels to maintain normal saturations. She had an extensive workup including CXR, chest CT, echo with bubble, CTD serologies, and bronchoscopy without obvious etiology. Though her BNP was unremarkable she was diuresed while simultaneously getting high dose steroids and eventually improved. * Hypoxia- the etiology is uncertain, though probably related to an element of volume overload with COPD and untreated KAREN. As best as I can guess at this point she responded to diuresis>steroids, nebs, or abx. Her CO2 was at its highest 54 (09/10) with an elevated bicarb, suggesting a compensated respiratory acidosis. Her HCO3 was normal on 09/03/18. She completed CTX/zithro x7 days. Started advair 09/19 without issue. No longer on systemic steroids. Continue with Advair, prn albuterol, flonase, zyrtec, mucinex. Encouraged IS, OOB, ambulation as tolerated. * Acute L5 compression fracture- Her chronic respiratory status, KAREN and COPD puts her at risk for postop pulmonary complications, but would not prevent her from having surgery if indicated. Try to minimize narcotics as best we can. * SVT- could be related to KAREN. Now in NSR 09/23/18 13:45 Subjective: no events; feels well Objective: Vital Signs Temp Pulse Resp BP Pulse Ox 36.9 C 85 16 102/64 91 L 09/23/18 13:04 09/23/18 13:04 09/23/18 13:04 09/23/18 13:04 09/23/18 13:04 Laboratory Results 09/22/18 08:38 09/23/18 04:16 09/22/18 09/23/18 09/24/18 05:59 05:59 05:59 Intake Total 500 1450 100 Output Total 900 675 150 Balance -400 775 -50 PT 15.7 SEC (12.0-15.0) H 09/10/18 09:45 INR 1.31 (0.83-1.16) H 09/10/18 09:45 Physical Exam - Physical Exam General Appearance: WD/WN, alert, no apparent distress, obese EENT: PERRL/EOMI Neck: supple Respiratory: lungs clear, normal breath sounds, decreased breath sounds, No respiratory distress, No accessory muscle use Cardiac/Chest: regular rate, rhythm, No edema, No JVD Abdomen: non-tender, soft, No distended Skin: normal color, warm/dry, No cyanosis Lymphatic: no adenopathy Extremities: No pedal edema Neuro/Psych: alert, normal mood/affect, oriented x 3 ICD10 Worksheet Patient Problems: Problems Problem Status Onset Muscle strain of left gluteal region Acute Acute on chronic respiratory failure with hypoxemia Acute Intractable low back pain Acute L5 vertebral fracture Acute
[2018-09-23] MEDS: NORTRIPTYLINE HCL 10 MG CAP PO SCH (20:22)
[2018-09-23] MEDS: PATCH REMOVAL 1 EA PATCH TD SCH (20:36)
[2018-09-23] MEDS: traZODone 100 MG TAB PO PRN (22:16)
[2018-09-24] MEDS: morphINE SR 30 MG TAB PO SCH ×2 (01:12→16:22)
[2018-09-24] MEDS: LEVOTHYROXINE 50 MCG TAB PO SCH (01:12)
[2018-09-24] MEDS ORDERED: LR 1,000 ML IV ONE (06:23)
[2018-09-24] MEDS ORDERED: MIDAZOLAM 2 MG/2 ML VIAL IVP ONE (06:47)
[2018-09-24] MEDS ORDERED: ceFAZolin 2 GM/DEXTROSE 100 ML IV ONE (06:50)
--- NOTE | 2018-09-24 06:51 | PDHPUP ---
History & Physical Update H&P update statement: This history and physical update is based on an assessment of the patient which was completed after admission or registration (within 24 hours), but prior to the surgery/procedure. H&P update: H&P reviewed & patient examined, no change in patient's condition since H&P completed
--- NOTE | 2018-09-24 06:51 | PDANEPAE ---
ANE Past Medical History - Cardiovascular History Hx Hypertension: No Hx Arrhythmias: No Hx Chest Pain: No Hx Coronary Artery / Peripheral Vascular Disease: No Hx CHF / Valvular Disease: No Hx Palpitations: No - Pulmonary History Hx COPD: Yes Hx Asthma/Reactive Airway Disease: No Hx Recent Upper Respiratory Infection: No Hx Oxygen in Use at Home: Yes O2 in Use at Home (L/minute): 4 Hx Sleep Apnea: No Sleep Apnea Screening Result - Last Documented: Positive Pulmonary History Comment: SOB/DYSPNEA ON EXERTION - Neurologic History Hx Cerebrovascular Accident: No Hx Seizures: No Hx Dementia: No - Endocrine History Hx Diabetes: No - Renal History Hx Renal Disorders: No - Neurological & Psychiatric Hx Hx Neurological and Psychiatric Disorders: Yes Neurological / Psychiatric History Comment: DEPRESSION/ANXIETY - Cancer History Hx Cancer: No - Congenital Disorder History Hx Congenital Disorders: No - GI History Hx Gastrointestinal Disorders: No - Other Health History Other Health History: LT HAND NUMBNESS AND TINGLING. LUMBAR STENOSIS. FULL DENTURES - Chronic Pain History Chronic Pain: Yes (LOWER TAIL BONE) - Surgical History Prior Surgeries: NONE ANE Review of Systems Review of Systems: ANE Patient History - Allergies Allergies/Adverse Reactions: No Known Allergies Allergy (Verified 09/03/18 10:03) - Home Medications Home Medications: ARIPiprazole [Abilify 5 mg (*)] 5 mg PO DAILY 06/06/18 [Last Taken 09/02/18] Albuterol [Proventil Inhaler HFA (*)] 1 - 2 puffs IH Q4H PRN 06/06/18 [Last Taken Unknown] Bupropion HCl [Wellbutrin Xl] 300 mg PO DAILY 06/06/18 [Last Taken 09/02/18] Ergocalciferol [Vitamin D2 (*)] 50,000 unit PO Q7D 06/06/18 [Last Taken Unknown] Fluticasone Hfa 110 Mcg [Flovent 110 MCG Hfa MDI (*)] 2 puffs IH BID 06/06/18 [ Last Taken 09/02/18 21:00] Fluticasone Propionate [Flonase Allergy Relief] 2 sprays EACHNARE DAILY [Last Taken 09/02/18] Furosemide [Lasix 20 MG (*)] 20 mg PO DAILY 06/06/18 [Last Taken 09/02/18] Gabapentin [Neurontin 300 MG (*)] 900 mg PO TID 06/06/18 [Last Taken 09/02/18 21 :00] Levothyroxine [Synthroid 50 mcg (*)] 50 mcg PO DAILY06 06/06/18 [Last Taken ] Lidocaine 5% [Lidoderm 5% Patch] 1 - 3 ea TD DAILY PRN 06/06/18 [Last Taken Unknown] Nortriptyline HCl [Pamelor 10 mg (*)] 30 mg PO HS 06/06/18 [Last Taken 09/02/18] Sertraline HCl [Zoloft 100mg (*)] 250 mg PO DAILY 06/06/18 [Last Taken 09/02/18] buPROPion XL [Wellbutrin 150mg XL] 150 mg PO DAILY 06/06/18 [Last Taken 09/02/18 ] busPIRone [Buspar (*)] 15 mg PO BID 06/06/18 [Last Taken 09/02/18 21:00] clonazePAM [Klonopin (*)] 0.5 mg PO DAILY PRN 06/06/18 [Last Taken Unknown] morphINE SR [MS Contin/Oramorph SR 30 mg (*)] 60 mg PO BID 06/06/18 [Last Taken 09/03/18] Aspirin [Aspirin 325 mg (*)] 325 mg PO DAILY 08/04/18 [Last Taken 09/02/18] Baclofen [Baclofen 10 mg (*)] 10 - 20 mg PO TID PRN 08/04/18 [Last Taken Unknown ] Bisacodyl [Dulcolax] 10 mg RC DAILY PRN 08/04/18 [Last Taken Unknown] Sennosides/Docusate Sodium [Senokot-S] 1 - 2 tab PO BID PRN 08/04/18 [Last Taken Unknown] guaiFENesin [Mucinex 600 MG (*)] 600 mg PO BID PRN 08/04/18 [Last Taken Unknown] morphINE IR [morphINE IR 15 mg (*)] 15 mg PO DAILY@12 08/04/18 [Last Taken 09/02] Phenylephrine 1% Nasal [Gene-Synephrine] 2 spray EACHNARE Q4 PRN 09/22/18 [Last Taken Unknown] - NPO status NPO Since - Liquids (Date): 09/23/18 NPO Since - Liquids (Time): 00:00 NPO Since - Solids (Date): 09/23/18 NPO Since - Solids (Time): 00:00 - Smoking Hx Smoking Status: Former smoker (>70 pkyrs) - Alcohol Use Alcohol Use: None - Family Anes Hx Family Hx Anesthesia Complications: NONE ANE Labs/Vital Signs - Labs Result Diagrams: 09/22/18 08:38 09/24/18 04:30 - Vital Signs Blood Pressure: 109/92 Heart Rate: 82 Respiratory Rate: 21 O2 Sat (%): 92 Height: 167.64 cm Weight: 107.9 kg ANE Physical Exam - ASA Status ASA Status: III ANE Anesthesia Plan Anesthesia Plan: general endotracheal anesthesia
[2018-09-24] MEDS ORDERED: BUPIVACAINE/EPI 0.25% 30 ML SDV ONE (06:54)
[2018-09-24] MEDS ORDERED: THROMBIN (BOVINE) 5,000 UNIT VIAL TP ONE (06:54)
[2018-09-24] MEDS ORDERED: CHLORHEXIDINE GLUC HIBICLENS 118 ML BTL TP ONE (06:55)
[2018-09-24] MEDS ORDERED: GENTAMICIN SULFATE 80 MG/2 ML VIAL ONE (06:55)
[2018-09-24] MEDS ORDERED: DEXMEDETOMIDINE HCL 400 MCG in NS 100 ML IV SCH ×2 (07:00→16:00)
--- NOTE | 2018-09-24 07:06 | PDANEPAE ---
ANE Past Medical History - Cardiovascular History Hx Hypertension: No Hx Arrhythmias: No Hx Chest Pain: No Hx Coronary Artery / Peripheral Vascular Disease: No Hx CHF / Valvular Disease: No Hx Palpitations: No - Pulmonary History Hx COPD: Yes Hx Asthma/Reactive Airway Disease: No Hx Recent Upper Respiratory Infection: No Hx Oxygen in Use at Home: Yes O2 in Use at Home (L/minute): 4 Hx Sleep Apnea: No Sleep Apnea Screening Result - Last Documented: Positive Pulmonary History Comment: SOB/DYSPNEA ON EXERTION - Neurologic History Hx Cerebrovascular Accident: No Hx Seizures: No Hx Dementia: No - Endocrine History Hx Diabetes: No - Renal History Hx Renal Disorders: No - Neurological & Psychiatric Hx Hx Neurological and Psychiatric Disorders: Yes Neurological / Psychiatric History Comment: DEPRESSION/ANXIETY - Cancer History Hx Cancer: No - Congenital Disorder History Hx Congenital Disorders: No - GI History Hx Gastrointestinal Disorders: No - Other Health History Other Health History: LT HAND NUMBNESS AND TINGLING. LUMBAR STENOSIS. FULL DENTURES - Chronic Pain History Chronic Pain: Yes (LOWER TAIL BONE) - Surgical History Prior Surgeries: NONE ANE Review of Systems Review of Systems: ANE Patient History - Allergies Allergies/Adverse Reactions: No Known Allergies Allergy (Verified 09/03/18 10:03) - Home Medications Home Medications: ARIPiprazole [Abilify 5 mg (*)] 5 mg PO DAILY 06/06/18 [Last Taken 09/02/18] Albuterol [Proventil Inhaler HFA (*)] 1 - 2 puffs IH Q4H PRN 06/06/18 [Last Taken Unknown] Bupropion HCl [Wellbutrin Xl] 300 mg PO DAILY 06/06/18 [Last Taken 09/02/18] Ergocalciferol [Vitamin D2 (*)] 50,000 unit PO Q7D 06/06/18 [Last Taken Unknown] Fluticasone Hfa 110 Mcg [Flovent 110 MCG Hfa MDI (*)] 2 puffs IH BID 06/06/18 [ Last Taken 09/02/18 21:00] Fluticasone Propionate [Flonase Allergy Relief] 2 sprays EACHNARE DAILY [Last Taken 09/02/18] Furosemide [Lasix 20 MG (*)] 20 mg PO DAILY 06/06/18 [Last Taken 09/02/18] Gabapentin [Neurontin 300 MG (*)] 900 mg PO TID 06/06/18 [Last Taken 09/02/18 21 :00] Levothyroxine [Synthroid 50 mcg (*)] 50 mcg PO DAILY06 06/06/18 [Last Taken ] Lidocaine 5% [Lidoderm 5% Patch] 1 - 3 ea TD DAILY PRN 06/06/18 [Last Taken Unknown] Nortriptyline HCl [Pamelor 10 mg (*)] 30 mg PO HS 06/06/18 [Last Taken 09/02/18] Sertraline HCl [Zoloft 100mg (*)] 250 mg PO DAILY 06/06/18 [Last Taken 09/02/18] buPROPion XL [Wellbutrin 150mg XL] 150 mg PO DAILY 06/06/18 [Last Taken 09/02/18 ] busPIRone [Buspar (*)] 15 mg PO BID 06/06/18 [Last Taken 09/02/18 21:00] clonazePAM [Klonopin (*)] 0.5 mg PO DAILY PRN 06/06/18 [Last Taken Unknown] morphINE SR [MS Contin/Oramorph SR 30 mg (*)] 60 mg PO BID 06/06/18 [Last Taken 09/03/18] Aspirin [Aspirin 325 mg (*)] 325 mg PO DAILY 08/04/18 [Last Taken 09/02/18] Baclofen [Baclofen 10 mg (*)] 10 - 20 mg PO TID PRN 08/04/18 [Last Taken Unknown ] Bisacodyl [Dulcolax] 10 mg RC DAILY PRN 08/04/18 [Last Taken Unknown] Sennosides/Docusate Sodium [Senokot-S] 1 - 2 tab PO BID PRN 08/04/18 [Last Taken Unknown] guaiFENesin [Mucinex 600 MG (*)] 600 mg PO BID PRN 08/04/18 [Last Taken Unknown] morphINE IR [morphINE IR 15 mg (*)] 15 mg PO DAILY@12 08/04/18 [Last Taken 09/02] Phenylephrine 1% Nasal [Gene-Synephrine] 2 spray EACHNARE Q4 PRN 09/22/18 [Last Taken Unknown] - NPO status NPO Since - Liquids (Date): 09/23/18 NPO Since - Liquids (Time): 00:00 NPO Since - Solids (Date): 09/23/18 NPO Since - Solids (Time): 00:00 - Smoking Hx Smoking Status: Former smoker (>70 pkyrs) - Alcohol Use Alcohol Use: None - Family Anes Hx Family Hx Anesthesia Complications: NONE ANE Labs/Vital Signs - Labs Result Diagrams: 09/22/18 08:38 09/24/18 04:30 - Vital Signs Vital Signs: reviewed preoperatively; see RN documention for details Blood Pressure: 109/92 Heart Rate: 82 Respiratory Rate: 21 O2 Sat (%): 92 Height: 167.64 cm Weight: 107.9 kg ANE Physical Exam - Airway Neck exam: FROM Mallampati Score: Class 3 Mouth exam: poor dentition - Pulmonary Pulmonary: reduced air movement - Cardiovascular Cardiovascular: regular rate and rhythym - ASA Status ASA Status: III ANE Anesthesia Plan Anesthesia Plan: general endotracheal anesthesia Lines/Monitors: arterial line
[2018-09-24] MEDS ORDERED: PROPOFOL/EMULSION 500 MG/50 ML BOTTLE IV ONE ×3 (07:11→10:58)
[2018-09-24] MEDS ORDERED: PROPOFOL 200 MG/20 ML VIAL ONE (07:11)
[2018-09-24] MEDS ORDERED: fentaNYL 100 MCG/2 ML INJ ONE ×3 (07:11→14:10)
[2018-09-24] MEDS ORDERED: HYDROmorphONE/DILAUDID 2 MG/ML INJ ONE ×2 (07:11→13:23)
[2018-09-24] MEDS ORDERED: ROCURONIUM 50 MG/5 ML VIAL ONE (07:14)
[2018-09-24] MEDS ORDERED: PETROLAT,WHT/MIN OIL/SOD CHL 3.5 GM OPHT.OINT ONE (07:16)
[2018-09-24] MEDS ORDERED: DEXAMETHASONE 4 MG/ML VIAL ONE ×3 (07:21)
[2018-09-24] MEDS ORDERED: GLYCOPYRROLATE 0.2 MG/1 ML VIAL ONE ×2 (07:22→08:49)
[2018-09-24] MEDS ORDERED: MIDAZOLAM 2 MG/2 ML VIAL ONE (07:27)
[2018-09-24] MEDS ORDERED: KETAMINE 200 MG/20 ML VIAL ONE (07:27)
[2018-09-24] MEDS ORDERED: PHENYLEPHRINE HCL 100 MCG/ML SYR ONE (08:37)
[2018-09-24] MEDS ORDERED: ePHEDrine SULFATE 25 MG/5 ML SYR ONE (08:37)
[2018-09-24] MEDS ORDERED: PHENYLEPHRINE 10 MG/ML SDV ONE (08:41)
[2018-09-24] MEDS ORDERED: SURGIFLO MATRIX KIT WITH THROMBIN 8 ML TP ONE (08:47)
[2018-09-24] MEDS: FLUTICASONE/SALMETER 250/50MCG DISKUS IH SCH ×2 (09:21→20:42)
[2018-09-24] MEDS ORDERED: ALBUMIN 5% 250 ML BOTTLE IV ONE (09:37)
[2018-09-24] MEDS ORDERED: ceFAZolin 1 GM VIAL ONE ×2 (12:01)
[2018-09-24] MEDS ORDERED: NALOXONE HCL 0.4 MG/ML INJ IVP PRN (12:38)
[2018-09-24] MEDS ORDERED: MEPERIDINE 25 MG/0.5 ML AMP IVP PRN (12:38)
[2018-09-24] MEDS ORDERED: LR 500 ML IV PRN (12:38)
[2018-09-24] MEDS ORDERED: PHENYLEPHRINE HCL 100 MCG/ML SYR IVP PRN (12:38)
[2018-09-24] MEDS ORDERED: METOCLOPRAMIDE 10 MG/2 ML VIAL IVP PRN (12:38)
[2018-09-24] MEDS ORDERED: ALBUTEROL 3 ML DEYVIAL IH PRN (12:38)
[2018-09-24] MEDS ORDERED: ONDANSETRON 4 MG/2 ML VIAL IVP PRN (12:38)
[2018-09-24] MEDS ORDERED: PROMETHAZINE HCL 25 MG/ML INJ IVP PRN (12:38)
[2018-09-24] MEDS ORDERED: ONDANSETRON 4 MG/2 ML VIAL ONE (12:42)
[2018-09-24] MEDS ORDERED: METOCLOPRAMIDE 10 MG/2 ML VIAL ONE (12:42)
[2018-09-24] MEDS ORDERED: HYDROmorphONE/DILAUDID 1 MG/ML INJ IVP PRN (13:30)
[2018-09-24] MEDS ORDERED: NS 1,000 ML IV SCH (13:30)
[2018-09-24] MEDS ORDERED: diphenhydrAMINE 25 MG CAP PO PRN (13:30)
[2018-09-24] MEDS ORDERED: METHOCARBAMOL 750 MG TAB PO PRN (13:30)
--- NOTE | 2018-09-24 13:33 | GOP ---
[f rep st] OPERATIVE REPORT DATE OF OPERATION: 09/24/2018 SURGEON: Kandi Wilde DO NEUROSURGEON: Kandi Wilde DO PROGRAM COORDINATOR EXECUTIVE EDUCATION: Kaylene Rankin PA-C. PREOPERATIVE DIAGNOSIS: 1. L5 fracture. 2. Radiculopathy. 3. Stenosis. 4. Spondylosis. POSTOPERATIVE DIAGNOSIS: 1. L5 fracture. 2. Radiculopathy. 3. Stenosis. 4. Spondylosis. PROCEDURE PERFORMED: 1. Exploration of L3-5 posterior fusion with removal of the L3, L4, and L5 pedicle screws. 2. Replacement of L3 and L4 pedicle screws bilaterally. 3. Placement of S1 pedicle screws bilaterally. 4. Sacroiliac fixation, S2 to the ileum. 5. Left-sided decompression, L4-5, partial L5-S1. 6. Autograft. 7. Allograft. 8. Stealth. FINDINGS: SPECIMENS: None. ESTIMATED BLOOD LOSS: 500 mL. INDICATIONS: This is a 68-year-old female who had an L3-5 TLIF performed in May. She then subse quently had a fall. She had an L5 fracture. This has progressively worsened. She developed severe pain and footdrop, and the fracture was nonhealing. Images were reviewed with my partners. It was e lected that we should explore, revise, and extend down to provide sacropelvic fixation as her bone qu ality is poor. She was cleared by Medicine and she was identified and consented. DESCRIPTION OF PROCEDURE: Sites were marked. Brought to the operating room, anesthetized under gene ral endotracheal tube anesthesia, rolled onto the Alexis table. All pressure points were appropriat shaylee padded. Incision was prepped and draped in the usual sterile fashion. Incision was anesthetized with 0.25% Marcaine with epinephrine. Incision was made with a 10 blade. Hemostasis was obtained w ith Bovie bipolar and Aquamantys, dissecting down through the fascia, and then dissecting out lateral ly to across the sacrum, out past the L5-S1 facet, and then identifying the screws, just dissecting u p and completely exposing all of the screws. We then used the star drive to remove the caps on the s crews, removed the rods, and then removed the screws and placing Gelfoam bullets in each of the screw holes. We then placed the stealth stereotactic arm and performed a stereotactic spin focusing on th e sacrum and pelvis. Then, using the stealth, starting at the S2 just caudal to the S2 foramen, drilled the pilot control operator helper hole, an d then using the stealth, stereotactically tapped with the pedicle finder and then stereotactically t apped with the PowerEase, placing 7.5 x 90 mm screw on the left side at S2 to the iliac. Performing the same procedure on the right, placing a 7.5 x 90 mm screw, S2 to the ileum. Then we then performe d a stereotactic spin, verifying those screws were in the appropriate position. We then performed a new stereotactic spin so that we could visualize L3, 4, 5, and 1. Explored the L3 previous screw hol es with a ball-tip probe, verified it was good position, and stereotactically placed a 7.5 x 45 mm sc rew at L3 on the left, a 7.5 x 50 mm screw at L4 on the left, a 7.5 x 50 mm screw at L3 on the right, a 7.5 x 45 mm screw at L4 on the right. Using the ball-tip probe, we palpated the L5, and using the stereotaxis, we verified that the L5 was not competent enough to hold a screw and so these screws we re left out. We then measured and placed 110 mm rods. There was required a lateral connector at S2 on the right. The marcelino caps were locked, and using the anti-torque device, final tightened them, veri fying there was marcelino above and below at the appropriate length. We then drilled out the facet joints bilaterally at L5 and S1 and decorticated this region, and then using the Leksell, identified the 4-5 and removed the L5 spinous process, and then using a high-speed drill, drilled down the L4-5 on the left facet and all the way down to the L5-S1, and then using a b all-tip probe, freed scar tissue up until we had well decompressed the thecal sac, leaving a layer of scar tissue as this was densely adherent. I elected not to do a TLIF because of the consistency of the L5 vertebral body. I felt as if this would piston and would subside into the L5 vertebral body. We irrigated with over 2 L of gentamicin-infused saline, placed BMP into the facet joint of L5-S1 bi laterally, and placed Progenix Plus in this region. We then trocared a drain out inferiorly. Closed the fascia with 0 Vicryl pop offs, subcutaneous layer with 2-0 Vicryl pop offs, cutaneous layer of 3 -0 running nylon for the skin. Drain was sutured with a 2-0 Vicryl pop off, placed to bulb suction. The final stereotactic spin verified that all the screws were in the appropriate position. Neuro mo nitoring remained stable. Patient tolerated the procedure. FLUIDS: 2 L crystalloid. URINE OUTPUT: Not recorded. DRAINS: One ELO in the subfascial space to bulb suction. COMPLICATIONS: None. /[id number]/MODL
[2018-09-24] MEDS ORDERED: ceFAZolin 2 GM/DEXTROSE 100 ML IV SCH (14:00)
[2018-09-24] MEDS: fentaNYL 100 MCG/2 ML INJ IVP PRN ×2 (14:14→14:45)
[2018-09-24] MEDS ORDERED: HYDROmorphONE/DILAUDID 1 MG/ML INJ ONE ×3 (14:21→15:50)
[2018-09-24] MEDS: HYDROmorphONE/DILAUDID 1 MG/ML INJ IVP PRN ×7 (14:22→15:58)
--- NOTE | 2018-09-24 14:59 | POSTOPPROG ---
Post Op Note Date of Operation: 09/24/18 Surgeon: Kandi Wilde Search Planner: Kaylene Rankin PA-C Anesthesia: GET(General Endotracheal) Pre-op Diagnosis: Lumbar stenosis, L5 fracture Post-op Diagnosis: Lumbar stenosis, L5 Fracture Procedure: Removal and exploration of hardare, L3-Iliac fusion, L4/5 left laminectomy Inf/Abcess present in the surg proc area at time of surgery?: No Depth: Deep Incisional (Fascial) EBL: 100-500 Drains: Alexis Hook Plan Plan: 68 yo female s/p removal and exploration of hardware, L3-Iliac posterior screw fixation, left L4/5 lami - neuro checks - pain control - ELO drain x 1 - postop L-spine x-rays tomorrow - wear brace when out of bed - PT/OT - please call neurosurgery with any changes in neuro status/exam Exam Awake. Alert Following commands DEANGELO
--- NOTE | 2018-09-24 15:00 | POSTANESTH ---
Post Anesthetic Evaluation Cardiovascular Status: Normal, Stable Respiratory Status: Normal, Stable, Similar to Pre-op Cond. Level of Consciousness/Mental Status: Can Participate in Eval Pain Control: Adequate, Prn Tx Ordered Nausea/Vomiting Control: Adequate, Prn Tx Ordered Complications Possibly Related to Anesthesia: None Noted
[2018-09-24] MEDS: GABAPENTIN 300 MG CAP PO SCH ×3 (16:22→21:57)
[2018-09-24] MEDS: BACLOFEN 10 MG TAB PO SCH ×3 (16:23→21:59)
[2018-09-24] MEDS: clonazePAM 0.5 MG TAB PO PRN (16:23)
--- NOTE | 2018-09-24 16:48 | HOSPPROG ---
Hospitalist Progress Note Assessment/Plan: 68 yo female with h/o COPD and recent lumbar spine surgery returns to hospital after a fall found to have worsened L5 compression fracture. Course complicated by worsening hypoxemia. *Severe acute L5 compression fracture -s/p removal and exploration of hardware, L3 iliac fusion, L4/5 laminectomy POD 0 -reviewed her care with Dr Wilde -had a L3-L5 lumbar fusion 05/2018 *Acute hypoxemic hypercarbic respiratory failure -multifactorial, viral pna, COPD -was treated w high dose steroids -treated w ceftriaxone and azithro -being diuresed -Advair -on 8 liters via mask *hypotensin -will check hgb and hct -had EBL of 500 in OR today *chronic hypoxemic respiratory failure -2/2 COPD -baseline is on 4 liters -quit smoking 6 months ago *SVT episode -resolved w adenosine -non further *depression, anxiety -Zoloft, Trazodone, Klonopin, BuSpar, Wellbutrin, Nortriptyline, Abilify *morbid obesity -bmi 38.8 *leukocytosis - r/t recent steroids *chronic pain w continuous opiate dependence -appreciate pharmacist seeing her *plan: check H & H now, repeat labs in a.m. Subjective: Jhoana is having pain, describes it as surgical pain. Objective: Vital Signs Temp Pulse Resp BP Pulse Ox 36.7 C 72 23 H 92/63 L 90 L 09/24/18 16:27 09/24/18 16:27 09/24/18 16:27 09/24/18 16:27 09/24/18 16:27 Laboratory Results 09/24/18 12:20 09/24/18 04:30 09/23/18 09/24/18 09/25/18 05:59 05:59 05:59 Intake Total 8613 821 1970 Output Total 675 600 410 Balance 775 -50 3130 PT 15.7 SEC (12.0-15.0) H 09/10/18 09:45 INR 1.31 (0.83-1.16) H 09/10/18 09:45 - Physical Exam Constitutional: chronically ill appearing, obese, uncomfortable Eyes: PERRL Ears, Nose, Mouth, Throat: hearing normal Cardiovascular: regular rate and rhythym, No tachycardia Respiratory: no rales or rhonchi, reduced air movement Skin: warm Neurologic: AAOx3 Psychiatric: interacting appropriately ICD10 Worksheet Patient Problems: Problems Problem Status Onset Muscle strain of left gluteal region Acute Acute on chronic respiratory failure with hypoxemia Acute Intractable low back pain Acute L5 vertebral fracture Acute
[2018-09-24] MEDS: ceFAZolin 2 GM/DEXTROSE 100 ML IV SCH (17:58)
[2018-09-24] MEDS: ARIPiprazole 5 MG TAB PO SCH (20:47)
[2018-09-24] MEDS: busPIRone 15 MG TAB PO SCH (20:48)
[2018-09-24] MEDS: ENOXAPARIN 40 MG/0.4 ML SYR SC SCH ×2 (20:48→20:49)
[2018-09-24] MEDS: buPROPion XL 150 MG TAB PO SCH (20:48)
[2018-09-24] MEDS: CETIRIZINE 10 MG TAB PO SCH (20:48)
[2018-09-24] MEDS: guaiFENesin 600 MG TAB.ER PO SCH ×2 (20:49→21:57)
[2018-09-24] MEDS: FLUTICASONE NASAL 120 SPRAYS/16 GM MDI EACHNARE SCH (20:49)
[2018-09-24] MEDS: FUROSEMIDE 20 MG TAB PO SCH (20:49)
[2018-09-24] MEDS: SENNOSIDES/DOCUSATE SODIUM TAB PO SCH ×2 (20:50→21:57)
[2018-09-24] MEDS: LIDOCAINE 4%/MENTHOL 1% PATCH TD SCH (20:50)
[2018-09-24] MEDS: OXYMETAZOLINE 30 ML NASAL SPRAY EACHNARE SCH ×2 (20:50→22:03)
[2018-09-24] MEDS: SPIRONOLACTONE 25 MG TAB PO SCH (20:51)
[2018-09-24] MEDS: SERTRALINE HCL 100 MG TAB PO SCH (20:51)
[2018-09-24] MEDS: PATCH REMOVAL 1 EA PATCH TD SCH (22:02)
[2018-09-24] MEDS: SODIUM CL NASAL 45 ML BTL EACHNARE PRN (22:03)
[2018-09-25] MEDS: ceFAZolin 2 GM/DEXTROSE 100 ML IV SCH (01:40)
[2018-09-25] MEDS: busPIRone 15 MG TAB PO SCH ×3 (02:03→22:02)
[2018-09-25] MEDS: NORTRIPTYLINE HCL 10 MG CAP PO SCH ×2 (02:04→22:01)
[2018-09-25] MEDS: LEVOTHYROXINE 50 MCG TAB PO SCH (05:48)
[2018-09-25] MEDS: morphINE SR 30 MG TAB PO SCH (05:48)
[2018-09-25] MEDS: FLUTICASONE/SALMETER 250/50MCG DISKUS IH SCH ×2 (08:21→20:33)
--- NOTE | 2018-09-25 08:50 | NEUSURGPN ---
Assessment/Plan: 68 yo female s/p removal and exploration of hardware, L3-Iliac posterior screw fixation, left L4/5 lami POD1 - neuro checks, okay for Q4 - Optimize pain pain control - ELO drain x 1 - postop L-spine x-rays pending - wear brace when out of bed - PT/OT -Okay to transfer to the floor if approved with medicine -DVT prophx: TEDs, SCDs, Lovenox okay POD3 -Please call neurosurgery with any changes in neuro status/exam -Patient was seen by Dr. Wilde and myself Subjective: Pain tolerable with medications Objective: NAD A&Ox3 MAEx 4 5/5 and equal in BUE and BLE. Incision c/d/i - Physician Patient Seen by : [facility] Neurosurgery Physical Exam - Vitals, I&O, Labs I and O 09/24/18 09/25/18 09/26/18 05:59 05:59 05:59 Intake Total 550 6195 Output Total 600 1135 Balance -50 5060 Weight 107.9 kg 107.9 kg 109.5 kg Intake: Oral (ml) 550 1040 IV Intake (ml) 3580 IV Infused (ml) 1575 Ns 1,000 ml @ 75 mls/hr 1575 IV CONT LEE Rx#: [id number] Output: Urine (ml) 600 1035 Bedside Commode 600 Catheter 1035 ELO Drain Output (ml) 100 #1 Left Back Alexis 100 Hook Other: Intake Quantity Yes Yes Sufficient Vital Signs Temp Pulse Resp BP Pulse Ox 36.8 C 88 14 83/60 L 91 L 09/25/18 08:00 09/25/18 08:22 09/25/18 08:22 09/25/18 08:00 09/25/18 08:22 Laboratory Results 09/25/18 04:08 09/25/18 04:08 ICD10 Worksheet Patient Problems: Problems Problem Status Onset Muscle strain of left gluteal region Acute Acute on chronic respiratory failure with hypoxemia Acute Intractable low back pain Acute L5 vertebral fracture Acute
[2018-09-25] MEDS: GABAPENTIN 300 MG CAP PO SCH ×3 (09:55→22:02)
[2018-09-25] MEDS: guaiFENesin 600 MG TAB.ER PO SCH ×2 (09:56→22:02)
[2018-09-25] MEDS: SENNOSIDES/DOCUSATE SODIUM TAB PO SCH ×2 (09:56→22:01)
[2018-09-25] MEDS: SERTRALINE HCL 100 MG TAB PO SCH (09:56)
[2018-09-25] MEDS: BACLOFEN 10 MG TAB PO SCH ×3 (09:57→22:02)
[2018-09-25] MEDS: ARIPiprazole 5 MG TAB PO SCH (09:57)
[2018-09-25] MEDS: CETIRIZINE 10 MG TAB PO SCH (09:57)
[2018-09-25] MEDS: buPROPion XL 150 MG TAB PO SCH (09:57)
[2018-09-25] MEDS: SPIRONOLACTONE 25 MG TAB PO SCH (09:58)
[2018-09-25] MEDS: LIDOCAINE 4%/MENTHOL 1% PATCH TD SCH (10:00)
[2018-09-25] MEDS: OXYMETAZOLINE 30 ML NASAL SPRAY EACHNARE SCH ×2 (10:00→22:05)
[2018-09-25] MEDS: FLUTICASONE NASAL 120 SPRAYS/16 GM MDI EACHNARE SCH (10:01)
[2018-09-25] MEDS: FUROSEMIDE 20 MG TAB PO SCH (10:03)
[2018-09-25] MEDS ORDERED: NS 500 ML IV ONE (11:33)
--- NOTE | 2018-09-25 11:45 | HOSPPROG ---
Hospitalist Progress Note Assessment/Plan: DIAGNOSES: * Marked leg weakness due to spinal stenosis from a L5 compression fracture; this is her presenting symptom -status post surgery 09/[address] Wilde; some postoperative pain * Hypotension - present last several days (initial blood pressures were normal to mild high) * Acute hypoxemic hypercarbic respiratory failure from COPD exacerbation with possible respiratory infection -somewhat improved but remains on 8 L oxygen [place] * Episode of SVT, resolved * Depression anxiety, chronic stable on medications * Morbid obesity * Chronic back pain with chronic prescribed narcotic use PLANS: * Agree with Neurosurgery that she could go to [facility] * Routine postop and wound care * Continue respiratory hygiene, oxygen, bronchodilator * Careful titration of pain control medications * Will give small fluid bolus for hypotension tachycardia this morning and monitor vital signs and respirations very closely * Continue usual medicine for anxiety and depression Seen by me on hospitalist and multidisciplinary rounds Reviewed with Neurosurgery team PROCEDURES THIS ADMISSION: Echocardiogram, unremarkable Bronchoscopy with removal of large amount of thick secretions Sacroiliac fixation at S2, decompression at L4-5 and L5-S1, with autograft and allograft, remove mint and replacement of pedicle screws from prior surgery SUBJECTIVE: Some postoperative pain otherwise feels well Denies dyspnea OBJECTIVE Vitals reviewed: Some hypotension and tachycardia today, mild low-grade fever overnight respirations remain stable but still on 8 L oxygen [employer], my review: Sinus tach Exam: alert oriented skin warm dry color ok resps mildly labored lungs diminished but clear BSs heart regular mildly tachycardic abd soft nondistended nontender, bowel sounds present limbs warm, mild diffuse edema iv site ok Lab data: Hemoglobin down a bit at 8.6 Metabolic panel stable Objective: Vital Signs Temp Pulse Resp BP Pulse Ox 36.8 C 88 14 83/60 L 91 L 09/25/18 08:00 09/25/18 08:22 09/25/18 08:22 09/25/18 08:00 09/25/18 08:22 Laboratory Results 09/25/18 04:08 09/25/18 04:08 09/24/18 09/25/18 09/26/18 06:59 06:59 06:59 Intake Total 450 6195 Output Total 450 1135 Balance 0 5060 PT 15.7 SEC (12.0-15.0) H 09/10/18 09:45 INR 1.31 (0.83-1.16) H 09/10/18 09:45 - Time Spent With Patient Time Spent with Patient: greater than 35 minutes Time Spent with Patient: Greater than 35 minutes spent on this patients care, greater than 50% of time spent counseling, educating, and coordinating care regarding the above mentioned plan. ICD10 Worksheet Patient Problems: Problems Problem Status Onset Muscle strain of left gluteal region Acute Acute on chronic respiratory failure with hypoxemia Acute Intractable low back pain Acute L5 vertebral fracture Acute
[2018-09-25] MEDS: morphINE SR 60 MG TAB PO SCH (17:28)
[2018-09-25] MEDS: ENOXAPARIN 40 MG/0.4 ML SYR SC SCH (17:58)
[2018-09-25] MEDS: PATCH REMOVAL 1 EA PATCH TD SCH (22:16)
--- NOTE | 2018-09-26 01:47 | HOSPPROG ---
Hospitalist Progress Note Assessment/Plan: Hospitalist night float note Notified by RN that patient has had an increase needed oxygen requirement overnight. Patient had been complaining of some shortness of air and chest tightness.\ When I arrived to the patient's bedside she was having ABG blood drawn but she is quite somnolent would wake up and answer few questions. She denied any chest pain. She did not report any significant shortness of breath or tightness. She received baclofen shortly before a came to visit with her. A stat chest x- ray was obtained which showed diminished lung volumes cardiomegaly and possibly some pulmonary edema. Patient's blood pressures have been 80s to 90s systolic. At this time I do not feel emergent need for Lasix risk Ng further blood pressure decline rather improving patient's inspiratory volume would be more appropriate. She is in no acute distress. Discussed case with RT was been caring for patient last few evening and she noted that patient oxygenation requirements have ranged from 7-11 L. Continue with incentive spirometry. Encourage mobilization. Will continue to monitor patient's oxygen requirements. Home patient without any acute respiratory distress. She does not have any home CPAP or BiPAP. At this time I spoke with the RN and requested that sedatives be held until patient can work on inspiratory volumes and mobility. Objective: Vital Signs Temp Pulse Resp BP Pulse Ox 36.4 C 92 15 103/70 92 09/25/18 23:54 09/25/18 23:54 09/25/18 23:54 09/25/18 23:54 09/25/18 23:54 Laboratory Results 09/25/18 17:00 09/25/18 17:00 09/24/18 09/25/18 09/26/18 05:59 05:59 05:59 Intake Total 550 6195 120 Output Total 600 1135 260 Balance -50 5060 -140 PT 15.7 SEC (12.0-15.0) H 09/10/18 09:45 INR 1.31 (0.83-1.16) H 09/10/18 09:45 ICD10 Worksheet Patient Problems: Problems Problem Status Onset Muscle strain of left gluteal region Acute Acute on chronic respiratory failure with hypoxemia Acute Intractable low back pain Acute L5 vertebral fracture Acute
[2018-09-26] MEDS: morphINE SR 60 MG TAB PO SCH ×2 (05:38→18:02)
[2018-09-26] MEDS: LEVOTHYROXINE 50 MCG TAB PO SCH (05:38)
[2018-09-26] MEDS: LIDOCAINE 4%/MENTHOL 1% PATCH TD SCH (08:50)
[2018-09-26] MEDS: GABAPENTIN 300 MG CAP PO SCH ×3 (08:51→21:54)
[2018-09-26] MEDS: SPIRONOLACTONE 25 MG TAB PO SCH (08:51)
[2018-09-26] MEDS: BACLOFEN 10 MG TAB PO SCH ×3 (08:51→21:56)
[2018-09-26] MEDS: busPIRone 15 MG TAB PO SCH ×2 (08:51→21:55)
[2018-09-26] MEDS: CETIRIZINE 10 MG TAB PO SCH (08:51)
[2018-09-26] MEDS: SERTRALINE HCL 100 MG TAB PO SCH (08:51)
[2018-09-26] MEDS: buPROPion XL 150 MG TAB PO SCH (08:51)
[2018-09-26] MEDS: FUROSEMIDE 20 MG TAB PO SCH (08:52)
[2018-09-26] MEDS: SENNOSIDES/DOCUSATE SODIUM TAB PO SCH ×2 (08:52→21:55)
[2018-09-26] MEDS: guaiFENesin 600 MG TAB.ER PO SCH ×2 (08:52→21:56)
[2018-09-26] MEDS: OXYMETAZOLINE 30 ML NASAL SPRAY EACHNARE SCH ×2 (08:52→22:05)
[2018-09-26] MEDS: FLUTICASONE/SALMETER 250/50MCG DISKUS IH SCH ×2 (08:56→21:14)
[2018-09-26] MEDS: FLUTICASONE NASAL 120 SPRAYS/16 GM MDI EACHNARE SCH (08:58)
[2018-09-26] MEDS: ARIPiprazole 5 MG TAB PO SCH (09:48)
--- NOTE | 2018-09-26 15:22 | HOSPPROG ---
Hospitalist Progress Note Assessment/Plan: 68 yo female with h/o COPD and recent lumbar spine surgery returns to hospital after a fall found to have worsened L5 compression fracture. Course complicated by worsening hypoxemia. *Severe acute L5 compression fracture -s/p removal and exploration of hardware, L3 iliac fusion, L4/5 laminectomy POD 2 -had a L3-L5 lumbar fusion 05/2018 *Acute hypoxemic hypercarbic respiratory failure -multifactorial, viral pna, COPD -was treated w high dose steroids -treated w ceftriaxone and azithro -Was being diuresed, transitioned back to home Lasix 20 gm qd -Advair -Had event overnight where acutely SOB, increased 02 requirement to 13L, CXR performed overnight showing LLL PNA, started on Levaquin 750 mg qd PO this morning -Currently back down to 8 liters via mask *Hypotension -H/H stable -had EBL of 500 in OR today - Continue to monitor *chronic hypoxemic respiratory failure -2/ COPD -baseline is on 4 liters -quit smoking 6 months ago *SVT episode -resolved w adenosine -non further *depression, anxiety -Zoloft, Trazodone, Klonopin, BuSpar, Wellbutrin, Nortriptyline, Abilify *morbid obesity -bmi 38.8 *leukocytosis - r/t recent steroids *chronic pain w continuous opiate dependence -appreciate pharmacist seeing her FEN: Regular DVT PPx: Lovenox Code: FULL Dispo: Pending clinical course Subjective: Pt complaining of some LBP this AM Objective: Vital Signs Temp Pulse Resp BP Pulse Ox 36.9 C 88 20 95/66 L 92 09/26/18 12:00 09/26/18 12:00 09/26/18 12:00 09/26/18 12:00 09/26/18 12:00 Laboratory Results 09/25/18 17:00 09/26/18 04:47 09/25/18 09/26/18 09/27/18 05:59 05:59 05:59 Intake Total 6195 600 Output Total 1135 330 Balance 5060 270 PT 15.7 SEC (12.0-15.0) H 09/10/18 09:45 INR 1.31 (0.83-1.16) H 09/10/18 09:45 - Physical Exam Constitutional: chronically ill appearing Eyes: PERRL Ears, Nose, Mouth, Throat: moist mucous membranes Cardiovascular: regular rate and rhythym Respiratory: reduced air movement Gastrointestinal: soft, non-tender abdomen Skin: warm Musculoskeletal: pain with ROM Neurologic: AAOx3 Psychiatric: interacting appropriately ICD10 Worksheet Patient Problems: Problems Problem Status Onset Muscle strain of left gluteal region Acute Acute on chronic respiratory failure with hypoxemia Acute Intractable low back pain Acute L5 vertebral fracture Acute
--- NOTE | 2018-09-26 15:43 | SOAPPROG ---
SOAP Progress Note Assessment/Plan: Assessment: 68 yo F POD #2 L3-iliac fusion with L4/5 laminectomy Plan: neuro: stabe general weakness in legs, continue PT/OT upright lumbar spine x-rays when able scd/isabela/lovenox for dvt prophylaxis Shon x 1 please call with neuro changes discussed with Dr Wilde 09/26/18 15:41 Subjective: back pain improving, no leg pain, legs feel weak. Objective: Vital Signs Temp Pulse Resp BP Pulse Ox 36.8 C 97 18 108/72 90 L 09/26/18 15:35 09/26/18 15:35 09/26/18 15:35 09/26/18 15:35 09/26/18 15:35 Laboratory Results 09/25/18 17:00 09/26/18 04:47 09/25/18 09/26/18 09/27/18 05:59 05:59 05:59 Intake Total 6195 600 Output Total 1135 330 Balance 5060 270 PT 15.7 SEC (12.0-15.0) H 09/10/18 09:45 INR 1.31 (0.83-1.16) H 09/10/18 09:45 AAOx4, +FC PERRL, EOMI, no facial droop 5/5 except left Df 4+/5 + light touch C/D/I ICD10 Worksheet Patient Problems: Problems Problem Status Onset Muscle strain of left gluteal region Acute Acute on chronic respiratory failure with hypoxemia Acute Intractable low back pain Acute L5 vertebral fracture Acute
--- NOTE | 2018-09-26 20:37 | CPEKG ---
Test Reason : OPEN Blood Pressure : / mmHG Vent. Rate : 166 BPM Atrial Rate : 000 BPM P-R Int : 115 ms QRS Dur : 098 ms QT Int : 295 ms P-R-T Axes : 000 002 164 degrees QTc Int : 491 ms Supraventricular tachycardia Repolarization abnormality, prob rate related SVT has replaced sinus bradycardia on prior Confirmed by Manjeet Bush ([id number] on 09/26/2018 8:37:23 PM Referred By: Gwendolyn Galicia Confirmed By:Manjeet Bush
[2018-09-26] MEDS: NORTRIPTYLINE HCL 10 MG CAP PO SCH (21:56)
[2018-09-26] MEDS: traZODone 100 MG TAB PO PRN (21:59)
[2018-09-26] MEDS: PATCH REMOVAL 1 EA PATCH TD SCH (22:06)
[2018-09-26] MEDS ORDERED: POTASSIUM CL 20 MEQ TAB PO ONE (22:38)
[2018-09-27] MEDS: LEVOTHYROXINE 50 MCG TAB PO SCH (05:36)
[2018-09-27] MEDS: morphINE SR 60 MG TAB PO SCH (05:36)
--- NOTE | 2018-09-27 07:36 | NEUSURGPN ---
Assessment/Plan: Assessment/Plan: 68 yo female s/p removal and exploration of hardware, L3-Iliac posterior screw fixation, left L4/5 lami POD2 - neuro- per RN patient has been noticeably confused, somnolent and o2 sats low. MS contin was held yesterday morning and last night and was clearer and pain still reasonably under control. Spoke with RN and will try decreasing MS Contin dose to 30mg BID and see if this helps. - Optimize pain pain control - ELO drain x 1-output 110 yesterday during the day, 30 overnight. Likely keep in today - postop L-spine x-rays pending - wear brace when out of bed - PT/OT- encourage OOB today at least to chair! -Encourage pulmonary toilet -DVT prophx: TEDs, SCDs, Lovenox okay POD3 -Please call neurosurgery with any changes in neuro status/exam -Patient was seen by Dr. Wilde and myself Subjective: Doing ok this morning. Pain under reasonable control. Has not been out of bed yet to chair or up with PT due to somnolence yesterday mostly. Objective: NAD A&Ox3 High flow O2 mask in place MAEx 4 LLE weaker 3+/5 DF/EHL 4+/5 HF, Quad, RLE 5/5 all muscle groups Incision c/d/i ELO X 1- minimal serosang in bulb currently - Physician Discussed Patient with : [facility] Physical Exam - Vitals, I&O, Labs I and O 09/26/18 09/27/18 09/28/18 05:59 05:59 05:59 Intake Total 600 1650 Output Total 330 780 Balance 270 870 Weight 109.5 kg 114 kg Intake: Oral (ml) 600 1650 Output: Urine (ml) 750 Catheter 750 ELO Drain Output (ml) 330 30 #1 Left Back Alexis 330 30 Hook Other: Intake Quantity Yes Sufficient Number of Voids Bedpan 1 Incontinence 1 Number of Stools Bedpan 1 Bladder Scan Volume (ml) Catheter 168 Vital Signs Temp Pulse Resp BP Pulse Ox 36.8 C 82 16 89/63 L 93 09/27/18 07:27 09/27/18 07:27 09/27/18 07:27 09/27/18 07:27 09/27/18 07:27 Laboratory Results 09/25/18 17:00 09/27/18 04:45 ICD10 Worksheet Patient Problems: Problems Problem Status Onset Muscle strain of left gluteal region Acute Acute on chronic respiratory failure with hypoxemia Acute Intractable low back pain Acute L5 vertebral fracture Acute
[2018-09-27] MEDS: FLUTICASONE/SALMETER 250/50MCG DISKUS IH SCH ×2 (08:29→20:15)
[2018-09-27] MEDS: busPIRone 15 MG TAB PO SCH ×2 (09:45→20:13)
[2018-09-27] MEDS: SERTRALINE HCL 100 MG TAB PO SCH (09:45)
[2018-09-27] MEDS: ENOXAPARIN 40 MG/0.4 ML SYR SC SCH (09:45)
[2018-09-27] MEDS: guaiFENesin 600 MG TAB.ER PO SCH ×2 (09:45→20:13)
[2018-09-27] MEDS: FUROSEMIDE 20 MG TAB PO SCH (09:45)
[2018-09-27] MEDS: SPIRONOLACTONE 25 MG TAB PO SCH (09:45)
[2018-09-27] MEDS: ARIPiprazole 5 MG TAB PO SCH (09:46)
[2018-09-27] MEDS: BACLOFEN 10 MG TAB PO SCH ×3 (09:46→22:58)
[2018-09-27] MEDS: buPROPion XL 150 MG TAB PO SCH (09:46)
[2018-09-27] MEDS: GABAPENTIN 300 MG CAP PO SCH ×3 (09:46→22:57)
[2018-09-27] MEDS: SENNOSIDES/DOCUSATE SODIUM TAB PO SCH ×2 (09:46→20:13)
[2018-09-27] MEDS: CETIRIZINE 10 MG TAB PO SCH (09:46)
[2018-09-27] MEDS: OXYMETAZOLINE 30 ML NASAL SPRAY EACHNARE SCH ×3 (09:47→20:25)
[2018-09-27] MEDS: FLUTICASONE NASAL 120 SPRAYS/16 GM MDI EACHNARE SCH (09:47)
[2018-09-27] MEDS: LIDOCAINE 4%/MENTHOL 1% PATCH TD SCH (09:48)
--- NOTE | 2018-09-27 11:17 | ASMTCMCOM ---
CM Note CM Note Notes: CM discussed case w/ Dr. Jane. The plan is still for pt to d/c to [facility]. Neurosurg may d/c ELO drain either today or tomorrow. Anticipate d/c for tomorrow if pt continues to do well. Updates sent to [facility]. CM to follow. Plan: [facility] Date Signed: 09/27/2018 11:16 AM Electronically Signed By:CORDELL Camargo
--- NOTE | 2018-09-27 15:12 | HOSPPROG ---
Hospitalist Progress Note Assessment/Plan: 68 yo female with h/o COPD and recent lumbar spine surgery returns to hospital after a fall found to have worsened L5 compression fracture. Course complicated by worsening hypoxemia. *Severe acute L5 compression fracture -s/p removal and exploration of hardware, L3 iliac fusion, L4/5 laminectomy POD 3 -had a L3-L5 lumbar fusion 05/2018 *Acute hypoxemic hypercarbic respiratory failure -multifactorial, viral pna, COPD -was treated w high dose steroids -treated w ceftriaxone and azithro -Was being diuresed, transitioned back to home Lasix 20 gm qd -Advair -Had event overnight on 09/25-09/26 where acutely SOB, increased 02 requirement to 13L, CXR performed showing LLL PNA, started on Levaquin 750 mg qd PO on 09/26, Day 2/likely 5 day course -Currently back down to 5 liters via NC this AM *Hypotension -H/H stable -had EBL of 500 in OR - Continue to monitor *chronic hypoxemic respiratory failure -2/2 COPD -baseline is on 4 liters -quit smoking 6 months ago *SVT episode -resolved w adenosine -non further *depression, anxiety -Zoloft, Trazodone, Klonopin, BuSpar, Wellbutrin, Nortriptyline, Abilify *morbid obesity -bmi 38.8 *leukocytosis - r/t recent steroids *chronic pain w continuous opiate dependence -appreciate pharmacist seeing her FEN: Regular DVT PPx: Lovenox Code: FULL Dispo: Pending clinical course, PT recommending SNF, accepted at [facility] Subjective: Pt reports continued back pain this AM Objective: Vital Signs Temp Pulse Resp BP Pulse Ox 37.5 C 86 20 91/63 L 88 L 09/27/18 12:08 09/27/18 12:08 09/27/18 08:32 09/27/18 12:08 09/27/18 12:08 Laboratory Results 09/25/18 17:00 09/27/18 04:45 09/26/18 09/27/18 09/28/18 05:59 05:59 05:59 Intake Total 600 1650 Output Total 330 780 30 Balance 270 870 -30 PT 15.7 SEC (12.0-15.0) H 09/10/18 09:45 INR 1.31 (0.83-1.16) H 09/10/18 09:45 - Physical Exam Constitutional: no apparent distress Eyes: PERRL Ears, Nose, Mouth, Throat: moist mucous membranes Cardiovascular: regular rate and rhythym Respiratory: no respiratory distress Gastrointestinal: soft, non-tender abdomen Skin: warm Musculoskeletal: pain with ROM Neurologic: AAOx3 Psychiatric: interacting appropriately ICD10 Worksheet Patient Problems: Problems Problem Status Onset Muscle strain of left gluteal region Acute Acute on chronic respiratory failure with hypoxemia Acute Intractable low back pain Acute L5 vertebral fracture Acute
[2018-09-27] MEDS ORDERED: POTASSIUM CL 10 MEQ TAB PO ONE ×2 (15:58→19:52)
[2018-09-27] MEDS: morphINE SR 30 MG TAB PO SCH (16:10)
[2018-09-27] MEDS: NORTRIPTYLINE HCL 10 MG CAP PO SCH (20:13)
[2018-09-27] MEDS: PATCH REMOVAL 1 EA PATCH TD SCH (20:15)
[2018-09-27] MEDS: CALCIUM CARBONATE 500 MG CHEWABLE TAB PO PRN (20:16)
[2018-09-27] MEDS: traZODone 100 MG TAB PO PRN (20:19)
[2018-09-28] MEDS: morphINE SR 30 MG TAB PO SCH ×2 (04:41→16:43)
[2018-09-28] MEDS: LEVOTHYROXINE 50 MCG TAB PO SCH (04:41)
[2018-09-28] MEDS ORDERED: POTASSIUM CL 10 MEQ TAB PO ONE (07:33)
[2018-09-28] MEDS: CETIRIZINE 10 MG TAB PO SCH (08:06)
[2018-09-28] MEDS: buPROPion XL 150 MG TAB PO SCH (08:06)
[2018-09-28] MEDS: SERTRALINE HCL 100 MG TAB PO SCH (08:06)
[2018-09-28] MEDS: FUROSEMIDE 20 MG TAB PO SCH (08:06)
[2018-09-28] MEDS: GABAPENTIN 300 MG CAP PO SCH ×2 (08:06→15:38)
[2018-09-28] MEDS: guaiFENesin 600 MG TAB.ER PO SCH (08:06)
[2018-09-28] MEDS: SPIRONOLACTONE 25 MG TAB PO SCH (08:06)
[2018-09-28] MEDS: ENOXAPARIN 40 MG/0.4 ML SYR SC SCH (08:07)
[2018-09-28] MEDS: busPIRone 15 MG TAB PO SCH (08:07)
[2018-09-28] MEDS: BACLOFEN 10 MG TAB PO SCH ×2 (08:07→15:39)
[2018-09-28] MEDS: ARIPiprazole 5 MG TAB PO SCH (08:07)
[2018-09-28] MEDS: FLUTICASONE NASAL 120 SPRAYS/16 GM MDI EACHNARE SCH (08:07)
[2018-09-28] MEDS: OXYMETAZOLINE 30 ML NASAL SPRAY EACHNARE SCH (08:07)
[2018-09-28] MEDS: LIDOCAINE 4%/MENTHOL 1% PATCH TD SCH (08:08)
[2018-09-28] MEDS: FLUTICASONE/SALMETER 250/50MCG DISKUS IH SCH (08:08)
[2018-09-28] MEDS: SENNOSIDES/DOCUSATE SODIUM TAB PO SCH (08:08)
--- NOTE | 2018-09-28 08:13 | NEUSURGPN ---
Assessment/Plan: 68 yo female s/p removal and exploration of hardware, L3-Iliac posterior screw fixation, left L4/5 lami - neuro- improved with decreasing MScontin, worsening left foot swelling and pain. - Optimize pain pain control - postop L-spine x-rays pending - wear brace when out of bed - PT/OT- encourage OOB today at least to chair! -Encourage pulmonary toilet -DVT prophx: TEDs, SCDs, Lovenox okay POD3 -Please call neurosurgery with any changes in neuro status/exam -Patient was seen by Dr. Wilde and myself Subjective: Doing ok this morning. Pain under reasonable control. increased left foot pain and weakness Objective: Objective: NAD A&Ox3 High flow O2 mask in place MAEx 4 LLE weaker 2/5 DF/EHL 4+/5 HF, Quad, RLE 5/5 all muscle groups Incision c/d/i swelling on left foot Neurosurgery Physical Exam - Vitals, I&O, Labs I and O 09/27/18 09/28/18 09/29/18 05:59 05:59 05:59 Intake Total 1650 400 Output Total 780 830 Balance 870 -430 Weight 114 kg 112.3 kg Intake: Oral (ml) 1650 400 Output: Urine (ml) 750 800 Catheter 750 800 ELO Drain Output (ml) 30 30 #1 Left Back Alexis 30 30 Hook Other: Number of Voids Incontinence 1 Number of Stools Bedpan 1 Toilet 1 Vital Signs Temp Pulse Resp BP Pulse Ox 36.7 C 73 17 102/71 94 09/28/18 08:00 09/28/18 08:00 09/28/18 08:00 09/28/18 08:00 09/28/18 08:00 Laboratory Results 09/28/18 05:20 09/28/18 05:20 ICD10 Worksheet Patient Problems: Problems Problem Status Onset Muscle strain of left gluteal region Acute Acute on chronic respiratory failure with hypoxemia Acute Intractable low back pain Acute L5 vertebral fracture Acute
--- NOTE | 2018-09-28 13:10 | PDIAF ---
- Diagnosis Diagnosis: recent lumbar fusion, left hip tendinopathy, weakness Code Status: Full Code - Medication Management [facility] Antibiotics: Levaquin 750 mg qd Flight/Transport Nurse Antibiotic Stop Date: 09/30/18 Discharge Medications: electronically signed and located in the Home Medication List. PICC Care - Routine: N/A - Orders Services needed: Home Care, Registered Nurse, Physical Therapy, Occupational Therapy Home Care Face to Face: I certify that this patient was under my care and that I had the required [id number] encounter meeting the encounter requirements on the discharge day. My findings support the fact that the patient is homebound as defined in Home Care Face to Face Continued: CMS Chapter 7 Medicare Benefits Manual 30.1.1 , The condition of the patient is such that there exists a normal inability to leave home and consequently, leaving home would require a considerable and taxing effort. Oxygen: 4 LPM Diet Recommendation: no restrictions on diet - Follow Up Care Current Providers and Referrals: Patient,NotPresent [Unknown] - As per Instructions
--- NOTE | 2018-09-28 14:10 | ASMTCMCOM ---
CM Note CM Note Notes: Pts case discussed w/ Dr. Jane. Pt is being d/c'd today to [facility]. DC orders sent. [facility] arranged for a stretcher transport due to spinal fusion and cannot sit in a wheelchair for long periods at a time. CM notified [facility] and [facility] of the d/c. CM notified pts daughter Karen (P#: [phone]). CATY Roman will call to give report. PCS form completed and a copy is in pts chart. CM available for changes. Plan: [facility] Date Signed: 09/28/2018 02:08 PM Electronically Signed By:CORDELL Camargo
[2018-09-28] MEDS ORDERED: NYSTATIN SUSP 500000 UNIT/5 ML UD LIQ PO SCH (16:00)
--- NOTE | 2018-09-28 16:31 | PDDCSUM ---
Discharge Summary Discharge Summary: Date of Admission: 09/03/2018 Date of Discharge: 09/28/2018 Consults: Neurosurgery, Pulmonology Procedures: s/p removal and exploration of hardware, L3 iliac fusion, L4/5 laminectomy POD 4 Followup: PCP, Neurosurgery Hospital Course Problem List: 68 yo female with h/o COPD and recent lumbar spine surgery returns to hospital after a fall found to have worsened L5 compression fracture. Course complicated by worsening hypoxemia. *Severe acute L5 compression fracture -s/p removal and exploration of hardware, L3 iliac fusion, L4/5 laminectomy POD 4 -had a L3-L5 lumbar fusion 05/2018 *Acute hypoxemic hypercarbic respiratory failure -multifactorial, viral pna, COPD -was treated w high dose steroids -treated w ceftriaxone and azithro -Was being diuresed, transitioned back to home Lasix 20 gm qd -Advair -Had event overnight on 09/25-09/26 where acutely SOB, increased 02 requirement to 13L, CXR performed showing LLL PNA, started on Levaquin 750 mg qd PO on 09/26, Day 2/likely 5 day course -Currently back down to 5 liters via NC this AM *Hypotension -H/H stable -had EBL of 500 in OR - Continue to monitor *chronic hypoxemic respiratory failure -2/2 COPD -baseline is on 4 liters -quit smoking 6 months ago *SVT episode -resolved w adenosine -non further *depression, anxiety -Zoloft, Trazodone, Klonopin, BuSpar, Wellbutrin, Nortriptyline, Abilify *morbid obesity -bmi 38.8 *leukocytosis - r/t recent steroids *chronic pain w continuous opiate dependence -appreciate pharmacist seeing her Time spent on discharge was >35 minutes with >50% of time spent on patient education and counseling.
[2018-09-28 16:47] VITALS: BP 101/72
== END 2018-09-28 18:16 | DRG 459 ==
LOC: EDUNIT# → OBSVTOIN 10:46 → F3E 11:29 → F2N 09-06 13:54 → F3N 09-20 13:47 → F2N 09-24 12:55 → F3N 09-25 16:29
PROVIDERS: ADMIT Hospitalist; ATTEND Hospitalist
PROC: 0B998ZZ Drainage of Lingula Bronchus, Via Natural or Artificial Opening Endoscopic (ICD-10-PCS; 2018-09-11)
PROC: 0B9B8ZZ Drainage of Left Lower Lobe Bronchus, Via Natural or Artificial Opening Endoscopic (ICD-10-PCS; 2018-09-11)
PROC: 4A1004G Monitoring of Central Nervous Electrical Activity, Intraoperative, Open Approach (ICD-10-PCS; principal; 2018-09-24 07:30)
PROC: 0SP00AZ Removal of Interbody Fusion Device from Lumbar Vertebral Joint, Open Approach (ICD-10-PCS; principal; 2018-09-24 07:30)
PROC: 00NY0ZZ Release Lumbar Spinal Cord, Open Approach (ICD-10-PCS; principal; 2018-09-24 07:30)
PROC: 8E0WXBZ Computer Assisted Procedure of Trunk Region (ICD-10-PCS; principal; 2018-09-24 07:30)
PROC: 0SG3071 Fusion of Lumbosacral Joint with Autologous Tissue Substitute, Posterior Approach, Posterior Column, Open Approach (ICD-10-PCS; principal; 2018-09-24 07:30)
DX: S32.050A Wedge compression fracture of fifth lumbar vertebra, initial encounter for closed fracture (principal); J96.21 Acute and chronic respiratory failure with hypoxia; J96.02 Acute respiratory failure with hypercapnia; F11.20 Opioid dependence, uncomplicated; I47.1 Supraventricular tachycardia; W18.39XA Other fall on same level, initial encounter; Y92.012 Bathroom of single-family (private) house as the place of occurrence of the external cause; I95.9 Hypotension, unspecified; J44.9 Chronic obstructive pulmonary disease, unspecified; F32.9 Major depressive disorder, single episode, unspecified; F41.9 Anxiety disorder, unspecified; E66.01 Morbid (severe) obesity due to excess calories; G89.29 Other chronic pain; E03.9 Hypothyroidism, unspecified; G47.00 Insomnia, unspecified; G47.33 Obstructive sleep apnea (adult) (pediatric); Z98.1 Arthrodesis status; Z87.891 Personal history of nicotine dependence; Z68.38 Body mass index [BMI] 38.0-38.9, adult
CPT/HCPCS: 96374; 97110-GP; 97116-GP; 97162-GP; 97164-GP; 97166-GO; 97530-GO; 97530-GP; 97535-GO; C1713; J0153; J0456; J0690; J0696; J1100; J1120; J1170; J1580; J1650; J1885; J1940; J2060; J2250; J2370; J2405; J2704; J2765; J2930; J3010; J3360; J7512; J7613; P9041; Q9967